=== PATIENT | female | born 1960 | race Caucasian/White ===

== ENCOUNTER 2024-07-27 02:10 | Inpatient (IN) | payer OTHER, SELFPAY ==
--- NOTE | 2024-07-26 22:16 | ED.GENMED ---
History of Present Illness
<VENESSA Velazquez - Last Filed: 07/27/24 02:24>
General
Chief Complaint: Cardiac Symptoms
Source: patient
Exam Limitations: none
Time Seen by Provider: 07/26/24 22:08
Nursing documentation reviewed up to this point in time: agreed with
History of Present Illness
History of Present Illness:
Patient is a 64-year-old female past medical history of A-fib CHF hypertension, hearing impaired who lives with brother presents to the ER via triage complaining of shortness of breath and chest pain for several weeks along with lower extremity
swelling.
Patient admits to having a history bedbugs. She presents very unkept with poor hygiene. Language line used for assistance. Patient has not taken any of her medicine in at least 6 months.
She denies any recent illness fever chills. She does not smoke.
Patient does have a history of A-fib and had cardioversion November 2022
Past History
<VENESSA Velazquez - Last Filed: 07/27/24 02:24>
Past History
ED Past Medical History: Arrthythmia (Atrial fibrillation), CHF, HTN and Other (eaf)
ED Past Surgical History: None
Patient has exhibited threatening behavior?: No
Social History
Tobacco: Non-smoker
Alcohol: None
Drug: None
Personal: Other
Living: with family
Employment: Other
Family History
Family History: Unable to obtain
Review of Systems
<VENESSA Velazquez - Last Filed: 07/27/24 02:24>
Review of Systems
Allergies reviewed?: Yes
All Other Systems: ROS reviewed and negative except as documented in HPI and ROS
Constitutional: Reports no symptoms
EENT: Reports no symptoms
Respiratory: Reports cough and trouble breathing
Cardiac: Reports chest pain and palpitations; Denies syncope
ABD/GI: Reports no symptoms
: Reports no symptoms
Musculoskeletal: Reports other (Swelling of lower extremities bilaterally)
Skin: Reports no symptoms
Neurological: Reports no symptoms
Psychiatric: Reports no symptoms
Phy Exam
<VENESSA Velazquez - Last Filed: 07/27/24 02:24>
General Physical Exam
General Presentation: no apparent distress
General age: appears older than age
General Skin: warm and dry
General Habitus: poor hygiene
General Mental: alert
General Hydration: appears well hydrated
Cardiovascular Exam
Cardiovascular Exam: irregularly irregular
Neurological Exam
Neurological Exam: alert and oriented x3
Musculoskeletal Exam
Musculoskeletal Exam: other (+ swelling to b/l l/e ; extremities l/e pulses by doppler )
Skin Exam
Skin Exam: normal color and warm/dry
Psychiatric Exam
Psychiatric Exam: normal mood/affect
Course
<VENESSA Velazquez - Last Filed: 07/27/24 02:24>
Orders/Labs/Results
Orders:
Orders
07/26/24 21:56
EKG [Electrocardiogram (*1)] Urgent
Reason for Study: Atrial Fibrillation
EKG- Treatment ONCE
07/26/24 22:28
CR Chest Portable - 1 View Urgent
Comment:
Reason For Exam: sob, rapid afib
Reason Study Needs to be Portable: Unable to Transport
07/26/24 22:36
Diltiazem 125 mg/125 ml Nss [Cardizem] 125 mg in 125 ml IV NOW
Initial dose in mg/hr, then titrate:: 5
Titrate to keep:: Heart rate 80-100 bpm
Titrate by mg/hr:: 5 mg/hr
Frequency of titrations (minutes):: 15
Maximum dose in mg/hr:: 15
Diltiazem HCl [Cardizem] 10 mg IV NOW STA
07/26/24 22:50
Complete Blood Count/With Diff Urgent
Comprehensive Metabolic Panel Urgent
Magnesium Urgent
NT-proBNP Urgent
PTT Urgent
TSH Reflex To Free T4 Urgent
Troponin I Urgent
07/27/24 00:06
Furosemide [Lasix] 40 mg IV NOW STA
07/27/24 00:31
B-Hydroxybutyrate Urgent
Comment: ADDED
Lactic Acid Urgent
Procalcitonin Urgent
PCT Algorithmm Indication: Respiratory
07/27/24 01:15
Urinalysis Reflex To Culture Urgent
Date Specimen was Collected: 07/27/24
Time Specimen was Collected: 02:08
07/27/24 01:21
Add On- LAB Urgent
Comments:: B-Hydroxybutyrate
Tests Added?: B-Hydroxybutyrate
07/27/24 01:42
Admit/Transfer Patient As Directed
Co-Sign Provider:
Level of Care: Inpatient admission
Assign to:: IMU- Intermediate Care
Physician / Group: Norberto
Diagnosis: A-Fib with RVR, CHF
Reason for Hospitalization: A-Fib with RVR, CHF
Expected length of stay greater than two midnights?: Yes
ELOS- Estimated Length of Stay in days: 4
I certify the patient meets the requirements for IP care: Yes
Metoprolol Xl [Toprol Xl] 50 mg PO NOW STA
PRN Pain Medication Management As Directed
May give lesser potent ordered pain med per pt: Yes
preference::
Protocol:: Medication orders for pain may be administered in a
manner that supports deferring to patient preference
when the pt is:
- Requesting an ordered lesser potent pain medication.
Least to most potent pain medications are defined
as: acetaminophen < NSAID < tramadol < opioids
(morphine, oxycodone, hydromorphone).
- Requesting a lesser dose of the same medication IF
ORDERED.
- Requesting a less intrusive route of administration
if both routes are prescribed by the provider (PO <
IV).
07/27/24 01:44
Code Status As Directed
Resuscitation Status: Full Code
07/27/24 02:00
Flush (0.9% Sodium Chloride) [Flush (Nss)] See Dose Instructions IV PER PROTOCOL
Abnormal Lab Results
07/26/24 07/27/24
22:50 00:31
WBC 11.9 H 10^3/uL
(4.8-10.8)
Hgb 10.4 L g/dL
(12.0-16.0)
Hct 34.3 L %
(37.0-47.0)
MCV 75.2 L fL
(81.0-99.0)
MCH 22.8 L pg
(27.0-31.0)
MCHC 30.3 L g/dL
(33.0-37.0)
RDW 18.8 H %
(11.5-14.5)
MPV 10.5 H fL
(7.4-10.4)
Abs Immat Gran (auto) 0.1 H 10^3/uL
(0-0.05)
Absolute Neuts (auto) 10.5 H 10^3/uL
(1.4-6.5)
Absolute Lymphs (auto) 0.6 L 10^3/uL
(1.2-3.4)
Absolute Monos (auto) 0.8 H 10^3/uL
(0.1-0.6)
Neutrophils % 87.7 H %
(42.2-75.2)
Lymphocytes % 5.1 L %
(20.5-51.1)
Carbon Dioxide 17 L mmol/L
(22-30)
BUN 35 H mg/dl
(7-17)
Creatinine 1.1 H mg/dL
(0.6-1.0)
Total Bilirubin 2.6 H mg/dl
(0.2-1.3)
Procalcitonin 0.30 H ng/ml
(0.0-0.25)
B-Hydroxybutyrate 1.21 H mmol/L
(0.02-0.27)
07/26/24 22:50
07/26/24 22:50
Vital Signs
Initial and Last Documented VS:
Initial Vital Signs
Pulse Resp BP
157 39 126/95
07/26/24 22:27 07/26/24 22:27 07/26/24 22:27
Last Documented Vital Signs
Temp Pulse Resp BP Pulse Ox
98.6 F 135 27 130/103 95
07/27/24 00:10 07/27/24 02:11 07/27/24 02:00 07/27/24 02:11 07/27/24 01:45
[place] consulted with Physician
[place] consulted with physician?: Yes
Name of Physician Consulted: deysi
<Melinda Rangel, DO - Last Filed: 07/27/24 00:33>
Orders/Labs/Results
Orders:
Orders
07/26/24 21:56
EKG [Electrocardiogram (*1)] Urgent
Reason for Study: Atrial Fibrillation
EKG- Treatment ONCE
07/26/24 22:28
CR Chest Portable - 1 View Urgent
Comment:
Reason For Exam: sob, rapid afib
Reason Study Needs to be Portable: Unable to Transport
07/26/24 22:36
Diltiazem 125 mg/125 ml Nss [Cardizem] 125 mg in 125 ml IV NOW
Initial dose in mg/hr, then titrate:: 5
Titrate to keep:: Heart rate 80-100 bpm
Titrate by mg/hr:: 5 mg/hr
Frequency of titrations (minutes):: 15
Maximum dose in mg/hr:: 15
Diltiazem HCl [Cardizem] 10 mg IV NOW STA
07/26/24 22:50
Complete Blood Count/With Diff Urgent
Comprehensive Metabolic Panel Urgent
Magnesium Urgent
NT-proBNP Urgent
PTT Urgent
TSH Reflex To Free T4 Urgent
Troponin I Urgent
07/27/24 00:06
Furosemide [Lasix] 40 mg IV NOW STA
07/27/24 00:31
B-Hydroxybutyrate Urgent
Comment: ADDED
Lactic Acid Urgent
Procalcitonin Urgent
PCT Algorithmm Indication: Respiratory
07/27/24 01:15
Urinalysis Reflex To Culture Urgent
Date Specimen was Collected: 07/27/24
Time Specimen was Collected: 02:08
07/27/24 01:21
Add On- LAB Urgent
Comments:: B-Hydroxybutyrate
Tests Added?: B-Hydroxybutyrate
07/27/24 01:42
Admit/Transfer Patient As Directed
Co-Sign Provider:
Level of Care: Inpatient admission
Assign to:: IMU- Intermediate Care
Physician / Group: Norberto
Diagnosis: A-Fib with RVR, CHF
Reason for Hospitalization: A-Fib with RVR, CHF
Expected length of stay greater than two midnights?: Yes
ELOS- Estimated Length of Stay in days: 4
I certify the patient meets the requirements for IP care: Yes
Metoprolol Xl [Toprol Xl] 50 mg PO NOW STA
PRN Pain Medication Management As Directed
May give lesser potent ordered pain med per pt: Yes
preference::
Protocol:: Medication orders for pain may be administered in a
manner that supports deferring to patient preference
when the pt is:
- Requesting an ordered lesser potent pain medication.
Least to most potent pain medications are defined
as: acetaminophen < NSAID < tramadol < opioids
(morphine, oxycodone, hydromorphone).
- Requesting a lesser dose of the same medication IF
ORDERED.
- Requesting a less intrusive route of administration
if both routes are prescribed by the provider (PO <
IV).
07/27/24 01:44
Code Status As Directed
Resuscitation Status: Full Code
07/27/24 02:00
Flush (0.9% Sodium Chloride) [Flush (Nss)] See Dose Instructions IV PER PROTOCOL
Abnormal Lab Results
07/26/24 07/27/24
22:50 00:31
WBC 11.9 H 10^3/uL
(4.8-10.8)
Hgb 10.4 L g/dL
(12.0-16.0)
Hct 34.3 L %
(37.0-47.0)
MCV 75.2 L fL
(81.0-99.0)
MCH 22.8 L pg
(27.0-31.0)
MCHC 30.3 L g/dL
(33.0-37.0)
RDW 18.8 H %
(11.5-14.5)
MPV 10.5 H fL
(7.4-10.4)
Abs Immat Gran (auto) 0.1 H 10^3/uL
(0-0.05)
Absolute Neuts (auto) 10.5 H 10^3/uL
(1.4-6.5)
Absolute Lymphs (auto) 0.6 L 10^3/uL
(1.2-3.4)
Absolute Monos (auto) 0.8 H 10^3/uL
(0.1-0.6)
Neutrophils % 87.7 H %
(42.2-75.2)
Lymphocytes % 5.1 L %
(20.5-51.1)
Carbon Dioxide 17 L mmol/L
(22-30)
BUN 35 H mg/dl
(7-17)
Creatinine 1.1 H mg/dL
(0.6-1.0)
Total Bilirubin 2.6 H mg/dl
(0.2-1.3)
Procalcitonin 0.30 H ng/ml
(0.0-0.25)
B-Hydroxybutyrate 1.21 H mmol/L
(0.02-0.27)
07/26/24 22:50
07/26/24 22:50
Vital Signs
Initial and Last Documented VS:
Initial Vital Signs
Pulse Resp BP
157 39 126/95
07/26/24 22:27 07/26/24 22:27 07/26/24 22:27
Last Documented Vital Signs
Temp Pulse Resp BP Pulse Ox
98.6 F 135 27 130/103 95
07/27/24 00:10 07/27/24 02:11 07/27/24 02:00 07/27/24 02:11 07/27/24 01:45
<VENESSA Velazquez - Last Filed: 07/27/24 02:24>
MDM/Problems Addressed
MDM/Problems Addressed:
As documented patient is a 64-year-old female with above medical history presents with shortness of breath chest pain and lower extremity swelling. Patient is hearing impaired language line used in translation. Patient presents with poor hygiene.
She does live with her brother does admit to having bedbugs. She has not taken her medicine in over 6 months because of money issues. She presents in rapid A-fib
Her hygiene is poor.
She does have lower extremity swelling pulses felt by Doppler. Cardizem ordered. Case reviewed with ED physician who evaluated patient.
Patient denies any fevers is afebrile white count minimally elevated 11.9, her renal function is at baseline her bilirubin however is elevated at 2.6 with normal LFTs. Her proBNP is elevated at 13,400 and her chest x-ray does look like CHF.
Patient was given Lasix IV and admitted to the hospitalist service. Patient was admitted to the hospitalist service who does recommend resuming Eliquis for stroke risk reduction
Chronic conditions affecting care:
A-fib noncompliant on medications CHF hypertension
<VENESSA Velazquez - Last Filed: 07/27/24 02:24>
*Critical Care Note
Total Time (30-74mins, 75-104mins- exclusive of procedures): Not Applicable
ED Attending Note
<VENESSA Velazquez - Last Filed: 07/27/24 02:24>
-
Portions of this chart may have been created with voice recognition software.� Occasional wrong word or��sound alike� substitutions may have occurred due to the inherent limitations of voice recognition software.
<Melinda Rangel DO - Last Filed: 07/27/24 00:33>
ED Attending Note
Patient seen and examined by attending physician: Yes
I performed a history and physical exam of patient and discussed management with resident, I reviewed resident's note and agree with documented findings and plan of care.: Yes
ED Attending Note:
64-year-old woman with history of PAF, reduced EF heart failure, history of poor compliance with medications as well as follow-up presents with palpitations, cough, progressive swelling bilateral feet that began 3 to 4 weeks ago.
Has been out of her medications for at least 6 months.
Very similar presentation during hospitalization October 2022. She has history of failed electrical cardioversion.
Previous echocardiogram showing EF of 35 to 40%, moderate global hypokinesis.
Patient arrives via EMS, significantly disheveled, unkempt and questionable bedbugs noted by nursing staff.
She is afebrile and patient denies feeling febrile at home. Hemodynamically stable. Systolic blood pressure in the 120s.
Heart is irregularly irregular, tachycardic.
Lungs with decreased breath sounds at bases, bilateral Rales 1/3-1/[address]
+2-3 pitting edema bilateral lower extremities. Bilateral dorsalis pedis pulses by Doppler.
EKG shows atrial fibrillation with rapid ventricular response, nonspecific ST-T wave abnormalities but no evidence of significant ischemia.
Chest x-ray shows cardiomegaly, pulmonary edema with atelectasis versus CHF/pseudo infiltrate right lower lobe.
Labs are remarkable for mildly elevated white blood cell count of 11.9. Mild anemia with hemoglobin of 10.4 which is trended down from 15.8. 2022.
Creatinine of 1.1, BUN of 35, overall similar to previous. Mild metabolic acidosis with CO2 of 17, new compared to previous.
Troponin is normal.
BNP significantly elevated 13,400 which is highest its ever been.
Normal TSH, normal magnesium.
IV Cardizem has been initiated, initial half dose bolus and drip at 5 mg/h due to borderline blood pressure. Thus far tolerating well and remains hemodynamically stable. Heart rate remains in the 120s to 130s, will titrate Cardizem and will give
an IV dose of Lasix for CHF.
Mildly elevated white blood cell count and chest x-ray concerning for potential infiltrate right lower lobe. Will check lactic acid and procalcitonin. Will hold off on antibiotic for now.
Will discuss IV heparin versus Lovenox initiation with hospitalist.
Will admit to hospitalist service.
Discharge Plan
Departure
Patient Disposition: Admit
Date of Disposition: 07/27/24
Time of Disposition: 00:32
Admit to: Telemetry
Admit to doctor: Norberto
Presentation/result/management discussed w/ accepting MD/DO: Hospitalist
Condition: Serious
Discharge Problem:
Acute on chronic HFrEF (heart failure with reduced ejection fraction), PAF with RVR, Noncompliance
Interventions
Interventions:
*General Assessment Last Done: 07/27/24 01:56
*ED COVID-19 Vaccine History Last Done: 07/27/24 01:56
ED- Pulmonary Assessment Last Done: 07/26/24 23:55
ED- Cardiac Assessment Last Done: 07/26/24 23:55
[2024-07-26 22:27] VITALS: BP 126/95
[2024-07-26 22:57] LABS: % Basophils 0.2 % (0-2); % Immature Granulocytes 0.4 % (0-0.5); % Lymphocytes 5.1 % (20.5-51.1); % Monocytes 6.6 % (1.7-9.3); % Neutrophils 87.7 % (42.2-75.2); Absolute Immature Granulocytes 0.1 10^3/uL (0-0.05); Absolute Lymphocytes 0.6 10^3/uL (1.2-3.4); Absolute Monocytes 0.8 10^3/uL (0.1-0.6); Absolute Neutrophils 10.5 10^3/uL (1.4-6.5); Hematocrit 34.3 % (37.0-47.0); Hemoglobin 10.4 g/dL (12.0-16.0); Mean Corp Hgb Conc. 30.3 g/dL (33.0-37.0); Mean Corpuscular Hgb 22.8 pg (27.0-31.0); Mean Corpuscular Volume 75.2 fL (81.0-99.0); Mean Platelet Volume 10.5 fL (7.4-10.4); Nucleated Red Blood Cells % 0.4 %; Platelet Count 264 10^3/uL (130-400); Red Blood Cell Count 4.56 10^6/uL (4.20-5.40); Red Cell Dist. Width 18.8 % (11.5-14.5); White Blood Cell Count 11.9 10^3/uL (4.8-10.8)
[2024-07-26 23:00] VITALS: BP 121/82
[2024-07-26] MEDS: CARDIZEM 10 MG IV (23:00)
[2024-07-26 23:07] LABS: APTT 28.5 Sec (23.4-35.0)
[2024-07-26 23:10] LABS: ALT (SGPT) 13 U/L (0-35); AST (SGOT) 27 U/L (14-36); Albumin 3.9 g/dl (3.5-5.0); Alkaline Phosphatase 72 U/L (38-126); Blood Urea Nitrogen 35 mg/dl (7-17); Calcium 9.4 mg/dl (8.4-10.2); Carbon Dioxide 17 mmol/L (22-30); Chloride 101 mmol/L (98-107); Glucose 93 mg/dl (70-99); Magnesium 1.7 mg/dl (1.6-2.3); Potassium 4.6 mmol/L (3.5-5.1); Sodium 136 mmol/L (135-145); Total Bilirubin 2.6 mg/dl (0.2-1.3); Total Protein 7.5 g/dl (6.3-8.2); eGFR 56.46
[2024-07-26 23:19] LABS: NT-proBNP 13400 pg/ml; Troponin I < 0.012 ng/ml
[2024-07-26] MEDS: CARDIZEM 125 IV (23:27)
[2024-07-26 23:35] VITALS: BP 125/101
[2024-07-26 23:39] LABS: TSH Reflex To Free T4 1.91 uIU/ml (0.47-4.68)
[2024-07-27] VITALS (21 sets, daily range): BP systolic 95–139; BP diastolic 68–104; PULSE 89–94; O2SAT 94; BMI 29.5
[2024-07-27] MEDS: LASIX 40 MG IV ×3 (00:13→16:27)
[2024-07-27 00:59] LABS: Lactic Acid 1.5 mmol/L (0.7-2.0)
--- NOTE | 2024-07-27 01:51 | HPS.HSE ---
Family Physician
-
Family Physician: NO INTERVIEW UNKNOWN
Chief Complaint
-
SOB, LE swelling
History of Present Illness
Patient is a 64y F with PMH significant for paroxysmal A-Fib and CHF who presents to ED complaining of increased SOB, chest pain with exertion and LE swelling over the past 3 weeks or so. Patient has known h/o A-Fib and CHF with multiple prior
admissions for the same. She has failed multiple cardioversions in the past. Her most recent hospitalization was 10/2022 with similar presentation and she was discharged at that time on amiodarone, Lasix and Eliquis. Patient states that she has
not taken any medications at all in about a year. She states this is due to financial issues/ constraints.
She denies any recent cough, fevers / chills, GI or complaints.
Medical History
Past Medical History
Past Medical History: Reports Other
Additional Past Medical History:
Paroxysmal Atrial Fibrillation
Chronic HFrEF
Hypertension
Hearing Loss
Past Surgical History: Reports Other
Additional Past Surgical History:
Cardioversion x multiple.
Social History
Tobacco: Non-smoker
Alcohol: None
Drug: None
Family History
Family History: Not pertinent
Allergies / Home Medications
Allergies reflects when Allergies were last updated in [facility].
Home Medications with original date entered in [facility]
Allergy/Medication List:
Allergies
Allergy/AdvReac Type Severity Reaction Status Date / Time
No Known Allergies Allergy Verified 07/20/23 18:56
Home Medications
Patient has taken no medications in 1 year.
Review of Systems
-
History Source: Patient
A 12 point ROS was completed and negative except as noted: Yes
Constitutional: Reports Weight Gain and Fatigue; Denies Fever or Chills
EENT: Denies Sore Throat
Respiratory: Reports Trouble Breathing; Denies Cough or Hemoptysis
Cardiac: Reports Chest Pain; Denies Diaphoresis, Palpitations or Syncope
Abdomen/GI: Denies Abdominal Pain, Nausea, Vomiting or Diarrhea
: Denies Dysuria, Frequency or Flank Pain
Musculoskeletal: Reports Edema; Denies Joint Pain or Muscle Pain
Skin: Reports Itching and Rash
Neurological: Denies Dizzy or Headache
Psych: Denies Depression or Anxiety
Physical Exam
Vital Signs
Vital Signs
Temp Pulse Resp BP Pulse Ox
98.6 F 138 27 120/87 95
07/27/24 00:10 07/27/24 00:13 07/27/24 00:00 07/27/24 00:13 07/27/24 00:00
Physical Exam
General: Other (64y F in no acute distress. Disheveled appearance.)
HEENT: Moist mucous membranes, PERRLA and Other (Neck supple.)
Respiratory: Other (Decreased BS at the R base about 1/3 up. Few bibasilar rales. No wheeze / rhonchi.)
Cardiac: S1/S2, Irregular Rhythm and Tachycardia
GI: Soft, Non Tender, Non Distended and Normal Bowel Sounds
Rectal: Other (Fleshy, non-bleeding external hemorrhoids. Stool heme negative.)
Musculoskeletal: Other (LE edema 2-3+ to the thighs bilaterally.)
Skin: Other (Moderate - severe eczema on the b/l UE - R > L.)
Neuro: AO x 3 and Nonfocal/grossly intact
Laboratory Results
-
07/26/24 22:50
07/26/24 22:50
Laboratory Results
APTT 28.5 Sec (23.4-35.0) 07/26/24 22:50
Lactic Acid 1.5 mmol/L (0.7-2.0) 07/27/24 00:31
Total Bilirubin 2.6 mg/dl (0.2-1.3) H 07/26/24 22:50
AST 27 U/L (14-36) 07/26/24 22:50
ALT 13 U/L (0-35) 07/26/24 22:50
Alkaline Phosphatase 72 U/L (38-126) 07/26/24 22:50
Troponin I < 0.012 ng/ml 07/26/24 22:50
Impression/Plan
-
A/P: Patient is a 64y F with PMH significant for A-Fib and CHF who presents to ED complaining of SOB and LE edema x 3 weeks.
Paroxysmal Atrial Fibrillation with Rapid Ventricular Response
- Admit to IMU for further evaluation and treatment.
- Continue IV diltiazem and titrate as needed for rate control.
- Continue PO beta blockade - first dose now.
- Patient has been resistant to usual rate control methods and has required amiodarone in the past.
- Cardiology evaluation for additional recommendations.
- Resume Eliquis now for stroke risk reduction.
Acute on Chronic HFrEF
- LE edema, SOB, R pleural effusion and elevated BNP from prior.
- IV Lasix and follow I/Os, daily weights, etc.
- Update Echo.
- Cardiology evaluation as noted above.
- Suspect that rapid A-Fib played significant role in decompensation of HF.
Benign Hypertension
- BP stable on IV diltiazem / tolerating diuresis thus far.
- Continue metoprolol as noted above.
- Hold on restarting BHARAT inhibitor acutely to allow for effective diuresis.
- Adjust meds as needed prior to discharge.
Anion Gap Metabolic Acidosis
- Anion gap on initial labs is 18 with HCO3 = 17.
- Unclear etiology with normal lactate, troponin and no history of DM, recent med / drug use, etc.
- B-OH added.
- Follow for changes in labs / lytes with diuresis.
Microcytic Anemia
- This is a new issue. Hgb = 10.4 compared to prior values > 15.
- Patient denies any gross / evident blood loss.
- Heme test done by me in the ED was negative for occult blood.
- Check iron studies, etc.
- GI evaluation for additional recommendations.
- With no evidence of active bleeding and heme negative stool - elected to resume Eliquis for A-Fib as noted above.
Eczema
- Significant rash / itching / eczema of the arms bilaterally.
- Trial of topical steroid - follow for improvement.
DVT Prophylaxis: Eliquis
Code Status: Full
[2024-07-27] MEDS: TOPROL XL 50 MG PO ×3 (02:11→20:39)
[2024-07-27 02:13] LABS: B-Hydroxybutyrate 1.21 mmol/L (0.02-0.27)
[2024-07-27 02:43] LABS: Urine Albumin Negative (Neg - Trace); Urine Bilirubin Negative (Negative); Urine Character Clear (Clear); Urine Color Yellow; Urine Glucose Negative (Negative); Urine Ketone Negative (Negative); Urine Leukocyte Trace (Negative); Urine Nitrite Negative (Negative); Urine Occult Blood Negative (Negative); Urine Urobilinogen Negative (Neg - 1+)
[2024-07-27 03:29] LABS: Urine Squamous Cell 21-25 /LPF (Few)
[2024-07-27 03:31] LABS: Urine Bacteria Moderate (Negative)
[2024-07-27 03:32] LABS: Urine Red Blood Cell 0-2 /HPF (0-2)
--- NOTE | 2024-07-27 03:56 | PTCARENOTE ---
Rec'd pt from ED RN. Pt is deaf and communicated via sign language. This RN communicated with pt using video language line with member number [id number] and completed the admission with member number [id number]. Pt is pleasant and cooperative. Pt is in
afib, rate 107 with bursts to 130s-140s. Cardizem is running through [employer] at 15. Call padilla within reach.
[2024-07-27 05:01] LABS: Hematocrit 30.5 % (37.0-47.0); Hemoglobin 8.9 g/dL (12.0-16.0); Mean Corp Hgb Conc. 29.2 g/dL (33.0-37.0); Mean Corpuscular Hgb 22.1 pg (27.0-31.0); Mean Corpuscular Volume 75.7 fL (81.0-99.0); Mean Platelet Volume 10.3 fL (7.4-10.4); Platelet Count 223 10^3/uL (130-400); Red Blood Cell Count 4.03 10^6/uL (4.20-5.40); Red Cell Dist. Width 18.6 % (11.5-14.5); White Blood Cell Count 10.8 10^3/uL (4.8-10.8)
[2024-07-27] MEDS: MORPHINE SULFATE 0.5 MG IV (05:19)
[2024-07-27 05:27] LABS: Troponin I < 0.012 ng/ml
[2024-07-27 05:39] LABS: Blood Urea Nitrogen 34 mg/dl (7-17); Calcium 8.7 mg/dl (8.4-10.2); Carbon Dioxide 21 mmol/L (22-30); Chloride 101 mmol/L (98-107); Estimated Creatinine Clearance 67 ml/min; Glucose 86 mg/dl (70-99); HDL Cholesterol 18 mg/dl; Iron 30 ug/dl (37-170); LDL Cholesterol, Calculated 54 mg/dl; Sodium 136 mmol/L (135-145); Total Cholesterol 83 mg/dl (50-199); Triglyceride 57 mg/dl (10-149); Very Low Density Lipoprotein 11 mg/dl (0-30); eGFR > 60.00
[2024-07-27 05:48] LABS: Percent Saturation 9 % (20-50); Total Iron Binding Capacity 328 ug/dl (265-497)
--- NOTE | 2024-07-27 08:01 | W.PN.HOSP.TC ---
Today's Communication/Plan
-
Continue IV diuresis
Wean Cardizem Drip as able
Assessment / Plan
Assessment / Plan
Physical Exam
General: Not in acute distress
HEENT: Moist mucous membranes
Respiratory: Decreased breath sounds bilaterally
Cardiac: S1/S2, Irregular Rhythm
GI: Soft, Non Tender, Non Distended and Normal Bowel Sounds
Musculoskeletal: +2 bilateral lower extremity edema
Skin: Warm. Dry.
Neuro: AO x 3 and Nonfocal/grossly intact
Psych: Calm
Assessment/Plan
Patient is a 64y F with PMH significant for A-Fib and CHF who presents to ED complaining of SOB and LE edema x 3 weeks. She presented with A-Fib / RVR and CHF. She was last admitted in 10/2022 for the same. Has taken no medications in about a
year due to medications being unaffordable for her. Similar to prior presentation. IV dilt started on admission. Restarted Eliquis. IV Lasix. Cardio consulted. Has new anemia this time. Patient denies any noted blood loss. Heme negative stool
for me. Iron studies, GI consult, etc. Case Management consult for discharge plan / med assistance.
Persistent Atrial Fibrillation with Rapid Ventricular Response
- Continue IV diltiazem and titrate as needed for rate control.
- Continue PO beta blockade
- Patient has been resistant to usual rate control methods and has required amiodarone in the past.
- Cardiology evaluation for additional recommendations.
- [id number] score is 3
- Eliquis has been added back
- Cannot safely use rhythm control strategy at this time due to patient noncompliance with medications and follow-up, as per cardiology
Acute on Chronic HFrEF
Cardiomyopathy -- type is unknown
- LE edema, SOB, R pleural effusion and elevated BNP from prior.
- IV Lasix and follow I/Os, daily weights, etc.
- Update Echo.
- Cardiology evaluation as noted above.
- Suspect that rapid A-Fib played significant role in decompensation of HF.
- Add back on ACEI and BB already resumed). Other meds are limited by affordability and compliance.
Benign Hypertension
- BP stable on IV diltiazem / tolerating diuresis thus far.
- Continue metoprolol as noted above.
- Continue BHARAT-I
- Adjust meds as needed prior to discharge.
Anion Gap Metabolic Acidosis
- Anion gap on initial labs is 18 with HCO3 = 17.
- Unclear etiology with normal lactate, troponin and no history of DM, recent med / drug use, etc.
- B-OH added and was slightly elevated 1.21.
- Consulted nephrology, appreciate their evaluation and recommendations
Microcytic Anemia
Iron Deficiency Anemia
- This is a new issue. Hgb = 10.4 compared to prior values > 15.
- Patient denies any gross / evident blood loss.
- Heme test in the ED was negative for occult blood.
- Iron studies suggest iron deficiency anemia
- IV iron started on 07/27/24
- Check folate and vitamin B12
Eczema
- Significant rash / itching / eczema of the arms bilaterally.
- Trial of topical steroid - follow for improvement.
DVT Prophylaxis: Eliquis
Code Status: Full
Cardizem Drip is a high risk encounter.
Anticipated Discharge: > 48 hours
Subjective/Interval History
-
Date of Service: July 27, 2024
Patient was seen and examined. No new complaints or events.
Objective Data
-
Labs:
Laboratory Results
07/26/24 07/27/24
22:50 04:43
WBC 11.9 H 10.8
Hgb 10.4 L 8.9 L
Hct 34.3 L 30.5 L
Plt Count 264 223
APTT 28.5
Sodium 136 136
Potassium 4.6 4.0
Chloride 101 101
Carbon Dioxide 17 L 21 L
BUN 35 H 34 H
Creatinine 1.1 H 1.0
Glucose 93 86
Calcium 9.4 8.7
Total Bilirubin 2.6 H
AST 27
ALT 13
Alkaline Phosphatase 72
Vital Signs:
Vital Signs
Temp Pulse Resp BP Pulse Ox
98.5 F 82 26 105/77 96
07/27/24 03:45 07/27/24 06:00 07/27/24 06:00 07/27/24 06:00 07/27/24 06:00
I&O
07/26/24 07/27/24 07/28/24
06:59 06:59 06:59
Output Total 675 / 675
Balance -675 / -675
--- NOTE | 2024-07-27 08:38 | CON.CAR ---
Addendum entered and electronically signed by Matthew Sharma MD 07/27/24 12:42:
64 yo female with PMH of chronic HFrEF, paroxysmal A fib is admitted with SOB and edema. She ran out of all of her meds, and noticed worsening SOB and edema. Exam with irregular rhythm, no murmurs, 1+ LE edema. Cr 1.0.
Acute on chronic HFrEF. Continue IV lasix with close monitoring of labs, tele, weight. Check echo.
A fib with RVR. With med noncompliance, will focus on rate control. Resume Toprol XL. Hope to wean off of diltiazem by of end of day.
Original Note:
Consultation
Consultation Request
Date/Time Consultation Requested: 07/27/24314
Date/Time Consultation Performed: 07/27/24837
Requesting Provider: Dr. Thornton
Performing Provider: Joan CLIFFORD for Dr. Sharma
Reason for Consultation: AFIB, CHF
Medical History
-
Chief Complaint: SOB
History of Present Illness:
64 y/o female with hypertension, AFIB (previously on Eliquis), and HFrEF EF 35-40% who is here for evaluation of shortness of breath, chest discomfort, and LE edema. She reports a 10 lbs weight gain. There is medical (medication and follow-up)
non-compliance, due to finances per patient. She has not taken her medicines in a year. She is seen to have AFIB with RVR and piohr-uh-tcckfbr HFrEF. She is currently on diltiazem gtt and Lasix IV. Echo is pending. Of note, she is deaf, so we
communicated effectively through my writing and her speaking. She denies any fever or chills or blood in urine or stool. She has had similar presentations in the past. Of note, there is a report of bedbugs and I used contact precautions when in the
room. Trops normal.
Past Medical History
Past Medical History: Arrhythmias, CHF, HTN and Other (as above)
Social History
Tobacco: Non-Smoker
Family History
Family History: Other (dad CHF age 78)
Allergies / Home Medications
Allergy/AdvReac Type Severity Reaction Status Date / Time
No Known Allergies Allergy Verified 07/20/23 18:56
�Medication �Instructions �Recorded �Confirmed �Type
amiodarone 200 mg tablet (Pacerone) 200 mg PO BID #60 tabs 10/26/22 07/26/24 Rx
apixaban 5 mg tablet (Eliquis) 5 mg PO BID #60 tabs 10/26/22 07/26/24 Rx
furosemide 20 mg tablet 20 mg PO BID AT 0800,1600 #6 tabs 10/26/22 07/26/24 Rx
lisinopril 5 mg tablet 5 mg PO DAILY #60 tabs 10/26/22 07/26/24 Rx
metoprolol succinate 50 mg 50 mg PO BID #6 tabs 10/26/22 07/26/24 Rx
tablet,extended release 24 hr
Review of Systems
-
History Source: Patient and Other (and chart)
Respiratory: Trouble Breathing
Cardiac: Chest Pain
Musculoskeletal: Edema
Physical Exam
Vital Signs
Temp Pulse Resp BP Pulse Ox
97.4 F 82 26 105/77 96
07/27/24 07:28 07/27/24 06:00 07/27/24 06:00 07/27/24 06:00 07/27/24 06:00
Lab Results
07/27/24 04:43
07/27/24 04:43
Troponin I < 0.012 ng/ml 07/27/24 04:43
Nlk-I-Pmbtdywfosb Pept 21625 pg/ml 07/26/24 22:50
Physical Exam
General: No Apparent Distress
HEENT: Normocephalic
Respiratory: Other (on O2 by NC, diminished lung sounds to bases)
Cardiac: Irregular Rhythm and Peripheral Edema (+2 BLE edema)
Musculoskeletal: Edema
Skin: Warm and Dry
Neuro: AO x 3
Psych: Calm
Impression / Plan
-
Phazw-np-hjrvdsz HFrEF:
-most recent EF 35-40% (2022)- update echo
-agree with IV Lasix, which requires intensive monitoring- adjust to BID lasix.
-education, diet
Cardiomyopathy:
-type unknown
-add back on ACEI and BB as able (BB already resumed). Other meds limited by affordability and compliance.
AFIB, persistent: elevated rates
-has required amiodarone in the past
-dilt drip being used for rate control- BB resumed. Increase metoprolol as needed with plan to come off of diltiazem drip. Can continue dilt drip as we get rate-controlled- this requires intensive monitoring.
-I don't think we can safely use rhythm control strategy at this time due to patient noncompliance with meds and follow-up
-[id number] score is 3 for female, HTN, and CHF- Eliquis added back. CM consult as below. Consult for CM is ordered by primary team.
Anemia:
-worsened
-denies any blood in urine or stool
-work-up per primary team
Overall, would recommend case management/social work consult to address her financial issues leading to non-compliance. I spoke with her about this and let her know that meds and follow-up importance for her condition.
Data Reviewed
-
EKG: Tracing Personally Visualized and interpreted (AFIB 114 BPM)
Radiology: Report Reviewed by me (Mild CHF with small pleural effusions and bibasilar atelectasis.)
Medical Tests (Nuc Med, Echo etc): Report Reviewed by me (GEOVANNY 10/23/22: Moderately reduced left ventricular systolic function. Left ventricular ejection fraction is 35-40%. Mild to moderate mitral regurgitation.)
Labs: Labs Reviewed by me
[2024-07-27] MEDS: ELIQUIS 5 MG PO ×2 (09:04→20:39)
[2024-07-27] MEDS: HYDROCORTISONE 1% LOTION 1 APPLIC TOPICAL ×2 (09:05→20:39)
--- NOTE | 2024-07-27 10:55 | CON.GI ---
Addendum entered and electronically signed by Jayce Robles MD 07/27/24 13:43:
I saw and examined the patient.
The clinical medical assistant note was reviewed and I agree with the note.
64-year-old female with past medical history of paroxysmal atrial fibrillation, chronic heart failure with preserved ejection fraction, essential hypertension, and hearing loss who presented to emergency with palpitations and bilateral leg swelling
for the past few days to weeks. She is noncompliant with her medications. On her workup in the emergency department there was anemia with a hemoglobin of 8.9, hematocrit 30.5, MCV 75.7, iron 30, iron saturation of 9, consistent with microcytic
anemia. GI was consulted to evaluate. She denies any GI issues.
-- Microcytic anemia . No overt or occult GI bleeding. No prior EGD or colonoscopy
-- Acute on chronic CHF-noncompliance with medication
-- A-fib
plan
Continue iron supplementation
Discussed benefits and risk of endoscopic evaluation for microcytic anemia including EGD/colonoscopy ( once medically stable and optimized) . Patient would like to think about it and decide in the future.
Continue current management as per medical team
If patient is agreeable EGD/colonoscopy can be done as outpatient once medically stable
No further recommendation at this point. Will sign off
Original Note:
Consultation
-
Date/Time Consultation Requested: 07/27/24,03:15
Date/Time Consultation Performed: 07/27/24,10:30
Requesting Provider: Norberto Frey
Performing Provider: Jayce Robles
Reason for Consultation: Microcytic anemia
Medical History
Chief Complaint / HPI
Chief Complaint: Palpitations in chest-last few days
History of Present Illness:
Patient is a 64-year-old female, unkempt, has eczematous excoriations, bedbugs with past medical history of paroxysmal atrial fibrillation, chronic heart failure with preserved ejection fraction, essential hypertension and hearing loss. History was
obtained with the help of foreign language stenographer. She presented to the emergency with complaints of palpitations and chest discomfort for past few days to weeks. She is on amiodarone, furosemide, and apixaban for her atrial fibrillation and heart
failure. According to the patient she does not take any medications due to her financial issues.
She denies any swallowing difficulties, heartburn, reflux, early satiety, any recent weight gain or loss, diarrhea, constipation, black stools, fresh blood in stools, floating stools, mucoid or ortega stools, vomiting, nausea, hematemesis, or any
other source of bleeding. She says that her diet contains enough proteins, vegetables, and fruits. She denies any personal history of Gilbert syndrome or bleeding disorders. She denies any personal or family history of liver disease, GI issues,
stomach cancer, colorectal cancer, or liver cancer. She does not smoke or drink.
She never had an endoscopy or colonoscopy. She might consider in the future .
Past Medical History
Past Medical History: Arrhythmias (Paroxysmal atrial fibrillation), CHF (Chronic heart failure with preserved ejection fraction), HTN and Other (Hearing loss)
Social History
Tobacco: Non-Smoker
Alcohol: None
Drug: None
Personal: Other (Lives with her brother)
Family History
Family History: Reviewed & Not Pertinent
Allergies / Home Medications
Allergy/AdvReac Type Severity Reaction Status Date / Time
No Known Allergies Allergy Verified 07/20/23 18:56
�Medication �Instructions �Recorded
amiodarone 200 mg tablet (Pacerone) 200 mg PO BID #60 tabs 10/26/22
apixaban 5 mg tablet (Eliquis) 5 mg PO BID #60 tabs 10/26/22
furosemide 20 mg tablet 20 mg PO BID AT 0800,1600 #6 tabs 10/26/22
lisinopril 5 mg tablet 5 mg PO DAILY #60 tabs 10/26/22
metoprolol succinate 50 mg 50 mg PO BID #6 tabs 10/26/22
tablet,extended release 24 hr
Review of Systems
-
All other systems: A 12 pt ROS was Negative except as stated above in HPI
Vital Signs
Temp Pulse Resp BP Pulse Ox
97.4 F 96 30 113/81 96
07/27/24 07:28 07/27/24 08:00 07/27/24 08:00 07/27/24 08:00 07/27/24 09:58
Physical Exam
Exam
General: Other (Unkempt, visible excoriations on skin, thick and yellow nails)
HEENT: Anicteric
Respiratory: Other (Decreased breath sounds on right side, crackles in the left lower lung)
Cardiac: S1/S2 and Irregular Rhythm
Breast: Deferred by me
GI: Soft, Non Tender, Non Distended and Normal Bowel Sounds
Genito-urinary: No Costovertebral Tender
Musculoskeletal: Edema (Moderate bilateral leg edema)
Neuro: Oriented and No Motor Deficits
Psych: Calm
Results
WBC 10.8 10^3/uL (4.8-10.8) 07/27/24 04:43
Hgb 8.9 g/dL (12.0-16.0) L 07/27/24 04:43
Hct 30.5 % (37.0-47.0) L 07/27/24 04:43
MCV 75.7 fL (81.0-99.0) L 07/27/24 04:43
Plt Count 223 10^3/uL (130-400) 07/27/24 04:43
Absolute Neuts (auto) 10.5 10^3/uL (1.4-6.5) H 07/26/24 22:50
APTT 28.5 Sec (23.4-35.0) 07/26/24 22:50
Sodium 136 mmol/L (135-145) 07/27/24 04:43
Potassium 4.0 mmol/L (3.5-5.1) 07/27/24 04:43
Chloride 101 mmol/L (98-107) 11/21/24 04:43
Carbon Dioxide 21 mmol/L (22-30) L 07/27/24 04:43
BUN 34 mg/dl (7-17) H 07/27/24 04:43
Creatinine 1.0 mg/dL (0.6-1.0) 07/27/24 04:43
Calcium 8.7 mg/dl (8.4-10.2) 07/27/24 04:43
Total Bilirubin 2.6 mg/dl (0.2-1.3) H 07/26/24 22:50
AST 27 U/L (14-36) 07/26/24 22:50
ALT 13 U/L (0-35) 07/26/24 22:50
Alkaline Phosphatase 72 U/L (38-126) 07/26/24 22:50
Diagnostic Image Results:
Prior GI Procedures: None
EGD: None
Colonoscopy: None
Assessment / Plan
-
IMPRESSION
Patient is a 64-year-old female with past medical history of paroxysmal atrial fibrillation, chronic heart failure with preserved ejection fraction, essential hypertension, and hearing loss who presented to emergency with palpitations and bilateral
leg swelling for the past few days to weeks. She is noncompliant with her medications. On her workup in the emergency department there was anemia with a hemoglobin of 8.9, hematocrit 30.5, MCV 75.7, iron 30, iron saturation of 9, consistent with
microcytic anemia. GI was consulted to evaluate. She denies any GI issues. She does not have any personal or family history of colon cancer, liver disease, any genetic disorders, any blood disorders, adequate diet, no source of bleed, no GERD, no
blood in stools or vomitus, no steatorrhea.
ASSESSMENT
Microcytic anemia
hemoglobin of 8.9, hematocrit 30.5, MCV 75.7, iron 30, iron saturation of 9
Consistent with iron deficiency anemia
No swallowing difficulties, no food sticking
No heartburn, no early satiety
No nausea vomiting or hematemesis
No blood in stools or melena, no steatorrhea
No recent weight gain or loss
No personal or family history of hepatocellular cancer, colon cancer, liver disease, malabsorptive disorders
Never had a colonoscopy or endoscopy
PLAN
Follow ferritin level
Send folate and vitamin B12 levels
Patient has no current GI issues
Patient would consider thinking about endoscopy/colonoscopies
Follow outpatient
GI can sign off
-
-
Thank you for consultation and allowing me to participate in the patient's care. Please call the biotech production specialist GI physician during the after hours with any questions or concerns.
[2024-07-27 11:17] LABS: Troponin I < 0.012 ng/ml
[2024-07-27] MEDS: ZESTRIL 5 MG PO (15:00)
--- NOTE | 2024-07-27 15:12 | CM ---
Addendum entered by Ashley Sears 07/27/24 15:36:
Explained to patient in writing at the bedside that PT recommended SNF when stable fore discharge; and that referrals were sent to [facility]. She nodded that she is agreeable with DC plan
Original Note:
Patient is Deaf; Initial Assessment completed w/brother via phone
Pharmacy verified: [facility] @ [address] [place] [address], [place], [place]
Unable to verify Family Physician
Brother reported that he and his sister live in a 3 story home; Ramp available to enter; 2 steps to enter; 12-13 steps to her 2nd floor bedroom and bath; stairs have railings; her bath has tub w/ shower
PLOF: brother reported that his sister was independent w/ ADLs, stairs, and ambulation; did not use a device
Brother reported that he supports his sister financially; she is co-plant control operator of their home
No recent history of SNF or Home Health
Explained that PT recommends SNF when stable for discharge; Brother works time analysis clerk and is not her caregiver
SNF options reviewed; will send referrals to [facility]
Plan: Discharge to SNF when medically stable; pending bed availability and AUTH approval
--- NOTE | 2024-07-27 15:58 | W.CON.NEPH ---
Consultation
-
Date/Time Consultation Requested: 07/27/2024 1 PM
Date/Time Consultation Performed: 07/27/2024 4 PM
Requesting Provider: Dr. Song
Performing Provider: Dr. Souza
Reason for Consultation: Metabolic acidosis
Medical History
-
Chief Complaint: Shortness of breath and edema
History of Present Illness:
Patient is a 64yo F with paroxysmal A-Fib and HFrEF who presents to ED complaining of increased SOB, chest pain with exertion and LE swelling over the past 3 weeks or so. She has gained about 10 pounds. Patient has known h/o A-Fib and CHF with
multiple prior admissions for the same. She has failed multiple cardioversions in the past. Her most recent hospitalization was 10/2022 with similar presentation and she was discharged at that time on amiodarone, Lasix and Eliquis. Patient states
that she has not taken any medications at all in about a year due to financial issues.
She denies any recent cough, fevers / chills, GI or complaints.
She was noted to have mild metabolic acidosis on admission.
Past Medical History
Paroxysmal Atrial Fibrillation
Chronic HFrEF
Hypertension
Hearing Loss
Cardioversion x multiple.
Social History
Tobacco: Non-Smoker
Alcohol: None
Family History
Family History: Not Pertinent
Allergies / Home Medications
Allergy/AdvReac Type Severity Reaction Status Date / Time
No Known Allergies Allergy Verified 07/20/23 18:56
�Medication �Instructions �Recorded �Confirmed �Type
amiodarone 200 mg tablet (Pacerone) 200 mg PO BID #60 tabs 10/26/22 07/26/24 Rx
apixaban 5 mg tablet (Eliquis) 5 mg PO BID #60 tabs 10/26/22 07/26/24 Rx
furosemide 20 mg tablet 20 mg PO BID AT 0800,1600 #6 tabs 10/26/22 07/26/24 Rx
lisinopril 5 mg tablet 5 mg PO DAILY #60 tabs 10/26/22 07/26/24 Rx
metoprolol succinate 50 mg 50 mg PO BID #6 tabs 10/26/22 07/26/24 Rx
tablet,extended release 24 hr
Review of Systems
-
hard of hearing
no CP/SOB
All other systems: Negative unless noted
Physical Exam
Vital Signs
Vital Signs
Temp Pulse Resp BP Pulse Ox
97.5 F 88 27 103/73 95
07/27/24 11:10 07/27/24 14:00 07/27/24 14:00 07/27/24 14:00 07/27/24 12:00
Lab Results
WBC 10.8 10^3/uL (4.8-10.8) 07/27/24 04:43
RBC 4.03 10^6/uL (4.20-5.40) L 07/27/24 04:43
Hgb 8.9 g/dL (12.0-16.0) L 07/27/24 04:43
Hct 30.5 % (37.0-47.0) L 07/27/24 04:43
Plt Count 223 10^3/uL (130-400) 07/27/24 04:43
Sodium 136 mmol/L (135-145) 07/27/24 04:43
Potassium 4.0 mmol/L (3.5-5.1) 07/27/24 04:43
Chloride 101 mmol/L (98-107) 07/27/24 04:43
Carbon Dioxide 21 mmol/L (22-30) L 07/27/24 04:43
BUN 34 mg/dl (7-17) H 07/27/24 04:43
Creatinine 1.0 mg/dL (0.6-1.0) 07/27/24 04:43
eGFR > 60.00 07/27/24 04:43
Glucose 86 mg/dl (70-99) 07/27/24 04:43
Calcium 8.7 mg/dl (8.4-10.2) 07/27/24 04:43
Syj-X-Ehouczazxit Pept 47303 pg/ml 07/26/24 22:50
Albumin 3.9 g/dl (3.5-5.0) 07/26/24 22:50
Laboratory Tests
10/26/22 07/27/24 07/27/24
05:46 00:31 02:09
Sodium 139
Carbon Dioxide 26
Creatinine 1.0
Urine pH 5.0
B-Hydroxybutyrate 1.21 H
Laboratory Tests
07/27/24
00:31
Lactic Acid 1.5
Physical Exam
Patient is awake alert oriented and in no distress. Mood and affect were pleasant, insight and judgment were good. Pupils are equal round and reactive to light, extraocular movements are intact, sclera were anicteric. Hearing was reduced, ears and
nose are intact. Oropharynx was clear. Neck was supple with trachea midline and no thyromegaly. Heart was regular rate and rhythm without rubs. Lower extremities with 2+ edema. Lungs were clear to auscultation bilaterally and with normal
excursion. Abdomen was soft, nontender, with normal active bowel sounds, and no hepatosplenomegaly. Skin was without rash and with normal turgor.
Data Reviewed
-
Radiology: Image Personally Visualized and interpreted (Chest x-ray on 07/26/2024 by my reading shows mild pleural effusions, mild pulmonary edema, cardiomegaly)
Medical Tests (Nuc Med, Echo etc): Image Personally Visualized and interpreted (EKG on 07/27/2024 by reading shows atrial fibrillation, anterolateral ST-T wave abnormality)
Labs: Labs Reviewed by me
Old Records: Reviewed
Assessment/Plan
-
Assessment
Metabolic acidosis, anion gap
Elevated beta-hydroxybutyrate
Microcytic iron deficiency anemia
Hypertension
Heart failure reduced ejection fraction, 35%
Atrial fibrillation
Edema
Plan
Urinalysis shows appropriate acidification of urine given metabolic acidosis
Elevated beta hydroxybutyrate with suggest a ketoacidosis resulting in her metabolic acidosis.
Without a history of diabetes, this be likely to be related to a starvation ketoacidosis
A venous blood gas could be checked though true evaluation of her metabolic acidosis would require an ABG. Given that the metabolic acidosis is quite mild at this time I would not subject this patient to an ABG.
Continue Lasix for diuresis, edema is from heart failure. There is no protein in the urine
[2024-07-27] MEDS: FERRLECIT 110 MG IV (16:27)
[2024-07-28] VITALS (16 sets, daily range): BP systolic 97–124; BP diastolic 65–96; PULSE 112; O2SAT 94; BMI 29.3
[2024-07-28 03:41] LABS: Hepatitis C Antibody Negative (Negative)
[2024-07-28 05:43] LABS: Venous Blood Gas B.E. 0.8 mmol/L (-4 to +4); Venous Blood Gas HCO3 26.6 mmol/L (22-27); Venous Blood Gas O2 Sat % 97.4 %; Venous Blood Gas pCO2 47 mmHg (35-48); Venous Blood Gas pH 7.36 (7.32-7.43); Venous Blood Gas pO2 91 mmHg (30-50)
[2024-07-28 05:45] LABS: Venous Blood Gas O2 Therapy 2L NC
[2024-07-28 06:30] LABS: Blood Urea Nitrogen 34 mg/dl (7-17); Calcium 8.6 mg/dl (8.4-10.2); Carbon Dioxide 25 mmol/L (22-30); Chloride 99 mmol/L (98-107); Direct Bilirubin 0.5 mg/dl (0.0-0.4); Estimated Creatinine Clearance 67 ml/min; Glucose 100 mg/dl (70-99); Potassium 3.4 mmol/L (3.5-5.1); Sodium 137 mmol/L (135-145); eGFR > 60.00
[2024-07-28 07:30] LABS: Folate 5.1 ng/ml (2.76-20); Vitamin B12 963 pg/ml (239-931)
[2024-07-28 07:59] LABS: Magnesium 1.6 mg/dl (1.6-2.3)
--- NOTE | 2024-07-28 07:59 | W.PN.NEPH.PH ---
Today's Communication / Plan
-
Sign off
Assessment/Plan
-
Assessment
Metabolic acidosis, anion gap
Elevated beta-hydroxybutyrate
Microcytic iron deficiency anemia
Hypertension
Heart failure reduced ejection fraction, 35%
Atrial fibrillation
Edema
Plan
Urinalysis shows appropriate acidification of urine given metabolic acidosis
Elevated beta hydroxybutyrate with suggest a ketoacidosis resulting in her metabolic acidosis.
Without a history of diabetes, this be likely to be related to a starvation ketoacidosis
A venous blood gas could be checked though true evaluation of her metabolic acidosis would require an ABG. Given that the metabolic acidosis is quite mild at this time I would not subject this patient to an ABG.
Continue Lasix for diuresis, edema is from heart failure. There is no protein in the urine
Bicarb corrected with diuresis
We will sign off
-
-
Date of Service: July 28, 2024
CC / HPI / ROS
-
Chief Complaint:
Metabolic acidosis
History of Present Illness:
Acidosis resolved
Review of Systems:
Nonoliguric
Labs
-
Labs:
WBC 10.8 10^3/uL (4.8-10.8) 07/27/24 04:43
RBC 4.03 10^6/uL (4.20-5.40) L 07/27/24 04:43
Hgb 8.9 g/dL (12.0-16.0) L 07/27/24 04:43
Hct 30.5 % (37.0-47.0) L 07/27/24 04:43
Plt Count 223 10^3/uL (130-400) 07/27/24 04:43
Sodium 137 mmol/L (135-145) 07/28/24 05:30
Potassium 3.4 mmol/L (3.5-5.1) L 07/28/24 05:30
Chloride 99 mmol/L (98-107) 07/28/24 05:30
Carbon Dioxide 25 mmol/L (22-30) 07/28/24 05:30
BUN 34 mg/dl (7-17) H 07/28/24 05:30
Creatinine 1.0 mg/dL (0.6-1.0) 07/28/24 05:30
eGFR > 60.00 07/28/24 05:30
Glucose 100 mg/dl (70-99) H 07/28/24 05:30
Calcium 8.6 mg/dl (8.4-10.2) 07/28/24 05:30
Srf-R-Exscvslbxge Pept 52384 pg/ml 07/26/24 22:50
Albumin 3.9 g/dl (3.5-5.0) 07/26/24 22:50
Physical Exam
-
Vital Signs:
Vital Signs
Temp Pulse Resp BP Pulse Ox
98.1 F 111 20 100/84 94
07/28/24 06:18 07/28/24 04:00 07/28/24 04:00 07/28/24 04:00 07/28/24 04:00
Cardiovascular:: Regular rate and rhythm
Respiratory:: Bilateral: CTA
Lung Excursion:: Normal
Abdomen:: Nontender
Bowel Sounds:: Normal
Extremity Edema:: None: Bilateral:
Pillai Catheter: No
--- NOTE | 2024-07-28 08:43 | W.PN.CD ---
Today's Communication / Plan
-
Cont IV diuresis
Increase metoprolol
Case management pricing medications
Impression / Plan
-
S: 64 y/o female with hypertension, AFIB (previously on Eliquis), and HFrEF EF 35-40% who is here for evaluation of shortness of breath, chest discomfort, and LE edema consistent wiht HF exacerbation. SHe is also in AF RVR.
Klzlz-vg-geogvec HFrEF EF 25-30%:
-cont IV lasix
-education, diet
-type unknown
-add back on ACEI and BB as able (BB already resumed). Other meds limited by affordability and compliance.
- had case management [place] SGLT2i, ARNi, and DOACs for AF
AFIB, persistent: elevated rates
-has required amiodarone in the past
-dilt gtt stopped given severely reduced EF, increase metoprolol, may need to use digoxin or back to amio if unable to control HRs
-I don't think we can safely use rhythm control strategy at this time due to patient noncompliance with meds and follow-up
-[id number] score is 3 for female, HTN, and CHF- Eliquis added back. CM consult as below. Consult for CM is ordered by primary team.
Anemia:
-worsened
-denies any blood in urine or stool
-work-up per primary team
Overall, would recommend case management/social work consult to address her financial issues leading to non-compliance. I spoke with her about this and let her know that meds and follow-up importance for her condition.
Subjective: overall feeling improved, we used pen and paper to communicate effectively
Physical Exam
Vital Signs/Labs
Vital Signs
Temp Pulse Resp BP Pulse Ox
98.1 F 111 20 100/84 94
07/28/24 06:18 07/28/24 04:00 07/28/24 04:00 07/28/24 04:00 07/28/24 04:00
07/27/24 07/28/24 07/29/24
06:59 06:59 06:59
Actual Weight 194 lb 0.108 oz 192 lb 7.417 oz
07/27/24 04:43
07/28/24 05:30
APTT 28.5 Sec (23.4-35.0) 07/26/24 22:50
Magnesium 1.6 mg/dl (1.6-2.3) 07/28/24 05:30
Triglycerides 57 mg/dl (10-149) 07/27/24 04:43
LDL Cholesterol, Calc 54 mg/dl 07/27/24 04:43
VLDL Cholesterol, Calc 11 mg/dl (0-30) 07/27/24 04:43
HDL Cholesterol 18 mg/dl 07/27/24 04:43
07/26/24
22:50
Flw-E-Yrvtjrriati Pept 47325
LAB Results
07/26/24 07/27/24 07/27/24
22:50 04:43 10:34
Troponin I < 0.012 < 0.012 < 0.012
07/27/24
15:15
Troponin I Cancelled
Physical Exam
Constitutional: No acute distress
EENT: Anicteric
Cardiovascular: Rhythm/rate is irregular and Pedal edema present
Respiratory: Respiratory effort normal and Crackles Present
GI: Soft
Neuro/Psych: AO x 3
Data Reviewed
-
Date of Service: July 28, 2024
EKG: Tracing Personally Visualized and interpreted (af)
Echo: Report Reviewed by me
Labs: Labs Reviewed by me
[2024-07-28] MEDS: LASIX 40 MG IV ×2 (09:24→15:44)
[2024-07-28] MEDS: ZESTRIL 5 MG PO (09:24)
[2024-07-28] MEDS: KCL 40 MEQ PO (09:24)
--- NOTE | 2024-07-28 09:30 | PN.CDI ---
CDI
- -
CDI:
Physician Documentation Request
Admit Date: 07/27/24 02:10
Dear Doctor Duncan,
Please review the following and provide your response in the progress notes.
Clinical Indicators:
- RN skin assessment indicates Stage 2 right upper back pressure injury, POA
Physician documentation of the type and location of wounds is required for compliant documentation. Based on the above clinical findings and your assessment, please provide the following in your progress note:
1. Location of the ulcer/wound, including laterality.
2. Type (etiology) of ulcer/wound:
- Diabetic ulcer
- Arterial (ischemic) ulcer
- Traumatic wound
- Venous stasis ulcer
- Pressure (decubitus) ulcer
- Non-healing surgical wound
- Other
- Unable to determine
Use of terms such as suspected, likely, concern for, or probable (associated with a specific diagnosis that is being evaluated, monitored, or treated as if it exists) are acceptable and can be coded in the inpatient setting, when documented at the
time of discharge.
Thank you,
Kayla Ro RN
CDI Specialist
Please use your independent medical judgment in providing your response.
*Source: National Pressure Ulcer Advisory Panel (NPUAP)
[2024-07-28] MEDS: ELIQUIS 5 MG PO ×2 (09:31→19:23)
[2024-07-28] MEDS: HYDROCORTISONE 1% LOTION 1 APPLIC TOPICAL ×2 (09:32→19:23)
[2024-07-28] MEDS: TOPROL XL PO (13:10)
--- NOTE | 2024-07-28 14:40 | W.PN.HOSP.TC ---
Today's Communication/Plan
-
Continue IV diuresis
No cardizem drip due to low EF
Continue beta bjorn at increased dose
Assessment / Plan
Assessment / Plan
Physical Exam
General: Not in acute distress
HEENT: Moist mucous membranes
Respiratory: Decreased breath sounds bilaterally
Cardiac: S1/S2, Irregular Rhythm
GI: Soft, Non Tender, Non Distended and Normal Bowel Sounds
Musculoskeletal: +2 bilateral lower extremity edema
Skin: Warm. Dry.
Neuro: AO x 3 and Nonfocal/grossly intact
Psych: Calm
Assessment/Plan
Patient is a 64y F with PMH significant for A-Fib and CHF who presents to ED complaining of SOB and LE edema x 3 weeks. She presented with A-Fib / RVR and CHF. She was last admitted in 10/2022 for the same. Has taken no medications in about a
year due to medications being unaffordable for her. Similar to prior presentation. IV dilt started on admission. Restarted Eliquis. IV Lasix. Cardio consulted. Has new anemia this time. Patient denies any noted blood loss. Heme negative stool
for me. Iron studies, GI consult, etc. Case Management consult for discharge plan / med assistance.
Persistent Atrial Fibrillation with Rapid Ventricular Response
- Diltiazem drip stopped due to reduced ejection fraction
- Continue PO beta blockade at increased dose - will need to consider use of digoxin or back to amio if heart rate still high
- Patient has been resistant to usual rate control methods and has required amiodarone in the past.
- Cardiology evaluation for additional recommendations.
- [id number] score is 3
- Eliquis has been added back
- Cannot safely use rhythm control strategy at this time due to patient noncompliance with medications and follow-up, as per cardiology
Acute on Chronic HFrEF
Cardiomyopathy -- type is unknown
- LE edema, SOB, R pleural effusion and elevated BNP from prior.
- Continue IV Lasix and follow I/Os, daily weights, etc.
- Update Echo.
- Cardiology evaluation as noted above.
- Suspect that rapid A-Fib played significant role in decompensation of HF.
- Add back on ACEI and BB already resumed). Other meds are limited by affordability and compliance.
Benign Hypertension
- BP stable on IV diltiazem / tolerating diuresis thus far.
- Continue metoprolol as noted above.
- Continue BHARAT-I
- Adjust meds as needed prior to discharge.
Anion Gap Metabolic Acidosis
Elevated Beta Hydroxybutyrate -- Likely from Starvation Ketoacidosis
- No history of DM
- Anion gap on initial labs is 18 with HCO3 = 17.
- Normal lactate, troponin and no history of DM, recent med / drug use, etc.
- B-OH added and was slightly elevated 1.21.
- Consulted nephrology, appreciate their evaluation and recommendations
Microcytic Anemia
Iron Deficiency Anemia
- This is a new issue. Hgb = 10.4 compared to prior values > 15.
- Patient denies any gross / evident blood loss.
- Heme test in the ED was negative for occult blood.
- Iron studies suggest iron deficiency anemia
- IV iron started on 07/27/24
- Check folate and vitamin B12
Eczema
- Significant rash / itching / eczema of the arms bilaterally.
- Trial of topical steroid - follow for improvement.
Stage 2 right upper back pressure injury, POA
- Wound care consult
DVT Prophylaxis: Eliquis
Code Status: Full
Patient will need case management/social work consult to address her financial issues leading to non-compliance.
Anticipated Discharge: 24 - 48 hours
Subjective/Interval History
-
Date of Service: July 28, 2024
Patient was seen and examined. She denied any significant chest pain or shortness of breath.
Objective Data
-
Labs:
Laboratory Results
07/28/24
05:30
Sodium 137
Potassium 3.4 L
Chloride 99
Carbon Dioxide 25
BUN 34 H
Creatinine 1.0
Glucose 100 H
Calcium 8.6
Vital Signs:
Vital Signs
Temp Pulse Resp BP Pulse Ox
98.5 F 120 16 114/82 95
07/28/24 11:23 07/28/24 14:00 07/28/24 14:00 07/28/24 14:00 07/28/24 08:59
I&O
07/27/24 07/28/24 07/29/24
06:59 06:59 06:59
Intake Total 800 / 800
Output Total 675 / 675 2500 / 2500 950 / 950
Balance -675 / -675 -1700 / -1700 -950 / -950
--- NOTE | 2024-07-28 15:33 | PTCARENOTE ---
pt presents as assessed. Aox3, deaf. Communicating with pt via language line. Pt pleasant and cooperative. Afib on tele monitor. Sating mid 90's on 2L NC. Medications administered as ordered, see MAR. OOB to chair with PT. Safe environment
maintained.
[2024-07-28] MEDS: MAGNESIUM OXIDE 500 MG PO (15:43)
[2024-07-28] MEDS: FERRLECIT 110 MG IV (15:43)
--- NOTE | 2024-07-28 17:12 | CM ---
Patient who is deaf. O2 2L. Receiving Cardizem gtt, IV Iron, IV Lasix. PT recommends skilled rehab. OT recommends HH.
CM Consult: Request from Dr Jimenez for [place] Checks:
Entresto 24/26 mg BID
Jardiance 10mg PO
Farxiga 10mg Po
Eliquis 5mg BID
Xarelto 20 mg QD
Dabigatran 150mg BID
Confirmed with admitting that patient has no insurance in place, and referral was made to [facility].
Spoke with Pharmacist, Dulce Caceres; she declined to do hamilton checks without the scripts being sent. She confirms that patient has no medical insurance.
Spoke with Lola Salmeron, [phone]; she had her friend at a pharmacy do the hamilton checks for 30 day supply without insurance:
generic Farxiga $390
Jardiance $741
Eliquis $789
Entresto $760
Dibigatran $221
Xarelto $755
Met with patient via Language Line sign language interpretor River ID #[id number]; provided patient with cost of proposed meds. She is on SSI, SSDI and can only afford $30/month total for meds. She says she was on Eliquis previously and cost was
$10/month so if restarted on that she has $20/month left for any other med. She said she is able to afford her [email or web address] insurance so will consider restarting in the future and her brother will help with that.
Information above relayed to Dr Jimenez with message: please let me know which meds you want her to go home on and will need to submit a request to the [facility] for 7 day supply. That's all they will typically cover. Could work if your office can
provide samples as well. Response from : they cannot provide continuous samples. He will have to decide what meds to order.
Plan continue to follow patient's mobility.
Plan probable home.
--- NOTE | 2024-07-28 17:23 | PTCARENOTE ---
Addendum entered by Sara Briones 07/28/24 18:13:
Order placed by cardiology WET END SUPERVISOR for PRN Lopressor. Administered as ordered, see MAR.
Original Note:
Pt with HR suddenly in the 140's. Dr Song and Dr. Sharma notified. Per Dr Sharma, cardiology WET END SUPERVISOR will come see pt.
[2024-07-28] MEDS: LOPRESSOR 2.5 MG IV ×2 (17:52→22:19)
--- NOTE | 2024-07-28 19:00 | PTCARENOTE ---
response for vitals signs after 190
--- NOTE | 2024-07-28 19:00 | PTCARENOTE ---
1900 pt is aaox3 however deaf. communicated w/ sign language - language line available in room if needed, pt is on tele afib/flutter w/ [id number]. given schedule po HS Lopressor. continues /w 2L O2 SpO2=96%. pt sitting up in chair.
pt assisted back to bed and washed up.
[2024-07-28] MEDS: TOPROL XL 75 MG PO (19:22)
[2024-07-28] MEDS: TYLENOL 650 MG PO (22:19)
[2024-07-28 23:06] LABS: Blood Urea Nitrogen 28 mg/dl (7-17); Calcium 8.5 mg/dl (8.4-10.2); Carbon Dioxide 28 mmol/L (22-30); Chloride 98 mmol/L (98-107); Estimated Creatinine Clearance 83 ml/min; Glucose 120 mg/dl (70-99); Potassium 3.6 mmol/L (3.5-5.1); Sodium 136 mmol/L (135-145); eGFR > 60.00
[2024-07-28] MEDS: CORDARONE 104 MG IV (23:27)
[2024-07-29] VITALS (32 sets, daily range): BP systolic 84–140; BP diastolic 57–104; BMI 28.7
--- NOTE | 2024-07-29 00:46 | PTCARENOTE ---
pt tele afib/flutter. [id number] - given prn Lopressor and Tylenol at 2219. pt HR increased to 140-160's. pt states she feels fine. informed gypsum block setter Linnea. new order for amio bolus- see NOV. HR now 120-130s.
[2024-07-29 05:00] LABS: % Basophils 0.2 % (0-2); % Eosinophils 0.3 % (0-6); % Immature Granulocytes 0.5 % (0-0.5); % Lymphocytes 5.5 % (20.5-51.1); % Monocytes 9.6 % (1.7-9.3); % Neutrophils 83.9 % (42.2-75.2); Absolute Immature Granulocytes 0.1 10^3/uL (0-0.05); Absolute Lymphocytes 0.6 10^3/uL (1.2-3.4); Absolute Monocytes 1.1 10^3/uL (0.1-0.6); Absolute Neutrophils 9.3 10^3/uL (1.4-6.5); Hematocrit 30.6 % (37.0-47.0); Hemoglobin 9.2 g/dL (12.0-16.0); Mean Corp Hgb Conc. 30.1 g/dL (33.0-37.0); Mean Corpuscular Hgb 22.5 pg (27.0-31.0); Mean Corpuscular Volume 74.8 fL (81.0-99.0); Mean Platelet Volume 10.3 fL (7.4-10.4); Nucleated Red Blood Cells % 0.6 %; Platelet Count 263 10^3/uL (130-400); Red Blood Cell Count 4.09 10^6/uL (4.20-5.40); Red Cell Dist. Width 18.3 % (11.5-14.5); White Blood Cell Count 11.1 10^3/uL (4.8-10.8)
[2024-07-29 05:10] LABS: Blood Urea Nitrogen 29 mg/dl (7-17); Calcium 8.5 mg/dl (8.4-10.2); Carbon Dioxide 27 mmol/L (22-30); Chloride 98 mmol/L (98-107); Estimated Creatinine Clearance 83 ml/min; Glucose 120 mg/dl (70-99); Magnesium 1.6 mg/dl (1.6-2.3); Potassium 3.8 mmol/L (3.5-5.1); Sodium 138 mmol/L (135-145); eGFR > 60.00
--- NOTE | 2024-07-29 06:52 | W.PN.UPDATE ---
Update Note
Progress Note Update
2300 HR 140-160 rapid afib. iv lopressor given by nurse ineffective. asymptomatic
Will start amio gtt now.
--- NOTE | 2024-07-29 07:03 | W.PN.HOSP.TC ---
Today's Communication/Plan
-
Continue increased dose of beta bjorn
Continue IV diuresis
Assessment / Plan
Assessment / Plan
Physical Exam
General: Not in acute distress
HEENT: Moist mucous membranes
Respiratory: Decreased breath sounds bilaterally
Cardiac: S1/S2, Irregular Rhythm
GI: Soft, Non Tender, Non Distended and Normal Bowel Sounds
Musculoskeletal: +2 bilateral lower extremity edema
Skin: Warm. Dry.
Neuro: AO x 3 and Nonfocal/grossly intact
Psych: Calm
Assessment/Plan
Patient is a 64y F with PMH significant for A-Fib and CHF who presents to ED complaining of SOB and LE edema x 3 weeks. She presented with A-Fib / RVR and CHF. She was last admitted in 10/2022 for the same. Has taken no medications in about a
year due to medications being unaffordable for her. Similar to prior presentation. IV dilt started on admission. Restarted Eliquis. IV Lasix. Cardio consulted. Has new anemia this time. Patient denies any noted blood loss. Heme negative stool
for me. Iron studies, GI consult, etc. Case Management consult for discharge plan / med assistance.
Persistent Atrial Fibrillation with Rapid Ventricular Response
- Diltiazem drip stopped due to reduced ejection fraction
- Continue PO beta blockade at increased dose (increase Toprol XL to 100 mg BID) - Amio was also given overnight
- Patient has been resistant to usual rate control methods and has required amiodarone in the past.
- Cardiology evaluation for additional recommendations.
- [id number] score is 3
- Eliquis has been added back
- Cannot safely use rhythm control strategy at this time due to patient noncompliance with medications and follow-up, as per cardiology
Acute on Chronic HFrEF
Cardiomyopathy -- type is unknown
- LE edema, SOB, R pleural effusion and elevated BNP from prior.
- Continue IV Lasix 40 mg BID and follow I/Os, daily weights, etc.
- Update Echo.
- Cardiology evaluation as noted above.
- Suspect that rapid A-Fib played significant role in decompensation of HF.
- Add back on ACEI and BB already resumed). Other meds are limited by affordability and compliance.
Benign Hypertension
- BP stable on IV diltiazem / tolerating diuresis thus far.
- Continue metoprolol as noted above.
- Continue BHARAT-I
- Adjust meds as needed prior to discharge.
Anion Gap Metabolic Acidosis
Elevated Beta Hydroxybutyrate -- Likely from Starvation Ketoacidosis
- No history of DM
- Anion gap on initial labs is 18 with HCO3 = 17.
- Normal lactate, troponin and no history of DM, recent med / drug use, etc.
- B-OH added and was slightly elevated 1.21.
- Consulted nephrology, appreciate their evaluation and recommendations
Microcytic Anemia
Iron Deficiency Anemia
- This is a new issue. Hgb = 10.4 compared to prior values > 15.
- Patient denies any gross / evident blood loss.
- Heme test in the ED was negative for occult blood.
- Iron studies suggest iron deficiency anemia
- IV iron started on 07/27/24
- Checked folate (normal) and vitamin B12 (high)
Eczema
- Significant rash / itching / eczema of the arms bilaterally.
- Trial of topical steroid - follow for improvement.
Stage 2 right upper back pressure injury, POA
- Wound care consult
DVT Prophylaxis: Eliquis
Code Status: Full
Patient will need case management/social work consult to address her financial issues leading to non-compliance.
Anticipated Discharge: > 48 hours
Subjective/Interval History
-
Date of Service: July 29, 2024
Patient was seen and examined. Overnight she developed rapid A-Fib requiring amiodarone. certified court/medical interpreter was used to communicate with the patient, she denied any significant complaints this morning.
Objective Data
-
Labs:
Laboratory Results
07/28/24 07/29/24
22:47 04:22
WBC 11.1 H
Hgb 9.2 L
Hct 30.6 L
Plt Count 263
Sodium 136 138
Potassium 3.6 3.8
Chloride 98 98
Carbon Dioxide 28 27
BUN 28 H 29 H
Creatinine 0.8 0.8
Glucose 120 H 120 H
Calcium 8.5 8.5
Vital Signs:
Vital Signs
Temp Pulse Resp BP Pulse Ox
97.6 F 111 18 116/99 94
07/29/24 04:00 07/29/24 06:00 07/29/24 06:00 07/29/24 06:00 07/29/24 06:00
I&O
07/28/24 07/29/24 07/30/24
06:59 06:59 06:59
Intake Total 800 / 800 104 / 104
Output Total 2500 / 2500 2300 / 2300
Balance -1700 / -1700 -2196 / -2196
[2024-07-29] MEDS: TOPROL XL 75 MG PO (09:17)
[2024-07-29] MEDS: MAGNESIUM OXIDE 500 MG PO (09:18)
[2024-07-29] MEDS: ZESTRIL 5 MG PO (09:18)
[2024-07-29] MEDS: LASIX 40 MG IV ×2 (09:19→17:08)
[2024-07-29] MEDS: ELIQUIS 5 MG PO ×2 (09:19→19:18)
[2024-07-29] MEDS: HYDROCORTISONE 1% LOTION 1 APPLIC TOPICAL ×2 (09:21→19:19)
--- NOTE | 2024-07-29 11:34 | CHAP ---
[facility] called to request a visit for Haylee. I brought a written note for Haylee, introducing myself and assuring her of prayers; I also signed 'God bless you' in ASL. Prayed for her during the visit. Haylee was very
appreciative.
--- NOTE | 2024-07-29 12:41 | W.PN.CD ---
Today's Communication / Plan
-
cont lasix 40mg IV bid, with close monitoring of labs, tele, weight
increase Toprol XL to 100mg bid
Impression / Plan
-
S: 64 y/o female with hypertension, AFIB (previously on Eliquis), and HFrEF EF 35-40% who is here for evaluation of shortness of breath, chest discomfort, and LE edema consistent wiht HF exacerbation. SHe is also in AF RVR.
Cardiomyopcathy, Plytl-le-qvhzaki HFrEF EF 25-30%:
-type unknown
-cont lasix 40mg IV bid, with close monitoring of labs, tele, weight
-increase Toprol XL to 100mg bid
-continue lisinopril 5mg daily
-Other meds limited by affordability and compliance.
- case management hamilton SGLT2i, ARNi, and DOACs for AF
AFIB, persistent: elevated rates
-rate control for now; rhythm control in future once compliant with meds
-increase Toprol XL to 100mg bid
-also using amiodarone for rate control
-[id number] score is 3 for female, HTN, and CHF- Eliquis added back.
Anemia:
-worsened
-denies any blood in urine or stool
-work-up per primary team
Moderate MR
Moderate TR
Overall, would recommend case management/social work consult to address her financial issues leading to non-compliance. I spoke with her about this and let her know that meds and follow-up importance for her condition.
Subjective
SOB and edema better.
Physical Exam
Vital Signs/Labs
Vital Signs
Temp Pulse Resp BP Pulse Ox
98 F 106 21 114/91 98
07/29/24 11:10 07/29/24 11:00 07/29/24 11:00 07/29/24 11:00 07/29/24 10:42
07/28/24 07/29/2407/30/24
06:59 06:59 06:59
Actual Weight 87.3 kg 85.7 kg
07/29/24 04:22
07/29/24 04:22
APTT 28.5 Sec (23.4-35.0) 07/26/24 22:50
Magnesium 1.6 mg/dl (1.6-2.3) 07/29/24 04:22
Triglycerides 57 mg/dl (10-149) 07/27/24 04:43
LDL Cholesterol, Calc 54 mg/dl 07/27/24 04:43
VLDL Cholesterol, Calc 11 mg/dl (0-30) 07/27/24 04:43
HDL Cholesterol 18 mg/dl 07/27/24 04:43
07/26/24
22:50
Cfc-S-Xujjmlwzgzt Pept [id number]
LAB Results
07/26/24 07/27/24 07/27/24
22:50 04:43 10:34
Troponin I < 0.012 < 0.012 < 0.012
07/27/24
15:15
Troponin I Cancelled
Physical Exam
Constitutional: No acute distress
EENT: Moist mucous membranes
Cardiovascular: Rhythm/rate is irregular, Pedal edema present, JVD present and Systolic murmur present
Respiratory: Respiratory effort normal and Lungs clear to auscul.
Neuro/Psych: AO x 3
Data Reviewed
-
Date of Service: July 29, 2024
EKG: Other (Tele: A fib 110s-120s)
Labs: Labs Reviewed by me
[2024-07-29] MEDS: FERRLECIT 110 MG IV (13:37)
[2024-07-29] MEDS: TOPROL XL 100 MG PO (19:18)
[2024-07-29] MEDS: TYLENOL 650 MG PO (19:18)
--- NOTE | 2024-07-29 19:24 | PTCARENOTE ---
responsible for vital signs s/p 1907
--- NOTE | 2024-07-29 19:24 | PTCARENOTE ---
pt is aaox3 however deaf. communicated w/ sign language - language line available in room if needed, pt is on tele afib/flutter w/ [phone]. given schedule po HS Lopressor 100mg. continues /w 2L O2 SpO2=96%. pt eating dinner in bed.
[2024-07-30] VITALS (25 sets, daily range): BP systolic 96–136; BP diastolic 66–111; BMI 27.8
[2024-07-30 06:24] LABS: % Basophils 0.2 % (0-2); % Eosinophils 1.2 % (0-6); % Immature Granulocytes 0.4 % (0-0.5); % Lymphocytes 8.6 % (20.5-51.1); % Monocytes 8.4 % (1.7-9.3); % Neutrophils 81.2 % (42.2-75.2); Absolute Eosinophils 0.1 10^3/uL (0-0.7); Absolute Lymphocytes 0.9 10^3/uL (1.2-3.4); Absolute Monocytes 0.9 10^3/uL (0.1-0.6); Absolute Neutrophils 8.2 10^3/uL (1.4-6.5); Hematocrit 31.2 % (37.0-47.0); Hemoglobin 9.3 g/dL (12.0-16.0); Mean Corp Hgb Conc. 29.8 g/dL (33.0-37.0); Mean Corpuscular Hgb 22.3 pg (27.0-31.0); Mean Corpuscular Volume 74.8 fL (81.0-99.0); Mean Platelet Volume 9.7 fL (7.4-10.4); Nucleated Red Blood Cells % 0.3 %; Platelet Count 291 10^3/uL (130-400); Red Blood Cell Count 4.17 10^6/uL (4.20-5.40); Red Cell Dist. Width 18.6 % (11.5-14.5); White Blood Cell Count 10.1 10^3/uL (4.8-10.8)
[2024-07-30 06:48] LABS: Blood Urea Nitrogen 29 mg/dl (7-17); Calcium 8.6 mg/dl (8.4-10.2); Carbon Dioxide 30 mmol/L (22-30); Chloride 98 mmol/L (98-107); Estimated Creatinine Clearance 73 ml/min; Glucose 107 mg/dl (70-99); Magnesium 1.6 mg/dl (1.6-2.3); Potassium 3.7 mmol/L (3.5-5.1); Sodium 138 mmol/L (135-145); eGFR > 60.00
[2024-07-30] MEDS: ZESTRIL 5 MG PO (08:34)
[2024-07-30] MEDS: ELIQUIS 5 MG PO ×2 (08:34→20:48)
[2024-07-30] MEDS: TOPROL XL 100 MG PO ×2 (08:35→20:46)
[2024-07-30] MEDS: LASIX 40 MG IV ×2 (08:35→17:16)
[2024-07-30] MEDS: MAGNESIUM OXIDE 500 MG PO (08:35)
[2024-07-30] MEDS: HYDROCORTISONE 1% LOTION 1 APPLIC TOPICAL ×2 (08:35→20:48)
--- NOTE | 2024-07-30 11:24 | W.PN.CD ---
Today's Communication / Plan
-
continue IV lasix
add digoxin
Impression / Plan
-
64 y/o female with hypertension, AFIB (previously on Eliquis), and HFrEF EF 35-40% who is here for evaluation of shortness of breath, chest discomfort, and LE edema consistent wiht HF exacerbation. SHe is also in AF RVR.
Cardiomyopcathy, Cmweg-nx-iklucrm HFrEF EF 25-30%:
-type unknown
-cont lasix 40mg IV bid, with close monitoring of labs, tele, weight
-cont Toprol XL 100mg bid
-increase lisinopril to 10mg daily
-Other meds limited by affordability and compliance.
- case management hamilton SGLT2i, ARNi, and DOACs for AF
AFIB, persistent: elevated rates
-rate control for now; rhythm control in future once compliant with meds
-cont Toprol XL 100mg bid
-add digoxin 250mcg daily
-also using amiodarone for rate control
-[id number] score is 3 for female, HTN, and CHF- Eliquis added back.
Anemia:
-worsened
-denies any blood in urine or stool
-work-up per primary team
Moderate MR
Moderate TR
Overall, would recommend case management/social work consult to address her financial issues leading to non-compliance. I spoke with her about this and let her know that meds and follow-up importance for her condition.
Subjective
SOB and edema better.
Physical Exam
Vital Signs/Labs
Vital Signs
Temp Pulse Resp BP Pulse Ox
98.9 F 118 21 120/95 97
07/30/24 08:15 07/30/24 07:00 07/30/24 07:00 07/30/24 07:00 07/30/24 07:00
07/29/24 07/30/24 07/31/24
06:59 06:59 06:59
Actual Weight 85.7 kg 82.9 kg
07/30/24 06:01
07/30/24 06:01
APTT 28.5 Sec (23.4-35.0) 07/26/24 22:50
Magnesium 1.6 mg/dl (1.6-2.3) 07/30/24 06:01
Triglycerides 57 mg/dl (10-149) 07/27/24 04:43
LDL Cholesterol, Calc 54 mg/dl 07/27/24 04:43
VLDL Cholesterol, Calc 11 mg/dl (0-30) 07/27/24 04:43
HDL Cholesterol 18 mg/dl 07/27/24 04:43
07/26/24
22:50
Xjg-N-Ezztrydxmhi Pept [id number]
LAB Results
07/27/24
15:15
Troponin I Cancelled
Physical Exam
Constitutional: No acute distress
EENT: Moist mucous membranes
Cardiovascular: Rhythm/rate is irregular, Pedal edema present, JVD present and Systolic murmur present
Respiratory: Respiratory effort normal and Lungs clear to auscul.
Neuro/Psych: AO x 3
Data Reviewed
-
Date of Service: July 30, 2024
EKG: Other (Tele: Afib 110s)
Labs: Labs Reviewed by me
[2024-07-30] MEDS: FERRLECIT 110 MG IV (12:39)
[2024-07-30] MEDS: LANOXIN 250 MCG PO (12:39)
--- NOTE | 2024-07-30 16:10 | W.PN.HOSP.TC ---
Today's Communication/Plan
-
Digoxin added for better control of A-Fib
Continue IV Lasix
Assessment / Plan
Assessment / Plan
Physical Exam
General: Not in acute distress
HEENT: Moist mucous membranes
Respiratory: Decreased breath sounds bilaterally
Cardiac: S1/S2, Irregular Rhythm
GI: Soft, Non Tender, Non Distended and Normal Bowel Sounds
Musculoskeletal: +2 bilateral lower extremity edema
Skin: Warm. Dry.
Neuro: AO x 3 and Nonfocal/grossly intact
Psych: Calm
Assessment/Plan
Patient is a 64y F with PMH significant for A-Fib and CHF who presents to ED complaining of SOB and LE edema x 3 weeks. She presented with A-Fib / RVR and CHF. She was last admitted in 10/2022 for the same. Has taken no medications in about a
year due to medications being unaffordable for her. Similar to prior presentation. IV dilt started on admission. Restarted Eliquis. IV Lasix. Cardio consulted. Has new anemia this time. Patient denies any noted blood loss. Heme negative stool
for me. Iron studies, GI consult, etc. Case Management consult for discharge plan / med assistance.
Persistent Atrial Fibrillation with Rapid Ventricular Response
- Diltiazem drip stopped due to reduced ejection fraction
- Continue PO beta blockade at increased dose (increase Toprol XL to 100 mg BID) - Amio was also given overnight
- Patient has been resistant to usual rate control methods and has required amiodarone in the past.
- Add digoxin
- Cardiology evaluation for additional recommendations.
- [id number] score is 3
- Eliquis has been added back
- Cannot safely use rhythm control strategy at this time due to patient noncompliance with medications and follow-up, as per cardiology
Acute on Chronic HFrEF
Cardiomyopathy -- type is unknown
- LE edema, SOB, R pleural effusion and elevated BNP from prior.
- Continue IV Lasix 40 mg BID and follow I/Os, daily weights, etc.
- Update Echo.
- Cardiology evaluation as noted above.
- Suspect that rapid A-Fib played significant role in decompensation of HF.
- Add back on ACEI and BB already resumed). Other meds are limited by affordability and compliance.
Benign Hypertension
- BP stable on IV diltiazem / tolerating diuresis thus far.
- Continue metoprolol as noted above.
- Continue BHARAT-I
- Adjust meds as needed prior to discharge.
Anion Gap Metabolic Acidosis
Elevated Beta Hydroxybutyrate -- Likely from Starvation Ketoacidosis
- No history of DM
- Anion gap on initial labs is 18 with HCO3 = 17.
- Normal lactate, troponin and no history of DM, recent med / drug use, etc.
- B-OH added and was slightly elevated 1.21.
- Consulted nephrology, appreciate their evaluation and recommendations
Microcytic Anemia
Iron Deficiency Anemia
- This is a new issue. Hgb = 10.4 compared to prior values > 15.
- Patient denies any gross / evident blood loss.
- Heme test in the ED was negative for occult blood.
- Iron studies suggest iron deficiency anemia
- IV iron started on 07/27/24
- Checked folate (normal) and vitamin B12 (high)
Eczema
- Significant rash / itching / eczema of the arms bilaterally.
- Trial of topical steroid - follow for improvement.
Stage 2 right upper back pressure injury, POA
- Wound care consult
DVT Prophylaxis: Eliquis
Code Status: Full
Patient will need case management/social work consult to address her financial issues leading to non-compliance.
Anticipated Discharge: > 48 hours
Subjective/Interval History
-
Date of Service: July 30, 2024
Patient was seen and examined. She reported no new significant symptoms or complaints.
Objective Data
-
Labs:
Laboratory Results
07/30/24
06:01
WBC 10.1
Hgb 9.3 L
Hct 31.2 L
Plt Count 291
Sodium 138
Potassium 3.7
Chloride 98
Carbon Dioxide 30
BUN 29 H
Creatinine 0.8
Glucose 107 H
Calcium 8.6
Vital Signs:
Vital Signs
Temp Pulse Resp BP Pulse Ox
97.7 F 131 21 120/95 96
07/30/24 12:00 07/30/24 12:39 07/30/24 07:00 07/30/24 07:00 07/30/24 12:21
I&O
07/29/24 07/30/24 07/31/24
06:59 06:59 06:59
Intake Total 104 / 104 480 / 480
Output Total 2300 / 2300 2550 / 2550 1300 / 1300
Balance -2196 / -2196 -2070 / -2070 -1300 / -1300
--- NOTE | 2024-07-30 23:10 | PTCARENOTE ---
Caring for patient overnight. Pt very sleepy but easy to arouse, woke up for nursing care then quickly went back to sleep. Denies any pain. Continues to be in afib/flutter HR jumping 100-130's, BPs stable. Remains on 1.5LNC. Oral care completed. Pt
wiped down, perineal care completed. Purewick in place. Skin continues to be red/pink & full of scabs. BLUE red rash/eczema, ointment applied. No other issues at this time. Will monitor.
[2024-07-31] VITALS (17 sets, daily range): BP systolic 96–131; BP diastolic 67–106; PULSE 114; O2SAT 98; BMI 26.8
[2024-07-31 04:45] LABS: % Basophils 0.4 % (0-2); % Eosinophils 0.7 % (0-6); % Immature Granulocytes 0.3 % (0-0.5); % Lymphocytes 6.9 % (20.5-51.1); % Monocytes 8.4 % (1.7-9.3); % Neutrophils 83.3 % (42.2-75.2); Absolute Eosinophils 0.1 10^3/uL (0-0.7); Absolute Lymphocytes 0.7 10^3/uL (1.2-3.4); Absolute Monocytes 0.8 10^3/uL (0.1-0.6); Absolute Neutrophils 8.3 10^3/uL (1.4-6.5); Hematocrit 32.1 % (37.0-47.0); Hemoglobin 9.4 g/dL (12.0-16.0); Mean Corp Hgb Conc. 29.3 g/dL (33.0-37.0); Mean Platelet Volume 9.5 fL (7.4-10.4); Nucleated Red Blood Cells % 0 %; Platelet Count 331 10^3/uL (130-400); Red Blood Cell Count 4.28 10^6/uL (4.20-5.40); Red Cell Dist. Width 19.1 % (11.5-14.5)
[2024-07-31 05:11] LABS: Blood Urea Nitrogen 27 mg/dl (7-17); Calcium 8.7 mg/dl (8.4-10.2); Carbon Dioxide 35 mmol/L (22-30); Chloride 95 mmol/L (98-107); Estimated Creatinine Clearance 65 ml/min; Glucose 100 mg/dl (70-99); Magnesium 1.6 mg/dl (1.6-2.3); Potassium 3.9 mmol/L (3.5-5.1); Sodium 138 mmol/L (135-145); eGFR > 60.00
--- NOTE | 2024-07-31 08:00 | PTCARENOTE ---
Patient received from shift commander. Patient resting comfortably in bed. AAO, VSS. No events noted over night. No complaints of pain at this time. Patient to get OOB to chair. No fluids through IV. Continuing with current medication changes.
No test scheduled at this time. Call padilla in reach.
[2024-07-31] MEDS: TOPROL XL 100 MG PO ×2 (09:39→20:42)
[2024-07-31] MEDS: LASIX 40 MG IV ×2 (09:39→16:42)
[2024-07-31] MEDS: ZESTRIL 10 MG PO (09:39)
[2024-07-31] MEDS: ELIQUIS 5 MG PO ×2 (09:39→20:41)
[2024-07-31] MEDS: MAGNESIUM OXIDE 500 MG PO (09:40)
[2024-07-31] MEDS: HYDROCORTISONE 1% LOTION 1 APPLIC TOPICAL ×2 (09:40→20:47)
--- NOTE | 2024-07-31 10:35 | W.PN.CD ---
Today's Communication / Plan
-
Move to PO lasix in AM
Add Aldactone, see comments
Impression / Plan
-
64 y/o deaf female with hypertension, AFIB (previously on Eliquis), and HFrEF EF 35-40% who is here for evaluation of shortness of breath, chest discomfort, and LE edema consistent wiht HF exacerbation. SHe is also in AF RVR.
Lghpq-fp-lbeowzl HFrEF EF 25-30%:
- One more day of IV Lasix
- Tomorrow start PO BID Lasix
- Continue HF BB/BHARAT-I/Dig
- Add Aldactone (would only send out with 30 days and refills would require f/u LABS)
AFib, persisting
- On Eliquis, will need to know if she will be able to take at discharge
- Rates OK, low 100s, now on high dose HF BB and dig
- Can consider referral for ablation if she follows up with us
- [id number] score is 3 for female, HTN, and CHF- Eliquis added back
- NOT on Amiodarone at this time. If AMIO added then dig would need to be cut by 50%
Moderate MR
Moderate TR
Cardiomyopathy, etiology uncertain
- Consider stress test as outpatient
Anemia, low MCV, abnormal iron studies => will need evaluation, defer to medicine
Deaf
Case management involved, see note from them 07/28/2024:
-'Met with patient via Language Line sign language interpretor [place] ID #[id number]; provided patient with cost of proposed meds. She is on SSI, SSDI and can only afford $30/month total for meds. She says she was on Eliquis previously and cost was
$10/month so if restarted on that she has $20/month left for any other med. She said she is able to afford her [employer] insurance so will consider restarting in the future and her brother will help with that.
Subjective:
SOB and edema better.
Physical Exam
Vital Signs/Labs
Vital Signs
Temp Pulse Resp BP Pulse Ox
97.8 F 112 29 120/78 93
07/31/24 07:19 07/31/24 09:39 07/31/24 06:00 07/31/24 09:39 07/31/24 06:00
07/30/24 07/31/24 08/01/24
06:59 06:59 06:59
Actual Weight 82.9 kg 80 kg
07/31/24 04:36
07/31/24 04:35
APTT 28.5 Sec (23.4-35.0) 07/26/24 22:50
Magnesium 1.6 mg/dl (1.6-2.3) 07/31/24 04:35
Triglycerides 57 mg/dl (10-149) 07/27/24 04:43
LDL Cholesterol, Calc 54 mg/dl 07/27/24 04:43
VLDL Cholesterol, Calc 11 mg/dl (0-30) 07/27/24 04:43
HDL Cholesterol 18 mg/dl 07/27/24 04:43
07/26/24
22:50
Uim-T-Lbzujbeurkr Pept [id number]
Physical Exam
Constitutional: No acute distress
EENT: Anicteric
Cardiovascular: Rhythm/rate is irregular and S1S2 is normal
Respiratory: Respiratory effort normal and Lungs clear to auscul.
GI: Soft and Distention absent
Neuro/Psych: Alert
Data Reviewed
-
Date of Service: July 31, 2024
--- NOTE | 2024-07-31 13:10 | W.PN.UPDATE ---
Addendum entered and electronically signed by VENESSA Orta 07/31/24 14:35:
Eliquis assistance form filled out. CM to send.
Original Note:
Update Note
Progress Note Update
Per our office- multiple prescriptions sent in Wednesday from our office to assess cost and per [facility], Farxiga or Jardiance will cost more than $500/month, Entresto/Xarelto/dabigatran about $1700 for 90 days. No insurance card for patient
there. I sent this information to rehabilitation case coordinator, Shaneka. Patient with cost limitations as noted (can afford $30/month for meds). Shaneka will help assess options for Eliquis affordability with this information - Eliquis assistance plan, etc. We appreciate
that help.
[2024-07-31] MEDS: LANOXIN 250 MCG PO (13:12)
[2024-07-31] MEDS: FERRLECIT 110 MG IV (13:13)
--- NOTE | 2024-07-31 14:22 | CM ---
Addendum entered by Mariam Garcia RN 08/01/24 09:50:
Phone message received from [facility] [phone]; Medicaid application submitted for this patient.
Original Note:
Patient who is deaf. O2 2L. Receiving IV Iron, IV Lasix. PT 07/28 recommends skilled rehab. OT 07/27 recommends HH.
Spoke with Minerva Orta; she would like patient to be able to go home on Eliquis. Agreed to submit Patient Assistance Form to plating inspector [employer] for copay assistance and to provide patient with Free 30 day Eliquis
Card. Joan completed script on Patient Assistance Form and is aware that her office and the patient's brother will be notified in about 7 days re; decision for copay assist.
Met with patient and communicated via Language Line sign language interpretor Anaid ID #; provided Free 30 day Eliquis Card with explanations. Explained Eliquis Patient Assistance Form and patient signed. Explained that her brother Sarabjit was
listed on the form for followup with the decision re; copay assistance.
Completed Copay Assistance Form faxed to [employer]- fax confirmation received.
Message to Ayleen PT & Lucie OT requesting updated therapy evals.
Spoke with [facility]; they could possibly consider the patient if she has MA pending status.
Spoke with Katrina Silva [facility]; she is uncertain if patient will be approved for MA. Mandie in [facility] was waiting for the patient/brother to provide patient's bank statements to see if she will qualify.
Plan follow up after seen again by PT/OT.
--- NOTE | 2024-07-31 16:30 | PTCARENOTE ---
Report called to [facility]. Patient transported with all known belongings in patient bed. Patients brother in room. Language line taken with patient to [facility].
--- NOTE | 2024-07-31 17:18 | W.PN.HOSP.TC ---
Today's Communication/Plan
-
transfer to tele
diuretics per cards
see note
Assessment / Plan
Assessment / Plan
TTE
Severely reduced left ventricular systolic function. LV ejection fraction is 25-30%. Moderate mitral regurgitation.
Normal right ventricular size. Reduced right ventricular systolic function. Moderate tricuspid regurgitation. Mildly elevated PASP. Estimated pulmonary artery pressure of 39 mmHg assuming a right atrial pressure of 15 mmHg.

Persistent Atrial Fibrillation with Rapid Ventricular Response
- Patient has been taken off of diltiazem drip with low EF
- Currently being maintained on oral beta-bjorn/digoxin resume
- Cards recommended patient to be discharged on Eliquis although insurance coverage/cost was prohibitive. Case management helped with Eliquis assistance.
- Patient noted to be noncompliant and cardiology will consider ablation once patient follows up in office.
Acute on Chronic HFrEF
Cardiomyopathy -- type is unknown
- LE edema, SOB, R pleural effusion and elevated BNP from prior.
- TTE report as above with EF of 25-30%
- Cardiology started on GDMT with patient on beta-bjorn/BHARAT/Aldactone
- Cost is prohibitive for Entresto/Jardiance.
- Patient currently on IV Lasix and cardio planning to transition to oral Lasix tomorrow
Benign Hypertension
- Blood pressure medication targeted for simultaneous Afib/HF managment , see above
Iron deficiency anemia
- neg heme stool test in ER
- Iron sat 9%, check ferritin
- will require age appropriate c-scope and GI f/u in office
- Got IV iron, transition to oral iron every other day from tomorrow onward
Anion Gap Metabolic Acidosis - Improved
Elevated Beta Hydroxybutyrate -- Likely from Starvation Ketoacidosis
- Now patient and metabolic alkalosis range likely with IV diuretic
Eczema
- Significant rash / itching / eczema of the arms bilaterally.
- Trial of topical steroid - follow for improvement.
Stage 2 right upper back pressure injury, POA
- Wound care consult
DVT Prophylaxis: Eliquis
Code Status: Full
Anticipated Discharge: 24 - 48 hours
Subjective/Interval History
-
Date of Service: July 31, 2024
Language line used for this encounter
Patient resting comfortably in chair
Had some palpitations/chest discomfort which has not reoccurred overnight
Denies any shortness of breath
No lower extremity pain/discomfort
Objective Data
-
Vital Signs:
Vital Signs
Temp Pulse Resp BP Pulse Ox
99 F 104 16 105/67 96
07/31/24 17:00 07/31/24 17:00 07/31/24 17:00 07/31/24 17:00 07/31/24 17:00
I&O
07/30/24 07/31/24 08/01/24
06:59 06:59 06:59
Intake Total 480 / 480 480 / 480
Output Total 2550 / 2550 3000 / 3000 1600 / 1600
Balance -2069 / -2069 -2519 / -2520 -1600 / -1600
Review of Systems
-
Respiratory: Reports No Symptoms
Cardiac: Denies Chest Pain or Palpitations
Abdomen/GI: Reports No Symptoms
Physical Exam
-
General: No Apparent Distress and Comfortable
HEENT: Negative Oxygen
Respiratory: Clear to Auscultation
Cardiac: S1/S2, Irregular Rhythm and Tachycardic; Negative Murmur or Rub
GI: Soft, Nontender and Nondistended
Musculoskeletal: No Edema
Neuro: Awake, Alert, Oriented, No Motor Deficits and Nonfocal/Grossly Intact
Psych: Calm
--- NOTE | 2024-07-31 17:29 | PTCARENOTE ---
report received. orientation at baseline. afib on monitor. vss. call padilla in reach. dinner ordered. pt resting comfortably. will monitor.
[2024-07-31] MEDS: FEOSOL 325 MG PO (18:15)
[2024-08-01 03:22] VITALS: BP 128/89
[2024-08-01 05:27] VITALS: BMI 26.3
[2024-08-01 07:30] VITALS: BP 143/100
[2024-08-01 07:44] LABS: Hemoglobin 9.2 g/dL (12.0-16.0); Mean Corp Hgb Conc. 28.8 g/dL (33.0-37.0); Mean Corpuscular Hgb 22.3 pg (27.0-31.0); Mean Corpuscular Volume 77.7 fL (81.0-99.0); Mean Platelet Volume 9.6 fL (7.4-10.4); Platelet Count 324 10^3/uL (130-400); Red Blood Cell Count 4.12 10^6/uL (4.20-5.40); Red Cell Dist. Width 19.9 % (11.5-14.5); White Blood Cell Count 7.1 10^3/uL (4.8-10.8)
[2024-08-01 08:04] LABS: Blood Urea Nitrogen 22 mg/dl (7-17); Calcium 8.6 mg/dl (8.4-10.2); Carbon Dioxide 35 mmol/L (22-30); Chloride 95 mmol/L (98-107); Estimated Creatinine Clearance 73 ml/min; Glucose 80 mg/dl (70-99); Magnesium 1.7 mg/dl (1.6-2.3); Potassium 3.7 mmol/L (3.5-5.1); Sodium 138 mmol/L (135-145); eGFR > 60.00
--- NOTE | 2024-08-01 08:11 | W.PN.CD ---
Today's Communication / Plan
-
Will aim for dry weight of 78.5 - 79.5 kg
Will try just daily Lasix and second dose PRN
OK for home on current meds
Will need GI work up for low MCV anemia
Will need BMP in 2 and 4 weeks
Will consider outpatient stress test and referral for AFib ablation
Impression / Plan
-
64 y/o deaf female with hypertension, AFIB (previously on Eliquis), and HFrEF EF 35-40% who is here for evaluation of shortness of breath, chest discomfort, and LE edema consistent wiht HF exacerbation. SHe is also in AF RVR.
Ijpnw-lw-bxdxvuw HFrEF, LVEF 25-30% (echo 07/27/2024):
- Admit weight 88.6 kg (07/26/2024) and now 78.5 kg (08/01/2025)
- Now on PO furosemide, HF BB, digoxin, lisinopril, spironolactone
- Will need BMP 2 and 4 weeks
- Will aim for dry weight of 78.5 - 79.5 kg
- Will try just daily Lasix and second dose PRN
AFib, persisting
- On Eliquis, will need to know if she will be able to take at discharge
- Rates OK, low 100s, now on high dose HF BB and dig
- Can consider referral for ablation if she follows up with us
- [id number] score is 3 for female, HTN, and HF- Eliquis added back
- NOT on Amiodarone at this time. If AMIO added then dig would need to be cut by 50%
Moderate MR
Moderate TR
Cardiomyopathy, etiology uncertain
- Consider stress test as outpatient
Anemia, low MCV, abnormal iron studies => will need evaluation, defer to medicine
Deaf
Case management involved, see note from them 07/28/2024:
-'Met with patient via Language Line sign language interpretor [place] ID #[id number]; provided patient with cost of proposed meds. She is on SSI, SSDI and can only afford $30/month total for meds. She says she was on Eliquis previously and cost was
$10/month so if restarted on that she has $20/month left for any other med. She said she is able to afford her [employer] insurance so will consider restarting in the future and her brother will help with that.
Subjective:
SOB and edema better.
Physical Exam
Vital Signs/Labs
Vital Signs
Temp Pulse Resp BP Pulse Ox
98.6 F 113 16 128/89 95
08/01/24 03:22 08/01/24 03:22 08/01/24 03:22 08/01/24 03:22 08/01/24 03:22
07/31/24 08/01/24 08/02/24
06:59 06:59 06:59
Actual Weight 80 kg 78.471 kg
08/01/24 06:58
08/01/24 06:58
APTT 28.5 Sec (23.4-35.0) 07/26/24 22:50
Magnesium 1.7 mg/dl (1.6-2.3) 08/01/24 06:58
Triglycerides 57 mg/dl (10-149) 07/27/24 04:43
LDL Cholesterol, Calc 54 mg/dl 07/27/24 04:43
VLDL Cholesterol, Calc 11 mg/dl (0-30) 07/27/24 04:43
HDL Cholesterol 18 mg/dl 07/27/24 04:43
07/26/24
22:50
Ere-A-Qvjizafkerd Pept [id number]
Physical Exam
Constitutional: No acute distress
EENT: Anicteric
Cardiovascular: Rhythm/rate is irregular and S1S2 is normal
Respiratory: Respiratory effort normal and Lungs clear to auscul.
GI: Soft and Distention absent
Neuro/Psych: AO x 3
Data Reviewed
-
Date of Service: August 01, 2024
[2024-08-01] MEDS: ALDACTONE 25 MG PO (08:59)
[2024-08-01] MEDS: ELIQUIS 5 MG PO ×2 (08:59→21:14)
[2024-08-01] MEDS: ZESTRIL 10 MG PO (08:59)
[2024-08-01] MEDS: MAGNESIUM OXIDE 500 MG PO (09:00)
[2024-08-01] MEDS: TOPROL XL 100 MG PO ×2 (09:00→21:13)
[2024-08-01] MEDS: HYDROCORTISONE 1% LOTION 1 APPLIC TOPICAL ×2 (09:00→21:15)
[2024-08-01] MEDS: LASIX 40 MG PO (09:19)
[2024-08-01] MEDS: LANOXIN 250 MCG PO (12:13)
--- NOTE | 2024-08-01 13:56 | W.PN.HOSP.TC ---
Today's Communication/Plan
-
discharge planning
Assessment / Plan
Assessment / Plan
TTE
Severely reduced left ventricular systolic function. LV ejection fraction is 25-30%. Moderate mitral regurgitation.
Normal right ventricular size. Reduced right ventricular systolic function. Moderate tricuspid regurgitation. Mildly elevated PASP. Estimated pulmonary artery pressure of 39 mmHg assuming a right atrial pressure of 15 mmHg.

Persistent Atrial Fibrillation with Rapid Ventricular Response
- Patient has been taken off of diltiazem drip with low EF
- Currently being maintained on oral beta-bjorn/digoxin resume
- Cards recommended patient to be discharged on Eliquis although insurance coverage/cost was prohibitive. Case management helped with Eliquis assistance.
- Discussed at length with help of language line that patient will benefit with follow-up with cardiology/FM clinic, Patient understands and agreeable to idea.
Acute on Chronic HFrEF
Cardiomyopathy -- type is unknown
Acute hypoxic reps insuff
- LE edema, SOB, R pleural effusion and elevated BNP from prior.
- TTE report as above with EF of 25-30%
- Cardiology started on GDMT with patient on beta-bjorn/BHARAT/Aldactone
- Cost is prohibitive for Entresto/Jardiance.
- Patient has been switched to oral Lasix 40mg/d today
- Requested RN to wean patient off o2
Benign Hypertension
- Blood pressure medication targeted for simultaneous Afib/HF management , see above
Iron deficiency anemia
- neg heme stool test in ER
- Iron sat 9%, check ferritin
- will require age appropriate c-scope and GI f/u in office
- Got IV iron, transition to oral iron every other day from tomorrow onward
Anion Gap Metabolic Acidosis - Improved
Elevated Beta Hydroxybutyrate -- Likely from Starvation Ketoacidosis
- Now patient and metabolic alkalosis range likely with IV diuretic
Eczema
- Significant rash / itching / eczema of the arms bilaterally.
- Trial of topical steroid - follow for improvement.
- Lower extremity arterial Doppler ALCIDES/TBI within normal
Stage 2 right upper back pressure injury, POA
- Wound care consult
DVT Prophylaxis: Eliquis
Code Status: Full
PT recommended rehab - informed CM for discharge planning needs.
Anticipated Discharge: Today
Subjective/Interval History
-
Date of Service: August 01, 2024
no complains overnight
remains on o2 through [place] 2L
Objective Data
-
Labs:
Laboratory Results
08/01/24
06:58
WBC 7.1
Hgb 9.2 L
Hct 32.0 L
Plt Count 324
Sodium 138
Potassium 3.7
Chloride 95 L
Carbon Dioxide 35 H
BUN 22 H
Creatinine 0.8
Glucose 80
Calcium 8.6
Vital Signs:
Vital Signs
Temp Pulse Resp BP Pulse Ox
98.5 F 89 16 143/100 95
08/01/24 07:30 08/01/24 07:30 08/01/24 07:30 08/01/24 07:30 08/01/24 12:17
I&O
07/31/24 08/01/24 08/02/24
06:59 06:59 06:59
Intake Total 480 / 480 480 / 480
Output Total 3000 / 3000 1600 / 1600
Balance -2520 / -2520 -1120 / -1120
Review of Systems
-
Unable to obtain full review of systems at this time due to: Patient Non-verbal (Language line used )
Physical Exam
-
General: No Apparent Distress and Comfortable
HEENT: Negative Oxygen
Respiratory: Clear to Auscultation
Cardiac: S1/S2, Irregular Rhythm and Tachycardic; Negative Murmur or Rub
GI: Soft, Nontender and Nondistended
Musculoskeletal: No Edema
Neuro: Awake, Alert, Oriented, No Motor Deficits and Nonfocal/Grossly Intact
Psych: Calm
[2024-08-01 15:20] VITALS: BP 134/78
[2024-08-01 19:24] VITALS: BP 139/81
[2024-08-01 22:57] VITALS: BP 134/87
[2024-08-02] VITALS (8 sets, daily range): BP systolic 90–143; BP diastolic 50–98; PULSE 79; O2SAT 95; BMI 26.2
[2024-08-02 08:14] LABS: Hematocrit 33.3 % (37.0-47.0); Hemoglobin 9.9 g/dL (12.0-16.0); Mean Corp Hgb Conc. 29.7 g/dL (33.0-37.0); Mean Corpuscular Hgb 22.7 pg (27.0-31.0); Mean Corpuscular Volume 76.2 fL (81.0-99.0); Mean Platelet Volume 9.4 fL (7.4-10.4); Platelet Count 377 10^3/uL (130-400); Red Blood Cell Count 4.37 10^6/uL (4.20-5.40); Red Cell Dist. Width 20.6 % (11.5-14.5); White Blood Cell Count 6.6 10^3/uL (4.8-10.8)
[2024-08-02] MEDS: ALDACTONE 25 MG PO (09:44)
[2024-08-02] MEDS: MAGNESIUM OXIDE 500 MG PO (09:44)
[2024-08-02] MEDS: LASIX 40 MG PO (09:45)
[2024-08-02] MEDS: ELIQUIS 5 MG PO ×2 (09:45→19:17)
[2024-08-02] MEDS: ZESTRIL 10 MG PO (09:45)
[2024-08-02] MEDS: TOPROL XL 100 MG PO (09:45)
[2024-08-02] MEDS: HYDROCORTISONE 1% LOTION 1 APPLIC TOPICAL ×2 (09:46→19:17)
[2024-08-02 11:09] LABS: Blood Urea Nitrogen 24 mg/dl (7-17); Calcium 8.6 mg/dl (8.4-10.2); Carbon Dioxide 32 mmol/L (22-30); Chloride 95 mmol/L (98-107); Estimated Creatinine Clearance 73 ml/min; Glucose 76 mg/dl (70-99); Potassium 3.9 mmol/L (3.5-5.1); Sodium 138 mmol/L (135-145); eGFR > 60.00
--- NOTE | 2024-08-02 12:22 | W.PN.HOSP.TC ---
Today's Communication/Plan
-
continue PT
dispo planning - see note
Assessment / Plan
Assessment / Plan
TTE
Severely reduced left ventricular systolic function. LV ejection fraction is 25-30%. Moderate mitral regurgitation.
Normal right ventricular size. Reduced right ventricular systolic function. Moderate tricuspid regurgitation. Mildly elevated PASP. Estimated pulmonary artery pressure of 39 mmHg assuming a right atrial pressure of 15 mmHg.

Persistent Atrial Fibrillation with Rapid Ventricular Response
- Patient has been taken off of diltiazem drip with low EF
- Currently being maintained on oral beta-bjorn/digoxin resume
- Cards recommended patient to be discharged on Eliquis although insurance coverage/cost was prohibitive. Case management helped with Eliquis assistance.
- Discussed at length with help of language line that patient will benefit with follow-up with cardiology/FM clinic, Patient understands and agreeable to idea.
Acute on Chronic HFrEF
Cardiomyopathy -- type is unknown
Acute hypoxic reps insufficiency
- LE edema, SOB, R pleural effusion and elevated BNP from prior.
- TTE report as above with EF of 25-30%
- Cardiology started on GDMT with patient on beta-bjorn/BHARAT/Aldactone
- Cost is prohibitive for Entresto/Jardiance.
- Patient has been switched to oral Lasix 40mg/d today
- Requested RN to wean patient off o2
Benign Hypertension
- Blood pressure medication targeted for simultaneous Afib/HF management , see above
Iron deficiency anemia
- neg heme stool test in ER
- Iron sat 9%, ferritin 225
- will require age appropriate c-scope and GI f/u in office
- Got IV iron, transition to oral iron every other day from tomorrow onward
Anion Gap Metabolic Acidosis - Improved
Elevated Beta Hydroxybutyrate -- Likely from Starvation Ketoacidosis
- Now patient and metabolic alkalosis range likely with IV diuretic
Eczema
- Significant rash / itching / eczema of the arms bilaterally.
- Trial of topical steroid - follow for improvement.
- Lower extremity arterial Doppler ALCIDES/TBI within normal
Stage 2 right upper back pressure injury, POA
- Wound care consult
DVT Prophylaxis: Eliquis
Code Status: Full
Patient require assistance with activity and no family member to provide help. Patient uninsured and cannot be placed to skilled rehab
Discussed with case management, patient being helped for re-enrollment in insurance
Anticipated Discharge: > 48 hours
Subjective/Interval History
-
Date of Service: August 02, 2024
No complaints overnight
Objective Data
-
Labs:
Laboratory Results
08/02/24
07:24
WBC 6.6
Hgb 9.9 L
Hct 33.3 L
Plt Count 377
Sodium 138
Potassium 3.9
Chloride 95 L
Carbon Dioxide 32 H
BUN 24 H
Creatinine 0.8
Glucose 76
Calcium 8.6
Vital Signs:
Vital Signs
Temp Pulse Resp BP Pulse Ox
97.7 F 98 18 143/98 97
08/02/24 11:09 08/02/24 11:09 08/02/24 11:09 08/02/24 11:09 08/02/24 11:09
I&O
08/01/24 08/02/24 08/03/24
06:59 06:59 06:59
Intake Total 480 / 480 1740 / 1740
Output Total 1600 / 1600
Balance -1120 / -1120 1740 / 1740
Review of Systems
-
Respiratory: Reports No Symptoms
Cardiac: Reports No Symptoms
Abdomen/GI: Reports No Symptoms
Physical Exam
-
General: No Apparent Distress and Comfortable
HEENT: Negative Oxygen
Respiratory: Clear to Auscultation
Cardiac: S1/S2, Irregular Rhythm and Tachycardic; Negative Murmur or Rub
GI: Soft, Nontender and Nondistended
Musculoskeletal: No Edema
Neuro: Awake, Alert, Oriented, No Motor Deficits and Nonfocal/Grossly Intact
Psych: Calm
[2024-08-02] MEDS: LANOXIN 250 MCG PO (12:53)
--- NOTE | 2024-08-02 13:54 | CM ---
Reviewed the chart notes. CM continues to be available to patient/family and is monitoring medical plan for needs at discharge.
Plan: Discharge to home when medically stable. Patient will be alone at home during the day, brother works outside the home.
[2024-08-02] MEDS: FEOSOL 325 MG PO (19:00)
[2024-08-02] MEDS: TOPROL XL PO (19:21)
[2024-08-03 03:04] VITALS: BP 131/83
[2024-08-03 06:00] VITALS: BMI 25.5
[2024-08-03 06:55] LABS: Hematocrit 32.7 % (37.0-47.0); Hemoglobin 10.2 g/dL (12.0-16.0); Mean Corp Hgb Conc. 31.2 g/dL (33.0-37.0); Mean Corpuscular Volume 73.8 fL (81.0-99.0); Mean Platelet Volume 9.1 fL (7.4-10.4); Platelet Count 342 10^3/uL (130-400); Red Blood Cell Count 4.43 10^6/uL (4.20-5.40); Red Cell Dist. Width 21.1 % (11.5-14.5); White Blood Cell Count 6.9 10^3/uL (4.8-10.8)
[2024-08-03 07:26] LABS: Blood Urea Nitrogen 26 mg/dl (7-17); Calcium 8.6 mg/dl (8.4-10.2); Carbon Dioxide 31 mmol/L (22-30); Chloride 98 mmol/L (98-107); Estimated Creatinine Clearance 73 ml/min; Glucose 86 mg/dl (70-99); Sodium 139 mmol/L (135-145); eGFR > 60.00
[2024-08-03 07:30] VITALS: BP 126/79
[2024-08-03] MEDS: ELIQUIS 5 MG PO ×2 (09:19→21:06)
[2024-08-03] MEDS: MAGNESIUM OXIDE 500 MG PO (09:19)
[2024-08-03] MEDS: ZESTRIL 10 MG PO (09:20)
[2024-08-03] MEDS: HYDROCORTISONE 1% LOTION 1 APPLIC TOPICAL ×2 (09:21→21:24)
[2024-08-03] MEDS: LASIX 40 MG PO (09:21)
[2024-08-03] MEDS: TOPROL XL 100 MG PO ×2 (09:21→21:06)
[2024-08-03] MEDS: ALDACTONE 25 MG PO (09:21)
--- NOTE | 2024-08-03 11:08 | W.PN.HOSP.TC ---
Today's Communication/Plan
-
start ancef
continue pt/ot
discharge planning
Assessment / Plan
Assessment / Plan
TTE
Severely reduced left ventricular systolic function. LV ejection fraction is 25-30%. Moderate mitral regurgitation.
Normal right ventricular size. Reduced right ventricular systolic function. Moderate tricuspid regurgitation. Mildly elevated PASP. Estimated pulmonary artery pressure of 39 mmHg assuming a right atrial pressure of 15 mmHg.

Persistent Atrial Fibrillation with Rapid Ventricular Response
- Patient has been taken off of diltiazem drip with low EF
- Currently being maintained on oral beta-bjorn/digoxin
- Eliquis was cost prohibitive, case management helped. Patient will be released with 30-day supply.
- Discussed at length with help of language line that patient will benefit with follow-up with cardiology/FM clinic, Patient understands and agreeable to idea.
Acute on Chronic HFrEF
Cardiomyopathy -- type is unknown
Acute hypoxic reps insufficiency - resolved
- LE edema, SOB, R pleural effusion and elevated BNP from prior.
- TTE report as above with EF of 25-30%
- Cardiology started on GDMT with patient on beta-bjorn/BHARAT/Aldactone
- Cost is prohibitive for Entresto/Jardiance.
- Patient has been switched to oral Lasix 40mg/d today
Benign Hypertension
- Blood pressure medication targeted for simultaneous Afib/HF management , see above
Right forearm cellulitis
- have underlying eczema as well?
- significant erythema on extensor surface of forearm
- start on ancef 2g q8h
Iron deficiency anemia
- neg heme stool test in ER
- Iron sat 9%, ferritin 225
- will require age appropriate c-scope and GI f/u in office
- Got IV iron, transition to oral iron every other day from tomorrow onward
Anion Gap Metabolic Acidosis - Improved
Elevated Beta Hydroxybutyrate -- Likely from Starvation Ketoacidosis
- Now patient and metabolic alkalosis range likely with IV diuretic
Eczema
- Significant rash / itching / eczema of the arms bilaterally.
- Trial of topical steroid - follow for improvement.
- Lower extremity arterial Doppler ALCIDES/TBI within normal
Stage 2 right upper back pressure injury, POA
- Wound care consult
DVT Prophylaxis: Eliquis
Code Status: Full
08/02 Patient require assistance with activity and no family member to provide help. Patient uninsured and cannot be placed to skilled rehab
Discussed with case management, patient being helped for re-enrollment in insurance
Anticipated Discharge: > 48 hours
Subjective/Interval History
-
Date of Service: August 03, 2024
no complains overnight
afebrile in night
HR controlled
no dizziness/palpitation
Objective Data
-
Labs:
Laboratory Results
08/03/24
06:19
WBC 6.9
Hgb 10.2 L
Hct 32.7 L
Plt Count 342
Sodium 139
Potassium 4.0
Chloride 98
Carbon Dioxide 31 H
BUN 26 H
Creatinine 0.8
Glucose 86
Calcium 8.6
Vital Signs:
Vital Signs
Temp Pulse Resp BP Pulse Ox
98.3 F 88 16 126/79 100
08/03/24 07:30 08/03/24 09:21 08/03/24 07:30 08/03/24 09:21 08/03/24 07:30
I&O
08/02/24 08/03/24 08/04/24
06:59 06:59 06:59
Intake Total 1739 1080 / 1080
Balance 1739 1080 / 1080
Review of Systems
-
Respiratory: Reports No Symptoms
Cardiac: Reports Palpitations
Abdomen/GI: Reports No Symptoms
Physical Exam
-
General: No Apparent Distress and Comfortable
HEENT: Negative Oxygen
Respiratory: Clear to Auscultation
Cardiac: S1/S2, Irregular Rhythm and Tachycardic; Negative Murmur or Rub
GI: Soft, Nontender and Nondistended
Musculoskeletal: No Edema
Neuro: Awake, Alert, Oriented, No Motor Deficits and Nonfocal/Grossly Intact
Psych: Calm
[2024-08-03 11:55] VITALS: BP 133/92
[2024-08-03] MEDS: ANCEF 10 IV ×2 (13:38→21:07)
[2024-08-03] MEDS: LANOXIN 250 MCG PO (13:38)
[2024-08-03 15:26] VITALS: BP 134/80
[2024-08-03 19:19] VITALS: BP 134/95
[2024-08-03 23:31] VITALS: BP 98/60
[2024-08-04] VITALS (8 sets, daily range): BP systolic 99–132; BP diastolic 55–87; PULSE 93–94; O2SAT 93–94; BMI 25.3
[2024-08-04] MEDS: ANCEF 10 IV ×3 (04:03→20:46)
[2024-08-04] MEDS: ELIQUIS 5 MG PO ×2 (08:01→20:47)
[2024-08-04] MEDS: LASIX 40 MG PO (08:01)
[2024-08-04] MEDS: ZESTRIL 10 MG PO (08:01)
[2024-08-04] MEDS: ALDACTONE 25 MG PO (08:01)
[2024-08-04] MEDS: TOPROL XL 100 MG PO ×2 (08:04→20:47)
[2024-08-04] MEDS: MAGNESIUM OXIDE 500 MG PO (08:05)
[2024-08-04] MEDS: HYDROCORTISONE 1% LOTION 1 APPLIC TOPICAL ×2 (08:08→20:48)
[2024-08-04] MEDS: LANOXIN 250 MCG PO (12:25)
[2024-08-04] MEDS: FLUSH (NSS) 1 FLUSH IV (12:27)
--- NOTE | 2024-08-04 12:38 | CM ---
Reviewed the chart notes. Ancef started yesterday. CM continues to be available to patient/family and is monitoring medical plan for needs at discharge.
Plan: Discharge to home when medically stable.
--- NOTE | 2024-08-04 13:10 | W.PN.HOSP.TC ---
Today's Communication/Plan
-
see note
discharge planning
Assessment / Plan
Assessment / Plan
TTE
Severely reduced left ventricular systolic function. LV ejection fraction is 25-30%. Moderate mitral regurgitation.
Normal right ventricular size. Reduced right ventricular systolic function. Moderate tricuspid regurgitation. Mildly elevated PASP. Estimated pulmonary artery pressure of 39 mmHg assuming a right atrial pressure of 15 mmHg.

Persistent Atrial Fibrillation with Rapid Ventricular Response - Improved
- Patient has been taken off of diltiazem drip with low EF
- Currently being maintained on oral beta-bjorn/digoxin
- Eliquis was cost prohibitive, case management helped. Patient will be released with 30-day supply.
- Discussed at length with help of language line that patient will benefit with follow-up with cardiology/FM clinic, Patient understands and agreeable to idea.
Acute on Chronic HFrEF
Cardiomyopathy -- type is unknown
Acute hypoxic reps insufficiency - resolved
- LE edema, SOB, R pleural effusion and elevated BNP from prior.
- TTE report as above with EF of 25-30%
- Cardiology started on GDMT with patient on beta-bjorn/BHARAT/Aldactone
- Cost is prohibitive for Entresto/Jardiance.
- Patient has been switched to oral Lasix 40mg/d at this point
Benign Hypertension
- Blood pressure medication targeted for simultaneous Afib/HF management , see above
Right forearm cellulitis
- have underlying eczema as well?
- significant erythema on extensor surface of forearm
- maintain on ancef 2g q8h
- Clinically better, asked RN to teresa the area.
- will escalate to vancomycin if worsened
Iron deficiency anemia
- neg heme stool test in ER
- Iron sat 9%, ferritin 225
- will require age appropriate c-scope and GI f/u in office
- Got IV iron, transition to oral iron every other day from tomorrow onward
Anion Gap Metabolic Acidosis - Improved
Elevated Beta Hydroxybutyrate -- Likely from Starvation Ketoacidosis
- Now patient and metabolic alkalosis range likely with IV diuretic
Eczema
- Significant rash / itching / eczema of the arms bilaterally.
- Trial of topical steroid - follow for improvement.
- Lower extremity arterial Doppler ALCIDES/TBI within normal
Stage 2 right upper back pressure injury, POA
- Wound care consult
DVT Prophylaxis: Eliquis
Code Status: Full
08/02 Patient require assistance with activity and no family member to provide help. Patient uninsured and cannot be placed to skilled rehab
Discussed with case management, patient being helped for re-enrollment in insurance
Anticipated Discharge: > 48 hours
Subjective/Interval History
-
Date of Service: August 04, 2024
no issues overnight
having some right arm cellulitis
Objective Data
-
Vital Signs:
Vital Signs
Temp Pulse Resp BP Pulse Ox
97.9 F 97 16 123/73 94
08/04/24 11:15 08/04/24 12:25 08/04/24 11:15 08/04/24 11:15 08/04/24 11:15
I&O
08/03/24 08/04/24 08/05/24
06:59 06:59 06:59
Intake Total 1080 / 1080 1040 / 1040
Balance 1080 / 1080 1040 / 1040
Review of Systems
-
Respiratory: Reports No Symptoms
Cardiac: Reports No Symptoms
Abdomen/GI: Reports No Symptoms
Physical Exam
-
General: No Apparent Distress and Comfortable
HEENT: Negative Oxygen
Respiratory: Clear to Auscultation
Cardiac: S1/S2, Irregular Rhythm and Tachycardic; Negative Murmur or Rub
GI: Soft, Nontender and Nondistended
Musculoskeletal: Other (Right arm cellulitis)
Neuro: Awake, Alert, Oriented, No Motor Deficits and Nonfocal/Grossly Intact
Psych: Calm
[2024-08-04] MEDS: FEOSOL 325 MG PO (17:21)
[2024-08-04] MEDS: FLUSH (NSS) 2 FLUSH IV (20:48)
[2024-08-05 03:21] VITALS: BP 133/86
[2024-08-05] MEDS: ANCEF 10 IV ×3 (03:25→20:48)
[2024-08-05] MEDS: FLUSH (NSS) 2 FLUSH IV ×2 (03:26→20:56)
[2024-08-05 05:42] LABS: Hematocrit 33.6 % (37.0-47.0); Hemoglobin 10.1 g/dL (12.0-16.0); Mean Corp Hgb Conc. 30.1 g/dL (33.0-37.0); Mean Corpuscular Hgb 22.9 pg (27.0-31.0); Mean Corpuscular Volume 76.2 fL (81.0-99.0); Mean Platelet Volume 9.1 fL (7.4-10.4); Platelet Count 365 10^3/uL (130-400); Red Blood Cell Count 4.41 10^6/uL (4.20-5.40); Red Cell Dist. Width 21.9 % (11.5-14.5); White Blood Cell Count 6.9 10^3/uL (4.8-10.8)
[2024-08-05 05:47] VITALS: BMI 25.0
[2024-08-05 06:01] LABS: Blood Urea Nitrogen 27 mg/dl (7-17); Calcium 8.7 mg/dl (8.4-10.2); Carbon Dioxide 31 mmol/L (22-30); Chloride 97 mmol/L (98-107); Estimated Creatinine Clearance 65 ml/min; Glucose 81 mg/dl (70-99); Potassium 4.3 mmol/L (3.5-5.1); Sodium 138 mmol/L (135-145); eGFR > 60.00
[2024-08-05 08:34] VITALS: BP 103/67
[2024-08-05] MEDS: MAGNESIUM OXIDE 500 MG PO (09:12)
[2024-08-05] MEDS: ELIQUIS 5 MG PO ×2 (09:12→20:49)
[2024-08-05] MEDS: TOPROL XL 100 MG PO ×2 (09:12→20:49)
[2024-08-05] MEDS: LASIX 40 MG PO (09:13)
[2024-08-05] MEDS: ZESTRIL 10 MG PO (09:13)
[2024-08-05] MEDS: HYDROCORTISONE 1% LOTION 1 APPLIC TOPICAL ×2 (09:13→20:50)
[2024-08-05] MEDS: ALDACTONE 25 MG PO (09:13)
[2024-08-05 11:41] VITALS: BP 108/71
--- NOTE | 2024-08-05 12:38 | W.PN.HOSP.TC ---
Today's Communication/Plan
-
continue abx
continue other rx
Assessment / Plan
Assessment / Plan
TTE
Severely reduced left ventricular systolic function. LV ejection fraction is 25-30%. Moderate mitral regurgitation.
Normal right ventricular size. Reduced right ventricular systolic function. Moderate tricuspid regurgitation. Mildly elevated PASP. Estimated pulmonary artery pressure of 39 mmHg assuming a right atrial pressure of 15 mmHg.

Persistent Atrial Fibrillation with Rapid Ventricular Response - Improved
- Patient has been taken off of diltiazem drip with low EF
- Currently being maintained on oral beta-bjorn/digoxin
- Eliquis was cost prohibitive, case management helped. Patient will be released with 30-day supply.
- Discussed at length with help of language line that patient will benefit with follow-up with cardiology/FM clinic, Patient understands and agreeable to idea.
Acute on Chronic HFrEF
Cardiomyopathy -- type is unknown
Acute hypoxic reps insufficiency - resolved
- LE edema, SOB, R pleural effusion and elevated BNP from prior.
- TTE report as above with EF of 25-30%
- Cardiology started on GDMT with patient on beta-bjorn/BHARAT/Aldactone
- Cost is prohibitive for Entresto/Jardiance.
- Patient has been switched to oral Lasix 40mg/d at this point
Benign Hypertension
- Blood pressure medication targeted for simultaneous Afib/HF management , see above
Right forearm cellulitis
- have underlying eczema as well?
- significant erythema on extensor surface of forearm
- maintain on Ancef 2g q8h
- Clinically better, asked RN to teresa the area.
- will escalate to vancomycin if worsened
Iron deficiency anemia
- neg heme stool test in ER
- Iron sat 9%, ferritin 225
- will require age appropriate c-scope and GI f/u in office
- Got IV iron, transition to oral iron every other day from tomorrow onward
Anion Gap Metabolic Acidosis - Improved
Elevated Beta Hydroxybutyrate -- Likely from Starvation Ketoacidosis
- Now patient and metabolic alkalosis range likely with IV diuretic
Eczema
- No confirmed diagnosis.
- Significant rash / itching / eczema of the arms bilaterally.
- Trial of topical steroid - follow for improvement.
- Lower extremity arterial Doppler ALCIDES/TBI within normal
Stage 2 right upper back pressure injury, POA
- Wound care consult
DVT Prophylaxis: Eliquis
Code Status: Full
08/02 Patient require assistance with activity and no family member to provide help. Patient uninsured and cannot be placed to skilled rehab
Discussed with case management, patient being helped for re-enrollment in insurance
Anticipated Discharge: 24 - 48 hours
Subjective/Interval History
-
Date of Service: August 05, 2024
no complains overnight
Objective Data
-
Labs:
Laboratory Results
08/05/24
04:36
WBC 6.9
Hgb 10.1 L
Hct 33.6 L
Plt Count 365
Sodium 138
Potassium 4.3
Chloride 97 L
Carbon Dioxide 31 H
BUN 27 H
Creatinine 0.9
Glucose 81
Calcium 8.7
Vital Signs:
Vital Signs
Temp Pulse Resp BP Pulse Ox
98.1 F 75 18 108/71 95
08/05/24 11:41 08/05/24 11:41 08/05/24 11:41 08/05/24 11:41 08/05/24 11:41
I&O
08/04/24 08/05/24 08/06/24
06:59 06:59 06:59
Intake Total 1040 / 1040 600 / 600
Balance 1040 / 1040 600 / 600
Review of Systems
-
Respiratory: Reports No Symptoms
Cardiac: Reports No Symptoms
Abdomen/GI: Reports No Symptoms
Physical Exam
-
General: No Apparent Distress and Comfortable
HEENT: Negative Oxygen
Respiratory: Clear to Auscultation
Cardiac: S1/S2, Irregular Rhythm and Tachycardic; Negative Murmur or Rub
GI: Soft, Nontender and Nondistended
Musculoskeletal: Other (Right arm cellulitis)
Neuro: Awake, Alert, Oriented, No Motor Deficits and Nonfocal/Grossly Intact
Psych: Calm
[2024-08-05] MEDS: LANOXIN 250 MCG PO (12:52)
[2024-08-05 16:45] VITALS: BP 106/60
[2024-08-05 19:28] VITALS: BP 139/80
[2024-08-05 23:29] VITALS: BP 128/78
[2024-08-06 03:21] VITALS: BP 136/81
[2024-08-06] MEDS: ANCEF 10 IV ×2 (05:45→13:24)
[2024-08-06 06:00] VITALS: BMI 24.9
[2024-08-06 06:55] LABS: Hematocrit 34.2 % (37.0-47.0); Mean Corp Hgb Conc. 29.2 g/dL (33.0-37.0); Mean Corpuscular Hgb 22.6 pg (27.0-31.0); Mean Corpuscular Volume 77.4 fL (81.0-99.0); Platelet Count 375 10^3/uL (130-400); Red Blood Cell Count 4.42 10^6/uL (4.20-5.40); Red Cell Dist. Width 21.8 % (11.5-14.5); White Blood Cell Count 6.6 10^3/uL (4.8-10.8)
[2024-08-06 07:06] LABS: Blood Urea Nitrogen 27 mg/dl (7-17); Calcium 8.6 mg/dl (8.4-10.2); Carbon Dioxide 30 mmol/L (22-30); Chloride 100 mmol/L (98-107); Estimated Creatinine Clearance 73 ml/min; Glucose 84 mg/dl (70-99); Potassium 4.8 mmol/L (3.5-5.1); Sodium 140 mmol/L (135-145); eGFR > 60.00
[2024-08-06 07:19] VITALS: BP 123/70
[2024-08-06] MEDS: ALDACTONE 25 MG PO (09:01)
[2024-08-06] MEDS: MAGNESIUM OXIDE 500 MG PO (09:01)
[2024-08-06] MEDS: LASIX 40 MG PO (09:01)
[2024-08-06] MEDS: ELIQUIS 5 MG PO (09:01)
[2024-08-06] MEDS: ZESTRIL 10 MG PO (09:02)
[2024-08-06] MEDS: HYDROCORTISONE 1% LOTION TOPICAL (09:02)
[2024-08-06] MEDS: TOPROL XL 100 MG PO (09:02)
[2024-08-06 11:57] VITALS: BP 127/81
[2024-08-06] MEDS: LANOXIN 250 MCG PO (13:21)
--- NOTE | 2024-08-06 13:23 | W.PN.HOSP.TC ---
Today's Communication/Plan
-
d/c planning
Assessment / Plan
Assessment / Plan
TTE
Severely reduced left ventricular systolic function. LV ejection fraction is 25-30%. Moderate mitral regurgitation.
Normal right ventricular size. Reduced right ventricular systolic function. Moderate tricuspid regurgitation. Mildly elevated PASP. Estimated pulmonary artery pressure of 39 mmHg assuming a right atrial pressure of 15 mmHg.

Persistent Atrial Fibrillation with Rapid Ventricular Response - Improved
- Patient has been taken off of diltiazem drip with low EF
- Currently being maintained on oral beta-bjorn/digoxin
- Eliquis was cost prohibitive, case management helped. Patient will be released with 30-day supply.
- Discussed at length with help of language line that patient will benefit with follow-up with cardiology/FM clinic, Patient understands and agreeable to idea.
Acute on Chronic HFrEF
Cardiomyopathy -- type is unknown
Acute hypoxic reps insufficiency - resolved
- LE edema, SOB, R pleural effusion and elevated BNP from prior.
- TTE report as above with EF of 25-30%
- Cardiology started on GDMT with patient on beta-bjorn/BHARAT/Aldactone
- Cost is prohibitive for Entresto/Jardiance.
- Patient has been switched to oral Lasix 40mg/d at this point
Benign Hypertension
- Blood pressure medication targeted for simultaneous Afib/HF management , see above
Right forearm cellulitis
- have underlying eczema as well?
- significant erythema on extensor surface of forearm
- maintain on Ancef 2g q8h
- clinically improved, will require course of oral abx at discharge
Iron deficiency anemia
- neg heme stool test in ER
- Iron sat 9%, ferritin 225
- will require age appropriate c-scope and GI f/u in office
- Got IV iron, transition to oral iron every other day from tomorrow onward
Anion Gap Metabolic Acidosis - Improved
Elevated Beta Hydroxybutyrate -- Likely from Starvation Ketoacidosis
- Now patient and metabolic alkalosis range likely with IV diuretic
Eczema
- No confirmed diagnosis.
- Significant rash / itching / eczema of the arms bilaterally.
- Trial of topical steroid - follow for improvement.
- Lower extremity arterial Doppler ALCIDES/TBI within normal
Stage 2 right upper back pressure injury, POA
- Wound care consult
DVT Prophylaxis: Eliquis
Code Status: Full
Anticipated Discharge: Within 24 hours
Subjective/Interval History
-
Date of Service: August 06, 2024
no complains overnight
Objective Data
-
Labs:
Laboratory Results
08/06/24
04:12
WBC 6.6
Hgb 10.0 L
Hct 34.2 L
Plt Count 375
Sodium 140
Potassium 4.8
Chloride 100
Carbon Dioxide 30
BUN 27 H
Creatinine 0.8
Glucose 84
Calcium 8.6
Vital Signs:
Vital Signs
Temp Pulse Resp BP Pulse Ox
98.4 F 84 18 123/70 94
08/06/24 07:19 08/06/24 09:02 08/06/24 07:19 08/06/24 09:02 08/06/24 07:19
I&O
08/05/24 08/06/24 08/07/24
06:59 06:59 06:59
Intake Total 600 / 600 480 / 480
Balance 600 / 600 480 / 480
Review of Systems
-
Respiratory: Reports No Symptoms
Cardiac: Reports No Symptoms
Abdomen/GI: Reports No Symptoms
Physical Exam
-
General: No Apparent Distress and Comfortable
HEENT: Negative Oxygen
Respiratory: Clear to Auscultation
Cardiac: S1/S2, Irregular Rhythm and Tachycardic; Negative Murmur or Rub
GI: Soft, Nontender and Nondistended
Musculoskeletal: Other (Right arm cellulitis)
Neuro: Awake, Alert, Oriented, No Motor Deficits and Nonfocal/Grossly Intact
Psych: Calm
--- NOTE | 2024-08-06 14:23 | CM ---
Reviewed the chart notes and spoke with the patient via video bill of materials clerk for [employer]. Discussed patient using [facility] for discount on her new prescriptions. CM showed her the bruce on phone. Patient told bill of materials clerk that she has this bruce. CM
spoke with the patient's brother via telephone. He will provide transportation home today. CM continues to be available to patient/family and is monitoring medical plan for needs at discharge.
Plan: Discharge to home today. No needs identified at this time.
--- NOTE | 2024-08-06 15:03 | W.DCSUMMARY ---
Discharge Summary
Discharge Data
Date of Admission: 07/27/24
Date of Discharge: 08/06/24
-
Pending Results: No
Hospital Course
Discharging Physician : Dr Terrence Waller
Disposition : Home
Primary care physician : Unknown
Principal Discharge diagnosis :
Recurrent atrial fibrillation with rapid ventricular rate
Acute on chronic systolic congestive heart failure
Acute hypoxic respite insufficiency
Right forearm cellulitis
Iron deficiency anemia
Chronic Discharge diagnosis :
Questionable history of eczema
Stage II right upper back pressure injury
Essential hypertension
Hospital Course :
Patient is a 64-year-old female with above-mentioned past medical history came to ER with new onset of shortness of breath/chest discomfort and lower extremity swelling. Patient has history of recurrent A-fib and has failed cardioversion in the
past. Patient has been off of her regular medication due to insurance issues. Patient was noted to having signs of worsening heart failure with A-fib. Repeat echocardiogram this admission showing decreasing EF to 25 to 30%. Patient was
maintained on IV diuretics and after improvement of heart failure transition to oral Lasix. GDMT was discussed although patient unable to afford due to lack of insurance coverage. Patient currently on discharge on regimen of
Aldactone/beta-bjorn. Entresto/Jardiance can be tried once patient establish insurance coverage. For patient A-fib patient was maintained on Cardizem drip and was able to be weaned off of after echo showing low EF. Patient was started on
beta-bjorn/digoxin and tolerated without any issue. Patient was able to be signed up for [employer] assistance with help of case management. A full 30-day free coupon is been provided for [employer]. Patient also had some right forearm cellulitis
which was treated with IV Ancef, discharge patient is provided 5 5 days of oral Keflex therapy as well. Post medical stabilization patient was initially appropriate for SNF rehab although unable to be placed due to lack of insurance coverage.
Patient was kept in hospital for few more days and was able to be cleared to home level care. At discharge patient instructed to follow-up with cardiology. Patient also need to establish care with family physician clinic for other noncardiac
issues.
Important imaging findings :
None
Procedure findings :
None
Discharge Plan
-
Patient Disposition: Home (Routine Discharge)
Discharge Diagnosis/Procedures: Afib/RVR, Acute on chronic systolic HF, Right forearm cellulitis, JACOB
Condition: Fair
Diet: Low Cholesterol
Activity: As tolerated
Driving Restrictions: No driving
Bathing Restrictions: OK to Shower
Activity Restrictions/Additional Instructions:
Please call [facility] physician clinic to establish care.
Instructions: *CBC Heart Failure Instructions
Referrals:
Joan Cruz CRNP [Specified Professional Personl] - 08/18/24 8:40 am (Please call office if you need to change appointment )
Caitlin Sanches MD, Resident [Family Practice Resident Year2] - in one week
UNKNOWN,NO INTERVIEW [Family Provider] -
Prescriptions:
New
furosemide 40 mg Tablet
40 mg PO DAILY Qty: 30 2RF
metoprolol succinate 100 mg Tablet Extended Release 24 Hr
100 mg PO BID Qty: 60 2RF
digoxin 250 mcg (0.25 mg) Tablet
250 mcg PO NOON Qty: 30 2RF
spironolactone 25 mg Tablet
25 mg PO DAILY Qty: 30 2RF
Eliquis 5 mg Tablet
5 mg PO BID Qty: 60 2RF
lisinopril 10 mg tablet
10 mg PO DAILY Qty: 30 2RF
cephalexin 750 mg capsule
750 mg PO Q8H 5 Days Qty: 15 0RF
Discontinued
amiodarone [Pacerone] 200 mg Tablet
200 mg PO BID Qty: 60 0RF
metoprolol succinate 50 mg Tablet Extended Release 24 Hr
50 mg PO BID Qty: 6 0RF
lisinopril 5 mg Tablet
5 mg PO DAILY Qty: 60 0RF
furosemide 20 mg Tablet
20 mg PO BID AT 0800,1600 Qty: 6 0RF
Eliquis 5 mg Tablet
5 mg PO BID Qty: 60 0RF
Discharge Orders:
Discharge Patient (As Directed); Ordered 08/06/24
Ordered By: Terrence Waller
Discharge Date and Time
Print Language: SLOVENIAN
[2024-08-06] MEDS: AFLURIA (36 mos+) 2024-2025 FORMULA 0.5 ML IM (15:46)
[2024-08-06 15:57] VITALS: BP 107/71
== END 2024-08-06 16:53 | disposition home or self-care (01) | DRG 291 ==
LOC: 2 NORTH 02:10
PROVIDERS: Hospitalist; Nurse Practitioner; ADMITTING PHYSICIAN Hospitalist; ATTENDING PHYSICIAN Hospitalist; CONSULT PHYSICIAN Internal Medicine Gastroenterology; CONSULT PHYSICIAN Specialist; EMERGENCY PHYSICIAN Emergency Medicine; OTHER PHYSICIAN Internal Medicine
PROC: 3E02340 Introduction of Influenza Vaccine into Muscle, Percutaneous Approach (ICD-10-PCS; 2024-08-06)
DX: I11.0 Hypertensive heart disease with heart failure (principal); I50.23 Acute on chronic systolic (congestive) heart failure; I48.19 Other persistent atrial fibrillation; J98.11 Atelectasis; E87.29 Other acidosis; E87.3 Alkalosis; L03.113 Cellulitis of right upper limb; D50.9 Iron deficiency anemia, unspecified; L30.9 Dermatitis, unspecified; I42.9 Cardiomyopathy, unspecified; L89.112 Pressure ulcer of right upper back, stage 2; I08.1 Rheumatic disorders of both mitral and tricuspid valves; R09.02 Hypoxemia; R06.89 Other abnormalities of breathing; H91.90 Unspecified hearing loss, unspecified ear; Z59.71 Insufficient health insurance coverage; Z91.148 Patient's other noncompliance with medication regimen for other reason; Z82.49 Family history of ischemic heart disease and other diseases of the circulatory system; Z91.141 Patient's other noncompliance with medication regimen due to financial hardship; Z59.86 Financial insecurity; Z23 Encounter for immunization
CPT/HCPCS: 71045; 80048; 80053; 80061; 81003; 81015; 82010; 82248; 82607; 82728; 82746; 82805; 83540; 83550; 83605; 83735; 83880; 84145; 84443; 84484; 85025; 85027; 85730; 86803; 87077; 87086; 87186; 90686; 93005; 93306; 93922; 96365; 96366; 96375; 97116; 97163; 97166; 97530; 97535; 99285; G0008; J2916

== ENCOUNTER → 2024-12-07 14:16 | Outpatient (REF) | payer OTHER, SELFPAY ==
[2024-12-07 15:21] LABS: % Basophils 0.2 % (0-2); % Eosinophils 0.7 % (0-6); % Immature Granulocytes 1.4 % (0-0.5); % Lymphocytes 14.5 % (20.5-51.1); % Monocytes 9.1 % (1.7-9.3); % Neutrophils 74.1 % (42.2-75.2); Absolute Immature Granulocytes 0.1 10^3/uL (0-0.05); Absolute Lymphocytes 0.6 10^3/uL (1.2-3.4); Absolute Monocytes 0.4 10^3/uL (0.1-0.6); Absolute Neutrophils 3.3 10^3/uL (1.4-6.5); Hematocrit 30.2 % (37.0-47.0); Hemoglobin 9.7 g/dL (12.0-16.0); Mean Corp Hgb Conc. 32.1 g/dL (33.0-37.0); Mean Corpuscular Hgb 25.9 pg (27.0-31.0); Mean Corpuscular Volume 80.7 fL (81.0-99.0); Mean Platelet Volume 9.3 fL (7.4-10.4); Nucleated Red Blood Cells % 0 %; Platelet Count 213 10^3/uL (130-400); Red Blood Cell Count 3.74 10^6/uL (4.20-5.40); Red Cell Dist. Width 14.6 % (11.5-14.5); White Blood Cell Count 4.4 10^3/uL (4.8-10.8)
[2024-12-07 15:51] LABS: ALT (SGPT) < 10 U/L (0-35); AST (SGOT) 24 U/L (14-36); Albumin 3.7 g/dl (3.5-5.0); Alkaline Phosphatase 90 U/L (38-126); Blood Urea Nitrogen 29 mg/dl (7-17); Calcium 10.1 mg/dl (8.4-10.2); Carbon Dioxide 28 mmol/L (22-30); Chloride 106 mmol/L (98-107); Glucose 100 mg/dl (70-99); HDL Cholesterol 49 mg/dl; LDL Cholesterol, Calculated 85 mg/dl; Potassium 4.2 mmol/L (3.5-5.1); Sodium 142 mmol/L (135-145); Total Bilirubin 0.7 mg/dl (0.2-1.3); Total Cholesterol 153 mg/dl (50-199); Total Protein 7.5 g/dl (6.3-8.2); Triglyceride 97 mg/dl (10-149); Very Low Density Lipoprotein 19 mg/dl (0-30); eGFR > 60.00
[2024-12-07 15:52] LABS: Digoxin < 0.4 ng/ml (0.8-2.0)
== END ==
LOC: REG 14:16
PROVIDERS: ATTENDING PHYSICIAN Student in an Organized Health Care Education/Training Program; FAMILY PHYSICIAN Family Medicine
DX: I48.19 Other persistent atrial fibrillation (principal)
CPT/HCPCS: 36415; 80053; 80061; 80162; 85025

== ENCOUNTER 2025-04-20 05:07 | Inpatient (IN) | payer MEDICARE, OTHER, SELFPAY ==
[2025-04-19 21:54] VITALS: BP 130/91
[2025-04-19 22:22] LABS: Hematocrit 26.6 % (37.0-47.0); Hemoglobin 7.5 g/dL (12.0-16.0); Mean Corp Hgb Conc. 28.2 g/dL (33.0-37.0); Mean Corpuscular Volume 64.7 fL (81.0-99.0); Nucleated Red Blood Cells % 2.9 %; Platelet Count 337 10^3/uL (130-400); Red Cell Dist. Width 20.1 % (11.5-14.5)
[2025-04-19 22:33] LABS: ALT (SGPT) 12 U/L (0-35); AST (SGOT) 26 U/L (14-36); Albumin 4.2 g/dl (3.5-5.0); Alkaline Phosphatase 72 U/L (38-126); Blood Urea Nitrogen 52 mg/dl (7-17); Calcium 9.5 mg/dl (8.4-10.2); Carbon Dioxide 19 mmol/L (22-30); Chloride 109 mmol/L (98-107); Glucose 110 mg/dl (70-99); Potassium 4.3 mmol/L (3.5-5.1); Sodium 140 mmol/L (135-145); Total Protein 8.1 g/dl (6.3-8.2); eGFR 56.46
[2025-04-19 22:38] LABS: Normal RBC Morphology No
[2025-04-19 22:40] LABS: Anisocytosis 2+; Hypochromasia 3+; Macrocytosis 2+
[2025-04-19 22:41] LABS: Target Cells 1+
[2025-04-19 22:42] LABS: Tear Drop Red Blood Cells 1+
[2025-04-20] VITALS (16 sets, daily range): BP systolic 111–151; BP diastolic 69–113; BMI 26.4
--- NOTE | 2025-04-20 02:35 | ED.GENMED ---
History of Present Illness
General
Chief Complaint: Breathing Problem
Source: patient
Exam Limitations: none
Time Seen by Provider: 04/20/25 02:27
Nursing documentation reviewed up to this point in time: agreed with
History of Present Illness
History of Present Illness:
see MDM
Past History
Past History
ED Past Medical History: Arrthythmia (Atrial fibrillation), CHF, HTN and Other (eaf)
ED Past Surgical History: None
Patient has exhibited threatening behavior?: No
Social History
Tobacco: Non-smoker
Alcohol: None
Drug: None
Personal: Other
Living: with family
Employment: Other
Family History
Family History: Unable to obtain
Review of Systems
Review of Systems
Allergies reviewed?: Yes
Unable to obtain full review of systems at this time due to: language barrier
All Other Systems: Not applicable
Phy Exam
Physical Exam
Physical Exam:
GENERAL: Alert , in no apparent distress
EYE: pupils equal and reactive, pale conjunctiva
NECK: Supple
ENT: o/p clr, mmm.
CARDIAC: Irregularly irregular, moderate pitting edema bilateral lower extremities
LUNGS: Diminished, crackles at the base specially left side, no tachypnea except with minimal activity, rolling in the stretcher she became acutely very short of breath
ABDOMEN: Soft, without focal tenderness, no r/g, no cvat, normal bowel sounds
Heme-negative brown stool
NEUROLOGICAL: Alert and oriented, no focal neuro deficits
SKIN: Warm and dry, skin intact.
Patient has a purpleish mottling appearance of her extremities especially her forearms and her knees and feet
She is very pale
MUSCULOSKELETAL: No edema, well perfused. neg job's sign
PSYCH: Normal and appropriate interaction.
Scores
Heart Failure Risk
Heart Failure Risk Score: Yes
History of Stroke or TIA: No
History of intubation for respiratory distress: No
Heart rate on ED arrival >/= 110: No
SaO2 <90% on arrival on room air: No
HR >/=110 during 3min walk test (or too ill to perform test): Yes
ECG has acute ischemic changes: No
Urea >/=12mmol/L (BUN 33.6mg/dL): No
Serum CO2>/=35mmol/L: No
Troponin I or T elevated to KS Level (0.4mg/dL): No
NT-proBNP >/=5,000ng/L (5,000pg/ml): Yes
HF Risk Score: 3
Admission Status: HIGH RISK 15.9% Consider SNF treatment or admission to hospital
Course
Orders/Labs/Results
Orders:
Orders
04/19/25
Electrocardiogram (*1) Stat
Reason for Study: Chest Pain
Comment: DONE
04/19/25 22:04
Complete Blood Count/With Diff Urgent
Comprehensive Metabolic Panel Urgent
NT-proBNP Urgent
04/20/25 00:05
CR Chest - 2 Views Urgent
Reason For Exam: SOB
04/20/25 02:58
Electrocardiogram (*1) Urgent
Reason for Study: Shortness of Breath
EKG- Treatment ONCE
Furosemide [Lasix] 40 mg IV NOW STA
04/20/25 03:40
Admit/Transfer Patient As Directed
Co-Sign Provider:
Level of Care: Inpatient admission
Assign to:: Telemetry
Physician / Group: Tim
Diagnosis: CHF exacerbation
Reason for Telemetry: Subacute Heart Failure
Date to Stop Telemetry: 04/22/25
Time to Stop Telemetry: 11:00
Reason for Hospitalization: CHF
Expected length of stay greater than two midnights?: Yes
ELOS- Estimated Length of Stay in days: 2
I certify the patient meets the requirements for IP care: Yes
PRN Pain Medication Management As Directed
May give lesser potent ordered pain med per pt: Yes
preference::
Protocol:: Medication orders for pain may be administered in a
manner that supports deferring to patient preference
when the pt is:
- Requesting an ordered lesser potent pain medication.
Least to most potent pain medications are defined
as: acetaminophen < NSAID < tramadol < opioids
(morphine, oxycodone, hydromorphone).
- Requesting a lesser dose of the same medication IF
ORDERED.
- Requesting a less intrusive route of administration
if both routes are prescribed by the provider (PO <
IV).
04/20/25 03:41
Code Status As Directed
Resuscitation Status: Full Code
04/20/25 03:53
Type+Screen Urgent
Troponin I Urgent
04/20/25 04:17
ABO2 Routine
BBK Wristband Number:
Associate notified that ABO2 has been ordered: [id number]
Date: 04/20/25
Time: 04:07
Physician Ophthalmologist ID: [id number]
04/20/25 05:22
Acetaminophen [Tylenol] 650 mg PO Q6HPRN PRN
04/20/25 05:22
Echo 2D MMode Color/Doppler Routine
Reason for Study: heart failure
CARDIOLOGY CONSULT Routine
Consulting Provider: Carlos Jimenez
Was physician already notified: No
Reason for consult: CHF exacerbation
Consult Notification Routine
Specialty to Notify: Cardiology
HF DIETARY CONSULT Routine
HF EDUCATOR CONSULT Routine
Comment:
VTE Contraindication Routine
VTE Mechanical Device Contraindication: Medical Contraindication
Pharmocologic Contraindication: Medical Contraindication
Activity As Directed
Activity Level: With Assistance
Intake/ Output As Directed
Frequency: Per unit guidelines
Patient Education As Directed
Type: CHF folder
Comment: give on admission. Document in Interdisciplinary Education record
Sleep Apnea Assessment by RN As Directed
Comment:
Physician Instructions:
Stool for occult blood [Hemetest Stools] As Directed
Vital Signs As Directed
Frequency: Other
Additional Instructions:: Q12 or per unit guidelines if more frequent.
Weight As Directed
Frequency: Daily
Type of Scale: Standing Scale
Comment: Daily morning weight. If unable to stand, use balanced bed scale.
Weight As Directed
Frequency: Once
Type of Scale: Standing Scale
Comment: Upon Admission. If unable to stand, use balanced bed scale.
Oxygen Therapy [O2 Therapy] [RESP] Routine
Nasal Cannula Liter Flow: 2 LPM
Titrate/Wean O2 to maintain O2 sat greater than (%): 95
Pulse Ox/cont/shift [RESP] Routine
Quantity: 1
Special Instructions: Daily pulse oximetry at rest. If greater than 92% at rest also obtain pulse oximetry
while ambulating as tolerated.
04/20/25 05:43
Basic Metabolic Panel IN AM
Complete Blood Count/No Diff IN AM
Digoxin IN AM
Ferritin IN AM
Iron IN AM
Magnesium IN AM
Phosphorus IN AM
Total Iron Binding IN AM
04/20/25 Breakfast
Cholesterol Lowering
At Your Request: Full Participation
Cholesterol Lowering: Sodium, 2 Gram
04/20/25 08:00
Apixaban [Eliquis] 5 mg PO BID
Ferrous Sulfate [Feosol] 325 mg PO DAILY
Furosemide [Lasix] 40 mg IV BID AT 0800,1600
Lisinopril [Zestril] 10 mg PO DAILY
Metoprolol Xl [Toprol Xl] 100 mg PO BID
Spironolactone [Aldactone] 25 mg PO DAILY
04/20/25 12:00
Digoxin [Lanoxin] 250 mcg PO NOON
04/21/25 06:00
Basic Metabolic Panel IN AM
04/22/25 06:00
Basic Metabolic Panel IN AM
04/22/25 11:00
DC Protocol for Telemetry ONCE
Abnormal Lab Results
04/19/25
22:04
RBC 4.11 L 10^6/uL
(4.20-5.40)
Hgb 7.5 L g/dL
(12.0-16.0)
Hct 26.6 L %
(37.0-47.0)
MCV 64.7 L fL
(81.0-99.0)
MCH 18.2 L pg
(27.0-31.0)
MCHC 28.2 L g/dL
(33.0-37.0)
RDW 20.1 H %
(11.5-14.5)
Absolute Lymphs (auto) 0.8 L 10^3/uL
(1.2-3.4)
Neutrophils % 76.0 H %
(42.2-75.2)
Lymphocytes % 17.6 L %
(20.5-51.1)
Chloride 109 H mmol/L
(98-107)
Carbon Dioxide 19 L mmol/L
(22-30)
BUN 52 H mg/dl
(7-17)
Creatinine 1.1 H mg/dL
(0.6-1.0)
Glucose 110 H mg/dl
(70-99)
Total Bilirubin 1.7 H mg/dl
(0.2-1.3)
04/19/25 22:04
04/19/25 22:04
Vital Signs
Initial and Last Documented VS:
Initial Vital Signs
Temp Pulse Resp BP Pulse Ox
36.9 C 106 20 130/91 95
04/19/25 21:54 04/19/25 21:54 04/19/25 21:54 04/19/25 21:54 04/19/25 21:54
Last Documented Vital Signs
Temp Pulse Resp BP Pulse Ox
36.9 C 75 18 151/97 90
04/19/25 21:54 04/20/25 04:15 04/20/25 04:15 04/20/25 03:28 04/20/25 04:15
MDM/Problems Addressed
Differential Diagnosis Includes:
see MDM
MDM/Problems Addressed:
Note:
CHIEF COMPLAINT(S)
Shortness of breath.
HISTORY OF PRESENT ILLNESS
The patient is a 64-year-old female who is deaf and uses sign language with a history of congestive heart failure and anemia who presents with worsening shortness of breath. Symptoms have been progressively worsening, and the patient reports missing
several doses of her medication, furosemide (Lasix). She acknowledges gaining water weight, accompanied by leg swelling. She is on apixaban (Eloquist) for atrial fibrillation, managed by radiological defense officer Dr. Will Gomez.
On examination, the patient is anemic, with a hemoglobin level of 7.5 g/dL. The patient reports no obvious bleeding or dark stools. She has bruising, particularly noted on the posterior regions, which appears purplish-red. The patient denies chest
pain but experiences significant fatigue on exertion and requires frequent pauses when climbing stairs. Additionally, physical activity exacerbates her shortness of breath, as observed during hospital evaluation.
PAST MEDICAL AND SURIGICAL HISTORY
The patient is known to have a significant history of congestive heart failure and atrial fibrillation managed with furosemide (Lasix) and apixaban (Eloquist).
CHRONIC MEDICAL CONDITIONS SIGNIFICANTLY AFFECTING CARE
- Congestive heart failure
- Anemia
- Atrial fibrillation
PHYSICAL EXAM
- General: Patient appears fatigued and is visibly short of breath with mild exertion.
- Cardiovascular: Bruising noted, particularly purplish-red discoloration on posterior regions.
- Respiratory: Increased fluid in lungs noted on imaging.
- Nursing notes reviewed and vital signs reviewed.
PLAN
- Admit the patient for further management of worsening heart failure and anemia.
- Begin intravenous doses of furosemide (Lasix) to manage fluid overload.
- Consider a blood transfusion based on the hemoglobin level and patients consent. Discuss the risks associated with transfusions, including potential allergic reactions, mismatch, and very low risk of blood-borne diseases.
- Perform a rectal exam to assess for possible gastrointestinal bleeding contributing to anemia.
- Monitor and evaluate the need for further cardiac assessment and management.
DIFFERENTIAL DIAGNOSIS
The Differential Diagnosis includes, in no particular order and is not limited to:
1. Congestive heart failure exacerbation
2. Anemia due to chronic blood loss or other causes
3. Pulmonary edema
4. Acute kidney injury
5. Drug-induced anemia (apixaban)
6. Gastrointestinal bleeding
7. Pulmonary embolism
8. Paroxysmal nocturnal dyspnea
9. Worsening atrial fibrillation
10. Side effects from anticoagulation therapy
Disposition:
SUMMARY OF ENCOUNTER
The patient is a 64-year-old female with a history of congestive heart failure, atrial fibrillation, and anemia who presented with worsening symptoms over two weeks. She reported increasing weight gain, leg edema, and dyspnea that reached moderate
levels with minimal activity. She denied chest pain. Her medical regimen includes furosemide but noted noncompliance. On examination, her hemoglobin level was 7.5 g/dL. She was heme-negative on rectal exam, and her stool was brown. She had a
moderate-sized bruise on her right buttock, resulting from a fall two days prior, but it was not deemed to have caused the hemoglobin drop. The patient exhibited pulmonary edema and elevated BNP levels, with crackles at lung bases. A chest x-ray
confirmed mild to moderate pulmonary edema. She was initially not hypoxic at rest but became hypoxic with activity. We withheld transfusion for now, opting for intravenous furosemide (Lasix) to manage her symptoms. The patient consented to a blood
transfusion if hemoglobin dropped below 7 g/dL. No EKG was obtained on arrival, but she remained in rate-controlled atrial fibrillation. She is on apixaban and is compliant with anticoagulation therapy, reducing suspicion for pulmonary embolism.
DISPOSITION
Admit
ASSESSMENT
The patient is experiencing a congestive heart failure exacerbation, accompanied by anemia and managed atrial fibrillation. The pulmonary symptoms are exacerbated by possible noncompliance with prescribed diuretics.
PLAN
- Admit the patient for monitoring and management.
- Administer intravenous doses of furosemide (Lasix) to manage fluid overload.
- Hold blood transfusion unless hemoglobin levels fall below 7 g/dL.
- Monitor cardiac status given existing atrial fibrillation and manage any potential complications.
- Conduct further evaluations for possible causes of anemia, including unseen blood loss.
- Continue follow-up for anticoagulation therapy with apixaban (Eliquis).
INDEPENDENT REVIEW OF LABS AND INTERPRETATION OF TESTS
My independent review of hemoglobin indicates a level of 7.5 g/dL, consistent with her chronic anemia status.
My independent review of BNP indicates elevated levels, supporting evidence of fluid overload and congestive heart failure exacerbation.
PROCEDURES
Rectal examination conducted, revealing brown stool and negative for heme.
MEDICATION RECONCILIATION
- Administered intravenous furosemide (Lasix).
- Patient consented to blood transfusion if hemoglobin drops below 7 g/dL.
- Patient maintained on apixaban (Eliquis) for atrial fibrillation.
MEDICAL DECISION MAKING
-Number and Complexity of Problems Addressed: Chronic conditions affecting care include congestive heart failure, anemia, and atrial fibrillation. Differential diagnoses considered include congestive heart failure exacerbation, pulmonary edema, and
possible drug-related anemia.
-Data:
Category 1
- My independent interpretation of the chest x-ray indicates mild to moderate pulmonary edema.
- BNP levels reviewed independently indicate elevated levels consistent with fluid overload.
Category 2
- Input obtained from external records regarding current anticoagulation therapy and previous lab results for comparison with present hemoglobin levels.
- Risk: The patients presentation includes multiple chronic conditions and requires intravenous medication and potential transfusion, underlining significant complexity in management and risk of morbidity.
*Pulse Oximetry
SaO2: 99
Oxygen Mode of Delivery: Room air
Patient hypoxic: no
*Critical Care Note
Total Time (30-74mins, 75-104mins- exclusive of procedures): Not Applicable
ED Attending Note
-
Portions of this chart may have been created with voice recognition software.� Occasional wrong word or��sound alike� substitutions may have occurred due to the inherent limitations of voice recognition software.
Discharge Plan
Departure
Patient Disposition: Admit
Date of Disposition: 04/20/25
Time of Disposition: 03:08
Admit to: Telemetry
Presentation/result/management discussed w/ accepting MD/DO: Hospitalist
Condition: Fair
Covid-19: Not Applicable
Discharge Problem:
CHF (congestive heart failure), Anemia
Interventions
Interventions:
*Risk Screen - Suicide Last Done: 04/19/25 21:54
*General Assessment Last Done: 04/19/25 21:54
*Neglect/Abuse Screening Last Done: 04/19/25 21:54
*ED- Fall Risk Assessment Last Done: 04/19/25 21:54
*ED COVID-19 Vaccine History Last Done: 04/19/25 21:54
*Nursing Disposition Last Done: 04/20/25 05:46
ED- Cardiac Assessment Last Done: 04/20/25 00:54
ED- Pulmonary Assessment Last Done: 04/20/25 00:54
[2025-04-20] MEDS: LASIX 40 MG IV ×3 (03:28→16:10)
--- NOTE | 2025-04-20 03:30 | HPS.HSE ---
Family Physician
-
Family Physician: Ja Vergara
Chief Complaint
-
Shortness of breath
History of Present Illness
This is a 64-year-old female with deafness, persistent atrial fibrillation on anticoagulation, cardiomyopathy with a EF of around 30%, mild mitral regurgitation, hypertension, history of noncompliance who presents to the emergency department with
shortness of breath and dyspnea on exertion that has been ongoing for a few weeks.
Patient reports that symptoms began about 2 weeks ago. She states that she has dyspnea on exertion with just walking across her room. She also feels short of breath occasionally. She reports some mild chest tightness when she cannot catch her
breath but otherwise denies any chest pain. She also reports having a sense of palpitations and lightheadedness when she is short of breath. She denies having any pleuritic symptoms. She denies any cough. She denies having any fevers or chills.
She denies any sick contacts. Patient reports increasing lower extremity edema bilaterally over the last 2 weeks. She states she has gained about 5 pounds in the last 1 week.
Patient stated that she stopped taking her Lasix about 2 weeks to 3 weeks ago on her own volition. She says she continue the Eliquis and other medications but unable to specify whether she is still taking the digoxin or metoprolol.
She denies any lightheadedness. She denies any melena or hematochezia.
In the Emergency Department she was afebrile, blood pressure was 136/98, she is satting 98% on 2 L. ECG shows atrial fibrillation at a rate of [address] or T wave changes. Troponin is pending. BNP is elevated at 9400. Chest x-ray
shows right sided pleural effusion.
CBC notable for hemoglobin of 7.5 with MCV of 64. Electrolytes were stable with K of 4.3, bicarb of 19. BUN/creatinine are notable at 53 and 1.1.
Medical History
Past Medical History
Past Medical History: Reports Other
Additional Past Medical History:
Paroxysmal Atrial Fibrillation
Chronic HFrEF
Hypertension
Hearing Loss
Past Surgical History: Reports Other
Additional Past Surgical History:
Cardioversion x multiple.
Social History
Tobacco: Non-smoker
Alcohol: None
Drug: None
Family History
Family History: Not pertinent
Allergies / Home Medications
Allergies reflects when Allergies were last updated in [facility].
Home Medications with original date entered in [facility]
Allergy/Medication List:
Allergies
Allergy/AdvReac Type Severity Reaction Status Date / Time
No Known Allergies Allergy Verified 07/20/23 18:56
Home Medications
Patient has taken no medications in 1 year.
Review of Systems
-
History Source: Patient
A 12 point ROS was completed and negative except as noted: Yes
Constitutional: Reports Weight Gain and Fatigue; Denies Fever or Chills
EENT: Denies Sore Throat
Respiratory: Reports Trouble Breathing; Denies Cough or Hemoptysis
Cardiac: Reports Chest Pain; Denies Diaphoresis, Palpitations or Syncope
Abdomen/GI: Denies Abdominal Pain, Nausea, Vomiting or Diarrhea
: Denies Dysuria, Frequency or Flank Pain
Musculoskeletal: Reports Edema; Denies Joint Pain or Muscle Pain
Skin: Reports Itching and Rash
Neurological: Denies Dizzy or Headache
Psych: Denies Depression or Anxiety
Physical Exam
Vital Signs
Vital Signs
Temp Pulse Resp BP Pulse Ox
98.5 F 82 11 136/98 99
04/19/25 21:54 04/20/25 02:17 04/20/25 02:17 04/20/25 02:17 04/20/25 02:36
Physical Exam
General: Other (64y F in no acute distress. Disheveled appearance.)
HEENT: Moist mucous membranes, PERRLA, Deaf and Other (Neck supple.); No Oxygen
Respiratory: Other (Decreased BS at the R base about 1/3 up. Few bibasilar rales. No wheeze / rhonchi.)
Cardiac: S1/S2, Irregular Rhythm and Tachycardia
GI: Soft, Non Tender, Non Distended and Normal Bowel Sounds
Rectal: Other (Fleshy, non-bleeding external hemorrhoids. Stool heme negative.)
Musculoskeletal: Edema, Left Lower Extremity, Edema, Right Lower Extremity and Other
Neuro: AO x 3 and Nonfocal/grossly intact
Psych: Calm
Laboratory Results
-
04/19/25 22:04
04/19/25 22:04
Laboratory Results
Total Bilirubin 1.7 mg/dl (0.2-1.3) H 04/19/25 22:04
AST 26 U/L (14-36) 04/19/25 22:04
ALT 12 U/L (0-35) 04/19/25 22:04
Alkaline Phosphatase 72 U/L (38-126) 04/19/25 22:04
Data Reviewed
-
Diagnostic Radiology: Image Personally Visualized and interpreted
Medical Tests (Nuc Med, Echo, EKG etc): Image Personally Visualized and interpreted
Lab Data: Labs Reviewed by me
Old Records: Reviewed
Impression/Plan
-
IMPRESSION:
64-year-old female with past medical history significant for congestive heart failure with reduced EF of 25 to 30%, moderate mitral regurgitation and reduced right ventricular systolic function who presents to the emergency department with shortness
of breath weight gain worsening edema and noncompliance with the medication for the last few weeks. She is at least 5 kg up from discharge weight. Reports noncompliance with Lasix and has not taken it for the last 2 to 3 weeks. Troponin is
pending, BNP is elevated at 9400, electrolytes were stable, patient slightly elevated at 53 with a creatinine of 1.1 and a normal glucose. CBC is notable for a hemoglobin of 7.5 with MCV of 64.
PLAN:
CHF exacerbation - SOB likely attributable to worsening CHF from from volume overload with anemia.
- admit to telemetry
- continue lasix 40 iv q 12
- daily weights and i/o and target 5 - 8 Ib weightloss
- monitor creatinine
- continue gdmt with metoprolol succinate, lisinopril and spironalactone
- check dig level
- cardiology consult
AFIB - Permanent AFIB
- check dig level, continue dig 250 mcg for now
- continue metoprolol succinate
- continue eliquis
Anemia - Chronic anemia with h/o JACOB. Now Hgb 7.5 w/ mcv of 64. No melena or hematochezia on eliquis
- guaiac stools
- check iron indices and start supplementation empirically
- trend h/h daily for now and type and screen in am
DVT PPX - on apixaban
Code status - Full Code
[2025-04-20 04:33] LABS: Troponin I < 0.012 ng/ml
[2025-04-20 06:09] LABS: Hematocrit 25.7 % (37.0-47.0); Hemoglobin 7.1 g/dL (12.0-16.0); Mean Corp Hgb Conc. 27.6 g/dL (33.0-37.0); Mean Corpuscular Volume 63.8 fL (81.0-99.0); Platelet Count 318 10^3/uL (130-400); Red Cell Dist. Width 19.8 % (11.5-14.5)
[2025-04-20 06:32] LABS: Blood Urea Nitrogen 54 mg/dl (7-17); Calcium 9.4 mg/dl (8.4-10.2); Carbon Dioxide 21 mmol/L (22-30); Chloride 111 mmol/L (98-107); Glucose 104 mg/dl (70-99); Iron 32 ug/dl (37-170); Magnesium 1.9 mg/dl (1.6-2.3); Potassium 4.5 mmol/L (3.5-5.1); Sodium 140 mmol/L (135-145); eGFR 56.46
[2025-04-20 06:38] LABS: Total Iron Binding Capacity 405 ug/dl (265-497)
[2025-04-20 07:01] LABS: Ferritin 12.2 ng/ml (11.1-264.0)
[2025-04-20 07:11] LABS: Digoxin < 0.4 ng/ml (0.8-2.0)
[2025-04-20] MEDS: ALDACTONE 25 MG PO (07:49)
[2025-04-20] MEDS: ZESTRIL 10 MG PO (07:49)
[2025-04-20] MEDS: ELIQUIS 5 MG PO ×2 (07:49→20:07)
[2025-04-20] MEDS: FEOSOL 325 MG PO (07:49)
[2025-04-20] MEDS: TOPROL XL 100 MG PO ×2 (07:49→20:06)
--- NOTE | 2025-04-20 09:20 | PHANOTE ---
med rec note- patient phone is current and has her medication list on it. ecw last office visit 11/2024 looks like family called to change her insurance and her doctors due to change in insurance.
--- NOTE | 2025-04-20 09:44 | CON.CAR ---
Addendum entered and electronically signed by Wally Veras MD 04/21/25 08:17:
Patient seen and examined in collaboration with KNOCKUP WORKER on 04/20/2025; agree with below.
- 64-year-old female with chronic HFrEF (25-30%), persistent atrial fibrillation (on Eliquis), and iron iron deficiency anemia presenting with CHF exacerbation. The patient has not been on Lasix and spironolactone over the past 2 weeks. Patient
also found to have worsening anemia.
- Resume spironolactone.
- Continue Lasix 40 mg IV BID for now.
- Monitor volume status closely.
- Patient's hemoglobin is trending down; suspect active bleeding, especially given elevated BUN/creatinine.
- Will likely need to hold Eliquis; anemia workup as per primary team--check heme stool and transfuse as needed.
- Will follow.
Original Note:
Consultation
Consultation Request
Date/Time Consultation Requested: 04/20/25 5:22a
Date/Time Consultation Performed: 04/20/25 9a
Requesting Provider: Dr. Dumont
Performing Provider: VENESSA Lopez for Dr. Veras
Reason for Consultation: acute HFrEF
Medical History
-
Chief Complaint: sob, weight gain, LE edema
History of Present Illness:
Ms. Cline is a 64 yo female with deafness (sign language), HFrEF, CM 25-30%, persistent Afib on Eliquis, HTN, and chronic anemia with JACOB, who presents from home with c/o SOB, weight gain 5 lbs in 1 week and LE edema for the last 2-3 weeks.
She is admitted to the hospitalist for acute HFrEF and we are consulted for management. She admits to not taking Lasix for 2-3 weeks because she does not like urinating so much and she also ran out of all her medications except for Eliquis.
Past Medical History
Past Medical History: Other (as above)
Past Surgical History: Other (as above)
Social History
Tobacco: Non-Smoker
Personal: Single
Living: With Family (brother)
Family History
Family History: Reviewed & Not Pertinent
Allergies / Home Medications
Allergy/AdvReac Type Severity Reaction Status Date / Time
No Known Allergies Allergy Verified 07/20/23 18:56
�Medication �Instructions �Recorded �Confirmed �Type
apixaban 5 mg tablet (Eliquis) 5 mg PO BID #60 tabs 08/06/24 04/20/25 Rx
digoxin 250 mcg (0.25 mg) tablet 250 mcg PO NOON #30 tabs 08/06/24 04/20/25 Rx
furosemide 40 mg tablet 40 mg PO DAILY #30 tabs 08/06/24 04/20/25 Rx
lisinopril 10 mg tablet 10 mg PO DAILY #30 tabs 08/06/24 04/20/25 Rx
metoprolol succinate 100 mg 100 mg PO BID #60 tabs 08/06/24 04/20/25 Rx
tablet,extended release 24 hr
spironolactone 25 mg tablet 25 mg PO DAILY #30 tabs 08/06/24 04/20/25 Rx
Review of Systems
-
History Source: Patient (and bilingual interpreter services)
All other systems: Negative unless noted
Physical Exam
Vital Signs
Temp Pulse Resp BP Pulse Ox
98.5 F 75 18 151/97 90
04/19/25 21:54 04/20/25 04:15 04/20/25 04:15 04/20/25 03:28 04/20/25 04:15
Lab Results
04/20/25 05:43
04/20/25 05:43
Troponin I < 0.012 ng/ml 04/20/25 03:53
Tmv-W-Xlygjswyedp Pept 9470 pg/ml 04/19/25 22:04
Physical Exam
General: Well Developed, Well Nourished and No Apparent Distress
HEENT: Normocephalic and Anicteric
Respiratory: Crackles (bibasilar, right base diminished)
Cardiac: S1/S2 and Irregular Rhythm
Breast: Deferred by me
GI: Soft, Non Tender, Non Distended and Normal Bowel Sounds
Rectal: Deferred by Provider
Genito-urinary: Clear Urine
Musculoskeletal: No Clubbing, No Cyanosis and Edema (b/l LE)
Skin: Warm and Dry
Neuro: AO x 3
Psych: Calm
Impression / Plan
-
HFrEF - acute on chronic.
- due to medication non-adherence, no lasix for 2-3 weeks due to frequent urination.
- drinks excessive fluids 60-80oz daily.
- agree with IV diuresis and monitor daily weights, I&Os.
- dry weight in the past 172 lbs.
- check echo. EF 25-30% on echo 07/2024.
CM - EF 25-30% on echo 07/2024.
- previously GDMT limited by insurance issues.
- GDMT meds ran out at home and has not been taking them.
- resume GDMT and monitor.
- check echo.
HTN - stable on meds, continue.
Afib - persistent.
- rate controlled.
- [id number] score is 3 for female, HTN, and HF.
- continue Eliquis, she has been taking it.
Anemia - acute on chronic.
- iron deficiency anemia, per hospitalist.
- hgb down to 7.1 today.
Data Reviewed
-
EKG: Tracing Personally Visualized and interpreted (Afib 88 bpm)
Radiology: Report Reviewed by me (right pleural effusion)
Labs: Labs Reviewed by me
Old Records: Reviewed
--- NOTE | 2025-04-20 12:39 | W.PN.HOSP.TC ---
Today's Communication/Plan
-
Monitor vital signs see plan
Continue IV diuresis
Repeat H&H later today and transfuse hemoglobin less than 7
Continue with IV iron
Wean oxygen as tolerated
Nonbillable note
Assessment / Plan
Assessment / Plan
General: Other (64y F in no acute distress. Disheveled appearance.)
HEENT: Moist mucous membranes, PERRLA, Deaf and Other (Neck supple.); No Oxygen
Respiratory: Other (Decreased BS at the R base. Few bibasilar rales)
Cardiac: S1/S2, Irregular Rhythm
GI: Soft, Non Tender, Non Distended and Normal Bowel Sounds
Musculoskeletal: Edema, Left Lower Extremity, Edema, Right Lower Extremity
Neuro: AO x 3 and Nonfocal/grossly intact
Psych: Calm
CHF exacerbation - SOB likely multifactorial attributable to worsening CHF along with anemia
Acute hypoxic respiratory insufficiency likely secondary to above, wean oxygen as tolerated
Acute on chronic congestive heart failure with reduced ejection fraction
Continue IV Lasix
Echo 04/20 with improvement in ejection fraction of 40 to 45%. Tricuspid regurgitation
Reports noncompliant with Lasix due to frequent urination. Discussed with patient regarding importance of medication compliance
Sign language line was used as patient is deaf
Monitor renal function
- continue metoprolol succinate, lisinopril and spironalactone
cw dig
Cardiology following
AFIB - Permanent AFIB
cw dig
- continue metoprolol succinate
- continue eliquis
Anemia - Chronic anemia with h/o JACOB. Now Hgb 7.5 w/ mcv of 64. No melena or hematochezia on eliquis
rectal exam neg for heme per ED
Iron deficiency anemia, start IV iron
Hemoglobin 7.1 today, recheck later today and transfuse for hemoglobin less than 7.
Patient will benefit from follow-up with hematology outpatient
DVT PPX - on apixaban
Code status - Full Code
Anticipated Discharge: > 48 hours
Subjective/Interval History
-
Date of Service: April 20, 2025
denies pain
Objective Data
-
Labs:
Laboratory Results
04/20/25
05:43
WBC 4.2 L
Hgb 7.1 L
Hct 25.7 L
Plt Count 318
Sodium 140
Potassium 4.5
Chloride 111 H
Carbon Dioxide 21 L
BUN 54 H
Creatinine 1.1 H
Glucose 104 H
Calcium 9.4
Vital Signs:
Vital Signs
Temp Pulse Resp BP Pulse Ox
98.5 F 87 18 113/80 90
04/19/25 21:54 04/20/25 11:30 04/20/25 11:30 04/20/25 11:00 04/20/25 04:15
I&O
04/19/25 04/20/25 04/21/25
06:59 06:59 06:59
Output Total 1450 / 1450
Balance -1450 / -1450
[2025-04-20] MEDS: LANOXIN 250 MCG PO (13:24)
--- NOTE | 2025-04-20 13:31 | CM ---
Initial assessment completed. Patient is a 64-year-old female with deafness, persistent atrial fibrillation on anticoagulation, cardiomyopathy with a EF of around 30%, mild mitral regurgitation, hypertension, history of noncompliance who presents to
the emergency department with shortness of breath and dyspnea on exertion.
Spoke w/ patient's brother, patient is NINILCHIK (hard of hearing). Patient resides w/ brother in a 2STH, 2 steps to enter from the outside. Ramp access. 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 Patient is independent w/ ambulation, no device needed.
Independent w/ ADLs. No DME reported. No SNF/HC hx reported.
Address, point of contact and insurance verified
PCP: Ja Vergara
Pharmacy: [facility]
Plan: CM will cont to follow patient's medical progress
[2025-04-20 13:46] LABS: Hematocrit 25.3 % (37.0-47.0); Hemoglobin 7.3 g/dL (12.0-16.0)
[2025-04-20] MEDS: FERRLECIT 110 MG IV (14:40)
--- NOTE | 2025-04-20 17:23 | PTCARENOTE ---
Received pt in transfer from ER via stretcher, accompanied by ER staff. Pt AAO ; deaf. BANGURA; able assist with transfer to bed, tires quickly. VSS. PLaced on telemetry: Afib with occ PVC's. On nc 2 lpm- pulse o 96%, pt with (+) tachypnea/ALFRED. Abd
large, soft, to be on chol lowering diet. Pt incont large amts urine upon arrival to room. Skin afebrile; warm sna dry. Oriented to 4east, currently resting comfortably. Will continue to monitor.
[2025-04-21] VITALS (10 sets, daily range): BP systolic 105–130; BP diastolic 61–80; BMI 25.9
[2025-04-21 08:07] LABS: Hematocrit 24.1 % (37.0-47.0); Hemoglobin 6.8 g/dL (12.0-16.0); Mean Corp Hgb Conc. 28.2 g/dL (33.0-37.0); Mean Corpuscular Volume 63.8 fL (81.0-99.0); Nucleated Red Blood Cells % 1.6 %; Platelet Count 311 10^3/uL (130-400); Red Cell Dist. Width 19.6 % (11.5-14.5)
[2025-04-21] MEDS: ZESTRIL 10 MG PO (08:28)
[2025-04-21] MEDS: LASIX 40 MG IV ×2 (08:28→16:24)
[2025-04-21] MEDS: ALDACTONE 25 MG PO (08:28)
[2025-04-21] MEDS: TOPROL XL 100 MG PO ×2 (08:29→20:39)
[2025-04-21] MEDS: ELIQUIS 5 MG PO (08:30)
[2025-04-21] MEDS: FEOSOL 325 MG PO (08:30)
[2025-04-21 08:53] LABS: Blood Urea Nitrogen 43 mg/dl (7-17); Calcium 8.7 mg/dl (8.4-10.2); Carbon Dioxide 26 mmol/L (22-30); Chloride 105 mmol/L (98-107); Estimated Creatinine Clearance 47 ml/min; Glucose 69 mg/dl (70-99); Potassium 4.1 mmol/L (3.5-5.1); Sodium 138 mmol/L (135-145); eGFR 50.86
[2025-04-21 09:17] LABS: Glucose - Point of Care 84 mg/dl (70-99)
--- NOTE | 2025-04-21 10:59 | W.PN.CD ---
Addendum entered and electronically signed by Wally Veras MD 04/21/25 12:25:
Patient evaluated in collaboration with JOCKEY'S AGENT; agree with below.
- Continue Lasix 40 mg IV BID.
- Hemoglobin trending down; appears Eliquis will need to be held for anemia workup--possible GI source.
- Patient will be transfused blood as per primary team.
- Will continue to follow.
Original Note:
Today's Communication / Plan
-
Hold Eliquis as anemia is worked-up/treated
continue IV lasix and GDMT
CHF education consult
Impression / Plan
-
HFrEF - acute on chronic.
- improving, but still volume overloaded
- due to medication non-adherence, no lasix for 2-3 weeks due to frequent urination. Drinks excessive fluids 60-80oz daily.
- continue IV diuresis, which requires intensive monitoring. CHF education.
- Echo 04/20/25: Ejection fraction is 40-45%. Left ventricular wall motion is diffusely hypokinetic. Right ventricular systolic function is mildly decreased. Moderate to severe mitral valve regurgitation. Severe tricuspid regurgitation. Tricuspid
valve opens normally. severe tricuspid regurgitation. Estimated pulmonary artery pressure of 63 mmHg assuming a right atrial pressure of 15 mmHg. Compared to a prior transthoracic echocardiogram study from 07/27/2024 there is a slight improvement in
LVEF (previously 25-30%). Progressive tricuspid regurgitation (previously moderate) and mitral regurgitation (previously moderate) are noted. PASP has increased (previously 39 mmHg).
HTN - stable on meds, continue.
Afib - persistent.
- rate controlled.
- [id number] score is 3 for female, HTN, and HF.
- have to hold Eliquis as hgb is 6.8
Anemia - acute on chronic.
- 6.8 now
-w/u and management per hospitalists. GI consulted. ELiquis held.
Subjective: she is feeling a little bit better. We communicated effectively through me writing and her talking.
Physical Exam
Vital Signs/Labs
Vital Signs
Temp Pulse Resp BP Pulse Ox
97.6 F 74 18 121/63 93
04/21/25 10:35 04/21/25 10:35 04/21/25 10:35 04/21/25 10:35 04/21/25 10:35
04/20/25 04/21/25 04/22/25
06:59 06:59 06:59
Actual Weight 79.1 kg 74.928 kg
04/21/25 06:32
04/21/25 06:32
Magnesium 1.9 mg/dl (1.6-2.3) 04/20/25 05:43
Digoxin < 0.4 ng/ml (0.8-2.0) L 04/20/25 05:43
04/19/25
22:04
Hxq-M-Xiwqlyzswww Pept 9470
LAB Results
04/20/25
03:53
Troponin I < 0.012
Physical Exam
Constitutional: No acute distress
EENT: Anicteric
Cardiovascular: Rhythm/rate is irregular and Systolic murmur present (II/ systolic)
Respiratory: Crackles Present (bases) and Other (on O2 by NC)
Neuro/Psych: AO x 3
Data Reviewed
-
Date of Service: April 21, 2025
EKG: Other (tele AFIB)
Echo: Report Reviewed by me (as noted)
Labs: Labs Reviewed by me
--- NOTE | 2025-04-21 11:26 | W.PN.HOSP.TC ---
Today's Communication/Plan
-
Monitor vital signs see plan
Continue with diuresis
Consult GI
1 unit PRBC and monitor
Monitor renal function
Assessment / Plan
Assessment / Plan
General: Other (64y F in no acute distress. Disheveled appearance.)
HEENT: Moist mucous membranes, PERRLA, Deaf and Other (Neck supple.); No Oxygen
Respiratory: Other (Decreased BS at the R base. Few bibasilar rales)
Cardiac: S1/S2, Irregular Rhythm
GI: Soft, Non Tender, Non Distended and Normal Bowel Sounds
Musculoskeletal: Edema, Left Lower Extremity, Edema, Right Lower Extremity
Neuro: AO x 3 and Nonfocal/grossly intact
Psych: Calm
CHF exacerbation - SOB likely multifactorial attributable to worsening CHF along with anemia
Acute hypoxic respiratory insufficiency likely secondary to above, wean oxygen as tolerated
Acute on chronic congestive heart failure with reduced ejection fraction
Continue IV Lasix
Echo 04/20 with improvement in ejection fraction of 40 to 45%. Tricuspid regurgitation
Reports noncompliant with Lasix due to frequent urination. Discussed with patient regarding importance of medication compliance
Sign language line was used as patient is deaf
Monitor renal function
- continue metoprolol succinate, lisinopril and spironolactone
cw dig
Cardiology following
AFIB - Permanent AFIB
cw dig
- continue metoprolol succinate
- continue eliquis
Anemia - Chronic anemia with h/o AJCOB. now hgb 6.8.
consult GI; never had cscope in past
hold eliquis
heme test stool
Iron deficiency anemia, start IV iron
transfuse for hemoglobin less than 7. Transfuse 1 unit PRBC 04/21
Patient will benefit from follow-up with hematology outpatient
DVT PPX - on apixaban
Code status - Full Code
I spent a total of 52 minutes with the patient or on the floor. More than 50% of this time involved counseling and coordination of care.
Anticipated Discharge: > 48 hours
Subjective/Interval History
-
Date of Service: April 21, 2025
denies pain
Objective Data
-
Labs:
Laboratory Results
04/21/25
06:32
WBC 5.5
Hgb 6.8 L*
Hct 24.1 L
Plt Count 311
Sodium 138
Potassium 4.1
Chloride 105
Carbon Dioxide 26
BUN 43 H
Creatinine 1.2 H
Glucose 69 L
Calcium 8.7
Vital Signs:
Vital Signs
Temp Pulse Resp BP Pulse Ox
97.6 F 74 18 121/63 93
04/21/25 10:35 04/21/25 10:35 04/21/25 10:35 04/21/25 10:35 04/21/25 10:35
I&O
04/20/25 04/21/25 04/22/25
06:59 06:59 06:59
Intake Total 240 / 240
Output Total 1949 850 / 850
Balance -1949 -1949 -610 / -610
[2025-04-21 11:27] LABS: Glucose - Point of Care 137 mg/dl (70-99)
--- NOTE | 2025-04-21 11:58 | CON.GI ---
Consultation
-
Date/Time Consultation Requested: 04/21/2025
Date/Time Consultation Performed: 04/21/2025
Performing Provider: Ramana Moralez
Reason for Consultation: anemia
Medical History
Chief Complaint / HPI
Chief Complaint: CHF exacerbation, anemia
History of Present Illness:
64-year-old female with h/o deafness, persistent A-fib on Eliquis, cardiomyopathy and HFrEF, HTN, and history of noncompliance who p/w dyspnea on exertion and CHF exacerbation. She has been having progressively worsening ALFRED for past few weeks in
setting of not taking her diuretics on her own. She was seen by cardiology and the etiology of her CHF exacerbation was determined to be noncompliance with her diuretics. Had echo 04/20/2025 which showed EF of 40 to 45% (improved from prior). She
is still volume overloaded. GI consulted for anemia, Hgb on admission was noted to be 6.8.
Past Medical History
Past Medical History: Arrhythmias, CHF and HTN
Past Surgical History: Other (multiple cardioversions)
Social History
Tobacco: Non-Smoker
Alcohol: None
Family History
Family History: Reviewed & Not Pertinent
Allergies / Home Medications
Allergy/AdvReac Type Severity Reaction Status Date / Time
No Known Allergies Allergy Verified 07/20/23 18:56
�Medication �Instructions �Recorded
apixaban 5 mg tablet (Eliquis) 5 mg PO BID #60 tabs 08/06/24
digoxin 250 mcg (0.25 mg) tablet 250 mcg PO NOON #30 tabs 08/06/24
furosemide 40 mg tablet 40 mg PO DAILY #30 tabs 08/06/24
lisinopril 10 mg tablet 10 mg PO DAILY #30 tabs 08/06/24
metoprolol succinate 100 mg 100 mg PO BID #60 tabs 08/06/24
tablet,extended release 24 hr
spironolactone 25 mg tablet 25 mg PO DAILY #30 tabs 08/06/24
Review of Systems
Vital Signs
Temp Pulse Resp BP Pulse Ox
97.8 F 72 14 105/61 100
04/21/25 11:28 04/21/25 11:28 04/21/25 11:28 04/21/25 11:28 04/21/25 11:28
Physical Exam
Exam
General: Well Developed and Well Nourished
HEENT: Normocephalic and Anicteric
Respiratory: Other (crackles, right)
Cardiac: S1/S2 and Regular Rhythm
GI: Soft, Non Tender, Non Distended and Normal Bowel Sounds
Results
WBC 5.5 10^3/uL (4.8-10.8) 04/21/25 06:32
Hgb 6.8 g/dL (12.0-16.0) L* 04/21/25 06:32
Hct 24.1 % (37.0-47.0) L 04/21/25 06:32
MCV 63.8 fL (81.0-99.0) L 04/21/25 06:32
Plt Count 311 10^3/uL (130-400) 04/21/25 06:32
Absolute Neuts (auto) 3.6 10^3/uL (1.4-6.5) 04/21/25 06:32
Sodium 138 mmol/L (135-145) 04/21/25 06:32
Potassium 4.1 mmol/L (3.5-5.1) 04/21/25 06:32
Chloride 105 mmol/L (98-107) 04/21/25 06:32
Carbon Dioxide 26 mmol/L (22-30) 04/21/25 06:32
BUN 43 mg/dl (7-17) H 04/21/25 06:32
Creatinine 1.2 mg/dL (0.6-1.0) H 04/21/25 06:32
Calcium 8.7 mg/dl (8.4-10.2) 04/21/25 06:32
Total Bilirubin 1.7 mg/dl (0.2-1.3) H 04/19/25 22:04
AST 26 U/L (14-36) 04/19/25 22:04
ALT 12 U/L (0-35) 04/19/25 22:04
Alkaline Phosphatase 72 U/L (38-126) 04/19/25 22:04
Diagnostic Image Results:
Prior GI Procedures:
EGD:
Colonoscopy:
Assessment / Plan
-
64-year-old female with history of deafness, cardiomyopathy with HFrEF, HTN, and h/o non-compliance who p/w CHF exacerbation and volume overload from non-compliance with her diuretics. She was also noted to be anemic without symptoms or signs of GI
bleeding.
Impression / Rec:
1. Anemia - she denies symptoms and signs of overt GI bleeding including melena/rectal bleeding/abdominal pain/vomiting. Her baseline appears to be Hgb 9-10. She denies NSAID use. No prior EGD/colonoscopy. Given her social circumstances
(deafness), it may be easiest to perform a endoscopic evaluation during her hospital stay, however she is still volume overloaded and is not ready for endo eval. Anticipate early/mid next week.
Total Time Spent with Patient (in minutes): 55
-
-
Thank you for consultation and allowing me to participate in the patient's care. Please call the international sales representative GI physician during the after hours with any questions or concerns.
[2025-04-21] MEDS: LANOXIN 250 MCG PO (12:06)
[2025-04-21] MEDS: FERRLECIT 110 MG IV (15:13)
[2025-04-21 16:31] LABS: Glucose - Point of Care 118 mg/dl (70-99)
[2025-04-22 00:26] LABS: Glucose - Point of Care 116 mg/dl (70-99)
[2025-04-22 03:39] VITALS: BP 123/77
[2025-04-22 06:00] VITALS: BMI 24.5
[2025-04-22 06:55] VITALS: BP 119/66
[2025-04-22 08:13] LABS: Hematocrit 29.2 % (37.0-47.0); Hemoglobin 8.3 g/dL (12.0-16.0); Mean Corp Hgb Conc. 28.4 g/dL (33.0-37.0); Mean Corpuscular Volume 66.8 fL (81.0-99.0); Nucleated Red Blood Cells % 0.8 %; Platelet Count 269 10^3/uL (130-400); Red Cell Dist. Width 21.7 % (11.5-14.5)
[2025-04-22 08:15] LABS: Glucose - Point of Care 80 mg/dl (70-99)
[2025-04-22 08:16] LABS: Blood Urea Nitrogen 35 mg/dl (7-17); Calcium 8.6 mg/dl (8.4-10.2); Carbon Dioxide 32 mmol/L (22-30); Chloride 103 mmol/L (98-107); Estimated Creatinine Clearance 47 ml/min; Glucose 69 mg/dl (70-99); Potassium 3.9 mmol/L (3.5-5.1); Sodium 138 mmol/L (135-145); eGFR 50.86
[2025-04-22] MEDS: TOPROL XL 100 MG PO ×2 (08:37→20:19)
[2025-04-22] MEDS: ZESTRIL 10 MG PO (08:38)
[2025-04-22] MEDS: LASIX 40 MG IV (08:38)
--- NOTE | 2025-04-22 08:56 | W.PN.CD ---
Today's Communication / Plan
-
- Volume status significantly improved, back to dry weight.
- Will transition from Lasix 40 mg IV BID back to normal home dose of Lasix 40 mg PO daily.
- Eliquis is being held; evaluated by GI--can proceed with scoping from a cardiac standpoint.
Impression / Plan
-
HFrEF - acute on chronic.
- due to medication non-adherence, no lasix for 2-3 weeks due to frequent urination. Drinks excessive fluids 60-80oz daily.
- Echo 04/20/25: Ejection fraction is 40-45%. Left ventricular wall motion is diffusely hypokinetic. Right ventricular systolic function is mildly decreased. Moderate to severe mitral valve regurgitation. Severe tricuspid regurgitation. Tricuspid
valve opens normally. severe tricuspid regurgitation. Estimated pulmonary artery pressure of 63 mmHg assuming a right atrial pressure of 15 mmHg. Compared to a prior transthoracic echocardiogram study from 07/27/2024 there is a slight improvement in
LVEF (previously 25-30%). Progressive tricuspid regurgitation (previously moderate) and mitral regurgitation (previously moderate) are noted. PASP has increased (previously 39 mmHg).
- Volume status significantly improved, back to dry weight.
- Will transition from Lasix 40 mg IV BID back to normal home dose of Lasix 40 mg PO daily.
Valvular heart disease (severe TR, moderate to severe MR):
- Transitioning to PO Lasix as above.
HTN - controlled on current medications.
Afib - persistent.
- Remains rate controlled.
- [id number] score is 3 for female, HTN, and HF.
- Holding Eliquis as hgb was 6.8
Anemia - acute on chronic.
- Edenilson 6.8, transfused blood yesterday; concern for GI source.
- Eliquis is being held; evaluated by GI--can proceed with scoping from a cardiac standpoint.
Physical Exam
Vital Signs/Labs
Vital Signs
Temp Pulse Resp BP Pulse Ox
98.2 F 78 18 119/66 98
04/22/25 06:55 04/22/25 08:37 04/22/25 06:55 04/22/25 08:37 04/22/25 06:55
04/21/25 04/22/25 04/23/25
06:59 06:59 06:59
Actual Weight 74.928 kg 70.931 kg
04/22/25 07:10
04/22/25 07:09
Magnesium 1.9 mg/dl (1.6-2.3) 04/20/25 05:43
Digoxin < 0.4 ng/ml (0.8-2.0) L 04/20/25 05:43
04/19/25
22:04
Kcc-R-Kcrvfvcwrnr Pept 9470
LAB Results
04/20/25
03:53
Troponin I < 0.012
Physical Exam
Constitutional: No acute distress and Comfortable
EENT: Anicteric
Cardiovascular: Rhythm/rate is irregular, Pedal edema present (Trace), Systolic murmur present (09/11) and S1S2 is normal
Respiratory: Respiratory effort normal and Rhonchi Present (Bibasilar)
GI: Soft and Non tender
Neuro/Psych: AO x 3
Other: Skin (Warm, dry)
Data Reviewed
-
Date of Service: April 22, 2025
EKG: Tracing Personally Visualized and interpreted (Telemetry: Atrial fibrillation)
Echo: Tracing Personally Visualized and interpreted (04/20/2025: LVEF 40-45%; moderate to severe MR, severe TR)
Labs: Labs Reviewed by me
--- NOTE | 2025-04-22 09:52 | PTCARENOTE ---
Received patient this am AAOx3. Pt's Glucose was 69 on BMP this am. Accu check was 80. was made aware. Pt eating Breakfast. Made patient comfortable. Cont to assess patient status.
--- NOTE | 2025-04-22 10:15 | W.PN.HOSP.TC ---
Today's Communication/Plan
-
Monitor vital signs see plan
Monitor renal function
Lasix
Monitor hemoglobin
Continue to hold Eliquis for now
Assessment / Plan
Assessment / Plan
General: Other (64y F in no acute distress. )
HEENT: Moist mucous membranes, PERRLA, Deaf
Respiratory: Other (Decreased BS at the R base. Few bibasilar rales)
Cardiac: S1/S2, Irregular Rhythm
GI: Soft, Non Tender, Non Distended and Normal Bowel Sounds
Musculoskeletal: Edema, Left Lower Extremity, Edema, Right Lower Extremity
Neuro: AO x 3 and Nonfocal/grossly intact
Psych: Calm
CHF exacerbation - SOB likely multifactorial attributable to worsening CHF along with anemia
Acute hypoxic respiratory insufficiency likely secondary to above, wean oxygen as tolerated
Acute on chronic congestive heart failure with reduced ejection fraction
Continue IV Lasix,PO lasix starting 04/23
Echo 04/20 with improvement in ejection fraction of 40 to 45%. Tricuspid regurgitation
Reports noncompliant with Lasix due to frequent urination. Discussed with patient regarding importance of medication compliance
Sign language line was used as patient is deaf
Monitor renal function
- continue metoprolol succinate, lisinopril and spironolactone
cw dig
Cardiology following
AFIB - Permanent AFIB
cw dig
- continue metoprolol succinate
- continue eliquis
Anemia - Chronic anemia with h/o JACOB.
GI following; never had cscope in past
holding eliquis
heme test stool
Iron deficiency anemia, cwIV iron
transfuse for hemoglobin less than 7. now hgb 6.8 on 04/21. s/p 1 unit PRBC 04/21. hgb now 8.3
Patient will benefit from follow-up with hematology outpatient
DVT PPX - SCD's until apixaban on hold
Code status - Full Code
I spent a total of 51 minutes with the patient or on the floor. More than 50% of this time involved counseling and coordination of care.
Anticipated Discharge: 24 - 48 hours
Subjective/Interval History
-
Date of Service: April 22, 2025
Denies pain
Objective Data
-
Labs:
Laboratory Results
04/22/25 04/22/25
07:09 07:10
WBC 6.6
Hgb 8.3 L D
Hct 29.2 L
Plt Count 269
Sodium 138
Potassium 3.9
Chloride 103
Carbon Dioxide 32 H
BUN 35 H
Creatinine 1.2 H
Glucose 69 L
Calcium 8.6
Vital Signs:
Vital Signs
Temp Pulse Resp BP Pulse Ox
98.2 F 78 18 119/66 98
04/22/25 06:55 04/22/25 08:37 04/22/25 06:55 04/22/25 08:37 04/22/25 06:55
I&O
04/21/25 04/22/25 04/23/25
06:59 06:59 06:59
Intake Total 1580 / 1580
Output Total 1949 / 1899
Balance -1949 / -1949 -370 / -370 -1899 / -1899
[2025-04-22] MEDS: ALDACTONE 25 MG PO (10:26)
[2025-04-22 11:30] VITALS: BP 102/62
[2025-04-22 12:12] LABS: Glucose - Point of Care 121 mg/dl (70-99)
[2025-04-22] MEDS: LANOXIN 250 MCG PO (12:50)
--- NOTE | 2025-04-22 12:58 | W.PN.GI.CBS2 ---
Today's Communication / Plan
-
egd/colon tomorrow
Assessment / Plan
-
64-year-old female with history of deafness, cardiomyopathy with HFrEF, HTN, and h/o non-compliance who p/w CHF exacerbation and volume overload from non-compliance with her diuretics. She was also noted to be anemic without symptoms or signs of GI
bleeding.
Impression / Rec:
1. Anemia - her CHF is improved after IV diuretics, patient's breathing feels better as well. Cardiology assessed her volume status and feels she can proceed with endoscopic evaluation. Will plan for EGD/colonoscopy tomorrow.
She denies symptoms and signs of overt GI bleeding including melena/rectal bleeding/abdominal pain/vomiting. Her baseline appears to be Hgb 9-10. She denies NSAID use. No prior EGD/colonoscopy. Given her social circumstances (deafness), it may
be easiest to perform a endoscopic evaluation during her hospital stay.
Total Time Spent with Patient (in minutes): 35
Subjective
Subjective
Date of Service: April 22, 2025
Her breathing is better.
Objective
Data Reviewed
Laboratory Data:
Laboratory Results
04/22/25 07:10
04/22/25 07:09
Laboratory Results
Phosphorus 4.8 mg/dl (2.5-4.5) H 04/20/25 05:43
Magnesium 1.9 mg/dl (1.6-2.3) 04/20/25 05:43
Total Bilirubin 1.7 mg/dl (0.2-1.3) H 04/19/25 22:04
AST 26 U/L (14-36) 04/19/25 22:04
ALT 12 U/L (0-35) 04/19/25 22:04
Alkaline Phosphatase 72 U/L (38-126) 04/19/25 22:04
Vital Signs and I&O:
Vital Signs
Temp Pulse Resp BP Pulse Ox
98 F 74 18 102/62 100
04/22/25 11:30 04/22/25 12:50 04/22/25 11:30 04/22/25 11:30 04/22/25 11:30
I&O
04/21/25 04/22/25 04/23/25
06:59 06:59 06:59
Intake Total 1580 / 1580
Output Total 1949 / 1949 1899 / 1899
Balance -1949 / -1949 -370 / -370 -1899 / -1899
[2025-04-22] MEDS: FERRLECIT 110 MG IV (14:37)
[2025-04-22 15:54] VITALS: BP 120/79
[2025-04-22] MEDS: NULYTELY SOLUTION 2 LITERS PO (17:00)
[2025-04-22 17:18] LABS: Glucose - Point of Care 83 mg/dl (70-99)
[2025-04-22 19:57] VITALS: BP 141/88
[2025-04-22 21:33] LABS: Glucose - Point of Care 113 mg/dl (70-99)
[2025-04-22 23:06] VITALS: BP 152/97
[2025-04-23] VITALS (7 sets, daily range): BP systolic 112–158; BP diastolic 63–94; BMI 24.4
[2025-04-23] MEDS: NULYTELY SOLUTION 2 LITERS PO (05:05)
[2025-04-23 05:26] LABS: Glucose - Point of Care 77 mg/dl (70-99)
[2025-04-23 09:26] LABS: Hematocrit 32.6 % (37.0-47.0); Hemoglobin 9.4 g/dL (12.0-16.0); Mean Corp Hgb Conc. 28.8 g/dL (33.0-37.0); Mean Corpuscular Volume 67.5 fL (81.0-99.0); Nucleated Red Blood Cells % 0.3 %; Platelet Count 290 10^3/uL (130-400); Red Cell Dist. Width 22.8 % (11.5-14.5)
--- NOTE | 2025-04-23 09:30 | W.PN.CD ---
Today's Communication / Plan
-
GI eval today
Hold Eliquis and Lasix for now
Impression / Plan
-
64 yo female with deafness (sign language), HFrEF, CM 25-30%, persistent Afib on Eliquis, HTN, and chronic anemia with JACOB, who presents from home with c/o SOB, weight gain 5 lbs in 1 week and LE edema for the last 2-3 weeks. She was noncompliant
with Lasix due to frequent urination. Cardiology is consulted for CHF exacerbation.
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
HFrEF - acute on chronic.
- due to medication non-adherence, no lasix for 2-3 weeks due to frequent urination. Drinks excessive fluids 60-80oz daily.
- Echo 04/20/25: LVEF 40-45%, mildly reduced RV function, mod/severe MR, severe TR, PASP 63 mmHg
- Volume status significantly improved. Wonder if dyspnea was more related to anemia.
- Hold Lasix today given concern for GI bleed
Anemia - acute on chronic.
- Edenilson 6.8, transfused blood 04/21; concern for GI source.
- Eliquis is being held; evaluated by GI--can proceed with scoping from a cardiac standpoint.
Afib - persistent.
- Remains rate controlled.
- [id number] score is 3 for female, HTN, and HF.
- Holding Eliquis as hgb was 6.8. EGD/colo today
Valvular heart disease (severe TR, moderate to severe MR):
- Transitioning to PO Lasix as above.
- If still SOB despite diuresis and correction of anemia, consider valve intervention as OP
HTN - controlled on current medications.
Subjective: Not sure if breathing feels better. She has not been up and out of bed. She has not noticed any bleeding.
Physical Exam
Vital Signs/Labs
Vital Signs
Temp Pulse Resp BP Pulse Ox
97.5 F 76 16 158/94 100
04/23/25 07:42 04/23/25 07:42 04/23/25 07:42 04/23/25 07:42 04/23/25 07:42
04/22/25 04/23/25 04/24/25
06:59 06:59 06:59
Actual Weight 156 lb 6 oz 155 lb 8 oz
04/23/25 09:08
Magnesium 1.9 mg/dl (1.6-2.3) 04/20/25 05:43
Digoxin < 0.4 ng/ml (0.8-2.0) L 04/20/25 05:43
04/19/25
22:04
Axw-E-Qkkzuhavunn Pept 9470
Physical Exam
Constitutional: No acute distress and Comfortable
Cardiovascular: Pedal edema is absent, Rhythm/rate is irregular, Systolic murmur present and S1S2 is normal
Respiratory: Respiratory effort normal and Other (Decreased breath sounds at bilateral bases)
Neuro/Psych: AO x 3
Data Reviewed
-
Date of Service: April 23, 2025
Medical Decision Making: Reviewed Test Results, Independent Historian Assessment, Test Interpretation and Review of Case with other Provider
EKG: Tracing Personally Visualized and interpreted
Echo: Report Reviewed by me
X-Ray/CT/US/MRI/NUC/PET: Image Personally Visualized and interpreted
Labs: Labs Reviewed by me
[2025-04-23] MEDS: LASIX PO (09:47)
[2025-04-23] MEDS: ALDACTONE 25 MG PO (09:57)
[2025-04-23] MEDS: TOPROL XL 100 MG PO ×2 (09:57→20:04)
[2025-04-23] MEDS: ZESTRIL 10 MG PO (09:57)
[2025-04-23 09:58] LABS: Blood Urea Nitrogen 19 mg/dl (7-17); Calcium 9.0 mg/dl (8.4-10.2); Carbon Dioxide 26 mmol/L (22-30); Chloride 106 mmol/L (98-107); Estimated Creatinine Clearance 62 ml/min; Glucose 78 mg/dl (70-99); Potassium 4.2 mmol/L (3.5-5.1); Sodium 139 mmol/L (135-145); eGFR > 60.00
[2025-04-23 13:31] LABS: Glucose - Point of Care 85 mg/dl (70-99)
[2025-04-23] MEDS: LANOXIN 250 MCG PO (13:32)
[2025-04-23] MEDS: FERRLECIT 110 MG IV (13:32)
--- NOTE | 2025-04-23 15:40 | W.PN.HOSP.TC ---
Today's Communication/Plan
-
EGD/colonoscopy performed
monitor h/h
eliquis and diuretics on hold but hussainley resume tonight
Assessment / Plan
Assessment / Plan
64F with CHF, AF on Eliquis, HTN, anemia, deafness, presents with CHF exacerbation. Also found to have worsening anemia, requiring transfusion, concern for GI source.
1. Acute on chronic CHF exacerbation
SOB likely multifactorial attributable to worsening CHF along with anemia
Acute hypoxic respiratory insufficiency likely secondary to above, resolved, on room air this morning
s/p IV lasix. Changed to PO, held by cardiology 04/23 while GIB evaluation in progress
Echo 04/20 with improvement in ejection fraction of 40 to 45%. Tricuspid regurgitation
Reports noncompliant with Lasix due to frequent urination. Discussed with patient regarding importance of medication compliance
continue metoprolol succinate, lisinopril and spironolactone
Cardiology following
2. Permanent AFIB
- continue metoprolol succinate and digoxin
- on eliquis, on hold 04/23 for GIB eval
3. Acute on Chronic JACOB
Received 1 unit PRBC on 04/21 for Hgb 6.8, with improvement. transfuse for hemoglobin less than 7.
Iron deficiency anemia, c/w IV iron
GI following for possible GIB; never had cscope in past. Performed EGD- unremarkable, and c-scope - 2 small polyps removed, hemorrhoids. They have s/o
holding eliquis
stool occult blood test ordered but ?not resulted
Patient will benefit from follow-up with hematology outpatient
DVT PPX - SCD's until apixaban resumed
Code status - Full Code
Anticipated Discharge: Within 24 hours
Subjective/Interval History
-
Date of Service: April 23, 2025
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
Objective Data
-
Labs:
Laboratory Results
08/18/25
09:08
WBC 7.7
Hgb 9.4 L
Hct 32.6 L
Plt Count 290
Sodium 139
Potassium 4.2
Chloride 106
Carbon Dioxide 26
BUN 19 H
Creatinine 0.9
Glucose 78
Calcium 9.0
Vital Signs:
Vital Signs
Temp Pulse Resp BP Pulse Ox
97.5 F 64 16 130/78 97
04/23/25 13:27 04/23/25 13:27 04/23/25 13:27 04/23/25 13:27 04/23/25 13:27
I&O
04/22/25 04/23/25 04/24/25
06:59 06:59 06:59
Intake Total 1580 / 1580 710 / 710
Output Total 1949 / 1949 3550 / 3550
Balance -370 / -370 -2840 / -2840
Review of Systems
-
All other systems: Reviewed and negative
Physical Exam
-
General: No Apparent Distress
HEENT: Moist Mucous Membranes, Anicteric, PERRLA and Deaf
Respiratory: Clear to Auscultation; Negative Wheezes, Rales or Rhonchi
Cardiac: S1/S2 and Irregular Rhythm; Negative Murmur, Rub or Gallop
GI: Soft, Nontender, Nondistended and Normal Bowel Sounds
Musculoskeletal: No Edema
Skin: Warm, Dry and Rash (R arm erythema and dryness); Negative Ulcers or Lesions
Neuro: Awake and AO x 3
Hematologic / Lymphatic: No Lymphadenopathy
Psych: Calm
Data Reviewed
-
Labs: Labs Reviewed by me and Discussed with Patient
--- NOTE | 2025-04-23 16:37 | CM ---
Patient no yet cleared from all specialists. Per nursing documentation appears to be functioning at baseline.
Plan: Case management will continue to follow and assist with discharge planning. Home when stable.
[2025-04-23 16:50] LABS: Glucose - Point of Care 138 mg/dl (70-99)
[2025-04-23] MEDS: ELIQUIS 5 MG PO (20:04)
[2025-04-23 22:39] LABS: Glucose - Point of Care 142 mg/dl (70-99)
[2025-04-24 03:13] VITALS: BP 137/88
[2025-04-24 06:00] VITALS: BMI 23.7
[2025-04-24 07:03] VITALS: BP 136/75
[2025-04-24 08:03] LABS: Glucose - Point of Care 91 mg/dl (70-99)
[2025-04-24 08:25] LABS: Blood Urea Nitrogen 20 mg/dl (7-17); Calcium 8.9 mg/dl (8.4-10.2); Carbon Dioxide 25 mmol/L (22-30); Chloride 106 mmol/L (98-107); Estimated Creatinine Clearance 62 ml/min; Glucose 90 mg/dl (70-99); Potassium 4.4 mmol/L (3.5-5.1); Sodium 139 mmol/L (135-145); eGFR > 60.00
[2025-04-24] MEDS: ELIQUIS 5 MG PO (08:26)
[2025-04-24] MEDS: TOPROL XL 100 MG PO (08:27)
[2025-04-24] MEDS: ALDACTONE 25 MG PO (08:27)
[2025-04-24] MEDS: ZESTRIL 10 MG PO (08:27)
[2025-04-24] MEDS: LASIX 40 MG PO (08:27)
[2025-04-24 09:43] LABS: Hematocrit 31.3 % (37.0-47.0); Hemoglobin 9.0 g/dL (12.0-16.0); Mean Corp Hgb Conc. 28.8 g/dL (33.0-37.0); Mean Corpuscular Volume 69.7 fL (81.0-99.0); Nucleated Red Blood Cells % 0.4 %; Platelet Count 248 10^3/uL (130-400); Red Cell Dist. Width 23.9 % (11.5-14.5)
--- NOTE | 2025-04-24 09:47 | PN.CDI ---
CDI
- -
CDI:
Physician Documentation Request
Admit Date: 04/20/25 05:07
Dear Doctor Alfred,
Patient admitted for heart failure.
04/23 Cardiology PN: 'Afib - persistent. - Remains rate controlled.'
04/23 Hospitalist PN: 'Permanent AFIB - continue metoprolol succinate and digoxin'
If possible, please provide further specificity regarding atrial fibrillation, such as:
Persistent atrial fibrillation - episodes of continuous AF that last more than 7 days and do not self-terminate
Permanent atrial fibrillation - when a decision has been made to accept the presence of AF and there is no further attempt to restore or maintain sinus rhythm
Other - please specify
Use of terms such as suspected, likely, concern for, or probable (associated with a specific diagnosis that is being evaluated, monitored, or treated as if it exists) are acceptable and can be coded in the inpatient setting, when documented at the
time of discharge.
Thank you,
Susan Sin RN, BSN
CDI Specialist
Available via [facility] text
Please use your independent medical judgment in providing your response.
--- NOTE | 2025-04-24 11:22 | W.PN.CD ---
Today's Communication / Plan
-
If no shortness of breath with ambulation, can go home today
Discharge diuretic plan will be Lasix 40 mg p.o. on MWF (she was only taking twice weekly prior to admission)
CBC in one week after discharge.
Impression / Plan
-
64 yo female with deafness (sign language), HFrEF, CM 25-30%, persistent Afib on Eliquis, HTN, and chronic anemia with JACOB, who presents from home with c/o SOB, weight gain 5 lbs in 1 week and LE edema for the last 2-3 weeks. She was noncompliant
with Lasix due to frequent urination. Cardiology is consulted for CHF exacerbation.
Rn Dermatology: Dr. Peace
HFrEF - acute on chronic.
- due to medication non-adherence, no lasix for 2-3 weeks due to frequent urination. Drinks excessive fluids 60-80oz daily.
- Echo 04/20/25: LVEF 40-45%, mildly reduced RV function, mod/severe MR, severe TR, PASP 63 mmHg
- Volume status significantly improved. Wonder if dyspnea was more related to anemia.
- Resume p.o. Lasix 40 mg MWF (she was only taking it about twice a week prior to admission)
- She knows to weigh herself daily at home and call if weight is up trending
Anemia - acute on chronic.
- Edenilson 6.8, transfused blood 04/21; EGD/colonoscopy without source
- Continue iron repletion
- CBC in 1 week
Afib - persistent.
- Remains rate controlled.
- [id number] score is 3 for female, HTN, and HF.
- Resume Eliquis. CBC in 1 week as above.
Valvular heart disease (severe TR, moderate to severe MR):
- Transitioning to PO Lasix as above.
- If still SOB despite diuresis and correction of anemia, consider valve intervention as OP
HTN - controlled on current medications.
Subjective: EGD/colo yesterday with no source of bleeding found. Deshaun resumed. Hemoglobin stable this morning. She feels fine but has only been out of bed to the bathroom and back.
Physical Exam
Vital Signs/Labs
Vital Signs
Temp Pulse Resp BP Pulse Ox
98.2 F 74 16 136/75 97
04/24/25 07:03 04/24/25 08:27 04/24/25 07:03 04/24/25 07:03 04/24/25 09:29
04/23/25 04/24/25 04/25/25
06:59 06:59 06:59
Actual Weight 155 lb 8 oz 151 lb 5 oz
04/24/25 06:41
04/24/25 06:41
Magnesium 1.9 mg/dl (1.6-2.3) 04/20/25 05:43
Digoxin < 0.4 ng/ml (0.8-2.0) L 04/20/25 05:43
04/19/25
22:04
Iek-L-Avuocjmmnun Pept 9470
Physical Exam
Constitutional: No acute distress and Comfortable
Cardiovascular: Pedal edema is absent, Rhythm/rate is irregular and Systolic murmur present
Respiratory: Respiratory effort normal and Lungs clear to auscul.
Neuro/Psych: AO x 3
Data Reviewed
-
Date of Service: April 24, 2025
Medical Decision Making: Reviewed Test Results, Independent Historian Assessment, Test Interpretation and Review of Case with other Provider
EKG: Tracing Personally Visualized and interpreted
Echo: Report Reviewed by me
Labs: Labs Reviewed by me
[2025-04-24 12:19] LABS: Glucose - Point of Care 97 mg/dl (70-99)
[2025-04-24 12:24] VITALS: BP 120/67
[2025-04-24] MEDS: FERRLECIT 110 MG IV (13:11)
[2025-04-24] MEDS: LANOXIN 250 MCG PO (13:11)
--- NOTE | 2025-04-24 13:22 | W.DCSUMMARY ---
Addendum entered and electronically signed by Alyson Simon MD 04/25/25 07:20:
For CDI: permanent AFib
Original Note:
Discharge Summary
Discharge Data
Date of Admission: 04/20/25
Date of Discharge: 04/24/25
Total time spent discharging patient (in min): 35
-
Pending Results: No
Hospital Course
Discharge diagnosis:
Acute on chronic CHF exacerbation
Acute on chronic anemia
Consults:
Cardiology
GI
Procedures:
EGD
Colonoscopy
Hospital course:
64-year-old female with deafness, persistent atrial fibrillation on anticoagulation, cardiomyopathy with a EF of around 30%, mild mitral regurgitation, hypertension, history of noncompliance who presents to the emergency department with shortness of
breath and dyspnea on exertion that has been ongoing for a few weeks. This was felt to be multifactorial secondary to acute on chronic CHF exacerbation as well as anemia. She was treated with IV Lasix which was then changed to p.o. when she had
improvement. She developed anemia with hemoglobin 6.8 requiring blood transfusion so her Eliquis was held. She underwent EGD and colonoscopy which showed 2 small nonbleeding polyps that were treated. Her Eliquis was resumed without further
bleeding.
Discharge to: SNF
Discharge condition: Good
Discharge exam:
General: No Apparent Distress
HEENT: Moist Mucous Membranes, Anicteric, PERRLA and Deaf
Respiratory: Clear to Auscultation; Negative Wheezes, Rales or Rhonchi
Cardiac: S1/S2 and Irregular Rhythm; Negative Murmur, Rub or Gallop
GI: Soft, Nontender, Nondistended and Normal Bowel Sounds
Musculoskeletal: No Edema
Skin: Warm, Dry and Rash (R arm erythema and dryness); Negative Ulcers or Lesions
Neuro: Awake and AO x 3
Hematologic / Lymphatic: No Lymphadenopathy
Psych: Calm
Discharge Plan
-
Patient Disposition: Home (Routine Discharge)
Discharge Diagnosis/Procedures: CHF
Diet: Low Cholesterol
Activity: No restrictions
Others Tests: CBC in one week
Instructions: *CBC Heart Failure Instructions
Referrals:
Carlos Jimenez MD [Active, Cardiology] - in two weeks
Ja Vergara MD [Family Provider, [facility]]
Additional Discharge Medication Instructions: Take lasix every wednesday
Prescriptions:
New
furosemide 40 mg Tablet
40 mg PO QMWF Qty: 30 0RF
Continued
metoprolol succinate 100 mg Tablet Extended Release 24 Hr
100 mg PO BID Qty: 60 2RF
digoxin 250 mcg (0.25 mg) Tablet
250 mcg PO NOON Qty: 30 2RF
spironolactone 25 mg Tablet
25 mg PO DAILY Qty: 30 2RF
Eliquis 5 mg Tablet
5 mg PO BID Qty: 60 2RF
lisinopril 10 mg tablet
10 mg PO DAILY Qty: 30 2RF
Discontinued
furosemide 40 mg Tablet
40 mg PO DAILY Qty: 30 2RF
Discharge Orders:
Discharge Patient (As Directed); Ordered 04/24/25
Ordered By: Alyson Simon
Discharge Date and Time
Print Language: DIVEHI
--- NOTE | 2025-04-24 13:55 | CM ---
Received consult regarding inability for Cardiology to reach patient. 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 She stated that she has a service called [employer], that if called, will provide her with an mortuary beautician through face time on her end. # to
call is [phone]
If Cardiology wants to text her, she can receive and respond to texts at [phone].
This information communicated to resident who put in consult.
Patient stated that her brother will be in to pick her up and take her home after 15:00.
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
Plan: Case management will continue to follow and assist with discharge planning. Family to transport home. Patient has no further needs.
[2025-04-24 16:14] VITALS: BP 115/76
== END 2025-04-24 16:55 | disposition home or self-care (01) | DRG 291 ==
LOC: 4 EAST ACU 05:07
PROVIDERS: Emergency Medicine; Internal Medicine; Physician Assistant; ADMITTING PHYSICIAN Internal Medicine; ATTENDING PHYSICIAN Internal Medicine; CONSULT PHYSICIAN Internal Medicine Gastroenterology; EMERGENCY PHYSICIAN Student in an Organized Health Care Education/Training Program; FAMILY PHYSICIAN Family Medicine; OTHER PHYSICIAN Internal Medicine
PROC: 0DB68ZX Excision of Stomach, Via Natural or Artificial Opening Endoscopic, Diagnostic (ICD-10-PCS; 2025-04-23)
PROC: 0DBL8ZZ Excision of Transverse Colon, Via Natural or Artificial Opening Endoscopic (ICD-10-PCS; 2025-04-23)
DX: I11.0 Hypertensive heart disease with heart failure (principal); I50.23 Acute on chronic systolic (congestive) heart failure; I48.21 Permanent atrial fibrillation; H91.90 Unspecified hearing loss, unspecified ear; Z79.01 Long term (current) use of anticoagulants; Z91.148 Patient's other noncompliance with medication regimen for other reason; D50.9 Iron deficiency anemia, unspecified; D12.3 Benign neoplasm of transverse colon; I42.9 Cardiomyopathy, unspecified; K64.0 First degree hemorrhoids; Z79.899 Other long term (current) drug therapy
CPT/HCPCS: 71046; 80048; 80053; 80162; 82728; 82962; 83540; 83550; 83735; 83880; 84100; 84484; 85014; 85018; 85025; 85027; 86850; 86900; 86901; 86920; 88305; 88342; 93005; 93306; 96374; 99285; J2916; P9016

== ENCOUNTER 2025-07-11 03:32 | Inpatient (IN) | payer MEDICARE, SELFPAY ==
[2025-07-10 23:51] LABS: Glucose - Point of Care 24 mg/dl (70-99)
[2025-07-11] VITALS (67 sets, daily range): BP systolic 72–127; BP diastolic 48–94; BMI 26.3; BMI 26.5
[2025-07-11] MEDS: DEXTROSE 50% SYRINGE 25 GRAMS IV (00:10)
[2025-07-11] MEDS: NSS 2000 IV (00:40)
[2025-07-11 00:52] LABS: Glucose - Point of Care 210 mg/dl (70-99)
[2025-07-11 01:03] LABS: Hematocrit 37.7 % (37.0-47.0); Hemoglobin 11.3 g/dL (12.0-16.0); Mean Corp Hgb Conc. 30.0 g/dL (33.0-37.0); Mean Corpuscular Volume 77.9 fL (81.0-99.0); Red Cell Dist. Width 24.3 % (11.5-14.5)
[2025-07-11 01:14] LABS: Troponin I 0.020 ng/ml
--- NOTE | 2025-07-11 01:31 | EDRN ---
Late entry due to direct patient care. CUMULATIVE NOTE: Pt BIBEMS after being down for unknown amount of time on floor of bathroom. Pt is unkempt with cat hair and urine smell. EMS states house was disheveled as well. No obvious signs of external
trauma. Pt cohabitates with brother who is unsure of the last time he saw his sister ambulating and well. 'maybe she was there 2-3 hours.' per brother statement to EMS. Pt is deaf and blanking press operator line was used however pt is poor historian at
present time. Pt with purple toes and fingers. Generalized petechial rash noted. Moisture damage in gluteal cleft. PIV access obtained x3 (2 large bore USGPIV and 1 PIV). Blood glucose per EMS was 33 for which Glucagon 1mg was given prehospital.
Finger stick BG on arrival was 24 which was treated with 1 amp D50 IV. POC blood glucose from sample drawn off of IV post D50 was 210. BP trending down with SBP 70s-80s, with MAPS>60. MD Melvin aware and 2L warmed IVF up WO via [place]. Rosendo
hugger on high at 43C has been in place since arrival and inability to obtain rectal temp. Temp sensing 16Fr Indwelling catheter placed which is giving temp of 31.9 upon placement. Pt in NAD, Resps even and unlabored. SP02 sensor placed on ear
d/t poor perfusion in extremities giving a reading of 100% with adequate pleth. Pt with pitting edema in BLEs, cap refill >3sec. Fingers are cold and purple at the tips. Toes on R foot are purple and cold. L foot is dionne and red. Unable to
palpate pulses in extremities. Able to obtain doppler signals for Bilat radial pulses, LLE PT, and RLE AT. Care ongoing.
[2025-07-11 01:32] LABS: ALT (SGPT) 20 U/L (0-35); AST (SGOT) 59 U/L (14-36); Albumin 2.7 g/dl (3.5-5.0); Alkaline Phosphatase 76 U/L (38-126); Blood Urea Nitrogen 79 mg/dl (7-17); Calcium 8.6 mg/dl (8.4-10.2); Carbon Dioxide 16 mmol/L (22-30); Chloride 102 mmol/L (98-107); Estimated Creatinine Clearance 34 ml/min; Glucose 144 mg/dl (70-99); Lipase 382 U/L (23-300); Magnesium 2.0 mg/dl (1.6-2.3); Potassium 4.3 mmol/L (3.5-5.1); Sodium 129 mmol/L (135-145); Total Protein 5.7 g/dl (6.3-8.2); eGFR 33.28
[2025-07-11 01:34] LABS: Urine Character Clear (Clear)
--- NOTE | 2025-07-11 01:44 | ED.GENMED ---
History of Present Illness
General
Chief Complaint: Hyper/Hypo Thermia Problem
Source: patient
Time Seen by Provider: 07/10/25 23:48
Nursing documentation reviewed up to this point in time: agreed with
History of Present Illness
History of Present Illness:
Note:
CHIEF COMPLAINT(S)
Altered mental status and inability to converse.
HISTORY OF PRESENT ILLNESS
This 64-year-old male resident was brought to the emergency department. According to his brother, with whom he cohabits, the living conditions in their home are poor, described as cluttered with old cat feces, and generally disorganized and
unsanitary. The patients room is also in a similar state. The brother could not provide a specific timeline of when the patient was last seen coherent, indicating a significant lack of recent patient or environmental history. The patient is unable
to communicate effectively with healthcare providers.
It was noted that he has a history of atrial fibrillation, and it is known that he is on anticoagulation therapy. At the time of examination, his vital signs revealed a blood pressure of approximately 132/70 mmHg. Visible cheek hemorrhages were
present; however, it is unclear if these are new findings. The patient also exhibited redness on the arm, which was described by the brother as occasionally getting red, but not to the current extent.
ADDITIONAL HISTORY OBTAINED FROM SOURCES OTHER THAN THE PATIENT
Per the brother, who shares the patient�s residence, the living conditions are poor, and he is unable to specify when the patient was last seen coherent or provide detailed recent history.
CHRONIC MEDICAL CONDITIONS SIGNIFICANTLY AFFECTING CARE
Atrial fibrillation.
SOCIAL DETERMINANTS AFFECTING HEALTH
The patient resides in a poorly maintained home with a cluttered environment, potentially presenting health risks. The brother described the environment as unsanitary, with old cat feces and general disarray.
PHYSICAL EXAM
General:
Vital signs and allergy list reviewed and agreed with.
GENERAL: Alert , in severe apparent distress. Appears unable to cooperate or converse, suggesting altered mental status.
EYE: pupils equal, EOMI, anicteric
NECK: Supple, no significant adenopathy. No masses. Trachea midline
ENT: Oropharynx is clear, mm mucous membranes dry.
LUNGS: Clear breath sounds bilaterally, no acute respiratory distress, no wheezes/rales/rhonchi
Cardiovascular: Blood pressure noted as approximately 132/70 mmHg.
ABDOMEN: Soft, without focal tenderness, no r/g, Normal BSx4q
NEUROLOGICAL: Alert and oriented, no focal neuro deficits
MUSCULOSKELETAL: Bilateral 2+ pitting edema, poorly perfused perfused. Moves all 4 extremities
Skin: Visible cheek hemorrhages. Redness noted on the arm, reportedly tends to get red but more so today. Petechiae in all the extremities. Excoriations on the toes. Dirt under the fingernails. Feces on the skin. Bilateral edema lower
extremities. Lividity and redness in the dependent areas of her body.
PSYCH: Normal and appropriate interaction.
PLAN
The patient will be further evaluated through a thorough examination and necessary diagnostic tests to determine the underlying cause of the altered mental state and skin findings.
DIFFERENTIAL DIAGNOSIS
The Differential Diagnosis includes, in no particular order and is not limited to:
1. Stroke or transient ischemic attack
2. Delirium due to infection, dehydration, or metabolic disturbances
3. Intracranial hemorrhage
4. Sepsis secondary to poor living conditions
5. Medication overdose or adverse reaction
6. Metabolic encephalopathy
7. Severe anemia
8. Hypoglycemia
9. Wernickes encephalopathy
10. Meningitis-less likely due to no nuchal rigidity or pain complaint. Patient does have
CARE-UPDATE
07/11/25 - 00:27
Patient was found on the ground and might not have been there for two hours as initially thought, despite presenting with signs of hypothermia. Inquiry about orientation revealed uncertainty about the day. Hands appear unusually red. Additional
history needed from patients brother to clarify the timeline and underlying conditions, including possible diabetes. Awaiting a follow-up call with more information.
CARE-UPDATE
07/11/25 - 00:39
Patient reportedly spent approximately four hours in the bathroom, prompting brother Sarabjit to call 911 at the patients request. Patient is deaf since childhood and communicates primarily through lip-reading. She confirms she is not diabetic.
Family does not speak sign language. Brother states that he rarely goes upstairs so he is unsure how long she has been on the floor. It happened to be a coincidence that he has noticed that she was still in the bathroom.
Disposition:
SUMMARY OF ENCOUNTER
The patient, a 64-year-old female, was admitted to the ICU for management of hypothermia and elevated white blood cell counts. She was receiving warmed fluids and bear hugger therapy to increase her body temperature. Additionally, there was a focus
on monitoring and improving urine output, potentially indicative of rhabdomyolysis. Hospitalists were involved in her care.
DISPOSITION
Admit
MANAGEMENT OF THE PATIENTS CARE WAS DISCUSSED WITH
Hospitalist
INDEPENDENT REVIEW OF LABS AND INTERPRETATION OF TESTS
My independent review of CBC is elevated white blood cell count.
MEDICAL DECISION MAKING
-Complexity of Data Reviewed: Chronic conditions affecting care were not mentioned. Differential diagnosis based on the emergency department presentation: Rhabdomyolysis, Infection (due to elevated WBC), Hypothermia.
-Data:
Category 1
Clinical information was obtained from an independent historian.
Category 3
Discussion of management with hospitalist.
-Risk:
Prescription drug management or therapy requiring monitoring for toxicity was implied in the administration of fluids and management of hypothermia.
CRITICAL CARE TIME
I provided 55 minutes of critical care time. Due to a high probability of clinically significant, life-threatening deterioration, the patient required my highest level of preparedness to intervene emergently. I personally spent this critical care
time directly managing the patient. This critical care time included obtaining a history; examining the patient; reviewing pulse oximetry; ordering and review of studies; arranging urgent treatment and developing a management plan; evaluation of
patients response to treatment; frequent reassessment; and discussions with other providers. This critical care time was performed to assess and manage the high probability of imminent, life-threatening deterioration that could result in multiorgan
failure. It was exclusive of separately billable procedures.
DIAGNOSIS
Hypothermia (ICD-10 code T68), Leukocytosis (ICD-10 code D72.829), Suspected Rhabdomyolysis (ICD-10 code M62.82).
Past History
Past History
ED Past Medical History: Arrthythmia (Atrial fibrillation), CHF, HTN and Other (eaf)
ED Past Surgical History: None
Patient has exhibited threatening behavior?: No
Social History
Tobacco: Non-smoker
Alcohol: None
Drug: None
Personal: Other
Living: with family
Employment: Other
Family History
Family History: Unable to obtain
Phy Exam
Physical Exam
Physical Exam:
.
Course
Orders/Labs/Results
Orders:
Orders
07/10/25 23:48
Cardiac Monitoring- Treatment ONCE
EKG- Treatment ONCE
Complete Blood Count/With Diff Urgent
NT-proBNP Urgent
Troponin I Urgent
07/10/25 23:50
Rosendo Hugger [Rosendo Hugger-Treatment] Q1
Patient's goal temperature:: 97 F
Additional Instructions:: Temperature and skin assessment per unit protocol
07/10/25 23:52
Dextrose 50%-Water [Dextrose 50% Syringe] 25 grams .ROUTE .STK-MED ONE
07/11/25 00:05
Dextrose 50%-Water [Dextrose 50% Syringe] 25 grams IV NOW STA
07/11/25 00:08
Troponin I Q3H
07/11/25 00:22
Lactate Level [Lactic Acid] Urgent
07/11/25 00:33
CT Head W/o Iv Contrast Urgent
Comment:
Reason For Exam: confusion
07/11/25 00:37
0.9% Sodium Chloride 1000 ml [Nss] 2,000 ml IV BOLUS
07/11/25 01:07
Alcohol Urgent
Comprehensive Metabolic Panel Urgent
Comment: REDRAW
Creatine Phosphokinase Urgent
Comment: REDRAW
Lipase Urgent
Magnesium Urgent
TSH Urgent
Comment: REDRAW
07/11/25 01:21
Urinalysis Reflex To Culture Urgent
Date Specimen was Collected: 07/11/25
Time Specimen was Collected: 01:19
Urine Microscopic Reflex Cult Urgent
07/11/25 02:28
D-Dimer Urgent
Fibrinogen Urgent
Protime/PTT Urgent
07/11/25 02:48
Electrocardiogram (*1) Q3H
Reason for Study: Chest Pain
COVID-19 Antigen Urgent
Source: Nasal Swab
Blood Culture Q30M
ANNA Source: Blood/Venous
Specimen Description:
Blood Culture Q30M
ANNA Source: Blood/Venous
Specimen Description:
Influenza A+B Rapid Molecular Urgent
ANNA Source: Nasal Swab
Specimen Description:
07/11/25 03:16
Admit/Transfer Patient As Directed
Co-Sign Provider:
Level of Care: Inpatient admission
Assign to:: ICU
Physician / Group: Ivan
Diagnosis: Hypothermia, Acute TME, MODE
Reason for Hospitalization: Hypothermia, Acute TME, MODE
Expected length of stay greater than two midnights?: Yes
ELOS- Estimated Length of Stay in days: 4
I certify the patient meets the requirements for IP care: Yes
PRN Pain Medication Management As Directed
May give lesser potent ordered pain med per pt: Yes
preference::
Protocol:: Medication orders for pain may be administered in a
manner that supports deferring to patient preference
when the pt is:
- Requesting an ordered lesser potent pain medication.
Least to most potent pain medications are defined
as: acetaminophen < NSAID < tramadol < opioids
(morphine, oxycodone, hydromorphone).
- Requesting a lesser dose of the same medication IF
ORDERED.
- Requesting a less intrusive route of administration
if both routes are prescribed by the provider (PO <
IV).
07/11/25 03:17
Code Status As Directed
Resuscitation Status: Full Code
07/11/25 03:27
CR Chest Portable - 1 View Stat
Comment:
Reason For Exam: Hypothermia
Reason Study Needs to be Portable: Patient Unstable
07/11/25 05:16
Acetaminophen [Tylenol] 650 mg PO Q4HPRN PRN
Dextrose 5%/0.9%Sodchl 1000 ml [D5/0.9% Sodium Chloride] 1,000 ml IV 80 mls/hr
07/11/25 05:16
Consult Notification Routine
Specialty to Notify: Correctional Captain
Date consulting provider notified: 07/11/25
Time consulting provider notified: 10:15
Notified:: Provider
Correctional Captain Consult Routine
Consulting Provider: Carlos Dickerson
Was physician already notified: No
Reason for consult: Hypothermia, Acute TME, MOED
VTE Contraindication Routine
VTE Mechanical Device Contraindication: Lower Limb Injury
Pharmocologic Contraindication: Low platelet count
Activity As Directed
Activity Level: Bedrest
EKG with chest pain [ECG as needed] As Directed
ECG as needed for:: Chest Pain
Pillai Catheter [Catheter- Indwelling] As Directed
Reason for insertion: I&O's Critical Care
Assess insertion reason daily.Remove if no longer applicable: Yes
I/O [Intake/ Output] As Directed
Frequency: Per unit guidelines
Neurological Checks As Directed
Frequency: q4h
Vital Signs As Directed
Frequency: Per unit guidelines
Weight As Directed
Frequency: Daily
Oxygen Therapy [O2 Therapy] [RESP] Routine
Titrate/Wean O2 to maintain O2 sat greater than (%): 94
Ot Eval And Treat Routine
PT Consult [Pt Eval And Treat] Routine
Activity Level: Ambulate
With Assistance
07/11/25 05:27
Complete Blood Count/No Diff IN AM
Cortisol, Random IN AM
ESR [Erythrocyte Sed Rate] Routine
Haptoglobin [S] Routine
LDH Routine
Magnesium IN AM
Phosphorus IN AM
TSH Reflex To Free T4 Routine
Troponin I Q6H
07/11/25 Breakfast
NPO
Allow oral meds: Yes
Allow clear liquids: Sips of Clears
07/11/25 07:45
Accucheck [Bedside Glucose Monitoring] As Directed
Frequency: Q6H
07/11/25 11:29
Troponin I Q6H
Abnormal Lab Results
07/10/25 07/11/25 07/11/25
23:50 00:08 00:22
WBC 24.2 H 10^3/uL
(4.8-10.8)
Hgb 11.3 L g/dL
(12.0-16.0)
MCV 77.9 L fL
(81.0-99.0)
MCH 23.3 L pg
(27.0-31.0)
MCHC 30.0 L g/dL
(33.0-37.0)
RDW 24.3 H %
(11.5-14.5)
Plt Count 66 L 10^3/uL
(130-400)
Abs Immat Gran (auto) 0.1 H 10^3/uL
(0-0.05)
Absolute Neuts (auto) 22.7 H 10^3/uL
(1.4-6.5)
Absolute Lymphs (auto) 0.5 L 10^3/uL
(1.2-3.4)
Absolute Monos (auto) 0.8 H 10^3/uL
(0.1-0.6)
Immature Gran % 0.6 H %
(0-0.5)
Neutrophils % 93.6 H %
(42.2-75.2)
Lymphocytes % 2.0 L %
(20.5-51.1)
PT
APTT
D-Dimer
Sodium
Carbon Dioxide
BUN
Creatinine
Glucose
Lactic Acid 2.9 H mmol/L
(0.7-2.0)
Total Bilirubin
AST
Creatine Kinase
Total Protein
Albumin
Lipase
Urine Urobilinogen
Urine Albumin (Reflex)
POC Glucose 24 L* mg/dl
(70-99)
07/11/25 07/11/25 07/11/25
00:36 01:07 01:21
WBC
Hgb
MCV
MCH
MCHC
RDW
Plt Count
Abs Immat Gran (auto)
Absolute Neuts (auto)
Absolute Lymphs (auto)
Absolute Monos (auto)
Immature Gran %
Neutrophils %
Lymphocytes %
PT
APTT
D-Dimer
Sodium 129 L mmol/L
(135-145)
Carbon Dioxide 16 L mmol/L
(22-30)
BUN 79 H mg/dl
(7-17)
Creatinine 1.7 H mg/dL
(0.6-1.0)
Glucose 144 H mg/dl
(70-99)
Lactic Acid
Total Bilirubin 2.2 H mg/dl
(0.2-1.3)
AST 59 H U/L
(14-36)
Creatine Kinase 789 H U/L
(30-135)
Total Protein 5.7 L g/dl
(6.3-8.2)
Albumin 2.7 L g/dl
(3.5-5.0)
Lipase 382 H U/L
(23-300)
Urine Urobilinogen 2+ A
(Neg - 1+)
Urine Albumin (Reflex) 2+ A
(Neg - Trace)
POC Glucose 210 H mg/dl
(70-99)
07/11/25 07/11/25
02:03 02:28
WBC
Hgb
MCV
MCH
MCHC
RDW
Plt Count
Abs Immat Gran (auto)
Absolute Neuts (auto)
Absolute Lymphs (auto)
Absolute Monos (auto)
Immature Gran %
Neutrophils %
Lymphocytes %
PT 44.7 H Sec
(11.4-14.6)
APTT 53.7 H Sec
(23.4-35.0)
D-Dimer 1.35 H ug/mlFEU
(0.00-0.50)
Sodium
Carbon Dioxide
BUN
Creatinine
Glucose
Lactic Acid
Total Bilirubin
AST
Creatine Kinase
Total Protein
Albumin
Lipase
Urine Urobilinogen
Urine Albumin (Reflex)
POC Glucose 126 H mg/dl
(70-99)
07/11/25 00:08
07/11/25 01:07
Vital Signs
Initial and Last Documented VS:
Initial Vital Signs
Pulse Resp
86 18
07/10/25 23:54 07/10/25 23:54
Last Documented Vital Signs
Temp Pulse Resp BP Pulse Ox
97.4 F 103 13 101/70 97
07/13/25 02:00 07/13/25 02:00 07/13/25 02:00 07/13/25 02:00 07/13/25 02:00
*Radiology
Radiology exam reviewed: preliminary read by ED provider
*Pulse Oximetry
SaO2: 100
Oxygen Mode of Delivery: Room air
Patient hypoxic: no
*Critical Care Note
Total Time (30-74mins, 75-104mins- exclusive of procedures): 55 (Critical care statement: A total of 55 minutes of critical care time was provided for this patient. This time is separate from time utilized to perform the aforementioned documented
procedures. Aggregate critical care time includes only time during which I was engaged in work directl)
Update Note
Update Note:
NAME: EIRC LEACH
DATE OF EXAM: 07/11/2025
Patient No: [id number]
Physician: IVAN^NAVEED^Joy
Date of : 1960
Past Medical History (entered by Technologist):
Reason For Exam (entered by Technologist):
Other Notes (entered by Technologist): Pt found on floor in home; unknown when last normal; BG 33, Glucagon 1mg given by EMS; unable to obtain rectal temp
Additional Information (per Vision Radiologist): Found on floor. Hypoglycemia
CT head
Comparison: None
IMPRESSION:
no evidence for traumatic injury
No acute intracranial findings
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
Previous lacunar infarct right basal ganglia
Global cerebral volume loss with minimal chronic microvascular changes periventricular white matter
Diffuse increased osseous sclerosis throughout the calvarium.
May be seen with metabolic bone disease
Correlate with clinical history and consider further workup as needed
Case finalized on 07/11/25 02:53 EDT
Efraín Boles M.D.
This report has been electronically signed and verified by the Radiologist whose name is printed abov
ED Attending Note
-
Portions of this chart may have been created with voice recognition software.� Occasional wrong word or��sound alike� substitutions may have occurred due to the inherent limitations of voice recognition software.
Discharge Plan
Departure
Patient Disposition: Admit
Date of Disposition: 07/11/25
Time of Disposition: 01:44
Presentation/result/management discussed w/ accepting MD/DO: Hospitalist
Condition: Fair
Discharge Problem:
Rhabdomyolysis, Altered mental status, Hypothermia, Deaf, Adult failure to thrive, Fall, Acidosis, lactic
Interventions
Interventions:
*General Assessment Last Done: 07/11/25 01:48
*Neglect/Abuse Screening Last Done: 07/11/25 01:48
*ED- Fall Risk Assessment Last Done: 07/11/25 01:48
*ED Influenza Vaccine History Last Done: 07/11/25 03:30
*Nursing Disposition Last Done: 07/11/25 05:30
ED- Neurological Assessment Last Done: 07/11/25 02:56
ED-Skin Assessment Last Done: 07/11/25 01:48
Discharge Date and Time
Discharge Date/Time: 07/11/25 04:30
[2025-07-11 01:45] LABS: Nucleated Red Blood Cells % 0.5 %; Platelet Count 66 10^3/uL (130-400)
[2025-07-11 02:01] LABS: TSH 2.60 uIU/ml (0.47-4.68)
[2025-07-11 02:05] LABS: Glucose - Point of Care 126 mg/dl (70-99)
[2025-07-11 02:05] LABS: Urine Red Blood Cell 0-2 /HPF (0-2); Urine White Cell 0-2 /HPF (0-5)
[2025-07-11 02:50] LABS: INR 4.85; PT 44.7 Sec (11.4-14.6)
[2025-07-11 02:51] LABS: APTT 53.7 Sec (23.4-35.0)
--- NOTE | 2025-07-11 02:57 | EDRN ---
Late entry due to direct patient care. Dr. Thornton to bedside for admission assessment/orders. Updated on events. Using postal service window clerk line, pt not answering orientation questions, Perseverating on signing her . POC explained to patient via
mathematics technician.
[2025-07-11 03:44] LABS: COVID-19 Antigen Negative (Negative)
--- NOTE | 2025-07-11 03:55 | HPS.HSE ---
Family Physician
-
Family Physician: Ja Vergara
Chief Complaint
-
Found Down
History of Present Illness
Patient is a 65y F with PMH significant for hypertension, A-Fib and CHF who presents to ED after being found down at home. History obtained primarily from ED staff / family. Patient lives at home with her brother - though they live on separate
floors. Brother notes that he 'does not go upstairs'. He went upstairs today and found patient lying on the bathroom floor. 911 was called and she was brought to the ED for further evaluation. EMS describes that patient was found down,
responsive and covered in her own feces and urine.
Brother cannot say when he last saw patient well - reiterating that he does not go upstairs for days at a time.
He is not aware of her medical issues, medications, etc.
In the ED, patient was noted to be hypoglycemic, hypothermic and hypotensive.
She responded to treatment with supplemental dextrose, warmed IVFs resuscitation and Rosendo hugger.
At the time of my exam patient is awake and responsive. She is deaf at baseline. Attempts to communicate via Language Line / musical instrument mechanic resulted in patient repeatedly stating her date and not otherwise answering questions.
Medical History
Past Medical History
Past Medical History: Reports Other
Additional Past Medical History:
Paroxysmal Atrial Fibrillation
Chronic HFrEF
Hypertension
Hearing Loss
Past Surgical History: Reports Other
Additional Past Surgical History:
Cardioversion x multiple.
Social History
Tobacco: Non-smoker
Alcohol: None
Drug: None
Family History
Family History: Not pertinent
Allergies / Home Medications
Allergies reflects when Allergies were last updated in [facility].
Home Medications with original date entered in [facility]
Allergy/Medication List:
Unable to reconcile meds. Patient unable to confirm. Brother unaware of medications / history.
If medication reconciliation has not been performed, why?: Medication List N/A
Review of Systems
-
Unable to obtain full review of systems at this time due to: Patient Non-verbal
History Source: Patient (Limited ROS due to apparent confusion. Patient denies pain or dyspnea.)
Physical Exam
Vital Signs
Vital Signs
Temp Pulse Resp BP Pulse Ox
91.6 F L 86 22 84/58 100
07/11/25 03:00 07/11/25 03:31 07/11/25 03:31 07/11/25 03:31 07/11/25 01:45
Physical Exam
General: Other (Ill-appearing 65y F.)
HEENT: Other (Dry MM. Neck supple. No JVD or HJR.)
Respiratory: Other (Decreased BS bilaterally. No W/R/R.)
Cardiac: S1/S2, Irregular Rhythm and Murmur (II/ ANG)
GI: Soft, Non Tender, Non Distended and Normal Bowel Sounds
Musculoskeletal: Other (Erythema / rubor of all 4 extremities. Necrotic appearing lesions to the tips of toes. 3-4+ pitting edema b/l LEs.)
Skin: Other (Petechiae scattered across arms / legs with confluent erythema. Petechiae scattered across shoulders / chest.)
Neuro: Awake and Alert; No Oriented
Laboratory Results
-
07/11/25 00:08
07/11/25 01:07
Laboratory Results
PT 44.7 Sec (11.4-14.6) H 07/11/25 02:28
INR 4.85 07/11/25 02:28
APTT 53.7 Sec (23.4-35.0) H 07/11/25 02:28
Lactic Acid 2.9 mmol/L (0.7-2.0) H 07/11/25 00:22
Total Bilirubin 2.2 mg/dl (0.2-1.3) H 11/05/25 01:07
AST 59 U/L (14-36) H 07/11/25 01:07
ALT 20 U/L (0-35) 07/11/25 01:07
Alkaline Phosphatase 76 U/L (38-126) 07/11/25 01:07
Troponin I 0.020 ng/ml 07/11/25 00:08
Lipase 382 U/L (23-300) H 07/11/25 01:07
Impression/Plan
-
A/P: Patient is a 65y F with PMH significant for A-Fib, CHF and hearing impairment who presents to ED after being found down at home by family.
Hypothermia
Hypoglycemia
Hypotension
Acute TME secondary to the above
- Admit to ICU for further evaluation and treatment.
- Unclear etiology of presentation.
- Found down today by family with no defined last known well - likely quite some time based on exam.
- Gradual improvement in hypoglycemia, BP and hypothermia with dextrose and IVF administration.
- Pulse dose steroids given petechiae, thrombocytopenia, hypoglycemia, hypothermia, etc.
- IVFs +/- pressors as needed to maintain BP / perfusion.
- Check hemolytic labs. Follow temp for continued improvement. Follow-up culture data / clinical improvement / etc.
- Continue IVFs with supplemental dextrose for now - though patient does appear volume overloaded. Will likely require eventual diuresis once hemodynamically stable.
- TSH is normal. Check cortisol.
- CT head without acute abnormalities.
- Follow for clinical improvement / improvement in mental status.
MODE
Elevated CPK
- SCr = 1.7 compared to known baseline of 0.9.
- Likely decreased perfusion with hypotension, hypothermia, etc as noted above.
- Lactate only minimally elevated at 2.9. Follow for changes.
- IVFs as noted above. Hold diuretics acutely.
- UA without evidence of pigment nephropathy.
- Pillai placed in the ED for critical care I/Os and continuous temperature monitoring.
Thrombocytopenia
Coagulopathy
Leukocytosis
Microcytic Anemia
- ? hemolytic process based on labs, exam, etc.
- IV steroids acutely as noted above. Follow-up labs.
- Hold Eliquis acutely.
- Hematology evaluation.
- Had GI evaluation during most recent hospital stay - no clear evidence of GI blood loss.
Chronic HFmrEF
- Echo done 04/2025 showed LVEF = 40-45%, severe TR, moderate - severe MR.
- BNP decreased from prior - though weight apparently increased and evidence of edema on exam.
- Holding diuretics acutely given hypotension, hypoglycemia, etc.
- Follow I/Os, daily eights, etc.
- Will likely benefit from eventual diuresis once hemodynamically stable.
Skin Breakdown / Necrosis b/l Toes
- Likely due to decreased perfusion (suspect fairly prolonged time down).
- Pulses present on exam. Color improving with IVFs, normoglycemia, etc.
- Wound Care eval for local care.
Permanent Atrial Fibrillation
- Stable. Rate controlled. Hold Eliquis acutely as noted above.
- Monitor on telemetry.
Hearing Impairment
- Uses ASL for communication. Language Line used during ED interview.
DVT Prophylaxis: Hold for now given LE skin changes / superficial wounds and thrombocytopenia / coagulopathy / etc.
Code Status: Full
[2025-07-11 03:56] LABS: Troponin I < 0.012 ng/ml
[2025-07-11] MEDS: SOLU-CORTEF 100 MG IV (04:01)
[2025-07-11] MEDS: ZOSYN 50 IV (04:38)
[2025-07-11 05:01] LABS: Glucose - Point of Care 112 mg/dl (70-99)
[2025-07-11] MEDS: D5/0.9% SODIUM CHLORIDE 1000 IV ×2 (05:32→15:17)
[2025-07-11] MEDS: VANCOCIN 530 MG IV (05:37)
[2025-07-11 05:47] LABS: Hematocrit 30.2 % (37.0-47.0); Hemoglobin 9.5 g/dL (12.0-16.0); Mean Corp Hgb Conc. 31.5 g/dL (33.0-37.0); Mean Corpuscular Volume 74.0 fL (81.0-99.0); Platelet Count 115 10^3/uL (130-400); Red Cell Dist. Width 23.6 % (11.5-14.5)
[2025-07-11] MEDS: DECADRON 10 MG IV ×4 (05:49→23:42)
[2025-07-11] MEDS: LEVOPHED 250 IV (05:52)
[2025-07-11 05:58] LABS: Glucose - Point of Care 120 mg/dl (70-99)
--- NOTE | 2025-07-11 06:04 | W.PN.SEPSIS ---
Sepsis
Vital Signs
Temp Pulse Resp BP Pulse Ox
93.4 F L 103 16 91/58 98
07/11/25 05:30 07/11/25 05:30 07/11/25 05:30 07/11/25 05:30 07/11/25 05:30
Physical Exam
Physical Exam:
A focused exam was performed after fluid resuscitation.
Capillary Refill
Bilateral Upper Extremity:
Deja Time: Less than 3 sec
Bilateral Lower Extremity:
Deja Time: Less than 3 sec
Pulse Evaluation
Bilateral Radial:
Pulse Evaluation: Present
Bilateral Dorsalis Pedis:
Pulse Evaluation: Present
[2025-07-11 06:09] LABS: ALT (SGPT) 21 U/L (0-35); AST (SGOT) 64 U/L (14-36); Albumin 2.6 g/dl (3.5-5.0); Alkaline Phosphatase 73 U/L (38-126); Blood Urea Nitrogen 78 mg/dl (7-17); Calcium 8.5 mg/dl (8.4-10.2); Carbon Dioxide 14 mmol/L (22-30); Chloride 104 mmol/L (98-107); Estimated Creatinine Clearance 34 ml/min; Glucose 95 mg/dl (70-99); LDH 361 U/L (120-246); Magnesium 2.0 mg/dl (1.6-2.3); Potassium 4.3 mmol/L (3.5-5.1); Sodium 128 mmol/L (135-145); Total Protein 5.6 g/dl (6.3-8.2); eGFR 33.28
[2025-07-11 06:10] LABS: Troponin I 0.013 ng/ml
--- NOTE | 2025-07-11 06:11 | PTCARENOTE ---
Assumed care of patient from ER. Patient is drowsy but arousable to touch, patient is deaf. Able to follow commands with visual cues but has a hard time staying awake. Patient is cold and is on bairhugger with Q1 temps through temp sensing Nieto
catheter. Pupils are equal and reactive, +3. Moves all extremities. Patient is in atrial fibrillation. Radial pulses are palpable, bilateral DP pulses obtained with doppler. Generalized +1 edema with +2 in bilateral lower extremities. Blood pressure
dropped slightly during exam, levo started at 4 mcg to maintain MAP > 65. Patient is saturating appropriately on RA, labored breathing. AMMONIA OPERATOR made aware, labs pending. Abdomen is soft and nontender. BGM completed, result 112. Positive bowel sounds.
Temp sensing nieto catheter in place. No new urine drainage as of transfer. Dual skin assessment completed. Generalized rash, AMMONIA OPERATOR made aware. C/f meningitis, IR c/s placed for LP. IV sites are c/d/i.
[2025-07-11 06:12] LABS: D-Dimer 1.35 ug/mlFEU (0.00-0.50)
[2025-07-11 06:17] LABS: Fibrinogen 304 MG/DL (199-459)
[2025-07-11 06:44] LABS: B.E. -8.9 mmol/L; O2 Saturation % 98.5 % (94-98); PCO2 27 mmHg (32-35); PO2 103 mmHg (83-108)
[2025-07-11 06:45] LABS: O2 Therapy NC
[2025-07-11 06:47] LABS: HCO3 15.3 mmol/L (21-28)
[2025-07-11 06:58] LABS: Glucose - Point of Care 104 mg/dl (70-99)
[2025-07-11 07:16] LABS: Cortisol, Random > 123.0 ug/dl
[2025-07-11] MEDS: AMPICILLIN 108 MG IV ×4 (07:26→23:42)
--- NOTE | 2025-07-11 07:27 | CON.INTV ---
Consultation
Consultation Request
Date/Time Consultation Requested: 07/11/2025-7 AM
Date/Time Consultation Performed: 07/11/2025-7:30 AM
Requesting Provider: Hospitalist
Performing Provider: Dr. Dickerson
Reason for Consultation: Sepsis/critical care management
Medical History
-
Chief Complaint: Rash/hypotension hypothermia
History of Present Illness:
65-year-old non-smoking female with a history of hypertension, atrial fibrillation, CHF presented after she was found down at home and noted to have hypothermia, hypotension, diffuse rash felt to possibly have meningitis and sepsis-lot boss
consulted for sepsis/critical care management 07/11/2025. The patient is mute, alert, but unable to answer any questions or follow directions. Review of systems was unobtainable.
Past Medical History
Past Medical History: None (Paroxysmal atrial fibrillation. Chronic heart failure reduced EF. Hypertension. Hearing loss.)
Social History
Tobacco: Non-smoker
Alcohol: None
Drug: None
Personal: Single
Occupational Exposures: No known asbestos exposure
Environmental Exposures: No known tuberculosis exposure
Family History
Family History: Reviewed & Not Pertinent
Allergies / Home Medications
Allergies
Allergy/AdvReac Type Severity Reaction Status Date / Time
No Known Allergies Allergy Verified 07/20/23 18:56
Home Medications
�Medication �Instructions �Recorded �Confirmed �Last Taken �Type
apixaban 5 mg tablet (Eliquis) 5 mg PO BID #60 tabs 08/06/24 04/20/25 Unknown Rx
digoxin 250 mcg (0.25 mg) tablet 250 mcg PO NOON #30 tabs 08/06/24 04/20/25 Unknown Rx
lisinopril 10 mg tablet 10 mg PO DAILY #30 tabs 08/06/24 04/20/25 Unknown Rx
metoprolol succinate 100 mg 100 mg PO BID #60 tabs 08/06/24 04/20/25 Unknown Rx
tablet,extended release 24 hr
spironolactone 25 mg tablet 25 mg PO DAILY #30 tabs 08/06/24 04/20/25 Unknown Rx
furosemide 40 mg tablet 40 mg PO QMWF #30 tabs 04/24/25 Unknown Rx
Review of Systems
-
Unable to Obtain full review of systems at this time due to: Patient Non Verbal
Vitals / Labs / Diagnostic Testing
Vital Signs
Temp Pulse Resp BP Pulse Ox
93.4 F L 103 16 91/58 98
07/11/25 05:30 07/11/25 05:30 07/11/25 05:30 07/11/25 05:30 07/11/25 05:30
Lab Data
07/11/25 05:27
07/11/25 05:27
Laboratory Results
07/11/25 07/11/25 07/11/25
00:08 01:07 01:55
PT Cancelled Cancelled Cancelled
INR Cancelled Cancelled Cancelled
APTT Cancelled Cancelled Cancelled
pH
pCO2
pO2
HCO3
O2 Delivery Level
07/11/25 07/11/25
02:28 06:33
PT 44.7 H
INR 4.85
APTT 53.7 H
pH 7.36
pCO2 27 L
pO2 103
HCO3 15.3 L*
O2 Delivery Level Nc
Microbiology
07/11/25 02:48 Nasal Swab Influenza Types A & B (ELTON) - Final
Negative for Influenza A & B, NAAT
Negative results must be combined with clinical observations
and patient history.
Nucleic Acid Amplification test (NAAT)performed on the
[employer] platform.
Diagnostic Testing:
Physical Exam
-
Exam:
Well-nourished and well-developed in no apparent distress
HEENT-atraumatic, normocephalic
Neck-supple, no JVD, no bruit
Heart-regular rate and rhythm-no murmurs, rubs or gallops
Chest-clear to auscultation, no wheezes, crackles
Back-no tenderness
Abdomen-soft, nontender, nondistended, no hepatosplenomegaly
Extremities-no cyanosis, clubbing, edema and good peripheral pulses
Integument with diffuse petechial rash
Neurologically not alert, moving extremities
Assessment
-
65-year-old non-smoking female with a history of hypertension, atrial fibrillation, CHF presented after she was found down at home and noted to have hypothermia, hypotension, diffuse rash felt to possibly have meningitis and sepsis-lot boss
consulted for sepsis/critical care management 07/11/2025.
Hypothermia
Hypoglycemia
Hypotension
Petechial rash
Lactic acidosis
Toxic metabolic encephalopathy
MODE
Elevated CPK
Thrombocytopenia and coagulopathy-rule out DIC-platelets 66, D-dimer 1.35, INR 4.85
Leukocytosis
Iijecs-gtmebrkiag-nhfheppyyr 9.5
Chronic heart failure reduced EF
Skin breakdown/necrosis bilateral toes
Conditions present prior to admission:
Paroxysmal atrial fibrillation.
Chronic heart failure reduced EF-EF 40-45%
Moderate to severe mitral regurgitation
Hypertension.
Hearing loss.
Plan
Admit patient to medical intensive care unit for persistent hypotension despite fluid resuscitation requiring pressors
Supplement oxygen as needed
High flow oxygen if needed
BiPAP if necessary
Intubate and mechanically ventilate if necessary
Aspiration precautions
Nebulizers if needed
Obtain cultures
Lumbar puncture 07/11/2025 pending
Empiric antibiotics-ceftriaxone, ampicillin, acyclovir and steroids initiated
Infectious disease consultation
Monitor leukocytosis
Fluid resuscitation with 30 mL/kg crystalloid-preferably lactated ringer-(less MODE) with subsequent boluses as needed
Monitor lactate
Follow CVP if possible
Attempt noninvasive bedside tissue perfusion evaluation to see if fluid bolus responsive
Measure pulse pressure and stroke volume variation if patient on ventilator, passively breathing without arrhythmia and with temporary large tidal volume ventilation and if > 13% then likely fluid bolus responsive
If patient active then consider measuring bedside leg lift for 3 minutes and if cardiac output increases or if there is a rise of 2-4 on end-tidal CO2 then fluid bolus
If bedside ultrasound available then measure IVC diameter variation to evaluate for fluid bolus responsiveness
Begin pressors as needed for MAP goal of 65-Norepinephrine first, then Vasopressin and consider Angiotensin II if continues to be hypotensive
Consider methylene blue if available-specific inhibitor of induced nitric oxide synthase iNOS and its downstream enzyme soluble guanylate cyclase-noninferiority study shown to reduce time to vasopressor discontinuation, decreased ICU length of stay,
hospital stay but no change in mortality-published Critical Care 11/16/2022
TSH and cortisol normal and does not suggest adrenal insufficiency or hypothyroidism causing hypothermia
DVT prophylaxis-currently elevated INR-auto anticoagulated-
Early nutrition if possible
Early mobilization/bedside range of motion
Critical care statement: A total of 50 minutes of critical care time was provided for this patient today. This includes management of unstable vital signs, evaluation of the patient at bedside, reviewing the patient's pertinent medical records
including radiographs, microbiology, laboratory evaluations, and discussion with primary team, consultants, pharmacy, nutrition, physical therapy, case management, charge nurse, critical care nursing, and respiratory therapy.
Diagnostic data:
Chest x-ray 07/26/2024-mild CHF
Chest x-ray 04/20/2025-moderate sized right pleural effusion
Chest x-ray 07/11/2025-small right pleural effusion with associated atelectasis or pneumonia
CT head 07/11/2025-no acute intracranial abnormalities, prominent diffuse calvarial sclerosis which may reflect underlying metabolic bone disease
Echocardiogram 04/20/2025-EF 40-45%, moderate to severe mitral regurgitation, PA systolic estimated 63
Data Reviewed
-
EKG: Report reviewed by me
Radiology: Report reviewed by me
CT Scan: Image personally visualized and interpreted and Report reviewed by me
Medical Tests (Nuc Med, Echo etc): Report reviewed by me
Labs: Labs reviewed by me
Old Records: Reviewed
Critical Care Time (in minutes): 55
[2025-07-11] MEDS: ROCEPHIN 2000 MG IV ×2 (08:23→19:47)
[2025-07-11] MEDS: STERILE WATER FOR INJECTION 20 ML IV ×2 (08:24→19:47)
--- NOTE | 2025-07-11 08:30 | PTCARENOTE ---
Patient able to squeeze hands when demonstrated. Attempted to use steam gigger with patient; Reconciler # [id number]. Patient drowsy, difficult to utilize element winding machine tender. Pt able to state her name when asked in Lebanese sign language. Pt grimacing but denies
pain. Disoriented to time and place. Oral care done. Repositioned using pillows, heels floated. Levo infusing at 4mcg/min. Afib on tele. RA clear lung sounds. Skin is red and warm to the touch. Generalized rash on lower extremities/anterior trunk is
red and flat. Pt has some toes that are necrotic. Rosendo hugger turned off, pt reached goal temp. Bed alarm set for safety. Droplet precautions maintained.
[2025-07-11] MEDS: ZOVIRAX INJECTION 265 MG IV ×2 (08:38→19:47)
--- NOTE | 2025-07-11 09:16 | CON.ID ---
Consultation
-
Date/Time Consultation Requested: 07/11/2025 0532
Date/Time Consultation Performed: 07/11/2025 0916
Requesting Provider: Pricilla Eric
Performing Provider: Dr. Charles
Reason for Consultation: Possible meningitis
Chief Complaint / Past History
History of Present Illness
Haylee Cline is a 65-year-old female being evaluated at the request of Dr. Thornton in regards to suspected meningitis. History is obtained from chart review alone as the patient could not provide any history. The patient is deaf, but could not
participate with the ASL language line.
The patient presented to the emergency room on 07/11 from home after being found down. The patient cohabitates with her brother but they live on separate floors in the house. Yesterday, the brother went upstairs and found the patient lying on the
bathroom floor and 911 was called. The patient was found by EMS to be on the floor covered in feces and urine. The brother is not sure when he last saw the patient well as he may not go into her portion of the house for days at a time.
In the ER, the patient was found to be hypoglycemic, hypothermic and hypotensive. Additionally, she was found to have a petechial rash in the lower extremities, and to a lesser degree on the abdomen and trunk.
Past History
Additional Past Medical History:
HTN
A-fib
CHF
Hearing loss/deaf
Past Surgical History: Other (Unknown)
Allergy History:
No Known Allergies Allergy (Verified 07/20/23 18:56)
Medications Reviewed: Yes
Current Antibiotics:
Acyclovir 750 mg IV q.12 hours
Ampicillin 2 gm IV q.6 hours
Ceftriaxone 2 gm IV q.12 hours
Vancomycin
Social History
Tobacco: Non-Smoker
Alcohol: None
Drug: None
Personal: Single
Living: With Family
Employment: Not Employed
Family History
Family History: Unable to Obtain
Review of Systems
Vital Signs
Temp Pulse Resp BP Pulse Ox
97.1 F 101 18 115/76 99
07/11/25 08:00 07/11/25 08:18 07/11/25 08:18 07/11/25 08:18 07/11/25 08:18
Tmin = 89.1F (at presentation to ER)
Physical Exam
Physical Exam
Constitutional: Acutely Ill, Chronically Ill and Non-toxic
Head: Normocephalic
Eyes: Pupils Equal, Pupils Round, No Conjunctival Hemorrhage and Sclera Anicteric
Oral: No Thrush and No Ulcers
Cardiovascular: Regular Rate and S1/S2; Negative S3/S4
Pulmonary: Clear; Negative Wheezes, Rales or Rhonchi
Gastrointestinal: Soft, Non Tender, Non Distended and Normal Bowel Sounds
Genito-Urinary: Pillai and Clear Urine
Extremities: Edema, Erythema and Pulses; Negative Calf Swelling or Venous Insufficiency
Musculoskeletal: Negative Joint Swelling
Skin: Warm, Dry and Rash (Petechial (attached photo)
Wound: None
Neurological: Awake; Negative Meningeal Signs (No nuchal rigidity. Head freely mobile)
Psychological: Calm
Lab / Diagnostic Study Results
07/11/25 05:27
07/11/25 05:27
Abs Immat Gran (auto) 0.1 10^3/uL (0-0.05) H 07/11/25 00:08
Absolute Neuts (auto) 22.7 10^3/uL (1.4-6.5) H 07/11/25 00:08
Absolute Lymphs (auto) 0.5 10^3/uL (1.2-3.4) L 07/11/25 00:08
Absolute Monos (auto) 0.8 10^3/uL (0.1-0.6) H 07/11/25 00:08
Absolute Basos (auto) 0.1 10^3/uL (0-0.2) 07/11/25 00:08
Immature Gran % 0.6 % (0-0.5) H 07/11/25 00:08
Neutrophils % 93.6 % (42.2-75.2) H 07/11/25 00:08
Lymphocytes % 2.0 % (20.5-51.1) L 07/11/25 00:08
Monocytes % 3.5 % (1.7-9.3) 07/11/25 00:08
Eosinophils % 0.0 % (0-6) 07/11/25 00:08
Basophils % 0.3 % (0-2) 07/11/25 00:08
ESR 3 mm/hour (0-20) 07/11/25 05:27
PT 44.7 Sec (11.4-14.6) H 07/11/25 02:28
INR 4.85 07/11/25 02:28
Lactic Acid 2.4 mmol/L (0.7-2.0) H 07/11/25 08:12
C-Reactive Protein 138.80 mg/L (0.0-10.00) H 07/11/25 05:27
Ur Squamous Epith Cells 6-10 /LPF (Few) 07/11/25 01:21
Microbiology Results
Micro:
07/11/25 02:48 Influenza Types A & B ([facility]) - Final
Nasal Swab Negative for Influenza A & B, NAAT
Negative results must be combined with clinical observations
and patient history.
Nucleic Acid Amplification test (NAAT)performed on the
[employer] platform.
07/11/25 02:48 Blood Culture - Pending
Blood/Venous
07/11/25 02:48 Blood Culture - Pending
Blood/Venous
Imaging:
07/11/2025 CXR (portable): small right pleural effusion with associated consolidation (atelectasis and/or pneumonia). No visualized pneumothorax. Please see full dictation for additional detail. Film personally viewed.
07/11/2025 CT head without contrast: no acute intracranial abnormality noted.
Photos:
Assessment / Plan
Clinical sepsis
Hypothermia
Leukocytosis with marked left shift
Petechial rash
Hyponatremia
MODE
Lactic acidosis
HTN
A-fib
CHF
Hearing loss/deaf
Recommendations:
Continue current antibiotics.
Encephalitis still a possibility; continue with ceftriaxone and acyclovir.
Await LP. If HSV and VZV are negative on meningitis PCR will discontinue further acyclovir.
Follow rash.
Monitor pending blood cultures.
Would continue with droplet isolation for the time being, at least until cultures are negative x 24 to 48 hours.
Follow white count and temperature curve.
Wean pressors as possible.
Further recommendations as additional data is returned.
Patient critically ill on pressors in ICU.
Care Review
Plan reviewed with: Physician
--- NOTE | 2025-07-11 10:00 | CON.INTV ---
Consultation
Consultation Request
Date/Time Consultation Requested: 07/11/2025 5:16
Date/Time Consultation Performed: 07/11/2025 10:00
Requesting Provider: Tk Thornton DO
Performing Provider: Carlos Dickerson MD
Reason for Consultation: Hypotermia, persistent hypotension
Medical History
-
Chief Complaint: Hypothermia
History of Present Illness:
This is a 65 y/o female with pmhx of essential hypertension, paroxysmal atrial fibrillation, Chronic HFrEF who presented to the ED on 07/10/2025 after being found down at home. She lives at home on the upper floors, while her brother reports living
downstairs. He had gone upstairs and found her lying on the bathroom floor. He promptly called 911, and when EMS arrived they reported she was unresponsive and covered in her own feces. Her brother is not certain the last time he observed her
walking around.
In the ED, vital signs: temperature 89.1, heart rate 82 (in Atrial fibrillation), BP 96/77. Labs showed sodium of 129, bicarbonate of 16, creatinine 1.7 (increased from baseline of 0.9 on 04/2025), lactic acid 2.9, creatinine kinase of 789, BNP 6560,
TSH 2.60, WBC 24.2, hemoglobin 11.3, platelets 66, ABG showed pH 7.36, CO2 27, Bicarb 15.3. PPT 44.7, INR 4.85, Fibrinogen 304, D-Dimer 1.35. CT scan of he read showed no acute intracranial abnormalities, though prominent diffuse calvarial
sclerosis. Chest X-ray showed small right pleural effusion with associated atelectasis and/or pneumonia.
She was given dextrose, warned IV fluids and Bear hugger. She woke, though exam at that time was unfortunately limited as she is deaf at baseline and attempts at communication using logistics administrator only resulted in her repeatedly stating her date of
.
At the time of my exam she is unresponsive and grimacing. She is unable to participate meaningfully in her own care at this time.
Past Medical History
Past Medical History: Arrhythmias (Paroxysmal atrial fibrillation), CHF, HTN and Other ( Chronic hearing loss)
Past Surgical History: Cardiac (Cardioversions)
Social History
Tobacco: Non-smoker
Alcohol: None
Drug: None
Living: With Family
Family History
Family History: Unable to Obtain
Allergies / Home Medications
Allergies
Allergy/AdvReac Type Severity Reaction Status Date / Time
No Known Allergies Allergy Verified 07/20/23 18:56
Home Medications
�Medication �Instructions �Recorded �Confirmed �Last Taken �Type
apixaban 5 mg tablet (Eliquis) 5 mg PO BID #60 tabs 08/06/24 04/20/25 Unknown Rx
digoxin 250 mcg (0.25 mg) tablet 250 mcg PO NOON #30 tabs 08/06/24 04/20/25 Unknown Rx
lisinopril 10 mg tablet 10 mg PO DAILY #30 tabs 08/06/24 04/20/25 Unknown Rx
metoprolol succinate 100 mg 100 mg PO BID #60 tabs 08/06/24 04/20/25 Unknown Rx
tablet,extended release 24 hr
spironolactone 25 mg tablet 25 mg PO DAILY #30 tabs 08/06/24 04/20/25 Unknown Rx
furosemide 40 mg tablet 40 mg PO QMWF #30 tabs 04/24/25 Unknown Rx
Review of Systems
-
Unable to Obtain full review of systems at this time due to: Patient Non Verbal
Vitals / Labs / Diagnostic Testing
Vital Signs
Temp Pulse Resp BP Pulse Ox
96.6 F L 101 18 115/76 99
07/11/25 09:00 07/11/25 08:18 07/11/25 08:18 07/11/25 08:18 07/11/25 08:18
Lab Data
07/11/25 05:27
07/11/25 05:27
Laboratory Results
07/11/25 07/11/25 07/11/25
00:08 01:07 01:55
PT Cancelled Cancelled Cancelled
INR Cancelled Cancelled Cancelled
APTT Cancelled Cancelled Cancelled
pH
pCO2
pO2
HCO3
O2 Delivery Level
07/11/25 07/11/25
02:28 06:33
PT 44.7 H
INR 4.85
APTT 53.7 H
pH 7.36
pCO2 27 L
pO2 103
HCO3 15.3 L*
O2 Delivery Level Nc
Microbiology
07/11/25 02:48 Nasal Swab Influenza Types A & B (ELTON) - Final
Negative for Influenza A & B, NAAT
Negative results must be combined with clinical observations
and patient history.
Nucleic Acid Amplification test (NAAT)performed on the
[employer] platform.
Diagnostic Testing:
Physical Exam
-
HEENT: Normocephalic
Cardiovascular: S1/S2 and Irregular Rhythm
Respiratory: Clear
Skin: Warm, Dry and Other (Erythema of the lateral surface of both arms. Tip of 2nd left toe is blackened and necrotic-appearing. Multiple dark petechiae across chest, abdomen, thighs and legs down to the feet. They appear most concentrated around
the latera/posterior thighs. )
Assessment
-
Assessment:
This is a 65 y/o female with pmhx of essential hypertension, paroxysmal atrial fibrillation, Chronic HFrEF who presented to the ED on 07/10/2025 after being found down at home noted to have hypothermia, persistent hypotension and altered mental
status with rash concerning for meningitis
Plan:
Toxic Metabolic Encephalopathy
Lactic Acidosis, Elevated CPK
Hypothermia
Persistent Hypotension
Petechial rash, Leukocytosis
Patient found down by brother for unknown period of time, in the ED had hypothermia and hypotension requiring levophed
ED labs: Sodium 129, bicarb 16, TSH normal, WBC 24.2,
CT scan of the head showed no acute intracranial abnormalities, though prominent diffuse calvarial sclerosis.
Chest X-ray showed small right pleural effusion with associated atelectasis and/or pneumonia.
Even now she is not able to answer questions appropriately using logistics administrator line
Infectious disease is following, will appreciate their insight
Provide supplemental oxygen as required including high flow O2, BiPap and intubation if necessary
Continue aspiration precautions, keeping head of the bed >30-45 degrees
Blood cultures x2 pending
Continue antibiotics per infectious disease recommendation.s Currently on ceftriaxone, ampicillin, acyclovir. Did receive one time dose of vancomycin in the ED.
Lumbar puncture ordered, pending result
Continue to follow lactate, WBC
Continue levophed for MAP goal of >65
Continue IV fluids
Acute Kidney Injury
Creatinine 1.7 on admission
Prior creatinine from 04/2025 normal at 0.9
Continue IV fluids
Continue to monitor
Thrombocytopenia with Coagulopathy
Paroxysmal Atrial Fibrillation
Patient on Eliquis at home
INR on arrival 4.85, still >3 today
Repeat INR in the AM, hold off on coagulation at this time.
Continue to follow platelets
Necrosis of the Toes
Patient arrived to ED with blackened toes, not mentioned in 04/2025 discharge summary
Wound care and infectious disease are following
Continue local wound care
Chronic Heart Failure with Mildly Reduced EF
Essential Hypertension
Most recent Echo from 04/2025: EF 40-45%
Patient on lisinopril, metoprolol, spironolactone, furosemide, digoxin at home
Hold home medications given persistent hypotension
Repeat echocardiogram ordered by admitting team, pending results
Chronic Hearing Loss
Patient is deaf at baseline
Maintain professor of theatre line at the bedside for ASL interpretation once able
[2025-07-11] MEDS: LR 500 IV (10:21)
[2025-07-11 11:30] LABS: Glucose - Point of Care 117 mg/dl (70-99)
[2025-07-11] MEDS: DESENEX/MITRAZOL/ZEASORB 1 APPLIC TOPICAL ×2 (11:40→19:53)
--- NOTE | 2025-07-11 11:45 | PTCARENOTE ---
Pt systems reviewed. No new changes. Remains lethargic. BANGURA but fails to engage with staff. Turn/reposition q2h. Continues to grimace at baseline,increases with care. Blood sugars maintained in 100s with D5nss, levo titrated as charted. LR
infused as ordered during rounds. Pt maintained on magi hugger, titrating per work list. Ir will not do LP until INR 3 or below. Repeat labs sent and pending. type and screen also sent. Otherwise please refer to work list. Bed alarm for safety
[2025-07-11 12:03] LABS: INR 3.82; PT 37.8 Sec (11.4-14.6)
--- NOTE | 2025-07-11 12:15 | PTCARENOTE ---
Pt INR 3.89. Jayla Jones and Araceli aware. Plan to hold on LP until tomorrow to see if INR improves. Type and cross sent as ordered.
[2025-07-11 12:19] LABS: Troponin I < 0.012 ng/ml
--- NOTE | 2025-07-11 13:46 | CM ---
Patient is deaf. Oceanographer Assistant services. Initial assessment completed with brother, Sarabjit, via telecom. Patient lives with her brother in a 2 story plus basement home with B/B on 2nd and 2 steps and a ramp to enter. BEEF BREAKER patient was independent in
ADL's and ambulation, drives. She does not use any DME. There is a SPC, RW and W/ch from her mother's past use. No in-home services. Brother reports that patient's room is dirty and disorganized. The rest of the house is clean. No HC-POA. No VA
benefits. No psychiatric hospitalizations. PCP is Dr. Ja Vergara. Pharmacy is [facility] [place] in [place]. Discharge POC: TBD.
--- NOTE | 2025-07-11 13:53 | W.PN.HOSP.TC ---
Today's Communication/Plan
-
Continue with broad-spectrum antibiotics, antiviral, systemic steroids
Check EEG
Repeat labs. If it severe acidosis may need bicarbonate drip
Monitor urinary output
Monitor petechial rash closely
Assessment / Plan
Assessment / Plan
General: Other (Ill-appearing 65y F.)
HEENT: Other (Dry MM. Neck supple. No JVD or HJR.)
Respiratory: Other (Decreased BS bilaterally. No W/R/R.)
Cardiac: S1/S2, positive slight murmur
GI: Soft, Non Tender, Non Distended and Normal Bowel Sounds
Musculoskeletal: Other (Erythema / rubor of all 4 extremities. Necrotic appearing lesions to the tips of toes. 3-4+ pitting edema b/l LEs.)
Skin: Other (Petechiae scattered across arms / legs with confluent erythema. Petechiae scattered across shoulders / chest.) sacral bilateral pressure injury stage II likely
Neuro: Awake and Alert; No Oriented
A/P: Patient is a 65y F with PMH significant for A-Fib, CHF and hearing impairment who presents to ED after being found down at home by family.
Hypothermia
Hypoglycemia
Hypotension
Acute acute toxic metabolic encephalopathy likely multifactorial with also concern for meningitis/encephalitis
- Unclear etiology of presentation.
- Gradual improvement in hypoglycemia, BP and hypothermia with dextrose and IVF administration.
- Pulse dose steroids given petechiae, thrombocytopenia, hypoglycemia, hypothermia, etc.
- IVFs +/- pressors as needed to maintain BP / perfusion.
- Check hemolytic labs. Follow temp for continued improvement. Follow-up culture data / clinical improvement / etc.
- Continue IVFs with supplemental dextrose for now - though patient does appear volume overloaded. Will likely require eventual diuresis once hemodynamically stable.
- TSH is normal. Cortisol normal
- CT head without acute abnormalities.
- Check EEG
- Follow for clinical improvement / improvement in mental status.
- Patient is also remains on antibiotics with ampicillin, antiviral, ceftriaxone and IV steroids. ID following. Plan for LP in the morning if improvement in INR.
MODE
Elevated CPK
- SCr = 1.7 compared to known baseline of 0.9.
- Likely decreased perfusion with hypotension, hypothermia, etc as noted above.
- Lactate elevated on admission.
- Status post aggressive IV fluids. Holding diuretics.
- UA without evidence of pigment nephropathy.
- Pillai placed in the ED for critical care I/Os and continuous temperature monitoring.
Thrombocytopenia
Coagulopathy
Leukocytosis
Microcytic Anemia
- ? hemolytic process based on labs, exam, etc.
- IV steroids acutely as noted above. Follow-up labs.
- Hold Eliquis acutely. Hopefully INR trends down for lumbar puncture in the morning
- May need Hematology evaluation
- Had GI evaluation during most recent hospital stay - no clear evidence of GI blood loss.
- Platelets improved
Chronic HFmrEF
- Echo done 04/2025 showed LVEF = 40-45%, severe TR, moderate - severe MR.
- BNP decreased from prior - though weight apparently increased and evidence of edema on exam.
- Holding diuretics acutely given hypotension, hypoglycemia, etc.
- Follow I/Os, daily eights, etc.
- Will likely benefit from eventual diuresis once hemodynamically stable.
Skin Breakdown / Necrosis b/l Toes
- Likely due to decreased perfusion (suspect fairly prolonged time down).
- Pulses present on exam. Color improving with IVFs, normoglycemia, etc.
- Wound Care eval for local care.
Permanent Atrial Fibrillation
- Stable. Rate controlled. Hold Eliquis acutely as noted above.
- Monitor on telemetry.
Hearing Impairment
- Uses ASL for communication. Language Line used during ED interview.
Sacral pressure injury stage II-poa
-wound care
DVT Prophylaxis: Hold for now given LE skin changes / superficial wounds and thrombocytopenia / coagulopathy / etc.
Code Status: Full
Updated patient brother over the phone in details and explained to him patient currently critically ill.
Anticipated Discharge: > 48 hours
Subjective/Interval History
-
Date of Service: July 11, 2025
Patient seen and examined.
The patient is deaf, but could not participate with the ASL language line.
Remains on pressors
Petechial rash noted
Flinching in pain while undergoing wound care evaluation
Objective Data
-
Labs:
Laboratory Results
07/11/25 07/11/25 07/11/25
01:55 02:28 05:27
WBC 19.0 H
Hgb 9.5 L
Hct 30.2 L
Plt Count 115 L D
PT Cancelled 44.7 H
INR Cancelled 4.85
APTT Cancelled 53.7 H
HCO3
Sodium 128 L
Potassium 4.3
Chloride 104
Carbon Dioxide 14 L*
BUN 78 H
Creatinine 1.7 H
Glucose 95
Calcium 8.5
Total Bilirubin 2.2 H
AST 64 H
ALT 21
Alkaline Phosphatase 73
07/11/25 07/11/25
06:33 11:29
WBC
Hgb
Hct
Plt Count
PT 37.8 H
INR 3.82
APTT
HCO3 15.3 L*
Sodium
Potassium
Chloride
Carbon Dioxide
BUN
Creatinine
Glucose
Calcium
Total Bilirubin
AST
ALT
Alkaline Phosphatase
Vital Signs:
Vital Signs
Temp Pulse Resp BP Pulse Ox
97.7 F 95 16 95/61 96
07/11/25 13:49 07/11/25 13:00 07/11/25 13:00 07/11/25 13:00 07/11/25 13:20
I&O
07/10/25 07/11/25 07/12/25
06:59 06:59 06:59
Intake Total 115 / 230 2124.4 / 2123.4
Output Total 60 / 90 250 / 250
Balance 55 / 140 1874.4 / 1874.4
Data Reviewed
-
Total Time Spent with Patient (in minutes): 65
--- NOTE | 2025-07-11 14:04 | WOUNDNOTE ---
RIGHT LATERAL FOOT
--- NOTE | 2025-07-11 14:07 | WOUNDNOTE ---
RIGHT LOWER LEG
--- NOTE | 2025-07-11 14:08 | WOUNDNOTE ---
BILATERAL LOWER EXTREMITIES
--- NOTE | 2025-07-11 14:09 | WOUNDNOTE ---
LEFT DORSAL FOOT/TOES
--- NOTE | 2025-07-11 14:13 | WOUNDNOTE ---
LEFT MEDIAL/POSTERIOR LOWER LEG, MEDIAL ANKLE
--- NOTE | 2025-07-11 14:14 | WOUNDNOTE ---
LOWER ABDOMEN, GROIN
--- NOTE | 2025-07-11 14:15 | WOUNDNOTE ---
BILATERAL ANTERIOR THIGHS, KNEES
--- NOTE | 2025-07-11 14:18 | WOUNDNOTE ---
RIGHT POSTERIOR THIGH
--- NOTE | 2025-07-11 14:19 | WOUNDNOTE ---
LEFT POSTERIOR THIGH, LEG (:1960, M#:[id number])
--- NOTE | 2025-07-11 14:20 | WOUNDNOTE ---
LEFT POSTERIOR THIGH, LEG
--- NOTE | 2025-07-11 14:20 | WOUNDNOTE ---
LEFT LATERAL FOOT/ANKLE
--- NOTE | 2025-07-11 14:20 | WOUNDNOTE ---
RIGHT MEDIAL FOOT
--- NOTE | 2025-07-11 14:22 | WOUNDNOTE ---
RIGHT MEDIAL FOOT(:1960, M#[id number])
--- NOTE | 2025-07-11 14:23 | WOUNDNOTE ---
RIGHT MEDIAL FOOT/ANKLE
--- NOTE | 2025-07-11 14:24 | WOUNDNOTE ---
LEFT POSTERIOR ANKLE
--- NOTE | 2025-07-11 14:33 | WOUNDNOTE ---
SACRAL COCCYX/BUTTOCKS
--- NOTE | 2025-07-11 14:33 | WOUNDNOTE ---
SACRAL COCCYX, BUTTOCKS
--- NOTE | 2025-07-11 14:50 | WOUNDNOTE ---
[facility] RN note: Patient admitted with sepsis. Patient found down at home.
See H&P for complete history.
PMH: Paroxysmal Atrial Fibrillation
Chronic HFrEF
Hypertension
Hearing Loss
Wound Location and type/assessment: Patient admitted with petechia rash to LE and abdomen, stage 1 PI to sacrum, bilateral stage 2 PI to buttocks, stage 2 PI to right elbow, venous wound to left posterior leg, scabbed area to right medial foot,
necrotic appearing toes bilaterally with adherent eschar, groin and perineum with fungal appearing skin. Please see worklist for descriptions of all wounds.
Appetite: NPO
Pressure redistribution devices in place: Centrella Max Air, turning schedule, heels off-loaded with pillows and air cushion under calves. Patient was repositioned on a right semi-side lying position after care and bear hugger maintained.
Plan: Several pictures taken of petechia rash. Sacral foam applied to sacrum and Calazime applied to open areas on buttocks. Leg wounds cleaned with saline and covered with silicone foam. RN Bridget to apply Betadine to wounds on bilateral toes. Right
elbow stage 2 cleaned and covered with silicone border foam. Desenex ointment in use for groin and perineum. Hospitalist present during assessment to assess skin. Will confirm orders with hospitalist and update nurse. Updated care plan and will
follow as needed.
Note to case management of equipment requested for discharge:
Recommend follow up at wound care center upon discharge.
--- NOTE | 2025-07-11 16:00 | PTCARENOTE ---
Systems reviewed. No acute changes, remains lethargic. Brother (Mamadou) visited and consented to LP tomorrow, and gave consent for blood if needed. Wound consult done. Pillai with trung/pink tinged urine. Plan for LP tomorrow if INR < 3. Magi hugger in
place for hypothermia. Tried multiple times to remove magi hugger, unable d/t hypothermia. Levo gtt per the work list. Droplet precautions in place. Bed alarm set for safety.
[2025-07-11 16:37] LABS: Blood Urea Nitrogen 71 mg/dl (7-17); Calcium 8.3 mg/dl (8.4-10.2); Carbon Dioxide 16 mmol/L (22-30); Chloride 107 mmol/L (98-107); Estimated Creatinine Clearance 36 ml/min; Glucose 137 mg/dl (70-99); Potassium 3.9 mmol/L (3.5-5.1); Sodium 130 mmol/L (135-145); eGFR 35.79
[2025-07-11 17:21] LABS: Glucose - Point of Care 140 mg/dl (70-99)
--- NOTE | 2025-07-11 18:12 | PTCARENOTE ---
Pt INR 3.89. Jayla Jones and Araceli aware. Plan to hold on LP until tomorrow to see if INR improves. Type and cross sent as ordered.
--- NOTE | 2025-07-11 22:00 | PTCARENOTE ---
Assumed care of patient. Hand-off drip validation done with off-going nurse. Patient is lethargic and is unable to stay awake for most of assessment. Signs first three letters of name. Patient is deaf. Bairhugger in place for goal temperature of
97F. Patient is in atrial fibrillation, adequate blood pressures on 3 mcg of levo. Edema in bilateral LE, doppler used to obtain pulses. Lung sounds are clear, patient snores when asleep, sleep apnea present. Harsh sounding cough. Abdomen is soft
and nontender, no bowel movement, bowel sounds are present. Temp sensing nieto catheter in place draining trung urine with some sediment. Generalized papular rash, flat to skin. Areas of skin rednres. IV sites are c/d/i.
[2025-07-11 23:06] LABS: Glucose - Point of Care 162 mg/dl (70-99)
[2025-07-12] VITALS (60 sets, daily range): BP systolic 78–123; BP diastolic 53–91; BMI 27.5
--- NOTE | 2025-07-12 00:10 | PTCARENOTE ---
Patient placed on venturi mask 6L 40% for desatting while sleeping. Patient goal temperature on bairhugger. Levo now at 2 mcg. No other changes in assessment.
[2025-07-12] MEDS: LEVOPHED 250 IV (00:43)
[2025-07-12] MEDS: D5/0.9% SODIUM CHLORIDE 1000 IV ×3 (00:44→22:58)
[2025-07-12 03:15] LABS: Hematocrit 30.4 % (37.0-47.0); Hemoglobin 9.2 g/dL (12.0-16.0); Mean Corp Hgb Conc. 30.3 g/dL (33.0-37.0); Mean Corpuscular Volume 77.0 fL (81.0-99.0); Nucleated Red Blood Cells % 0.9 %; Platelet Count 114 10^3/uL (130-400); Red Cell Dist. Width 23.9 % (11.5-14.5)
[2025-07-12 03:20] LABS: APTT 41.5 Sec (23.4-35.0); Fibrinogen 372 MG/DL (199-459); INR 2.30; PT 25.8 Sec (11.4-14.6)
[2025-07-12 03:23] LABS: D-Dimer 1.21 ug/mlFEU (0.00-0.50)
[2025-07-12 03:33] LABS: ALT (SGPT) 23 U/L (0-35); AST (SGOT) 79 U/L (14-36); Albumin 2.7 g/dl (3.5-5.0); Alkaline Phosphatase 63 U/L (38-126); Blood Urea Nitrogen 66 mg/dl (7-17); Calcium 8.5 mg/dl (8.4-10.2); Carbon Dioxide 19 mmol/L (22-30); Chloride 109 mmol/L (98-107); Estimated Creatinine Clearance 38 ml/min; Glucose 155 mg/dl (70-99); LDH 299 U/L (120-246); Magnesium 2.0 mg/dl (1.6-2.3); Potassium 4.1 mmol/L (3.5-5.1); Sodium 134 mmol/L (135-145); Total Protein 5.8 g/dl (6.3-8.2); eGFR 38.67
--- NOTE | 2025-07-12 04:00 | PTCARENOTE ---
No change in patient assessment.
[2025-07-12 04:13] LABS: Normal RBC Morphology Yes
[2025-07-12 04:17] LABS: Anisocytosis 2+
[2025-07-12 04:18] LABS: Hypochromasia 2+; Microcytosis 1+
[2025-07-12 04:20] LABS: Ovalocytes 1+; Polychromasia Occasional; Target Cells 1+; Toxic Granulation 1+; Vacuolated Segs Occasional
[2025-07-12 04:21] LABS: Acanthocytes Occasional; Basophilic Stippling Occasional; Tear Drop Red Blood Cells Occasional
[2025-07-12 05:10] LABS: Glucose - Point of Care 144 mg/dl (70-99)
[2025-07-12] MEDS: AMPICILLIN 108 MG IV (05:54)
[2025-07-12] MEDS: DECADRON 10 MG IV ×4 (05:54→23:40)
--- NOTE | 2025-07-12 07:30 | W.PN.INTV ---
Today's Communication / Plan
Recommendations
Antibiotics
Lumbar puncture
Pressors
Intravenous fluids
Assessment
-
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
consulted for sepsis/critical care management 07/11/2025.
Hypothermia
Hypoglycemia
Hypotension
Petechial rash
Lactic acidosis
Toxic metabolic encephalopathy
MODE
Elevated CPK
Thrombocytopenia and coagulopathy-rule out DIC-platelets 66, D-dimer 1.35, INR 4.85
Leukocytosis
Mqqhnr-nwtcstlhtc-xmtpoiaxzz 9.5
Chronic heart failure reduced EF
Skin breakdown/necrosis bilateral toes
Conditions present prior to admission:
Paroxysmal atrial fibrillation.
Chronic heart failure reduced EF-EF 40-45%
Moderate to severe mitral regurgitation
Hypertension.
Hearing loss.
Plan
Remains critically ill on pressors
Supplement oxygen as needed
High flow oxygen if needed
BiPAP if necessary
Intubate and mechanically ventilate if necessary
Aspiration precautions
Nebulizers if needed
Reviewed cultures
Influenza negative
Blood cultures no growth
Lumbar puncture 07/12/2025 pending
Empiric antibiotics-ceftriaxone, ampicillin, acyclovir and steroids initiated
Infectious disease consultation
Monitor leukocytosis
Droplet precautions can be discontinued
Intravenous fluids
Monitor lactate
Pressors as needed
TSH and cortisol normal and does not suggest adrenal insufficiency or hypothyroidism causing hypothermia
DVT prophylaxis-currently elevated INR-auto anticoagulated-
Early nutrition if possible
Early mobilization/bedside range of motion
Nursing strongly suspects obstructive sleep apnea at nighttime-consider outpatient sleep study/sleep apnea workup
Critical care statement: A total of 40 minutes of critical care time was provided for this patient today. This includes management of unstable vital signs, evaluation of the patient at bedside, reviewing the patient's pertinent medical records
including radiographs, pressor management, microbiology, laboratory evaluations, and discussion with primary team, consultants, pharmacy, nutrition, physical therapy, case management, charge nurse, critical care nursing, and respiratory therapy.
Diagnostic data:
Chest x-ray 07/26/2024-mild CHF
Chest x-ray 04/20/2025-moderate sized right pleural effusion
Chest x-ray 07/11/2025-small right pleural effusion with associated atelectasis or pneumonia
CT head 07/11/2025-no acute intracranial abnormalities, prominent diffuse calvarial sclerosis which may reflect underlying metabolic bone disease
Echocardiogram 04/20/2025-EF 40-45%, moderate to severe mitral regurgitation, PA systolic estimated 63
Subjective Dataa
Subjective Data
Date of Service:
Date of Service: July 12, 2025
Chief Complaint: Cardiovascular Operating Room Nurse Follow Up and Pulmonary Follow Up
Subjective:
No change in mental status, no increased respiratory distress, rash about the same
Review of Systems
General: Other (Per HPI)
Objective Data
Data Reviewed
Vital Signs / I&O / Oxygen:
Vital Signs
Temp Pulse Resp BP Pulse Ox
97 F 101 12 87/70 97
07/12/25 06:00 07/12/25 06:00 07/12/25 06:00 07/12/25 06:00 07/12/25 06:00
Intake and Output
07/11/25 07/12/25 07/13/25
06:59 06:59 06:59
Intake Total 115 / 230 4090.8 / 4090.8
Output Total 60 / 90 1095 / 1095
Balance 55 / 140 2995.8 / 2995.8
SaO2 97
Physical Exam
General: Respiratory Distress (n) and Comfortable
HEENT: Normocephalic, Anicteric and Moist Mucous Membranes
Cardiovascular: Regular Rhythm
Respiratory: Wheeze (n), Crackles (n), Rhonchi (n), Non-Labored Respirations, Accessory Resp Muscle Use (n) and Stridor (n)
GI: Soft, Non Distended and Non Tender
Neurology: Alert, No Motor Deficits and Lethargic
Skin: Warm, Good Color, Cyanosis, Jaundice and Rash (Diffuse petechial and maculopapular rash greater in the lower extremities but also abdomen, back and upper extremities)
Labs/Micro/Reports
Lab Data
07/12/25 02:53
07/12/25 02:53
Laboratory Results
07/11/25 07/12/25
02:53
PT 37.8 H 25.8 H
INR 3.82 2.30
APTT 41.5 H
Microbiology
07/11/25 02:48 Blood/Venous Blood Culture - Preliminary
No Growth in 24 hours- Final report to follow
07/11/25 02:48 Blood/Venous Blood Culture - Preliminary
No Growth in 24 hours- Final report to follow
07/11/25 02:48 Nasal Swab Influenza Types A & B ([facility]) - Final
Negative for Influenza A & B, NAAT
Negative results must be combined with clinical observations
and patient history.
Nucleic Acid Amplification test (NAAT)performed on the
[employer] platform.
--- NOTE | 2025-07-12 08:12 | W.PN.INTV ---
Today's Communication / Plan
Recommendations
Start tube feeds today if patient tolerates
IF she tolerates tube feed, also add metoprolol 50mg BID
Pantoprazole IV for stress ulcer prophylaxis
Decrease fluid rate to 80 now, potentially decrease by more if she tolerates tube feeds
LP today
Assessment
-
Assessment:
This is a 65 y/o female with pmhx of essential hypertension, paroxysmal atrial fibrillation, Chronic HFrEF who presented to the ED on 07/10/2025 after being found down at home noted to have hypothermia, persistent hypotension and altered mental
status with rash concerning for meningitis
Plan:
Toxic Metabolic Encephalopathy
Lactic Acidosis, Elevated CPK
Hypothermia
Persistent Hypotension
Petechial rash, Leukocytosis
Patient found down by brother for unknown period of time, in the ED had hypothermia and hypotension requiring levophed
ED labs: Sodium 129, bicarb 16, TSH normal, WBC 24.2,
CT scan of the head showed no acute intracranial abnormalities, though prominent diffuse calvarial sclerosis.
Chest X-ray showed small right pleural effusion with associated atelectasis and/or pneumonia.
Even now she is not able to answer questions appropriately using motel operator line despite multiple staff attempts yesterday and today
Infectious disease is following, will appreciate their insight
Provide supplemental oxygen as required including high flow O2, BiPap and intubation if necessary
Continue aspiration precautions, keeping head of the bed >30-45 degrees
Blood cultures x2 pending
Continue antibiotics per infectious disease recommendations. Currently on ceftriaxone, ampicillin, acyclovir. Did receive one time dose of vancomycin in the ED.
Lumbar puncture ordered, hopefully will be completed today, pending result
Continue to follow lactate, WBC
Continue levophed for MAP goal of >65
Start IV pantoprazole for stress ulcer prophylaxis
Ordered tube feeds today, if patient tolerates tube
Continue IV fluids
Acute Kidney Injury
Creatinine 1.7 on admission
Prior creatinine from 04/2025 normal at 0.9
Continue IV fluids
Continue to monitor
Thrombocytopenia with Coagulopathy
Paroxysmal Atrial Fibrillation
Patient on Eliquis at home
INR on arrival 4.85, now below 3
Repeat INR in the AM, potentially restart anticoagulation then pending result
Continue to follow platelets
Necrosis of the Toes
Patient arrived to ED with blackened toes, not mentioned in 04/2025 discharge summary
No significant change in appearance overnight
Wound care and infectious disease are following
Continue local wound care
Chronic Heart Failure with Reduced EF
Essential Hypertension
Echo 04/2025: EF 40-45%
Echo 07/11/2025: Severe LV dysfunction. LV estimated at 30-35% with global hypokinesis. Moderate mitral regurgitation. Severe tricuspid regurgitation. Severe biatrial enlargement.
Patient on lisinopril, metoprolol, spironolactone, furosemide, digoxin at home
Hold home medications given persistent hypotension
Will potentially restart metoprolol at 50mg BID if patient tolerates feeding tube placement
Chronic Hearing Loss
Patient is deaf at baseline
Maintain promotions executive line at the bedside for ASL interpretation once able, continue to attempt interpretation daily with all staff interactions
Subjective Dataa
Subjective Data
Date of Service:
Date of Service: July 12, 2025
Chief Complaint: Core Fitter Follow Up
Subjective:
Patient was asleep when I arrived. Staff already present in the room stated she had tried to use Electrical System Specialist services earlier in the morning, but patient did not sign back, and quickly returned to sleep. Nursing staff re-attempted to using Electrical System Specialist
services again while I was in the room to let her know who they were, where she was, and that she was safe, but patient closed her eyes frequently during the conversation, had to be re-awakened multiple times, overall appeared very tired, and did
not sign back.
For me, patient did open her eyes briefly upon repeated, light tapping of her hand with my fingers for approximately 10 seconds. She did not turn her head towards me, but when I entered her field of vision and waved she appeared to nod slightly, but
almost immediately closed her eyes again. She seems very tired to me, which may be the limiting factor in her not being able to sign back with attempts to use Electrical System Specialist services.
Review of Systems
General: Unobtainable - Pat Unresp and Other
Objective Data
Data Reviewed
Vital Signs / I&O / Oxygen:
Vital Signs
Temp Pulse Resp BP Pulse Ox
97.7 F 101 12 87/70 97
07/12/25 08:00 07/12/25 06:00 07/12/25 06:00 07/12/25 06:00 07/12/25 06:00
Intake and Output
07/11/25 07/12/25 07/13/25
06:59 06:59 06:59
Intake Total 115 / 230 4090.8 / 4090.8
Output Total 60 / 90 1095 / 1095
Balance 55 / 140 2995.8 / 2995.8
SaO2 97
Physical Exam
General: Comfortable
HEENT: Normocephalic
Cardiovascular: S1-S2 and Irregular Rhythm
Respiratory: Clear
Neurology: Awake (Awakens briefly with prompting but quickly closes her eyes again) and Non Verbal
Skin: Warm, Dry and Rash (Overall skin appears the same as yesterday with erythema of the lateral surface of both arms, tip of 2nd left toe is blackened and necrotic-appearing. Multiple dark petechiae across arms chest, abdomen, thighs and legs down
to the feet most concentrated around the latera/posterior thighs.)
Labs/Micro/Reports
Lab Data
07/12/25 02:53
07/12/25 02:53
Laboratory Results
07/11/25 07/12/25
11: 02:53
PT 37.8 H 25.8 H
INR 3.82 2.30
APTT 41.5 H
Microbiology
07/11/25 02:48 Blood/Venous Blood Culture - Preliminary
No Growth in 24 hours- Final report to follow
07/11/25 02:48 Blood/Venous Blood Culture - Preliminary
No Growth in 24 hours- Final report to follow
07/11/25 02:48 Nasal Swab Influenza Types A & B ([facility]) - Final
Negative for Influenza A & B, NAAT
Negative results must be combined with clinical observations
and patient history.
Nucleic Acid Amplification test (NAAT)performed on the
[employer] platform.
[2025-07-12] MEDS: ROCEPHIN 2000 MG IV ×2 (08:24→20:29)
[2025-07-12] MEDS: ZOVIRAX INJECTION 265 MG IV ×2 (08:24→20:30)
[2025-07-12] MEDS: STERILE WATER FOR INJECTION 20 ML IV ×2 (08:24→20:29)
[2025-07-12] MEDS: DESENEX/MITRAZOL/ZEASORB 1 APPLIC TOPICAL ×2 (08:25→20:29)
--- NOTE | 2025-07-12 08:53 | PTCARENOTE ---
repot received, assessments per work list. patient responsive to tactile stimulation. EEG at bedside and completed.attempted use of ASL video intrepreter. patient unable to remain alert enough to participate, did however nod appropriately to
conversation. monitor afib. levophed wean per work list. lungs with coarse breath sounds. moist weak nonproductive cough. oral membranes dry nad crusted. oxygen weaned to nasal cannula. abdomen soft. hypoactive bowel sounds. generalized weeping
anasarca from legs. left>r. skin flushed with red rash arms,legs torso and back. skin care provided. multiple dressings intact. safe environment maintained. magi grabielgger on hold, reached goal temp. nieto draining yellow urine. receved TT from
Infection senior project leader/team lead that droplet precautions could be lifted
--- NOTE | 2025-07-12 09:56 | W.PN.ID1 ---
Date of Service
Date of Service: July 12, 2025
Today's Communication
Continue antibiotics. Await LP. See below�
Assessment / Plan
Clinical sepsis
Hypothermia
Leukocytosis with marked left shift
Petechial rash
Hyponatremia
MODE
Lactic acidosis
HTN
A-fib
CHF
Hearing loss/deaf
Recommendations:
Blood cultures remain negative. White count improved today.
Listeria somewhat less likely. Will discontinue further ampicillin.
Encephalitis remains on the DDx; continue with ceftriaxone and acyclovir.
Await LP.
- If HSV and VZV are negative on meningitis PCR will discontinue further acyclovir.
Follow rash; appears stable and without extension today.
Will continue to monitor pending blood cultures.
Discontinue further droplet isolation.
Follow white count and temperature curve.
Wean pressors as possible.
Patient remains critically ill on pressors in ICU.
Chief Complaint
-: Leukocytosis, Clinical Sepsis and Other (Rash)
Subjective / Review of Systems
Patient seen and examined. Slightly more arousable today. Continues to require the Rosendo hugger.
Vital Signs / Physical Exam
Vital Signs
Vital Signs
Temp Pulse Resp BP Pulse Ox
97.7 F 98 14 96/68 97
07/12/25 08:00 07/12/25 09:20 07/12/25 09:20 07/12/25 09:20 07/12/25 09:20
Physical Exam
Constitutional: No Acute Distress, Acutely Ill, Chronically Ill and Non-toxic
Head: Normocephalic
Eyes: No Conjunctival Hemorrhage and Sclera Anicteric
Cardiovascular: Regular Rate and S1/S2; Negative S3/S4 or Murmur
Pulmonary: Clear and Non Labored; Negative Wheezes, Rales or Rhonchi
Gastrointestinal: Soft, Non Tender, Non Distended, Normal Bowel Sounds, No Rebound and No Guarding
Extremities: Edema, Erythema and Other (Bilateral feet with erythema and edema. Some maceration in the interdigit spaces.)
Skin: Warm, Dry and Rash (Petechial rash of the lower extremities (and to a lesser extent upper extremities) persists, but without significant change. No palpable purpura.)
Neurological: Other (Responsive to touch.)
Psychological: Calm
Objective Data
Lab Data
Lab Results
07/12/25 02:53
07/12/25 02:53
ESR 3 mm/hour (0-20) 07/11/25 05:27
PT 25.8 Sec (11.4-14.6) H 07/12/25 02:53
INR 2.30 07/12/25 02:53
APTT 41.5 Sec (23.4-35.0) H 07/12/25 02:53
Estimated Creat Clear 38 ml/min 07/12/25 02:53
Lactic Acid 1.7 mmol/L (0.7-2.0) 07/11/25 15:55
Total Bilirubin 1.2 mg/dl (0.2-1.3) D 07/12/25 02:53
AST 79 U/L (14-36) H 07/12/25 02:53
ALT 23 U/L (0-35) 07/12/25 02:53
Alkaline Phosphatase 63 U/L (38-126) 07/12/25 02:53
C-Reactive Protein 138.80 mg/L (0.0-10.00) H 07/11/25 05:27
Most recent labs reviewed.
Micro Results:
07/11/25 02:48 Blood Culture - Preliminary
Blood/Venous No Growth in 24 hours- Final report to follow
07/11/25 02:48 Blood Culture - Preliminary
Blood/Venous No Growth in 24 hours- Final report to follow
07/11/25 02:48 Influenza Types A & B ([facility]) - Final
Nasal Swab Negative for Influenza A & B, NAAT
Negative results must be combined with clinical observations
and patient history.
Nucleic Acid Amplification test (NAAT)performed on the
[employer] platform.
Imaging:
07/11/2025 CXR (portable): small right pleural effusion with associated consolidation (atelectasis and/or pneumonia). No visualized pneumothorax. Please see full dictation for additional detail. Film personally viewed.
07/11/2025 CT head without contrast: no acute intracranial abnormality noted.
Care Review
Plan reviewed with: Physician (Critical Care)
[2025-07-12 11:23] LABS: Glucose - Point of Care 157 mg/dl (70-99)
--- NOTE | 2025-07-12 11:38 | EEG.RPT ---
Electroencephalogram Report
Recording
Date of EE07/12/25
Type of EEG: Routine
Length of EEG recordin minutes
Done with Video Recording: Yes
Patient Status: Inpatient
Recording Conditions: Awake and Drowsy
Hyperventilation Performed: No
Photic Stimulation Performed: Yes
Report
LESS THAN 1 HOUR REPORT
LESS THAN 1 HOUR EEG INTERPRETATION:
Severely abnormal EEG for age due to diffuse bihemispheric slowing
CLINICAL CORRELATION:
This study was suggestive of diffuse cortical dysfunction without focal abnormality. No seizures were recorded. If concerns remain regarding seizures, consideration for prolonged EEG recording may be given.
Clinical correlation is advised.
METHODS:
A 21 channel digitized electroencephalogram (EEG) was performed at the bedside. The 10/20 international system of electrode placement was used with ECG and lateral/vertical eye movements recorded. The [employer] quantitative measurement system was
utilized.
QUALITY OF STUDY:
Fair to good due to muscle and sweat artifacts
ELECTROENCEPHALOGRAPHER IMPRESSION(S):
Background
Medium amplitude poorly organized anterior-posterior voltage gradient of delta maximal activity and admixed beta activity
There were no significant asymmetries of background activity noted.
Sleep
Drowsiness present
Photic Stimulation
Failed to activate the record
ECG
Normal sinus rhythm
[2025-07-12] MEDS: PROTONIX IV 40 MG IV (11:50)
[2025-07-12] MEDS: NSS (PRESERVATIVE FREE) 10 ML IV (11:50)
--- NOTE | 2025-07-12 12:06 | PTCARENOTE ---
patient reassessed. dobhoff placed per orders. xray confirmation. patient more awake at times, attempted to pull out dobhoff. unable to redirect. mitts placed both hands for patient safety. TT to orchid transplanter to inform of feeding tube placement with
order from MD for tube feed recommendations. placed back on magi hugger. levophed weaned to off. placed on room air. moist nonproductive cough.
--- NOTE | 2025-07-12 12:24 | W.PN.HOSP.TC ---
Today's Communication/Plan
-
Ampicillin discontinued
Continue with ceftriaxone acyclovir
IV fluid
Start tube feedings
If tolerating tube feeds stop IV fluids
Trend creatinine
Awaiting LP
EEG noted
Monitor mentation
Assessment / Plan
Assessment / Plan
General: Other (Ill-appearing 65y F.)
HEENT: Other (Dry MM. Neck supple. No JVD or HJR.)
Respiratory: Other (Decreased BS bilaterally. No W/R/R.)
Cardiac: S1/S2, positive slight murmur
GI: Soft, Non Tender, Non Distended and Normal Bowel Sounds
Musculoskeletal: Other (Erythema / rubor of all 4 extremities. Necrotic appearing lesions to the tips of toes. 3-4+ pitting edema b/l LEs.)
Skin: Other (Petechiae scattered across arms / legs with confluent erythema. Petechiae scattered across shoulders / chest.) sacral bilateral pressure injury stage II likely
Neuro: More awake compared to yesterday.
A/P: Patient is a 65y F with PMH significant for A-Fib, CHF and hearing impairment who presents to ED after being found down at home by family.
Hypothermia
Hypoglycemia
Hypotension
Acute acute toxic metabolic encephalopathy likely multifactorial with also concern for meningitis/encephalitis
- Unclear etiology of presentation.
- Gradual improvement in hypoglycemia, BP and hypothermia with dextrose and IVF administration.
- Pulse dose steroids given petechiae, thrombocytopenia, hypoglycemia, hypothermia, etc.
- IVFs +/- pressors as needed to maintain BP / perfusion.
- Continue IVFs with supplemental dextrose for now - though patient does appear volume overloaded. Will likely require eventual diuresis once hemodynamically stable.
- TSH is normal. Cortisol normal
- CT head without acute abnormalities.
- EEG routine noted. If no improvement in mentation post LP consider cerebral.
- Follow for clinical improvement / improvement in mental status.
- Wean Levophed as tolerated. Was seen on 1 mics earlier today
- Patient is also remains on antibiotics with antiviral, ceftriaxone and IV steroids. ID following. Plan for LP . Pending INR downtrended to 2.85. off ampicillin.
MODE
Elevated CPK
- SCr = 1.5 compared to known baseline of 0.9.
- Likely decreased perfusion with hypotension, hypothermia, etc as noted above.
- Lactate elevated on admission downtrended with IVF.
- Status post aggressive IV fluids. Holding diuretics.
- UA without evidence of pigment nephropathy.
- Pillai placed in the ED for critical care I/Os and continuous temperature monitoring.
Thrombocytopenia
Coagulopathy
Leukocytosis
Microcytic Anemia
- IV steroids acutely as noted above. Follow-up labs.
- Hold Eliquis acutely. INR trending down to 2.85.
- Had GI evaluation during most recent hospital stay - no clear evidence of GI blood loss.
- Platelets improved since admission.
Petechial rash
- Without worsening. Continue to monitor for now.
Chronic HFmrEF
- Echo done 04/2025 showed LVEF = 40-45%, severe TR, moderate - severe MR.
- BNP decreased from prior - though weight apparently increased and evidence of edema on exam.
- Holding diuretics acutely given hypotension, hypoglycemia, etc.
- Follow I/Os, daily eights, etc.
- Will likely benefit from eventual diuresis once hemodynamically stable.
Skin Breakdown / Necrosis b/l Toes
- Likely due to decreased perfusion (suspect fairly prolonged time down).
- Pulses present on exam. Color improving with IVFs, normoglycemia, etc.
- Wound Care eval for local care.
Permanent Atrial Fibrillation
- Stable. Rate controlled. Hold Eliquis acutely as noted above.
- Monitor on telemetry.
Hearing Impairment
- Uses ASL for communication. Language Line used during ED interview.
Sacral pressure injury stage II-poa
-wound care
DVT Prophylaxis: Hold for now given LE skin changes / superficial wounds and thrombocytopenia / coagulopathy / etc.
Code Status: Full
Anticipated Discharge: > 48 hours
Subjective/Interval History
-
Date of Service: July 12, 2025
little bit more awake but falls back asleep
remains on pressors
The patient is deaf, but could not participate with the ASL language line due to mentaiton
Objective Data
-
Labs:
Laboratory Results
07/12/25
02:53
WBC 15.9 H
Hgb 9.2 L
Hct 30.4 L
Plt Count 114 L
PT 25.8 H
INR 2.30
APTT 41.5 H
Sodium 134 L
Potassium 4.1
Chloride 109 H
Carbon Dioxide 19 L
BUN 66 H
Creatinine 1.5 H
Glucose 155 H
Calcium 8.5
Total Bilirubin 1.2 D
AST 79 H
ALT 23
Alkaline Phosphatase 63
Vital Signs:
Vital Signs
Temp Pulse Resp BP Pulse Ox
96.7 F L 95 9 84/63 96
07/12/25 12:00 07/12/25 12:00 07/12/25 12:00 07/12/25 12:00 07/12/25 12:00
I&O
07/11/25 07/12/25 07/13/25
06:59 06:59 06:59
Intake Total 115 / 230 4090.8 / 4198.3 856.3 / 856.3
Output Total 60 / 90 1095 / 1095 240 / 240
Balance 55 / 140 2995.8 / 3103.3 616.3 / 616.3
Data Reviewed
-
Total Time Spent with Patient (in minutes): 58
--- NOTE | 2025-07-12 16:10 | PTCARENOTE ---
patient taken and returned from [facility] without issue post lumbar puncture. reassessed. lower back bandaid dry and intact. remains afib, lethargic. arouses to tactile stimuli for brief period.
--- NOTE | 2025-07-12 17:09 | PTCARENOTE ---
tube feeds initiated, more awake@times. able to read lips and follow simple commands. pulse oximeter dips to 80's at times. placed back on 2 liters nasal cannula
[2025-07-12 17:21] LABS: CSF Color Colorless; Red Cell Count/CSF 443 mm^3
[2025-07-12 17:36] LABS: White Cell Count/CSF 12 mm^3 (0-5)
[2025-07-12 17:38] LABS: Glucose - Point of Care 157 mg/dl (70-99)
--- NOTE | 2025-07-12 17:39 | PTCARENOTE ---
heladio lab noted. TT to Dr Charles to update
[2025-07-12 17:42] LABS: Spinal Fluid Granulocytes 21 %; Spinal Fluid Lymphocytes 11 %; Spinal Fluid Macrophages 68 %
[2025-07-12 17:44] LABS: CSF Color Colorless; CSF Tube # Clarity Clear; Red Cell Count/CSF 30 mm^3; White Blood Cell Count/CSF 2 mm^3 (0-5)
--- NOTE | 2025-07-12 20:00 | PTCARENOTE ---
Assumed care of patient. Hand-off drip validation done. Patient is lethargic and unable to keep eyes open during full assessment or calender worker helper use. Bairhugger in place for goal temp of 97F. Patient will intermittently follow commands. Signs
beginning of own name in ASL. Patient is in atrial fibrillation with MAP goal >65 for blood pressure, currently meeting that goal. Heart rate is in the low 100s. Edema in lower extremities, pulses obtained with doppler. Patient is on 2L NC, lung
sounds diminished in the bases. Abdomen is soft and nontender, bowel sounds present. DHT in left nare at 70. Jevity 1.5 running @ 10 with 25cc/hr flushes. Temp sensing Plilai catheter in place draining trung urine. Generalized rash with erythema all
over body. Bilateral feet are red with necrotic toes, betadine washed. IV sites are c/d/i.
[2025-07-12] MEDS: LOPRESSOR 25 MG TUBE (20:30)
[2025-07-12 23:59] LABS: Glucose - Point of Care 166 mg/dl (70-99)
[2025-07-13] VITALS (23 sets, daily range): BP systolic 91–112; BP diastolic 65–87; BMI 27.9
--- NOTE | 2025-07-13 00:30 | PTCARENOTE ---
No change in patient assessment. Baihennyugger continued for temperature control.
[2025-07-13 03:47] LABS: INR 1.63; PT 19.8 Sec (11.4-14.6)
[2025-07-13 04:02] LABS: ALT (SGPT) 22 U/L (0-35); AST (SGOT) 55 U/L (14-36); Albumin 2.6 g/dl (3.5-5.0); Alkaline Phosphatase 61 U/L (38-126); Blood Urea Nitrogen 53 mg/dl (7-17); Calcium 8.5 mg/dl (8.4-10.2); Carbon Dioxide 20 mmol/L (22-30); Chloride 114 mmol/L (98-107); Estimated Creatinine Clearance 48 ml/min; Glucose 149 mg/dl (70-99); Potassium 3.9 mmol/L (3.5-5.1); Sodium 141 mmol/L (135-145); Total Protein 5.6 g/dl (6.3-8.2); eGFR 50.55
[2025-07-13 04:13] LABS: Hematocrit 30.0 % (37.0-47.0); Hemoglobin 8.5 g/dL (12.0-16.0); Mean Corp Hgb Conc. 28.3 g/dL (33.0-37.0); Mean Corpuscular Volume 82.0 fL (81.0-99.0); Nucleated Red Blood Cells % 0.6 %; Platelet Count 68 10^3/uL (130-400); Red Cell Dist. Width 24.0 % (11.5-14.5)
--- NOTE | 2025-07-13 04:31 | PTCARENOTE ---
No changes in patient assessment.
[2025-07-13] MEDS: DECADRON 10 MG IV ×2 (05:32→13:29)
[2025-07-13 05:37] LABS: Glucose - Point of Care 148 mg/dl (70-99)
--- NOTE | 2025-07-13 07:33 | W.PN.INTV ---
Today's Communication / Plan
Recommendations
Wean norepinephrine
Discontinue antibiotics and antivirals-per infectious disease
Consider steroid reduction
Hematology evaluation
Vascular surgical evaluation
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
Assessment
-
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
consulted for sepsis/critical care management 07/11/2025.
Hypothermia
Hypoglycemia
Hypotension
Petechial rash
Lactic acidosis
Toxic metabolic encephalopathy
MODE
Elevated CPK
Thrombocytopenia and coagulopathy-rule out DIC-platelets 66, D-dimer 1.35, INR 4.85
Leukocytosis
Wcghwv-qpmdtkdyme-beyazxtwbq 9.5
Chronic heart failure reduced EF
Skin breakdown/necrosis bilateral toes
Conditions present prior to admission:
Paroxysmal atrial fibrillation.
Chronic heart failure reduced EF-EF 40-45%
Moderate to severe mitral regurgitation
Hypertension.
Hearing loss.
Plan
Hemodynamically improved
Supplement oxygen as needed
High flow oxygen if needed
Aspiration precautions
Nebulizers if needed-currently not bronchospastic
Reviewed cultures
Influenza negative
Blood cultures no growth
Lumbar puncture 07/12/2025 no growth
Lumbar puncture meningitis/encephalitis panel-negative
Empiric antibiotics-ceftriaxone, ampicillin, acyclovir and steroids initiated-consider discontinuation of antibiotics/antivirals and reduction with steroids or discontinuation
Infectious disease consultation following
Monitor leukocytosis
Droplet precautions discontinued
Intravenous ywzapj-fihhxyvb-qxplpwrdy weight
Consider diuretics
Monitor lactate
Pressors as needed
Monitor blood sugar
Insulin supplementation as needed
Hematology consultation
Vascular consultation-reviewed with Dr. Pillai-eventual CT pelvis and lower extremities angiogram-currently nonurgent
TSH and cortisol normal and does not suggest adrenal insufficiency or hypothyroidism causing hypothermia
DVT prophylaxis-currently elevated INR-auto anticoagulated--consider reinitiation of outpatient apixaban
Early nutrition if possible
Early mobilization/bedside range of motion
Nursing strongly suspects obstructive sleep apnea at nighttime-consider outpatient sleep study/sleep apnea workup
If able to be weaned off pressors and remains hemodynamically stable and consider transfer out of ICU-roller mill operator will sign off-call pulmonary if respiratory issues arise
Critical care statement: A total of 40 minutes of critical care time was provided for this patient today. This includes management of unstable vital signs, evaluation of the patient at bedside, reviewing the patient's pertinent medical records
including radiographs, pressor management, microbiology, laboratory evaluations, and discussion with primary team, consultants, pharmacy, nutrition, physical therapy, case management, charge nurse, critical care nursing, and respiratory therapy.
Diagnostic data:
Chest x-ray 07/26/2024-mild CHF
Chest x-ray 04/20/2025-moderate sized right pleural effusion
Chest x-ray 07/11/2025-small right pleural effusion with associated atelectasis or pneumonia
CT head 07/11/2025-no acute intracranial abnormalities, prominent diffuse calvarial sclerosis which may reflect underlying metabolic bone disease
Echocardiogram 04/20/2025-EF 40-45%, moderate to severe mitral regurgitation, PA systolic estimated 63
Subjective Dataa
Subjective Data
Date of Service:
Date of Service: July 13, 2025
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
Subjective:
Still lethargic, noncommunicative, no respiratory distress, rash without change
Review of Systems
General: Other (Per HPI)
Objective Data
Data Reviewed
Vital Signs / I&O / Oxygen:
Vital Signs
Temp Pulse Resp BP Pulse Ox
97.1 F 108 16 109/86 98
07/13/25 06:00 07/13/25 06:00 07/13/25 06:00 07/13/25 06:00 07/13/25 06:00
Intake and Output
07/12/25 07/13/25 07/14/25
06:59 06:59 06:59
Intake Total 4090.8 / 4198.3 3089.3 / 3089.3
Output Total 1095 / 1095 1050 / 1050
Balance 2995.8 / 3103.3 2039.3 / 2039.3
SaO2 98
Nasal Cannula flow liters per 2
minute
Physical Exam
General: Respiratory Distress (n) and Comfortable
HEENT: Normocephalic, Anicteric and Moist Mucous Membranes
Cardiovascular: Regular Rhythm
Respiratory: Wheeze (n), Crackles (n), Rhonchi (n), Non-Labored Respirations, Accessory Resp Muscle Use (n) and Stridor (n)
GI: Soft, Non Distended and Non Tender
Neurology: Alert, No Motor Deficits and Lethargic
Skin: Warm, Good Color, Cyanosis, Jaundice and Rash (Diffuse petechial and maculopapular rash greater in the lower extremities but also abdomen, back and upper extremities)
Labs/Micro/Reports
Lab Data
07/13/25 03:15
07/13/25 03:15
Laboratory Results
07/13/25
03:15
PT 19.8 H
INR 1.63
Microbiology
07/11/25 02:48 Blood/Venous Blood Culture - Preliminary
No Growth in 48 hours- Final report to follow
07/11/25 02:48 Blood/Venous Blood Culture - Preliminary
No Growth in 48 hours- Final report to follow
07/12/25 15:35 Csf Meningitis/Encephalitis Panel (PCR) - Final
07/12/25 15:35 Csf Gram Stain - Preliminary
07/11/25 02:48 Nasal Swab Influenza Types A & B ([facility]) - Final
Negative for Influenza A & B, NAAT
Negative results must be combined with clinical observations
and patient history.
Nucleic Acid Amplification test (NAAT)performed on the
[employer] platform.
--- NOTE | 2025-07-13 07:58 | W.PN.INTV ---
Today's Communication / Plan
Recommendations
Stop fluids
Consulting Vascular surgery today for her necrotic toes, concern that they are not improving
Consulting Heme/Onc today as normally she is on Eliquis, INR rather high when she first came in, now platelets and hemoglobin downtrending/low with this persistent petechieal rash
Assessment
-
Assessment:
This is a 65 y/o female with pmhx of essential hypertension, paroxysmal atrial fibrillation, Chronic HFrEF who presented to the ED on 07/10/2025 after being found down at home noted to have hypothermia, persistent hypotension and altered mental
status with rash concerning for meningitis
Plan:
Toxic Metabolic Encephalopathy
Lactic Acidosis, Elevated CPK
Hypothermia
Persistent Hypotension
Petechial rash, Leukocytosis
Patient found down by brother for unknown period of time, in the ED had hypothermia and hypotension requiring levophed
ED labs: Sodium 129, bicarb 16, TSH normal, WBC 24.2,
CT scan of the head showed no acute intracranial abnormalities, though prominent diffuse calvarial sclerosis.
Chest X-ray showed small right pleural effusion with associated atelectasis and/or pneumonia.
Even now she is not able to answer questions appropriately using diplomatic interpreter line or even nod/shake her head to answer written questions despite multiple staff attempts over the last few days
Infectious disease is following, will appreciate their insight
Provide supplemental oxygen as required including high flow O2, BiPap and intubation if necessary
Continue aspiration precautions, keeping head of the bed >30-45 degrees
Blood cultures no growth to date
Continue antibiotics per infectious disease recommendations. Currently on ceftriaxone, acyclovir. Did receive one time dose of vancomycin in the ED.
Lumbar puncture completed on 07/12/2025 not consistent with meningitis. Further CSF studies still pending
Continue levophed for MAP goal of >65
Continue IV pantoprazole for stress ulcer prophylaxis
Patient now on tube feeds
STOP IV fluids
Acute Kidney Injury
Creatinine 1.7 on admission, 1.2 today
Prior creatinine from 04/2025 normal at 0.9
Stop IV fluids today as patient is now on tube feeds
Continue to monitor
Thrombocytopenia with Coagulopathy
Paroxysmal Atrial Fibrillation
Patient on Eliquis at home
INR on arrival 4.85, now below 1.63
Continue to follow platelets, dropped nica to 68 today
Consulted hematology/oncology today due to concerns this may be related to her rash as meningitis was ruled out. Will appreciate their insight
Necrosis of the Toes
Skin Breakdown
Patient arrived to ED with blackened toes, not mentioned in 04/2025 discharge summary
No significant change in appearance overnight
Wound care and infectious disease are following
Consulted vascular surgery today. Will appreciate their insight.
Continue local wound care
Chronic Heart Failure with Reduced EF
Essential Hypertension
Echo 04/2025: EF 40-45%
Echo 07/11/2025: Severe LV dysfunction. LV estimated at 30-35% with global hypokinesis. Moderate mitral regurgitation. Severe tricuspid regurgitation. Severe biatrial enlargement.
Patient on lisinopril, metoprolol, spironolactone, furosemide, digoxin at home
Hold home medications given persistent hypotension
Will potentially restart metoprolol at 50mg BID if patient tolerates feeding tube placement
Chronic Hearing Loss
Patient is deaf at baseline
Maintain full time staff interpreter line at the bedside for ASL interpretation once able, continue to attempt interpretation daily with all staff interactions
Subjective Dataa
Subjective Data
Date of Service:
Date of Service: July 13, 2025
Chief Complaint: Manager Print Follow Up and Pulmonary Follow Up
Subjective:
Patient was sleeping when I arrived. As with yesterday, she did open her eyes and look towards me with repeated tapping of her hands. Given staff reports she remains unable to communicate via ASL using the car washer bruce, I wrote on a piece of paper
in large font to let her know who I was and where she was. She seemed to have some difficulty with reading due to fatigue, and when I further wrote out 'Are you in any pain?' she did not respond either way and fell back assleep. ROS unfortunately
limited once again.
Review of Systems
General: Unobtainable - Pat Unresp
Objective Data
Data Reviewed
Vital Signs / I&O / Oxygen:
Vital Signs
Temp Pulse Resp BP Pulse Ox
97.2 F 108 16 109/86 98
07/13/25 07:00 07/13/25 06:00 07/13/25 06:00 07/13/25 06:00 07/13/25 06:00
Intake and Output
07/12/25 07/13/25 07/14/25
06:59 06:59 06:59
Intake Total 4090.8 / 4198.3 3089.3 / 3169.3 80 / 80
Output Total 1095 / 1095 1050 / 1080 30 / 30
Balance 2995.8 / 3103.3 2039.3 / 2089.3 50 / 50
SaO2 98
Nasal Cannula flow liters per 2
minute
Physical Exam
General: Comfortable
HEENT: Normocephalic, Anicteric and Moist Mucous Membranes
Cardiovascular: S1-S2 and Irregular Rhythm
Respiratory: Clear and Non-Labored Respirations
GI: Soft and Non Distended
Neurology: Alert and Lethargic
Skin: Warm, Good Color, Cyanosis, Jaundice and Rash (Rash similar in appearance as day prior - petechial rash present all over body but most concentrated upon lateral thighs + erythema of the right arm + blackened, necrotic-appearing toes)
Labs/Micro/Reports
Lab Data
07/13/25 03:15
07/13/25 03:15
Laboratory Results
07/13/25
03:15
PT 19.8 H
INR 1.63
Microbiology
07/11/25 02:48 Blood/Venous Blood Culture - Preliminary
No Growth in 48 hours- Final report to follow
07/11/25 02:48 Blood/Venous Blood Culture - Preliminary
No Growth in 48 hours- Final report to follow
07/12/25 15:35 Csf Meningitis/Encephalitis Panel (PCR) - Final
07/12/25 15:35 Csf Gram Stain - Preliminary
07/11/25 02:48 Nasal Swab Influenza Types A & B ([facility]) - Final
Negative for Influenza A & B, NAAT
Negative results must be combined with clinical observations
and patient history.
Nucleic Acid Amplification test (NAAT)performed on the
[employer] platform.
[2025-07-13] MEDS: DESENEX/MITRAZOL/ZEASORB 1 APPLIC TOPICAL ×2 (08:35→19:50)
[2025-07-13] MEDS: LOPRESSOR 25 MG TUBE ×2 (08:35→19:50)
[2025-07-13] MEDS: ROCEPHIN 2000 MG IV (08:36)
[2025-07-13] MEDS: STERILE WATER FOR INJECTION 20 ML IV (08:36)
[2025-07-13] MEDS: PROTONIX IV 40 MG IV (08:36)
[2025-07-13] MEDS: NSS (PRESERVATIVE FREE) 10 ML IV (08:36)
--- NOTE | 2025-07-13 10:40 | PTCARENOTE ---
Addendum entered by Sae Jeffery RN 07/13/25 10:45:
Vasc surgery consulted
Original Note:
ROUND NOTES
Fluids D/C.
Consult Hem/Onc.
[2025-07-13] MEDS: ZOVIRAX INJECTION IV (11:10)
--- NOTE | 2025-07-13 11:11 | CON.VAS ---
Addendum entered and electronically signed by Ja Pillai III, MD 07/13/25 14:46:
This patient was seen and examined in collaboration with VENESSA Tracy. I agree with the history and physical exam as well as the assessment and plan. I have the following additions:
Unfortunate presentation with unclear diagnosis and lack of details
Called for dry gangrene of bilateral toes
On exam she is unarousable
Not following commands
Diffuse petechiae of bilateral lower extremities
Weakly palpable femoral pulses bilaterally
Bilateral lower extremities and feet are edematous bilaterally
Legs and feet are warm bilaterally
Dry gangrene at the toe tips of multiple toes bilaterally
DP and PT Doppler signals are present bilaterally
Unclear diagnosis at this point. I feel the best way to evaluate her arterial circulation would be with a CT angiogram of the abdomen, pelvis and bilateral lower extremity runoff. Hematology to evaluate today. Will follow along peripherally.
Signed:
aJ Pillai III, MD
Vascular Surgery
[facility]
Original Note:
Consultation
Consultation Request
Date/Time Consultation Performed: 07/13/25 11:15
Performing Provider: Rosas
Reason for Consultation: Necrotic toes
Medical History
-
Chief Complaint: Necrotic toes
History of Present Illness:
65-year-old female found down for unknown length of time at home by her brother, 911 called. Patient brought to our emergency room and admitted for workup. Patient was found to be hypoglycemic, hypothermic, and hypotensive. Patient was most
recently admitted in April and was noted to have no ulcers/wounds. Since admission patient noted to have multiple necrotic wounds on his bilateral toes. Vascular consult for these findings. Patient is currently being worked up for toxic
metabolic encephalopathy, lactic acidosis, elevated CPK, hypothermia, persistent hypotension, petechial rash, leukocytosis.
Patient seen at bedside this a.m. with Dr. Pillai. Bilateral lower extremities edematous, left posterior calf/ankle weeping serous fluid. Bilateral toes with dry necrotic wounds, malodorous. PT and DP Doppler signals audible. See wound care notes
for images of all wounds. Patient is not arousable at this time and could not cooperate with exam.
Past Medical History
Past Medical History: Other (Hypertension, A-fib, CHF, hearing loss/deafness)
Past Surgical History: Other (Unknown)
Family History
Family History: Unable to Obtain
Allergies / Home Medications
Allergy/AdvReac Type Severity Reaction Status Date / Time
No Known Allergies Allergy Verified 07/20/23 18:56
�Medication �Instructions �Recorded �Confirmed �Type
apixaban 5 mg tablet (Eliquis) 5 mg PO BID #60 tabs 08/06/24 04/20/25 Rx
digoxin 250 mcg (0.25 mg) tablet 250 mcg PO NOON #30 tabs 08/06/24 04/20/25 Rx
lisinopril 10 mg tablet 10 mg PO DAILY #30 tabs 08/06/24 04/20/25 Rx
metoprolol succinate 100 mg 100 mg PO BID #60 tabs 08/06/24 04/20/25 Rx
tablet,extended release 24 hr
spironolactone 25 mg tablet 25 mg PO DAILY #30 tabs 08/06/24 04/20/25 Rx
furosemide 40 mg tablet 40 mg PO QMWF #30 tabs 04/24/25 Rx
Review of Systems
-
Unable to obtain full review of systems at this time due to: Patient Non Verbal (At this time)
Physical Exam
Vital Signs
Temp Pulse Resp BP Pulse Ox
96.7 F L 104 17 98/83 98
07/13/25 10:00 07/13/25 09:00 07/13/25 09:00 07/13/25 09:00 07/13/25 10:05
Lab Results
07/13/25 03:15
07/13/25 03:15
Troponin I Cancelled 07/11/25 17:16
Czl-[id number] Pept 6560 pg/ml 07/11/25 00:08
Physical Exam
General: Other (Not arousable at this time)
HEENT: Normocephalic and Atraumatic
Respiratory: Other (Snoring on nasal cannula)
Cardiac: Negative JVD
GI: Soft and Non Distended
Musculoskeletal: Edema (+3 bilateral lower extremities)
Skin: Warm and Other (See wound care notes for images)
Neuro: Other (Unarousable)
Psych: Other (Unarousable)
Pulses: Bilateral Dorsalis Pedis: Doppler and Bilateral Posterior Tibial: Doppler
Assessment / Plan
-
65-year-old female found down by brother for unknown length of time
Admitted for workup and found to have bilateral necrotic toe wounds
Plan:
CT aorta angio with runoff when able-nonurgent
Anticoagulation when safe
Continue local wound care
Will follow along
Data Reviewed
-
Labs: Labs Reviewed by me
[2025-07-13 12:00] LABS: Glucose - Point of Care 143 mg/dl (70-99)
--- NOTE | 2025-07-13 12:03 | PTCARENOTE ---
Pt. remains only responsive to sternal rub, however, maintaining airway. Outreach Liaison/resident team aware.
No further changes in assessment.
--- NOTE | 2025-07-13 12:46 | CON.ONC ---
Documented by User: VENESSA Love 07/13/25 13:26
Consultation
-
Date Consultation Requested: 07/13/25
Date Consultation Performed: 07/13/25
Requesting Provider: Dr. Miguelina Cartwright
Performing Provider: Dr. Viktor Handy
Reason for Consultation: thrombocytopenia, possible petechial rash
Impression
Impression
-Found down at home, unknown amount of time
-a/w hypothermia, hypoglycemia, hypotension, TME, CPK elevated
-CSF culture and gram stain NTD, meningitis panel negative, flu negative, BCx NTD
-b/l LE wounds, necrotic toes
-MODE -improving
-rash, macular
-thrombocytopenia (nml during April 2025 hospitalization). no evidence of acute DIC with normal fibrinogen
-coagulopathy secondary to DOAC +/-
-smear review without schistocytes
-anemia -s/p IV iron, PRBC, in April 2025. April 2025 EGD- unremarkable, and c-scope - 2 small polyps removed, hemorrhoids. haptoglobin 13, ESR 3
-HFrEF
Plan
Plan
abx, antivirals per ID
dexamethasone per primary service
check iron studies, b12, folate, APLS panel, vitamin C, copper, ROMEL
check heme stool
f/u lyme test, AFB, and follow cultures.
continue to evaluate for etiology of rash which is more likely caused by viral infection, drug reaction, allergic reaction, rhabdomyolysis, vitamin C deficiency, or autoimmune disease. Distribution does not seem petechial in nature so would be less
likely. Could consider derm biopsy.
Patient History
History of Present Illness
65yo F presented after being found down at home. She was found on her bathroom floor by her brother who was unsure how long she had been lying there. He called EMS who noted that she was unresponsive and covered in feces. Her intial ER evaluation
was notable for temp 89.1F. Her labs showed sodium of 129, creatinine 1.7, creatinine kinase of 789, BNP 6560, WBC 24.2, hemoglobin 11.3, platelets 66,000, INR 4.85, Fibrinogen 304, D-Dimer 1.35. CT scan her head showed no acute intracranial
abnormalities, though prominent diffuse calvarial sclerosis. Chest X-ray showed small right pleural effusion with associated atelectasis and/or pneumonia. She was admitted for further evaluation and management.
Past-Medical/Surgical History
PMH HTN, AF, HFrEF, JACOB
Patient Medication
�Medication �Instructions �Recorded �Confirmed �Last Taken �Type
apixaban 5 mg tablet (Eliquis) 5 mg PO BID #60 tabs 08/06/24 04/20/25 Unknown Rx
digoxin 250 mcg (0.25 mg) tablet 250 mcg PO NOON #30 tabs 08/06/24 04/20/25 Unknown Rx
lisinopril 10 mg tablet 10 mg PO DAILY #30 tabs 08/06/24 04/20/25 Unknown Rx
metoprolol succinate 100 mg 100 mg PO BID #60 tabs 08/06/24 04/20/25 Unknown Rx
tablet,extended release 24 hr
spironolactone 25 mg tablet 25 mg PO DAILY #30 tabs 08/06/24 04/20/25 Unknown Rx
furosemide 40 mg tablet 40 mg PO QMWF #30 tabs 04/24/25 Unknown Rx
Active Medications
Generic Name Dose Route Start Last Admin
Trade Name Freq PRN Reason Stop Dose Admin
Acetaminophen 650 mg 07/11/25 05:16
Acetaminophen 325 Mg Tablet PO 08/08/25 05:15
Q4HPRN PRN
Mild Pain / Temp > 101
Ceftriaxone Sodium 2,000 mg 07/11/25 08:00 07/13/25 08:36
Ceftriaxone 2,000 Mg/20 Ml Vial IV 2,000 mg
Q12H CHAY Administration
Dexamethasone Sodium Phosphate 10 mg 07/11/25 06:00 07/13/25 05:32
Dexamethasone 4 Mg/Ml 1 Ml Vial IV 08/08/25 05:59 10 mg
Q6H CHAY Administration
Metoprolol Tartrate 25 mg 07/12/25 20:00 07/13/25 08:35
Metoprolol 25 Mg Regular Release Tablet TUBE 08/09/25 19:59 25 mg
BID CHAY Administration
Miconazole Nitrate 0 applic 07/11/25 09:00 07/13/25 08:35
Miconazole Powder Bottle TOPICAL 08/08/25 08:59 1 applic
BID CHAY Administration
Midodrine 2.5 mg 07/12/25 13:00 07/13/25 08:35
Midodrine 2.5 Mg Tablet PO 2.5 mg
TID@0800,1300,1800 CHAY Administration
Pantoprazole Sodium 40 mg 07/12/25 11:00 07/13/25 08:36
Pantoprazole Sodium 40 Mg/10 Ml Vial IV 08/09/25 10:59 40 mg
DAILY CHAY Administration
Sodium Chloride 0 flush 07/11/25 05:00
Sodium Chloride 0.9% (Flush) Syringe IV 08/08/25 04:59
PER PROTOCOL CHAY
Sodium Chloride 10 ml 07/12/25 11:00 07/13/25 08:36
Sodium Chloride 0.9% (Preservative Free) 10 Ml Vial IV 08/09/25 10:59 10 ml
DAILY CHAY Administration
Sterile Water 20 ml 07/11/25 20:00 07/13/25 08:36
Sterile Water For Injection 20 Ml Vial IV 08/08/25 19:59 20 ml
Q12H CHAY Administration
Review of Systems
-
Unable to obtain full review of systems at this time due to: Other (lethargic, unable to awaken to tactile stimuli)
History Source: Records
Physical Exam
-
General: No Apparent Distress
HEENT: Moist Mucous Membranes; Negative Jaundice
Pulmonary: Other (unlabored)
GI: Soft
Extremities: Other (Bilateral lower extremities edematous, left posterior calf/ankle weeping serous fluid. Bilateral toes with dry necrotic wounds, malodorous. )
Skin: Rash (general macular rash distributed over b/l legs, arms, chest, abdomen)
Hematologic / Lymphatic: No Lymphadenopathy
Psych: Other (lethargic, unable or unwilling to open eyes to tactile stimuli)
Labs
Lab Results
WBC 11.4 10^3/uL (4.8-10.8) H 07/13/25 03:15
RBC 3.66 10^6/uL (4.20-5.40) L 07/13/25 03:15
Hgb 8.5 g/dL (12.0-16.0) L 07/13/25 03:15
Hct 30.0 % (37.0-47.0) L 07/13/25 03:15
MCV 82.0 fL (81.0-99.0) 07/13/25 03:15
MCH 23.2 pg (27.0-31.0) L 07/13/25 03:15
MCHC 28.3 g/dL (33.0-37.0) L 07/13/25 03:15
RDW 24.0 % (11.5-14.5) H 07/13/25 03:15
Plt Count 68 10^3/uL (130-400) L D 07/13/25 03:15
MPV Not Reportable 07/13/25 03:15
Abs Immat Gran (auto) 0.1 10^3/uL (0-0.05) H 07/13/25 03:15
Absolute Neuts (auto) 10.4 10^3/uL (1.4-6.5) H 07/13/25 03:15
Absolute Lymphs (auto) 0.3 10^3/uL (1.2-3.4) L 07/13/25 03:15
Absolute Monos (auto) 0.6 10^3/uL (0.1-0.6) 07/13/25 03:15
Absolute Eos (auto) 0.0 10^3/uL (0-0.7) 07/13/25 03:15
Absolute Basos (auto) 0.0 10^3/uL (0-0.2) 07/13/25 03:15
Immature Gran % 0.6 % (0-0.5) H 07/13/25 03:15
Neutrophils % 91.3 % (42.2-75.2) H 07/13/25 03:15
Lymphocytes % 2.6 % (20.5-51.1) L 07/13/25 03:15
Monocytes % 5.3 % (1.7-9.3) 07/13/25 03:15
Eosinophils % 0.0 % (0-6) 07/13/25 03:15
Basophils % 0.2 % (0-2) 07/13/25 03:15
Creatinine 1.2 mg/dL (0.6-1.0) H 07/13/25 03:15
Vital Signs
Vital Signs
Temp Pulse Resp BP Pulse Ox
98.1 F 98 21 106/77 98
07/13/25 12:14 07/13/25 11:00 07/13/25 11:00 07/13/25 11:00 07/13/25 11:00

Documented by User: Viktor Handy MD 07/13/25 14:33
Plan
Plan
abx, antivirals per ID
dexamethasone per primary service
check iron studies, b12, folate, APLS panel, vitamin C, copper, ROMEL
check heme stool
f/u lyme test, AFB, and follow cultures.
continue to evaluate for etiology of rash which is more likely caused by viral infection, drug reaction, allergic reaction, rhabdomyolysis, vitamin C deficiency, or autoimmune disease. Distribution does not seem petechial in nature so would be less
likely. Could consider derm biopsy.
Hematology Addendum:
Patient seen and evaluated and agree w/ CERTIFIED PROFESSIONAL CODER note and plan as outlined
-thrombocytopenia - unclear etiology - potentially multifactorial- in setting of acute ongoing infectious/ inflammatory process - possible viral etiology - multiple antibiotics
-peripheral blood smear reviewed - no evidence of microangiopathic RBC changes
-skin rash - unclear etiology - petechial rash can occur w/ any degree of thrombocytopenia - though more common w/ severe thrombocytopenia - plts <36311 - ongoing infectious - possibly viral vs. inflammatory process may be contributing to skin rash
- rhabdomyolysis as well as vitamin C deficiency and autoimmune disease are other potential etiologies
-check reticulocyte count, ROMEL, iron studies, B12/ folic acid levels - vitamin C, copper
-follow CBC
--- NOTE | 2025-07-13 13:23 | W.PN.ID1 ---
Date of Service
Date of Service: July 13, 2025
Today's Communication
DC acyclovir/ceftriaxone.
Assessment / Plan
Hypothermia
Hypotension off pressor
Leukocytosis - trending down
Petechial rash - stable
Necrotic toes
Encephalopathy
Acute thrombocytopenia
Hyponatremia
MODE
Lactic acidosis
HTN
A-fib
CHF
Hearing loss/deaf
Recommendations:
Blood cultures remain negative. White count improved today.
07/12 CSF 2 WBC -> infectious meningitis ruled out.
Meningoencephalitis panel negative
Acyclovir dc'd
DC ceftriaxone.
Follow white count and temperature curve.
Chief Complaint
-: Leukocytosis, Clinical Sepsis and Other (Rash)
Subjective / Review of Systems
Unarousable
Vital Signs / Physical Exam
Vital Signs
Vital Signs
Temp Pulse Resp BP Pulse Ox
98.1 F 98 21 106/77 98
07/13/25 12:14 07/13/25 11:00 07/13/25 11:00 07/13/25 11:00 07/13/25 11:00
Physical Exam
Constitutional: Acutely Ill and Chronically Ill
Eyes: No Conjunctival Hemorrhage and Sclera Anicteric
Cardiovascular: Regular Rate and S1/S2; Negative S3/S4 or Murmur
Pulmonary: Clear and Non Labored
Gastrointestinal: Soft, Non Tender, Non Distended and Normal Bowel Sounds
Extremities: Edema, Erythema and Other (Bilateral feet with erythema and edema. Some maceration in the interdigit spaces.)
Skin: Warm, Dry and Rash (Petechial rash of the lower extremities (and to a lesser extent upper extremities) persists, but without significant change. No palpable purpura.)
Neurological: Other (Responsive to touch.)
Psychological: Calm
Objective Data
Lab Data
Lab Results
07/13/25 03:15
07/13/25 03:15
ESR 3 mm/hour (0-20) 07/11/25 05:27
PT 19.8 Sec (11.4-14.6) H 07/13/25 03:15
INR 1.63 07/13/25 03:15
APTT 41.5 Sec (23.4-35.0) H 07/12/25 02:53
Estimated Creat Clear 48 ml/min 07/13/25 03:15
Lactic Acid 1.7 mmol/L (0.7-2.0) 07/11/25 15:55
Total Bilirubin 0.7 mg/dl (0.2-1.3) 07/13/25 03:15
AST 55 U/L (14-36) H 07/13/25 03:15
ALT 22 U/L (0-35) 07/13/25 03:15
Alkaline Phosphatase 61 U/L (38-126) 07/13/25 03:15
C-Reactive Protein 138.80 mg/L (0.0-10.00) H 07/11/25 05:27
Most recent labs reviewed.
Micro Results:
07/12/25 15:35 CSF Culture - Preliminary
Csf No Growth After 18-24 Hours
Gram Stain - Preliminary
07/11/25 02:48 Blood Culture - Preliminary
Blood/Venous No Growth in 48 hours- Final report to follow
07/11/25 02:48 Blood Culture - Preliminary
Blood/Venous No Growth in 48 hours- Final report to follow
07/12/25 15:35 Meningitis/Encephalitis Panel (PCR) - Final
Csf
07/12/25 15:35 Acid Fast Bacilli Smear - Pending
Csf Acid Fast Bacilli Culture - Pending
07/11/25 02:48 Influenza Types A & B ([facility]) - Final
Nasal Swab Negative for Influenza A & B, NAAT
Negative results must be combined with clinical observations
and patient history.
Nucleic Acid Amplification test (NAAT)performed on the
[employer] platform.
Imaging:
07/11/2025 CXR (portable): small right pleural effusion with associated consolidation (atelectasis and/or pneumonia). No visualized pneumothorax. Please see full dictation for additional detail. Film personally viewed.
07/11/2025 CT head without contrast: no acute intracranial abnormality noted.
--- NOTE | 2025-07-13 13:35 | W.PN.HOSP.TC ---
Today's Communication/Plan
-
Reduce steroids
BP stabilized
continue tube feeding
MR brain pending
additional blood work ordered per heme
Assessment / Plan
Assessment / Plan
General: Chronically ill-appearing
HEENT: Other (Dry MM. Neck supple. No JVD or HJR.)
Respiratory: Other (Decreased BS bilaterally. No W/R/R.)
Cardiac: S1/S2, positive slight murmur
GI: Soft, Non Tender, Non Distended and Normal Bowel Sounds
Musculoskeletal: Other (Erythema / rubor of all 4 extremities. Necrotic appearing lesions to the tips of toes. 3-4+ pitting edema b/l LEs.)
Skin: Other (Petechiae scattered across arms / legs with confluent erythema. Petechiae scattered across shoulders / chest.) sacral bilateral pressure injury stage II likely
Neuro: More awake compared to yesterday.
A/P: Patient is a 65y F with PMH significant for A-Fib, CHF and hearing impairment who presents to ED after being found down at home by family.
Acute acute toxic metabolic encephalopathy
Hypothermia
Hypotension
- Unclear etiology of presentation. Found down at home.
- Pulse dose steroids reduce dose
- Status post aggressive IV fluids and pressor. BP stable with midodrine..
- TSH is normal. Cortisol normal
- CT head without acute abnormalities.
- EEG routine noted.
- Status post lumbar puncture with mildly elevated glucose and total protein. WBC 2. Acute meningitis panel negative. VDRL and cryptococcus pending. Antiviral has been discontinued ampicillin has been discontinued
- Check MRI of the brain
- Not much improvement in mentation. Unclear if requires extended EEG.
Thrombocytopenia
Coagulopathy
Leukocytosis
Microcytic Anemia
- IV steroids acutely as noted above. Follow-up labs.
- Hold Eliquis acutely. INR trending down to 1.63
- Had GI evaluation during most recent hospital stay - no clear evidence of GI blood loss.
- Downtrend of hemoglobin and platelets noted
- Anemia, B12 and folate pending. Antiphospholipid panel vitamin C, copper and ROMEL pending
Petechial rash
- Without worsening. Continue to monitor for now.
Skin Breakdown / Necrosis b/l Toes
- Likely due to decreased perfusion (suspect fairly prolonged time down).
- Pulses present on exam. Color improving with IVFs, normoglycemia, etc.
- Wound Care eval for local care. CT aorta runoff eventually
- Vascular surgery consulted
MODE
Elevated CPK
- SCr = 1.2 compared to known baseline of 0.9.
- Likely decreased perfusion with hypotension, hypothermia, etc as noted above.
- Lactate elevated on admission downtrended with IVF.
- Status post aggressive IV fluids. Holding diuretics.
- UA without evidence of pigment nephropathy.
- Pillai placed in the ED for critical care I/Os and continuous temperature monitoring.
Chronic HFmrEF
- Echo done 04/2025 showed LVEF = 40-45%, severe TR, moderate - severe MR.
- BNP decreased from prior - though weight apparently increased and evidence of edema on exam.
- Holding diuretics acutely given hypotension, hypoglycemia, etc.
- Follow I/Os, daily eights, etc.
- Will likely benefit from eventual diuresis once next 24h.
Permanent Atrial Fibrillation
- Stable. Rate controlled. Hold Eliquis acutely as noted above.
- Monitor on telemetry.
Hearing Impairment
- Uses ASL for communication. Language Line used during ED interview.
Sacral pressure injury stage II-poa
-wound care
DVT Prophylaxis: Hold for now given LE skin changes / superficial wounds and thrombocytopenia / coagulopathy / etc.
Code Status: Full
updated brother over the phone in details
Anticipated Discharge: > 48 hours
Subjective/Interval History
-
Date of Service: July 13, 2025
Patient remains on Rosendo hugger
Patient blood pressure stabilized. Not on pressors
Remains on tube feeding
Remains lethargic and not much responsive. Upon sternal rub patient with minimal activity.
Objective Data
-
Labs:
Laboratory Results
07/13/25
03:15
WBC 11.4 H
Hgb 8.5 L
Hct 30.0 L
Plt Count 68 L D
PT 19.8 H
INR 1.63
Sodium 141
Potassium 3.9
Chloride 114 H
Carbon Dioxide 20 L
BUN 53 H
Creatinine 1.2 H
Glucose 149 H
Calcium 8.5
Total Bilirubin 0.7
AST 55 H
ALT 22
Alkaline Phosphatase 61
Vital Signs:
Vital Signs
Temp Pulse Resp BP Pulse Ox
98.1 F 108 21 110/73 98
07/13/25 12:14 07/13/25 13:29 07/13/25 11:00 07/13/25 13:29 07/13/25 11:00
I&O
07/12/25 07/13/25 07/14/25
06:59 06:59 06:59
Intake Total 4090.8 / 4198.3 3089.3 / 3214.3 455 / 455
Output Total 1095 / 1095 1050 / 1080 110 / 110
Balance 2995.8 / 3103.3 2039.3 / 2134.3 345 / 345
[2025-07-13 13:43] LABS: Iron 23 ug/dl (37-170)
--- NOTE | 2025-07-13 13:47 | PTCARENOTE ---
Patient downgraded to IMU.
No further changes in assessment.
[2025-07-13 13:52] LABS: Total Iron Binding Capacity 279 ug/dl (265-497)
--- NOTE | 2025-07-13 14:07 | CON.NEURO4 ---
Addendum entered and electronically signed by Tahir Lozada MD 07/13/25 16:45:
Studies reviewed.
I have personally examined the patient. I reviewed and agree with the CONVERTING OPERATOR's Note.
My addenda:
Arousable to physical stimulation for approximately 2 seconds before eye closure. No acute distress.
Speech mute.
Follows no requests. No tremor.
Extra-ocular movements grossly intact. NG tube in place
Facial movements full and symmetric. Hearing unable to assess.
No spontaneous movements of limbs
Neck: full ROM.
Chest: no dyspnea
Heart: no JVD
Ext: (-) Clubbing, (-) Cyanosis, (-) Edema
IMPRESSIONS/RECOMMENDATIONS:
Abrupt onset of change in mental status following significant hypotension and acute kidney insufficiency
Differential diagnosis currently still remains toxic metabolic encephalopathy, and acute ischemic stroke. EEG evaluation previously failed to demonstrate status epilepticus. Lumbar puncture failed to demonstrate infectious etiology
Provide thiamine
Await MRI of brain
Consider continuous EEG monitoring
Will continue to follow patient.
Original Note:
Consultation - Neurology 4
-
CONSULTING PHYSICIAN: Tahir Lozada MD
REFERRING PHYSICIAN: Hospitalists/Dr. Lu
DICTATED BY: VENESSA Manriquez
DATE/TIME OF REQUEST: 07/13/25
DATE/TIME OF CONSULTATION: 07/13/25
Reason for Consultation: Altered mental status
History of Present Illness:
This is a 65-year-old female who has presented to the hospital on 07/11/25 with report of being found down for an unknown period of time covered in feces and urine. Patient was found to be hypoglycemia, hypothermic, hypotensive, with necrotic
appearing wounds, and a generalized petechial rash. CT head on 07/11/25 was negative for any acute abnormalities. EEG on 07/12/25 demonstrated diffuse slowing. Blood cultures were negative. CSF analysis has ruled out meningitis. Patient is unable to
participate in conversation and continues to be minimally responsive.
Past Medical History: Afib (apixaban), HTN, HFrEF, deafness
Surgical History: Hand surgery age 13.
Family History: Reviewed and noncontributory.
Social History: Unknown.
Allergies: No known allergies.
Home Medications: See below.
Review of Symptoms:
Per the HPI. I am unable to obtain a complete review of systems�because of patient's inability to provide history.
Physical Exam:
The patient is afebrile, abdomen is nondistended, breathing is unlabored, skin has a diffuse petechiae rash, pitting edema, necrotic toes.
Neurologic Examination:
The patient is obtunded. Opens eyes to touch. She is unable to follow commands.No verbal response. On cranial nerve assessment, pupils are 3 mm bilateral, round and reactive to light and accommodation. QUIN visual steve or EOMS. No gaze deviation.
There is no facial asymmetry. QUIN hearing. QUIN tongue and palate. Withdraws bilateral upper and lower extremities to pain on medical research Lawrence scale. QUIN drift. No involuntary movement noted. Deep tendon reflexes are 1+ bilateral upper and
lower extremities. Babinski is upgoing on the left. QUIN sensation, double simultaneous, and coordination.
Lab Results: See below.
Neuro Imaging:
1. CT head 07/11/25: No acute intracranial abnormality noted. Prominent diffuse calvarial sclerosis may reflect underlying metabolic bone disease.
2. EEG 07/12/25: Severely abnormal EEG for age due to diffuse bihemispheric slowing.
3. CSF 07/12/25: glucose 107, protein 92, WBC 2.
Differentials for the patient's presentation include:
1. Altered mental status, uncertain etiology. Cannot entirely exclude a diffuse embolic stroke producing altered mental status vs toxic metabolic encephalopathy or viral encephalitis.
Patient has the following risk factors for their symptoms: HTN, Afib
IV Tenecteplase/IAT candidacy: Not a candidate due to outside of time window.
Recommendations:
-MRI brain w/ and w/o contrast pending.
-Continue home apixaban 5mg twice a day.
-Goal normotension and normothermia.
-Neurological checks per unit guidelines.
Discussed patient care with: Dr. Lozada, nursing staff.
Vital Signs and Labs
-
Vital Signs and Labs:
Vital Signs
Temp Pulse Resp BP Pulse Ox
97.8 F 97 12 102/80 100
07/13/25 15:31 07/13/25 16:00 07/13/25 16:00 07/13/25 16:00 07/13/25 16:00
Lab Results
07/13/25 03:15
07/13/25 03:15
PT 19.8 Sec (11.4-14.6) H 07/13/25 03:15
INR 1.63 07/13/25 03:15
APTT 41.5 Sec (23.4-35.0) H 07/12/25 02:53
Sodium 141 mmol/L (135-145) 07/13/25 03:15
Potassium 3.9 mmol/L (3.5-5.1) 07/13/25 03:15
BUN 53 mg/dl (7-17) H 07/13/25 03:15
Glucose 149 mg/dl (70-99) H 07/13/25 03:15
Calcium 8.5 mg/dl (8.4-10.2) 07/13/25 03:15
Phosphorus 5.3 mg/dl (2.5-4.5) H 07/12/25 02:53
Sjq-G-Eoabwsffgdm Pept 6560 pg/ml 07/11/25 00:08
Vitamin B12 > 1000 pg/ml (239-931) H 07/13/25 03:15
Medications
-
Active Medications
Generic Name Dose Route Start Last Admin
Trade Name Freq PRN Reason Stop Dose Admin
Acetaminophen 650 mg 07/11/25 05:16
Acetaminophen 325 Mg Tablet PO 08/08/25 05:15
Q4HPRN PRN
Mild Pain / Temp > 101
Dexamethasone Sodium Phosphate 6 mg 07/14/25 08:00
Dexamethasone 4 Mg/Ml 1 Ml Vial IV 08/11/25 07:59
DAILY CHAY
Metoprolol Tartrate 25 mg 07/12/25 20:00 07/13/25 08:35
Metoprolol 25 Mg Regular Release Tablet TUBE 08/09/25 19:59 25 mg
BID CHAY Administration
Miconazole Nitrate 0 applic 07/11/25 09:00 07/13/25 08:35
Miconazole Powder Bottle TOPICAL 08/08/25 08:59 1 applic
BID CHAY Administration
Midodrine 2.5 mg 07/12/25 13:00 07/13/25 13:29
Midodrine 2.5 Mg Tablet PO 2.5 mg
TID@0800,1300,1800 CHAY Administration
Pantoprazole Sodium 40 mg 07/12/25 11:00 07/13/25 08:36
Pantoprazole Sodium 40 Mg/10 Ml Vial IV 08/09/25 10:59 40 mg
DAILY CHAY Administration
Sodium Chloride 0 flush 07/11/25 05:00
Sodium Chloride 0.9% (Flush) Syringe IV 08/08/25 04:59
PER PROTOCOL CHAY
Sodium Chloride 10 ml 07/12/25 11:00 07/13/25 08:36
Sodium Chloride 0.9% (Preservative Free) 10 Ml Vial IV 08/09/25 10:59 10 ml
DAILY CHAY Administration
Thiamine HCl 100 mg 07/13/25 15:00
Thiamine (100 Mg/Ml) 2 Ml Vial IV 07/16/25 14:59
DAILY CHAY
Home Medications
�Medication �Instructions �Recorded
apixaban 5 mg tablet (Eliquis) 5 mg PO BID #60 tabs 08/06/24
digoxin 250 mcg (0.25 mg) tablet 250 mcg PO NOON #30 tabs 08/06/24
lisinopril 10 mg tablet 10 mg PO DAILY #30 tabs 08/06/24
metoprolol succinate 100 mg 100 mg PO BID #60 tabs 08/06/24
tablet,extended release 24 hr
spironolactone 25 mg tablet 25 mg PO DAILY #30 tabs 08/06/24
furosemide 40 mg tablet 40 mg PO QMWF #30 tabs 04/24/25
[2025-07-13 15:05] LABS: Ferritin 51.5 ng/ml (11.1-264.0)
[2025-07-13 15:37] LABS: Folate 4.9 ng/ml (2.76-20); Vitamin B12 > 1000 pg/ml (239-931)
--- NOTE | 2025-07-13 16:18 | PTCARENOTE ---
No change in patient assessment.
--- NOTE | 2025-07-13 16:52 | CM ---
Discharge POC: Await therapy evaluation when patient is able to participate.
[2025-07-13] MEDS: THIAMINE INJECTION 100 MG IV (17:02)
[2025-07-13 17:40] LABS: Glucose - Point of Care 153 mg/dl (70-99)
[2025-07-13 18:28] LABS: Reticulocyte Count 2.9 % (0.4-2.8)
--- NOTE | 2025-07-13 20:00 | PTCARENOTE ---
Received pt. at 1900. Pt. currently in bed. Appears to be sleeping comfortably. No signs of pain/discomfort. Withdraws from sternal rub. Afebrile. Heart rhythm Afib, rate controlled. Blood pressure normotensive. Currently on 2L nasal cannula. Lungs
sound diminished. Abdomen round. Tube feeds running via dobhoff tube. Pillai catheter in place, draining without issue. Skin as documented. Vital signs stable at this time.
[2025-07-14] VITALS (13 sets, daily range): BP systolic 101–137; BP diastolic 76–110; BMI 28.2
--- NOTE | 2025-07-14 | PTCARENOTE ---
Pt. assessment unchanged. Blood pressure remains normotensive. Vital signs stable at this time.
[2025-07-14 00:02] LABS: Glucose - Point of Care 164 mg/dl (70-99)
[2025-07-14 03:54] LABS: Hematocrit 30.6 % (37.0-47.0); Hemoglobin 8.9 g/dL (12.0-16.0); Mean Corp Hgb Conc. 29.1 g/dL (33.0-37.0); Mean Corpuscular Volume 79.3 fL (81.0-99.0); Nucleated Red Blood Cells % 1.0 %; Platelet Count 61 10^3/uL (130-400); Red Cell Dist. Width 23.4 % (11.5-14.5)
[2025-07-14 04:08] LABS: ALT (SGPT) 22 U/L (0-35); AST (SGOT) 40 U/L (14-36); Albumin 2.7 g/dl (3.5-5.0); Alkaline Phosphatase 77 U/L (38-126); Blood Urea Nitrogen 51 mg/dl (7-17); Calcium 9.1 mg/dl (8.4-10.2); Carbon Dioxide 20 mmol/L (22-30); Chloride 114 mmol/L (98-107); Estimated Creatinine Clearance 59 ml/min; Glucose 172 mg/dl (70-99); Potassium 4.2 mmol/L (3.5-5.1); Sodium 140 mmol/L (135-145); Total Protein 5.9 g/dl (6.3-8.2); eGFR 56.11
[2025-07-14] MEDS: LOPRESSOR 5 MG IV ×2 (06:27→17:01)
[2025-07-14 06:35] LABS: Glucose - Point of Care 166 mg/dl (70-99)
--- NOTE | 2025-07-14 07:29 | PTCARENOTE ---
- 0700 assumed care.
-open eyes to pain stimuli no following commends; Pupils reactive +3
-Afib on telemetry 128; BP via RT upper arm 118/84 MAP 96; +2 pitting edema. Pedal pulses present to doppler
-SpO2: 99% 2l via nasal canula O2 weaned off pt on RA
-abdomen non-distended non-tender. Dophaff Left 70cm auscultated for placement. TF: javity 1.5 50/25 H2O flush Q 1 hr
-Indwelling nieto draining clear trung. Monitoring I and O hourly Nieto care done
-Necrotic toes b/l le elevated on pillows
[2025-07-14] MEDS: THIAMINE INJECTION 100 MG IV (07:48)
[2025-07-14] MEDS: PROTONIX IV 40 MG IV (07:49)
[2025-07-14] MEDS: NSS (PRESERVATIVE FREE) 10 ML IV (07:49)
[2025-07-14] MEDS: DESENEX/MITRAZOL/ZEASORB 1 APPLIC TOPICAL ×2 (07:51→21:00)
[2025-07-14] MEDS: LOPRESSOR 25 MG TUBE ×2 (07:51→19:31)
[2025-07-14] MEDS: DECADRON 6 MG IV (07:51)
[2025-07-14 07:56] LABS: Glucose - Point of Care 171 mg/dl (70-99)
--- NOTE | 2025-07-14 09:44 | W.PN.ID1 ---
Date of Service
Date of Service: July 14, 2025
Today's Communication
Observe off abx.
Assessment / Plan
Hypothermia, improving
s/p Hypotension off pressor
Leukocytosis - trended up due to steroid
Petechial rash - stable
Necrotic toes
Encephalopathy
Acute thrombocytopenia
Hyponatremia
MODE
Lactic acidosis
HTN
A-fib
CHF
Hearing loss/deaf
Recommendations:
Blood cultures remain negative.
07/12 CSF 2 WBC -> infectious meningitis ruled out.
Meningoencephalitis panel negative
Acyclovir dc'd
DC'd ceftriaxone.
Observe off abx
Follow white count and temperature curve.
Chief Complaint
-: Leukocytosis, Clinical Sepsis and Other (Rash)
Subjective / Review of Systems
reacts to turning on light in room.
Vital Signs / Physical Exam
Vital Signs
Vital Signs
Temp Pulse Resp BP Pulse Ox
98.1 F 119 14 118/84 99
07/14/25 07:26 07/14/25 07:53 07/14/25 06:00 07/14/25 07:53 07/14/25 08:14
Physical Exam
Constitutional: Comfortable and Chronically Ill
Eyes: No Conjunctival Hemorrhage and Sclera Anicteric
Cardiovascular: S1/S2 (tachycardic)
Pulmonary: Clear (anterior chest)
Gastrointestinal: Soft, Non Tender and Non Distended
Extremities: Edema (anasearca)
Skin: Rash (nonblanchable petechia BLE; macular rash on R forearm)
Wound: Other (Necrotic distal toes; R 2, 3, 5; L 2, 3, 4 )
Objective Data
Lab Data
Lab Results
07/14/25 03:17
07/14/25 03:18
ESR 3 mm/hour (0-20) 07/11/25 05:27
PT 19.8 Sec (11.4-14.6) H 07/13/25 03:15
INR 1.63 07/13/25 03:15
APTT 41.5 Sec (23.4-35.0) H 07/12/25 02:53
Estimated Creat Clear 59 ml/min 07/14/25 03:18
Lactic Acid 1.7 mmol/L (0.7-2.0) 07/11/25 15:55
Total Bilirubin 0.7 mg/dl (0.2-1.3) 07/14/25 03:18
AST 40 U/L (14-36) H 07/14/25 03:18
ALT 22 U/L (0-35) 07/14/25 03:18
Alkaline Phosphatase 77 U/L (38-126) 07/14/25 03:18
C-Reactive Protein 138.80 mg/L (0.0-10.00) H 07/11/25 05:27
Most recent labs reviewed.
Micro Results:
07/12/25 15:35 CSF Culture - Preliminary
Csf No Growth After 48 Hours
Gram Stain - Preliminary
07/11/25 02:48 Blood Culture - Preliminary
Blood/Venous No Growth in 72 hours- Final report to follow
07/11/25 02:48 Blood Culture - Preliminary
Blood/Venous No Growth in 72 hours- Final report to follow
07/12/25 15:35 Meningitis/Encephalitis Panel (PCR) - Final
Csf
07/12/25 15:35 Acid Fast Bacilli Smear - Pending
Csf Acid Fast Bacilli Culture - Pending
07/11/25 02:48 Influenza Types A & B ([facility]) - Final
Nasal Swab Negative for Influenza A & B, NAAT
Negative results must be combined with clinical observations
and patient history.
Nucleic Acid Amplification test (NAAT)performed on the
[employer] platform.
Imaging:
07/11/2025 CXR (portable): small right pleural effusion with associated consolidation (atelectasis and/or pneumonia). No visualized pneumothorax. Please see full dictation for additional detail. Film personally viewed.
07/11/2025 CT head without contrast: no acute intracranial abnormality noted.
[2025-07-14 11:57] LABS: Glucose - Point of Care 186 mg/dl (70-99)
--- NOTE | 2025-07-14 12:48 | W.PN.HOSP.TC ---
Today's Communication/Plan
-
Monitor off antibiotics and antivirals
Will add IV digoxin
MRI of the brain pending
Continuous EEG per neurology
Continue with tube feeding
Trend CBC.
Assessment / Plan
Assessment / Plan
General: Chronically ill-appearing
HEENT: Other (Dry MM. Neck supple. No JVD or HJR.)
Respiratory: Other (Decreased BS bilaterally. No W/R/R.)
Cardiac: S1/S2, positive slight murmur
GI: Soft, Non Tender, Non Distended and Normal Bowel Sounds
Musculoskeletal: Other (Erythema / rubor of all 4 extremities. Necrotic appearing lesions to the tips of toes. 3-4+ pitting edema b/l LEs.)
Skin: Other (Petechiae scattered across arms / legs with confluent erythema. Petechiae scattered across shoulders / chest.) sacral bilateral pressure injury stage II likely
Neuro: More awake compared to yesterday.
A/P: Patient is a 65y F with PMH significant for A-Fib, CHF and hearing impairment who presents to ED after being found down at home by family.
Acute acute toxic metabolic encephalopathy likely secondary to suspected prolonged downtime associated with severe hypoglycemia, hypothermia and hypotension
Hypothermia
Hypotension
- Unclear etiology of presentation. Found down at home.
- Pulse dose steroids reduce dose
- Status post aggressive IV fluids and pressor. BP stable with midodrine..
- TSH is normal. Cortisol normal
- CT head without acute abnormalities.
- EEG routine noted. Pending MRI results may need to consider continuous EEG.
- Status post lumbar puncture with mildly elevated glucose and total protein. WBC 2. Acute meningitis panel negative. VDRL and cryptococcus pending. Antiviral has been discontinued ampicillin has been discontinued
- MRI of the brain with and without contrast pending
- Neurology consultation
Thrombocytopenia
Coagulopathy
Leukocytosis
Microcytic Anemia
- IV steroids acutely as noted above. Follow-up labs.
- Hold Eliquis acutely. INR trending down to 1.63. Platelets downtrending
- Had GI evaluation during most recent hospital stay - no clear evidence of GI blood loss.
- Downtrend of hemoglobin and platelets noted
- Anemia, B12 and folate appropriate.. Antiphospholipid panel vitamin C, copper and ROMEL pending
Petechial rash
- Without worsening. Continue to monitor for now.
Skin Breakdown / Necrosis b/l Toes
- Likely due to decreased perfusion (suspect fairly prolonged time down).
- Pulses present on exam. Color improving with IVFs, normoglycemia, etc.
- Wound Care eval for local care. CT aorta runoff eventually
- Vascular surgery consulted
MODE
Elevated CPK
- SCr = 1.1 compared to known baseline of 0.9.
- Likely decreased perfusion with hypotension, hypothermia, etc as noted above.
- Lactate elevated on admission downtrended with IVF.
- Status post aggressive IV fluids. Holding diuretics.
- UA without evidence of pigment nephropathy.
- Pillai placed in the ED for critical care I/Os and continuous temperature monitoring.
Chronic HFmrEF
- Echo done 04/2025 showed LVEF = 40-45%, severe TR, moderate - severe MR.
- BNP decreased from prior - though weight apparently increased and evidence of edema on exam.
- Holding diuretics acutely given hypotension, hypoglycemia, etc.
- Follow I/Os, daily eights, etc.
- Will likely benefit from eventual diuresis once next 24h.
Paroxysmal Atrial Fibrillation with mild rapid ventricular response
- Stable. Rate controlled. Hold Eliquis acutely as noted above. On Lopressor. Will add digoxin.
- Monitor on telemetry.
Hearing Impairment
- Uses ASL for communication. Language Line used during ED interview.
Sacral pressure injury stage II-poa
-wound care
DVT Prophylaxis: Hold for now given LE skin changes / superficial wounds and thrombocytopenia / coagulopathy / etc.
Code Status: Full
Anticipated Discharge: > 48 hours
Subjective/Interval History
-
Date of Service: July 14, 2025
Currently resting in bed
Overnight patient went to atrial fibrillation with rapid ventricular response
Per RN patient seems little bit more awake and opening eyes more
During my evaluation patient continues to remain asleep.
Objective Data
-
Labs:
Laboratory Results
07/14/25 07/14/25
03:17 03:18
WBC 12.6 H
Hgb 8.9 L
Hct 30.6 L
Plt Count 61 L
Sodium 140
Potassium 4.2
Chloride 114 H
Carbon Dioxide 20 L
BUN 51 H
Creatinine 1.1 H
Glucose 172 H
Calcium 9.1
Total Bilirubin 0.7
AST 40 H
ALT 22
Alkaline Phosphatase 77
Vital Signs:
Vital Signs
Temp Pulse Resp BP Pulse Ox
97.5 F 119 14 118/84 99
07/14/25 11:07 07/14/25 07:53 07/14/25 06:00 07/14/25 07:53 07/14/25 08:14
I&O
07/13/25 07/14/25 07/15/25
06:59 06:59 06:59
Intake Total 3089.3 / 3214.3 1869 / 1945 300 / 300
Output Total 1050 / 1080 905 / 1030 175 / 175
Balance 2039.3 / 2134.3 965 / 915 125 / 125
[2025-07-14] MEDS: LANOXIN 125 MCG IV (14:05)
--- NOTE | 2025-07-14 16:57 | PTCARENOTE ---
patient in bed Open eyes to voice
Afib 109-121 Metoprolol 5 mg IV prn order given. BP 135/102 MAP 113. Will monitor after Metoprolol to give or hold midodrine
SpO2 98%RA
Indwelling nieto draining trung urine .
Incontinent of multiple loose stools; Dophoff : Javity 1.5 50/25 water flush temp 97.3
[2025-07-14 17:59] LABS: Glucose - Point of Care 189 mg/dl (70-99)
--- NOTE | 2025-07-14 20:00 | PTCARENOTE ---
Received pt. at 1900. Pt. in bed. Arousable to voice. Opens eyes but does not follow commands. No signs or symptoms of pain/discomfort. Afebrile. Heart rhythm Afib, rate controlled. No issues with hypotension. Currently on room air. Lungs sound
diminished. Abdomen round. Tube feeds running via dobhoff. Incontinent of stool. Pillai catheter in place, draining without issue. Skin as documented. Discussed plan of care with patient. Vital signs stable at this time.
[2025-07-14 20:45] LABS: C.neoformans Antigen Negative (Negative)
[2025-07-14 23:54] LABS: Glucose - Point of Care 134 mg/dl (70-99)
[2025-07-15] VITALS (18 sets, daily range): BP systolic 117–137; BP diastolic 71–111; PULSE 119; BMI 28.4
[2025-07-15 04:52] LABS: ALT (SGPT) 24 U/L (0-35); AST (SGOT) 40 U/L (14-36); Albumin 2.8 g/dl (3.5-5.0); Alkaline Phosphatase 83 U/L (38-126); Blood Urea Nitrogen 55 mg/dl (7-17); Calcium 9.3 mg/dl (8.4-10.2); Carbon Dioxide 23 mmol/L (22-30); Chloride 115 mmol/L (98-107); Estimated Creatinine Clearance 72 ml/min; Glucose 146 mg/dl (70-99); Potassium 4.4 mmol/L (3.5-5.1); Sodium 141 mmol/L (135-145); Total Protein 6.0 g/dl (6.3-8.2); eGFR > 60.00
[2025-07-15 05:52] LABS: Glucose - Point of Care 150 mg/dl (70-99)
[2025-07-15] MEDS: LOPRESSOR 5 MG IV ×2 (05:56→14:56)
[2025-07-15 06:48] LABS: Hematocrit 34.1 % (37.0-47.0); Hemoglobin 9.6 g/dL (12.0-16.0); Mean Corp Hgb Conc. 28.2 g/dL (33.0-37.0); Mean Corpuscular Volume 82.4 fL (81.0-99.0); Red Cell Dist. Width 24.4 % (11.5-14.5)
[2025-07-15] MEDS: DECADRON 6 MG IV (07:14)
[2025-07-15] MEDS: THIAMINE INJECTION 100 MG IV (07:22)
[2025-07-15] MEDS: NSS (PRESERVATIVE FREE) 10 ML IV (07:23)
[2025-07-15] MEDS: PROTONIX IV 40 MG IV (07:23)
[2025-07-15] MEDS: DESENEX/MITRAZOL/ZEASORB 1 APPLIC TOPICAL ×2 (07:23→19:34)
[2025-07-15] MEDS: LOPRESSOR 25 MG TUBE (07:24)
--- NOTE | 2025-07-15 07:31 | PTCARENOTE ---
- 0700 assumed care; pt in bed; pt open eyes to voice able to stay awake .
- Afib 116 to 122 ; BP via RT Upper Arm: 126/99 MAP 108; Metoprolol 25 tab given via Dobbhoff; Midodrine held at this time ; b/L LE edema +2 Pedal pulses checked via doppler
- SpO2 100%RA ; No SOB lungs clear
-Abdomen soft round hyperactive BS; Multiple loose bowel movement; Dobbhoff: +auscultated for placement; Jevity 1.5 50/25 water flush
-Indwelling Pillai draining clear yellow urine
-skin: necrotic toes Present on admission
-peripheral lines x 3 flushed capped
[2025-07-15 08:21] LABS: Nucleated Red Blood Cells % 3.7 %; Platelet Count 56 10^3/uL (130-400)
[2025-07-15] MEDS: LANOXIN 125 MCG IV (10:51)
[2025-07-15 11:40] LABS: Glucose - Point of Care 214 mg/dl (70-99)
--- NOTE | 2025-07-15 11:41 | W.PN.HOSP.TC ---
Today's Communication/Plan
-
Increase lopressor
IV diuresis
cont TF
neuro recs
monitor urine output
Assessment / Plan
Assessment / Plan
General: Chronically ill-appearing
HEENT: Other (Dry MM. Neck supple. No JVD or HJR.)
Respiratory: Other (Decreased BS bilaterally. No W/R/R.)
Cardiac: S1/S2, positive slight murmur
GI: Soft, Non Tender, Non Distended and Normal Bowel Sounds
Musculoskeletal: Other (Erythema / rubor of all 4 extremities. Necrotic appearing lesions to the tips of toes. 3-4+ pitting edema b/l LEs.)
Skin: Other (Petechiae scattered across arms / legs with confluent erythema. Petechiae scattered across shoulders / chest-seems to be improving) sacral bilateral pressure injury stage II likely
Neuro: More awake compared to yesterday.
A/P: Patient is a 65y F with PMH significant for A-Fib, CHF and hearing impairment who presents to ED after being found down at home by family.
Acute acute toxic metabolic encephalopathy likely secondary to suspected prolonged downtime associated with severe hypoglycemia, hypothermia and hypotension
Hypothermia
Hypotension
- Unclear etiology of presentation. Found down at home.
- Pulse dose steroids reduce dose
- Status post aggressive IV fluids and pressor. BP stable with midodrine..
- TSH is normal. Cortisol normal
- CT head without acute abnormalities.
- EEG routine noted. may need to consider continuous EEG.
- Status post lumbar puncture with mildly elevated glucose and total protein. WBC 2. Acute meningitis panel negative. VDRL pending. cryptococcus negative. Antiviral and antibiotics has been discontinued
- MRI of the brain with and without contrast with limited evaluation and no acute intracranial abnormality was noted.
- Neurology RECS
Thrombocytopenia
Coagulopathy
Leukocytosis
Microcytic Anemia
- IV steroids acutely as noted above. Follow-up labs.
- Hold Eliquis acutely. INR trending down to 1.63. Platelets continues to downtrend.
- Had GI evaluation during most recent hospital stay - no clear evidence of GI blood loss.
- Hgb with some stability
- Anemia, B12 and folate appropriate.. Antiphospholipid panel vitamin C, copper and ROMEL pending
Petechial rash
- improving. Continue to monitor for now.
Skin Breakdown / Necrosis b/l Toes
- Likely due to decreased perfusion (suspect fairly prolonged time down).
- Pulses present on exam.
- Wound Care eval for local care. CT aorta runoff eventually
- Vascular surgery consulted
MODE
Elevated CPK
Metabolic acidosis
- Cr at baseline. Monitor cr with diuresis.
- Likely decreased perfusion with hypotension, hypothermia, etc as noted above.
- Lactate elevated on admission downtrended with IVF.
- Status post aggressive IV fluids. Holding diuretics.
- UA without evidence of pigment nephropathy. Acidosis improved.
- Pillai placed in the ED for critical care I/Os and continuous temperature monitoring.
Chronic HFmrEF
Iatrogenic volume overload
- Echo done 04/2025 showed LVEF = 40-45%, severe TR, moderate - severe MR.
- BNP decreased from prior - though weight apparently increased and evidence of edema on exam.
- Start Lasix 40 mg daily and monitor urine response. May require additional diuretics
- Follow I/Os, daily eights, etc.
Hyponatremia
-Sodium stabilized.
Paroxysmal Atrial Fibrillation with mild rapid ventricular response
- Stable. Rate controlled. Hold Eliquis acutely as noted above. On Lopressor. Will add digoxin.
- Monitor on telemetry.
Hearing Impairment
- Uses ASL for communication.
Sacral pressure injury stage II-poa
-wound care
DVT Prophylaxis: Hold for now given LE skin changes / superficial wounds and thrombocytopenia / coagulopathy / etc.
Code Status: Full
Anticipated Discharge: > 48 hours
Subjective/Interval History
-
Date of Service: July 15, 2025
Remains afebrile
more awake this morning but not following commands.
Not interacting with food quality tester
Staying awake more compared to yesterday
Objective Data
-
Labs:
Laboratory Results
07/15/25
04:10
WBC 11.0 H
Hgb 9.6 L
Hct 34.1 L
Plt Count 56 L
Sodium 141
Potassium 4.4
Chloride 115 H
Carbon Dioxide 23
BUN 55 H
Creatinine 0.9
Glucose 146 H
Calcium 9.3
Total Bilirubin 1.0
AST 40 H
ALT 24
Alkaline Phosphatase 83
Vital Signs:
Vital Signs
Temp Pulse Resp BP Pulse Ox
96.5 F L 110 19 127/89 99
07/15/25 11:03 07/15/25 10:51 07/15/25 09:00 07/15/25 10:51 07/15/25 08:00
I&O
07/14/25 07/15/25 07/16/25
06:59 06:59 06:59
Intake Total 1870 / 1945 1650 / 1650 150 / 150
Output Total 905 / 1030 655 / 655 250 / 250
Balance 965 / 915 995 / 995 -100 / -100
Data Reviewed
-
Total Time Spent with Patient (in minutes): 55
--- NOTE | 2025-07-15 11:55 | W.PN.ID1 ---
Date of Service
Date of Service: July 15, 2025
Today's Communication
Observing off abx.
Assessment / Plan
Hypothermia, improving
s/p Hypotension off pressor
Leukocytosis
Petechial rash - improving
Necrotic toes
Encephalopathy - improving
Acute thrombocytopenia
Hyponatremia - resolved
MODE - resolving
Lactic acidosis
HTN
A-fib
CHF
Hearing loss/deaf
Recommendations:
Blood cultures remain negative.
07/12 CSF 2 WBC -> infectious meningitis ruled out.
Meningoencephalitis panel negative
MRI brain: limited, no acute abnormality
Observe off abx
Follow white count
Chief Complaint
-: Leukocytosis, Clinical Sepsis and Other (Rash)
Subjective / Review of Systems
More alert. Opens eyes to touch.
Vital Signs / Physical Exam
Vital Signs
Vital Signs
Temp Pulse Resp BP Pulse Ox
96.5 F L 110 19 127/89 99
07/15/25 11:03 07/15/25 10:51 07/15/25 09:00 07/15/25 10:51 07/15/25 08:00
Physical Exam
Constitutional: Comfortable and Chronically Ill
Eyes: No Conjunctival Hemorrhage and Sclera Anicteric
Cardiovascular: S1/S2 (tachycardic)
Pulmonary: Clear (anterior chest)
Gastrointestinal: Soft, Non Tender and Non Distended
Extremities: Edema (anasearca)
Skin: Rash (nonblanchable petechia BLE decreasd; macular rash on R forearm)
Wound: Other (Necrotic distal toes; R 2, 3, 5; L 2, 3, 4 )
Neurological: Other (Arousable)
Objective Data
Lab Data
Lab Results
07/15/25 04:10
11/09/25 04:10
ESR 3 mm/hour (0-20) 07/11/25 05:27
PT 19.8 Sec (11.4-14.6) H 07/13/25 03:15
INR 1.63 07/13/25 03:15
APTT 41.5 Sec (23.4-35.0) H 07/12/25 02:53
Estimated Creat Clear 72 ml/min 07/15/25 04:10
Lactic Acid 1.7 mmol/L (0.7-2.0) 07/11/25 15:55
Total Bilirubin 1.0 mg/dl (0.2-1.3) 07/15/25 04:10
AST 40 U/L (14-36) H 07/15/25 04:10
ALT 24 U/L (0-35) 07/15/25 04:10
Alkaline Phosphatase 83 U/L (38-126) 07/15/25 04:10
C-Reactive Protein 138.80 mg/L (0.0-10.00) H 07/11/25 05:27
Most recent labs reviewed.
Micro Results:
07/12/25 15:35 CSF Culture - Preliminary
Csf No Growth After 72 Hours
Gram Stain - Preliminary
07/11/25 02:48 Blood Culture - Preliminary
Blood/Venous No Growth in 4 days- Final report to follow
07/11/25 02:48 Blood Culture - Preliminary
Blood/Venous No Growth in 4 days- Final report to follow
07/12/25 15:35 Acid Fast Bacilli Smear - Preliminary
Csf Acid Fast Bacilli Culture - Preliminary
07/12/25 15:35 Meningitis/Encephalitis Panel (PCR) - Final
Csf
07/11/25 02:48 Influenza Types A & B ([facility]) - Final
Nasal Swab Negative for Influenza A & B, NAAT
Negative results must be combined with clinical observations
and patient history.
Nucleic Acid Amplification test (NAAT)performed on the
[employer] NOW platform.
Imaging:
07/14/25 MRI brain: Exam limited by motion artifact. No acute intracranial abnormality noted.
07/11/2025 CXR (portable): small right pleural effusion with associated consolidation (atelectasis and/or pneumonia). No visualized pneumothorax. Please see full dictation for additional detail. Film personally viewed.
07/11/2025 CT head without contrast: no acute intracranial abnormality noted.
Care Review
Plan reviewed with: Nurse
[2025-07-15] MEDS: LASIX 40 MG IV (12:16)
--- NOTE | 2025-07-15 14:00 | PTCARENOTE ---
At 14:00 pt noted pt reaching to Dophoff with attempt to remove it, dophoff no longer secure to bridge of the nose. Auscultated for + placement. Abdominal Xray order do confirm placement. TF was placed at that time. Abdominal Xray Resulted : The tip
of the feeding tube is in the distal third esophagus. It is not beyond the GE junction. Dobhoff removed and new one placed left 70cm. waiting for Xray to confirm placement
--- NOTE | 2025-07-15 14:15 | PTCARENOTE ---
patient multiple times attempting to pull dobhoff out. Soft wrist restraints applied on order to prevent patient pulling dobhoff tube. Abdominal X-RAy order do check placement.
--- NOTE | 2025-07-15 15:00 | PTCARENOTE ---
Afb 130's BP 135/107 MAP 116; Metoprolol 5 mg IV prn order given . will monitor
--- NOTE | 2025-07-15 16:06 | PTOTSP ---
Speech Therapy Evaluation
Pt seen for bedside swallow evaluation. Pt at an elevated risk for aspiration given waning mentation, suspected cognitive deficits, and general weakness compounded by current dx of acute toxic metabolic encephalopathy. Pt deaf and mute. Per RN
report, using language line for interpretation has not been successful. Ongoing tactile cues to arouse pt. Eyes remained closed but pt opened oral cavity to accept PO. With thin liquids, pt had multiple swallows and immediate cough response x2
across 4 trials with belching following each trial (can indicate discoordination). No overt s/sx of aspiration. No overt s/sx of aspiration with ice chips and puree. Limited PO trials due to fluctuating DELL. Pt is on room air. WBC is elevated (11).
No intracranial abnormality on MRI. CXR 07/14 suggestive of LLL PNA.�
Recommend:
1.Temporarily NPO
2. Meds nonorally
3. Oral care 3x/day
4. ASRHP - ice chips sparingly with direct supervision. Ensure pt is alert and oral care is completed via suction toothbrush.
5. SLUDGE CONTROL ATTENDANT to follow�
--- NOTE | 2025-07-15 16:31 | W.PN.NEURO.1 ---
Today's Communication / Plan
-
plan communicated to primary team by TT
Neuro Assessment/Plan
Assessment
Abrupt onset of change in mental status following significant hypotension and acute kidney insufficiency
Differential diagnosis currently still remains toxic metabolic encephalopathy. MRI was negative for stroke. It is unlikely that she is seizing because she withdrawals to pain and no forced gaze deviation and seizure activity noted. an EEG would be
reasonable to assess for subclinical status. Lumbar puncture failed to demonstrate infectious etiology
Plan
Provide thiamine
EEG ordered
Subjective/Objective
Subjective Data
Date of Service: July 15, 2025
MRI negative for stroke.
Nursing at bedside. Fingers appear dusky. Nursing informed me that hospitalist paged about it.
She remains minimally responsive. She will occasionally open her eyes to physical stimulation but doesn't stay awake to interact. Seems similar to past exams.
Objective Data
Vital Signs
Temp Pulse Resp BP Pulse Ox
35.9 C L 116 21 135/107 99
07/15/25 15:11 07/15/25 14:49 07/15/25 14:00 07/15/25 14:49 07/15/25 13:00
Lab Results
07/15/25 04:10
07/15/25 04:10
PT 19.8 Sec (11.4-14.6) H 07/13/25 03:15
INR 1.63 07/13/25 03:15
APTT 41.5 Sec (23.4-35.0) H 07/12/25 02:53
Sodium 141 mmol/L (135-145) 07/15/25 04:10
Potassium 4.4 mmol/L (3.5-5.1) 07/15/25 04:10
BUN 55 mg/dl (7-17) H 07/15/25 04:10
Glucose 146 mg/dl (70-99) H 07/15/25 04:10
Calcium 9.3 mg/dl (8.4-10.2) 07/15/25 04:10
Phosphorus 5.3 mg/dl (2.5-4.5) H 07/12/25 02:53
Htb-K-Jabfxkhvkfd Pept 6560 pg/ml 07/11/25 00:08
Vitamin B12 > 1000 pg/ml (239-931) H 07/13/25 03:15
Patient Allergies
No Known Allergies Allergy (Verified 07/20/23 18:56)
Review of Systems
-
Unable to obtain full review of systems at this time due to: Patient Non-verbal and Lethargy
Physical Exam
-
General: Appears Chronically Ill
Eyes: Unremarkable and PERRLA
HEENT: Normocephalic and Atraumatic
Skin: Other (widespread petechial rash)
Extended Neurological Exam
Mood & Affect: Unable to Assess
Attention Span & Concentration: Unable to assess
Memory: Unable to Assess
Tremor: Unable to Assess
Involuntary Movement: None
Speech: Unable to Assess
Cranial Nerve II: Left Eye: Pupillary Reactivity Unremarkable and Unable to Assess (eyes rove and at times would fixate on someone in the room like the nurse)
Cranial Nerve II: Right Eye: Pupillary Reactivity Unremarkable and Other (eyes rove and at times would fixate on someone in the room like the nurse)
Cranial Nerves III, IV, : Extraocular Movement: Other (eyes rove and at times would fixate on someone in the room like the nurse)
Cranial Nerve V: Facial Sensation: Unable to Assess
Cranial Nerve VII: Facial Symmetry: Unable to Assess (no nasolabial fold flattening)
Cranial Nerve VIII: Hearing: Unable to Assess
Cranial Nerves IX, X: Palate Movement: Unable to Assess
Cranial Nerve XI: Shoulder Shrug: Unable to Assess
Cranial Nerve XII: Tongue Protusion: Unable to Assess
Muscle Strength, Overall: Other (unable to assess confrontational testing. when I lift her arms up, she will gently bring them back down. this was symmetric. Both legs withdrawal to pain. )
Muscle Bulk & Tone: Other (Lower extremities edematous)
Pronator Drift: Unable to Assess
Deep Tendon Reflexes: Unremarkable Throughout (at biceps and patellas)
Touch Sensation: Other (withdrawals to pain bilterally)
Coordination: Unable to Assess
Gait & Station: Unable to Assess
--- NOTE | 2025-07-15 16:54 | PTCARENOTE ---
-patient in bed
-Open eyes to light pain stimuli; unable to stay awake. Pupils sluggish, reactive to light; pupils in a center;
Attempted multiple times to remove Dobhoff . soft wrist restraints applied, able to put 2 finger b/w wrist and restraints
-Afib on telemetry 115 BP via RT upper arm: 126/66 MAP 108; Radial pulses present to touch, pedal pulses checked via doppler
b/l Hand blue discoloration at first, after warm blanket applied color changed to dusky purple; cold to touch. capillary refill < 2 second
-Abdomen round soft, normal bowel sounds present . Dophoff in place, Javity 1.5 50/20water flush
-Pillai draining trung light urine. monitoring urinal output
-Dr Woods examine patient at bed side. Dr kincaid made aware via tiger text; Order for heparin qtt placed. Received order to hold on on heparin qtt and place amgi huger for goal temp 97.7
-HOB elevated b/l UE and LE elevated on pillows
--- NOTE | 2025-07-15 17:20 | W.PN.UPDATE ---
Update Note
Progress Note Update
I was called to see this patient because of blue fingers/hands noticed by nurse. On exam, vital signs stable, good oxygenation, good radial pulses bilaterally and good capillary refill on all of the fingers bilaterally. Nurse said she applied warm
blankets and already the color of the hands are improving. I discussed patient's case with on-call vascular surgeon Dr. Sampson who recommended to try to warm up the hands, and also mentioned definitely okay to use Rosendo Hugger. Nurse was
informed about this plan.
[2025-07-15 17:50] LABS: Glucose - Point of Care 133 mg/dl (70-99)
[2025-07-15] MEDS: LOPRESSOR 37.5 MG TUBE (19:34)
--- NOTE | 2025-07-15 20:00 | PTCARENOTE ---
Assumed care of patient. Patient is drowsy but arousable, will read lips and follow commands but falls back asleep before assessment is completed. Afebrile, bairhugger in place. Pupils are equal and reactive. Patient is in A fib with rates 100-125,
BP adequate. Radial pulses are palpable, DP pulses audible with doppler. Hands are slightly dusky, but warm with good capillary refill. Continuing bairhugger to help circulation. Abdomen is soft and nontender. DHT confirmed with x-ray at 57 cm in
left nare. Temp sensing nieto catheter in place draining yellow urine. Generalized rash, reddened toes, and necrotic toe, see more details in assessment. IV sites are c/d/i.
[2025-07-15 23:05] LABS: Copper, Serum 123.5 ug/dL (80.0-155.0)
[2025-07-16] VITALS (15 sets, daily range): BP systolic 115–146; BP diastolic 86–113; BMI 27.1
--- NOTE | 2025-07-16 00:32 | PTCARENOTE ---
No changes in patient assessment from previous note.
[2025-07-16 01:40] LABS: Beta-2-Glycoprotein I Ab. IgG <10 SGU (<=20); Beta-2-Glycoprotein I Ab. IgM <10 SMU (<=20)
--- NOTE | 2025-07-16 02:14 | PTCARENOTE ---
Patient pulled out dobhoff tube. REGIONAL PROPERTY MANAGER made aware.
[2025-07-16 03:15] LABS: Hematocrit 32.2 % (37.0-47.0); Hemoglobin 9.4 g/dL (12.0-16.0); Mean Corp Hgb Conc. 29.2 g/dL (33.0-37.0); Mean Corpuscular Volume 78.7 fL (81.0-99.0); Nucleated Red Blood Cells % 3.4 %; Platelet Count 72 10^3/uL (130-400); Red Cell Dist. Width 24.2 % (11.5-14.5)
[2025-07-16 03:37] LABS: ALT (SGPT) 27 U/L (0-35); AST (SGOT) 39 U/L (14-36); Albumin 2.9 g/dl (3.5-5.0); Alkaline Phosphatase 92 U/L (38-126); Blood Urea Nitrogen 63 mg/dl (7-17); Calcium 9.3 mg/dl (8.4-10.2); Carbon Dioxide 24 mmol/L (22-30); Chloride 113 mmol/L (98-107); Estimated Creatinine Clearance 59 ml/min; Glucose 166 mg/dl (70-99); Potassium 4.5 mmol/L (3.5-5.1); Sodium 145 mmol/L (135-145); Total Protein 6.1 g/dl (6.3-8.2); eGFR 56.11
[2025-07-16 04:53] LABS: APTT 27.5 Sec (23.4-35.0); INR 1.30; PT 16.5 Sec (11.4-14.6)
[2025-07-16 04:54] LABS: Fibrinogen 320 MG/DL (199-459)
[2025-07-16 04:56] LABS: D-Dimer 2.11 ug/mlFEU (0.00-0.50)
--- NOTE | 2025-07-16 06:52 | W.PN.UPDATE ---
Update Note
Progress Note Update
Patient self removed her dobhoff overnight. Will need GI to reinsert. Hypothermia resolving with magi Gonzalez 97.
[2025-07-16 07:45] LABS: Serine Protease-3, IgG 14 AU/mL (0-19)
[2025-07-16] MEDS: PROTONIX IV 40 MG IV (07:57)
[2025-07-16] MEDS: NSS (PRESERVATIVE FREE) 10 ML IV (07:57)
[2025-07-16] MEDS: DECADRON 6 MG IV (07:58)
[2025-07-16] MEDS: THIAMINE INJECTION 100 MG IV (07:58)
[2025-07-16] MEDS: LASIX 40 MG IV (07:58)
[2025-07-16] MEDS: DESENEX/MITRAZOL/ZEASORB 1 APPLIC TOPICAL ×2 (07:59→20:11)
[2025-07-16] MEDS: LOPRESSOR TUBE (08:46)
--- NOTE | 2025-07-16 09:01 | PN.CDI ---
CDI
- -
CDI:
Physician Documentation Request
Admit Date: 07/11/25 03:32
Dear Doctor Aly,
Please review the following and provide your response in the progress notes.
Current documentation includes a diagnosis of hypotension.
Clinical Indicators:
- Patient admit with TME, hypothermia, hypotension
- On admission, Systolic BP 70-90s, MAP 50-70
- Levophed given
- 7.5L IVF
- 07/15 PN 'Status post aggressive IV fluids and pressor. BP stable with midodrine'
- 'Echo done 04/2025 showed LVEF = 40-45%, severe TR, moderate - severe MR'
- 'Thrombocytopenia...coagulopathy...petechial rash'
Laboratory Tests
07/11/25 07/11/25 07/12/25
02:28 11:29 02:53
PT 44.7 H 37.8 H 25.8 H
Laboratory Tests
07/11/25 07/12/25 07/16/25
02:28 02:53 02:52
D-Dimer 1.35 H 1.21 H 2.11 H
Laboratory Tests
07/11/25 07/11/25 07/13/25
00:08 05:27 03:15
Hgb 11.3 L 9.5 L 8.5 L
Please clarify which of the following is the most likely etiology of the above symptoms and treatment rendered:
Cardiogenic shock
Hypovolemic shock - indicate if due to surgery, trauma or other etiology
Hemorrhagic shock - indicate if due to surgery, trauma or other etiology
Shock, unknown type
Hypotension - indicate type/etiology, such as idiopathic, neurogenic or orthostatic, post-procedural, postoperative, due to hemodialysis, chronic, drug induced (indicate drug), etc.
Hypotension - unknown type/etiology
Other (please specify)
Use of terms such as suspected, likely, concern for, or probable (associated with a specific diagnosis that is being evaluated, monitored, or treated as if it exists) are acceptable and can be coded in the inpatient setting, when documented at the
time of discharge.
Thank you,
Kayla Ro RN
CDI Specialist
Please use your independent medical judgment in providing your response.
--- NOTE | 2025-07-16 09:14 | PN.CDI ---
CDI
- -
CDI:
Physician Documentation Request
Admit Date: 07/11/25 03:32
Dear Doctor Aly,
Please review the following and provide your response in the progress notes.
Clinical Indicators:
The diagnosis of rhabdomyolysis was documented on ER Physician note but is not consistently noted in subsequent documentation.
- H&P 'Found down today by family with no defined last known well - likely quite some time based on exam'
- 7.5L IVF given
Laboratory Tests
07/11/25 07/12/25
01:07 02:53
Creatine Kinase 789 H 739 H
Please clarify the following:
____ - Traumatic rhabdomyolysis was present on admission and is now resolved.
____ - Traumatic rhabdomyolysis was present on admission and is still being monitored, evaluated or treated
____ - Traumatic rhabdomyolysis was ruled out
____ - Other (please specify)
Use of terms such as suspected, likely, concern for, or probable (associated with a specific diagnosis that is being evaluated, monitored, or treated as if it exists) are acceptable and can be coded in the inpatient setting, when documented at the
time of discharge.
Thank you,
Kayla Ro RN
CDI Specialist
Please use your independent medical judgment in providing your response.
--- NOTE | 2025-07-16 09:22 | PN.CDI ---
CDI
- -
CDI:
Physician Documentation Request
Admit Date: 07/11/25 03:32
Dear Doctor Aly,
Please review the following and provide your response in the progress notes.
Clinical Indicators:
- Wound note indicates Stage 2 right elbow pressure injury, POA
Physician documentation of the type and location of wounds is required for compliant documentation. Based on the above clinical findings and your assessment, please provide the following in your progress note:
1. Location of the ulcer/wound, including laterality.
2. Type (etiology) of ulcer/wound:
- Diabetic ulcer
- Arterial (ischemic) ulcer
- Traumatic wound
- Venous stasis ulcer
- Pressure (decubitus) ulcer
- Other
Use of terms such as suspected, likely, concern for, or probable (associated with a specific diagnosis that is being evaluated, monitored, or treated as if it exists) are acceptable and can be coded in the inpatient setting, when documented at the
time of discharge.
Thank you,
Kayla Ro RN
CDI Specialist
Please use your independent medical judgment in providing your response.
*Source: National Pressure Ulcer Advisory Panel (NPUAP)
[2025-07-16] MEDS: LOPRESSOR 5 MG IV ×3 (09:37→21:43)
--- NOTE | 2025-07-16 09:46 | W.PN.ONC2 ---
Today's Communication / Plan
-
f/u heme stool
would consider at least DVT ppx with platelets >50 x2 days in the absence of bleeding
would defer to cardiology regarding management of anticoagulation for Atrial fibrillation, however, with platelets >50,000 and if there is no evidence of bleeding there would be no hematologic barriers for therapeutic anticoagulation
daily CBC
Impression
Impression
-Found down at home, unknown amount of time
-a/w hypothermia, hypoglycemia, hypotension, TME, CPK elevated
-CSF culture and gram stain NTD, meningitis panel negative, flu negative, BCx NTD
-b/l LE wounds, necrotic toes
-MODE -improving
-rash, macular
-thrombocytopenia (nml during April 2025 hospitalization). no evidence of acute DIC with normal fibrinogen,copper, beta2 GPI. No B12 or folate deficiency. 07/13 smear review showed no evidence of microangiopathic RBC changes. Edenilson 56,000, now
improved to 72,000
-coagulopathy secondary to DOAC
-anemia -s/p IV iron, PRBC, in April 2025. April 2025 EGD- unremarkable, and c-scope - 2 small polyps removed, hemorrhoids. haptoglobin 13, ROMEL negative, ESR 3. ferritin 51 suggests component of JACOB -Hgb stable >9g/dL
-HFrEF
Plan
Plan
abx, antivirals per ID
dexamethasone per primary service
f/u cardiolipin, lupus anticoagulatn, vitamin C,
check heme stool
f/u lyme test, AFB, and follow cultures.
continue to evaluate for etiology of rash which is more likely caused by viral infection, drug reaction, allergic reaction, rhabdomyolysis, vitamin C deficiency, or autoimmune disease. Distribution does not seem petechial in nature so would be less
likely. Could consider derm biopsy.
Subjective/Objective
Subjective
96.9F, no hypotension, 2L NC
warming blanket
self removed dohoff overnight
Vital Signs:
Vital Signs
Temp Pulse Resp BP Pulse Ox
96.9 F L 125 10 130/95 100
07/16/25 09:00 07/16/25 09:37 07/16/25 09:00 07/16/25 09:37 07/16/25 08:01
Lab Results:
Laboratory Data
WBC 11.5 10^3/uL (4.8-10.8) H 07/16/25 02:52
Hgb 9.4 g/dL (12.0-16.0) L 07/16/25 02:52
Plt Count 72 10^3/uL (130-400) L D 07/16/25 02:52
PT 16.5 Sec (11.4-14.6) H 07/16/25 02:52
INR 1.30 07/16/25 02:52
APTT 27.5 Sec (23.4-35.0) 07/16/25 02:52
eGFR 56.11 07/16/25 02:52
Physical Exam
General: No Apparent Distress
HEENT: Moist Mucous Membranes; Negative Jaundice
Pulmonary: unlabored
GI: Soft
Extremities:Bilateral lower extremities edematous, left posterior calf/ankle weeping serous fluid. Bilateral toes with dry necrotic wounds
Skin: general macular rash distributed over b/l legs, arms, chest, abdomen
Psych: lethargic, unable or unwilling to open eyes to tactile stimuli
--- NOTE | 2025-07-16 09:58 | W.PN.ID1 ---
Date of Service
Date of Service: July 16, 2025
Today's Communication
Observe off antibiotics.
Assessment / Plan
Hypothermia; persists
s/p Hypotension off pressor
Leukocytosis
Petechial rash - improving
Necrotic toes; stable
Encephalopathy - improving
Acute thrombocytopenia
Hyponatremia - resolved
MODE - resolving
Lactic acidosis
HTN
A-fib
CHF
Hearing loss/deaf
Recommendations:
Blood cultures remain negative.
07/12 CSF 2 WBC -> infectious meningitis ruled out.
Meningoencephalitis panel negative
MRI brain: limited, no acute abnormality
Continue to observe off abx
Continue with supportive measures.
Monitor white count.
����������������������������������������������������������
Chief Complaint
-: Leukocytosis, Clinical Sepsis and Other (Rash)
Subjective / Review of Systems
Patient seen and examined. Temperatures remain low, and patient remains on the Rosendo hugger.
Vital Signs / Physical Exam
Vital Signs
Vital Signs
Temp Pulse Resp BP Pulse Ox
96.9 F L 125 10 130/95 100
07/16/25 09:00 07/16/25 09:37 07/16/25 09:00 07/16/25 09:37 07/16/25 08:01
Physical Exam
Constitutional: Comfortable and Chronically Ill
Eyes: No Conjunctival Hemorrhage and Sclera Anicteric
Cardiovascular: S1/S2 (tachycardic)
Pulmonary: Clear (anterior chest)
Gastrointestinal: Soft, Non Tender and Non Distended
Extremities: Edema (anasearca)
Skin: Rash (nonblanchable petechia BLE decreasd; macular rash on R forearm)
Wound: Other (Dermal necrosis of distal toes; R 2, 3, 5; L 2, 3, 4. Areas are dry and stable.)
Neurological: Other (Arousable)
Objective Data
Lab Data
Lab Results
07/16/25 02:52
07/16/25 02:52
ESR 3 mm/hour (0-20) 07/11/25 05:27
PT 16.5 Sec (11.4-14.6) H 07/16/25 02:52
INR 1.30 07/16/25 02:52
APTT 27.5 Sec (23.4-35.0) 07/16/25 02:52
Estimated Creat Clear 59 ml/min 07/16/25 02:52
Lactic Acid 1.7 mmol/L (0.7-2.0) 07/11/25 15:55
Total Bilirubin 1.0 mg/dl (0.2-1.3) 07/16/25 02:52
AST 39 U/L (14-36) H 07/16/25 02:52
ALT 27 U/L (0-35) 07/16/25 02:52
Alkaline Phosphatase 92 U/L (38-126) 07/16/25 02:52
C-Reactive Protein 138.80 mg/L (0.0-10.00) H 07/11/25 05:27
Most recent labs reviewed.
Micro Results:
07/11/25 02:48 Blood Culture - Final
Blood/Venous No Growth - Final Report
07/11/25 02:48 Blood Culture - Final
Blood/Venous No Growth - Final Report
07/12/25 15:35 CSF Culture - Preliminary
Csf No Growth After 72 Hours
Gram Stain - Preliminary
07/12/25 15:35 Acid Fast Bacilli Smear - Preliminary
Csf Acid Fast Bacilli Culture - Preliminary
07/12/25 15:35 Meningitis/Encephalitis Panel (PCR) - Final
Csf
07/11/25 02:48 Influenza Types A & B ([facility]) - Final
Nasal Swab Negative for Influenza A & B, NAAT
Negative results must be combined with clinical observations
and patient history.
Nucleic Acid Amplification test (NAAT)performed on the
[employer] platform.
Imaging:
07/14/25 MRI brain: Exam limited by motion artifact. No acute intracranial abnormality noted.
07/11/2025 CXR (portable): small right pleural effusion with associated consolidation (atelectasis and/or pneumonia). No visualized pneumothorax. Please see full dictation for additional detail. Film personally viewed.
07/11/2025 CT head without contrast: no acute intracranial abnormality noted.
Care Review
Plan reviewed with: Nurse and Physician (Hospitalist)
--- NOTE | 2025-07-16 11:26 | PTOTSP ---
Speech Therapy Follow-up:
Pt without significant predisposing risk factors of dysphagia. Precipitating risk factors include mentation, suspected cognitive deficits, and general weakness compounded by current dx of acute toxic metabolic encephalopathy. Given bedside
performance, improvement in chest imaging, and no increase in O2 requirements, recommend cautious diet initiation as follows:
Recommend:
1. Cautious diet initiation of IDDSI Level 4 (puree) and thin liquids. Low threshold to d/c oral diet and make NPO if concerned for aspiration or worsening in respiratory status/chest imaging.
2. Medications crushed in puree
3. 1:1 assistance and supervision with intake
4. Strict aspiration precautions
5. Only feed when awake, alert, and accepting
6. RADIOTELEGRAPH OPERATOR to closely follow to monitor tolerance of diet s/p initiation, assess candidacy for future diet upgrades, and to determine if pt would benefit from instrumental assessment of swallowing
[2025-07-16] MEDS: LANOXIN 125 MCG IV (11:29)
[2025-07-16 11:41] LABS: Lyme Disease DNA by PCR Not Detected; Lyme Source CSF
[2025-07-16 11:55] LABS: Glucose - Point of Care 150 mg/dl (70-99)
--- NOTE | 2025-07-16 12:06 | W.PN.HOSP.TC ---
Today's Communication/Plan
-
Puree diet-monitor po intake
IV rate control agents for now
monitor off abx
await Neuro input
Heme input
requiring intermittent magi hugger
Assessment / Plan
Assessment / Plan
General: Chronically ill-appearing, on magi hugger
HEENT: Other (Dry MM. Neck supple. No JVD or HJR.)
Respiratory: Other (Decreased BS bilaterally. No W/R/R.)
Cardiac: S1/S2, positive slight murmur
GI: Soft, Non Tender, Non Distended and Normal Bowel Sounds
Musculoskeletal: Other (Erythema / rubor of all 4 extremities. Necrotic appearing lesions to the tips of toes. 3-4+ pitting edema b/l LEs.)
Skin: Other (Petechiae scattered across arms / legs with confluent erythema. Petechiae scattered across shoulders / chest-seems to have improved) sacral bilateral pressure injury stage II likely.
Neuro: awake intermittently.
A/P: Patient is a 65y F with PMH significant for A-Fib, CHF and hearing impairment who presents to ED after being found down at home by family.
Acute acute toxic metabolic encephalopathy likely secondary to suspected prolonged downtime associated with severe hypoglycemia, hypothermia and hypotension
Hypothermia likely 2/2 autonomic dysfunction
Hypotension likely 2/2 severe dehydration due to suspected prolonged down time
- Pulse dose steroids reduce dose and can start weaning down further
- Status post aggressive IV fluids and pressor. BP stable with midodrine..
- TSH is normal. Cortisol normal
- CT head without acute abnormalities.
- EEG routine noted. s/p extended EEG earlier today. awaiting further input.
- Status post lumbar puncture with mildly elevated glucose and total protein. WBC 2. Acute meningitis panel negative. VDRL pending. cryptococcus negative. CSF lyme studies negative. Antiviral and antibiotics has been discontinued
- MRI of the brain with and without contrast with limited evaluation and no acute intracranial abnormality was noted.
- Neurology recs
Dysphagia
-removed DHT.
-Seen by speech therapy and recs puree diet w/thin liquids with close supervision.
-will monitor po intake. If not enough calories peg vs. hospice. Pt removed DHT x 2 already.
Thrombocytopenia
Coagulopathy
Leukocytosis
Microcytic Anemia
- IV steroids acutely as noted above. Follow-up labs.
- Hold Eliquis acutely. INR trending down to 13. Platelets plateau ?
- Had GI evaluation during most recent hospital stay - no clear evidence of GI blood loss.
- Hgb with some stability
- Anemia, B12 and folate appropriate.. Antiphospholipid panel and ROMEL pending.
Petechial rash
- improving. Continue to monitor for now.
Skin Breakdown / Necrosis b/l Toes
Dusky fingers likely 2/2 hypothermia-Upper B/L UE doppler pending.
- Likely due to decreased perfusion (suspect fairly prolonged time down).
- Pulses present on exam.
- Wound Care eval for local care. CT aorta runoff eventually
- Vascular surgery consulted
MODE
Elevated CPK/mild rhabdo likely 2/2 prolonged down time.
Metabolic acidosis
- Cr at baseline. Monitor cr with diuresis.
- Likely decreased perfusion with hypotension, hypothermia, etc as noted above.
- Lactate elevated on admission downtrended with IVF.
- Status post aggressive IV fluids. Holding diuretics.
- UA without evidence of pigment nephropathy. Acidosis improved.
- Pillai placed in the ED for critical care I/Os and continuous temperature monitoring.
Chronic HFrEF
Iatrogenic volume overload
- Echo done 07/2025 showed LVEF = 30-35%, severe TR, moderate MR.
- Start Lasix 40 mg daily and monitor urine response. May require additional diuretics
- Follow I/Os, daily eights, etc.
Hyponatremia
-Sodium stabilized.
Paroxysmal Atrial Fibrillation with mild rapid ventricular response
- Stable. Rate controlled. Hold Eliquis acutely as noted above. On Lopressor. Will add digoxin.
- Monitor on telemetry. If platelets remains stable-start hep gtt in next 24h.
Hearing Impairment
- Uses ASL for communication.
Sacral pressure injury stage II-poa
Stage 2 right elbow pressure injury, POA
-wound care
DVT Prophylaxis: can be probably start dvt ppx in 24h
Code Status: Full
update brother over the phone in details.
Tx to tele if they can do intermittent magi hugger.
Anticipated Discharge: > 48 hours
Subjective/Interval History
-
Date of Service: July 16, 2025
intermittently remains awake
underwent extended eeg earlier this morning
was seen by speech therapy
Objective Data
-
Labs:
Laboratory Results
07/16/25
02:52
WBC 11.5 H
Hgb 9.4 L
Hct 32.2 L
Plt Count 72 L D
PT 16.5 H
INR 1.30
APTT 27.5
Sodium 145
Potassium 4.5
Chloride 113 H
Carbon Dioxide 24
BUN 63 H
Creatinine 1.1 H
Glucose 166 H
Calcium 9.3
Total Bilirubin 1.0
AST 39 H
ALT 27
Alkaline Phosphatase 92
Vital Signs:
Vital Signs
Temp Pulse Resp BP Pulse Ox
97 F 125 10 130/95 100
07/16/25 11:06 07/16/25 09:37 07/16/25 09:00 07/16/25 09:37 07/16/25 08:01
I&O
07/15/25 07/16/25 07/17/25
06:59 06:59 06:59
Intake Total 1650 / 1650 690 / 690 120 / 120
Output Total 655 / 655 1964 550 / 550
Balance 995 / 995 -1275 / -1325 -430 / -430
Data Reviewed
-
Total Time Spent with Patient (in minutes): 58
--- NOTE | 2025-07-16 13:00 | PTCARENOTE ---
EEG completed at bedside, no need for continuous EEG, patient then seen by speech. was able to follow simple commands and cleared for regular thins. will feed.
--- NOTE | 2025-07-16 13:19 | EEG.RPT ---
Electroencephalogram Report
Recording
Date of EE07/16/25
Type of EEG: Routine
Length of EEG recordin minutes
Done with Video Recording: Yes
Patient Status: Inpatient
Recording Conditions: Awake and Drowsy
Hyperventilation Performed: No
Photic Stimulation Performed: Yes
Report
LESS THAN 1 HOUR EEG REPORT
LESS THAN 1 HOUR EEG INTERPRETATION:
Moderately abnormal EEG for age in wakefulness through drowsiness due diffuse bihemispheric slowing
CLINICAL CORRELATION:
This study was suggestive of a generalizing diffuse cortical dysfunction without focal abnormality. In comparison with the prior study of 07/12/2025 there was no significant change. No seizures were recorded.
Clinical correlation is advised.
METHODS:
A 21 channel digitized electroencephalogram (EEG) was performed in the ICU. The 10/20 international system of electrode placement was used with ECG and lateral/vertical eye movements recorded. Video was recorded. The [employer] quantitative review
system was utilized.
QUALITY OF STUDY:
Fair due to movement artifact
ELECTROENCEPHALOGRAPHER IMPRESSION(S):
Background
Amplitude: Unremarkable
Anterior-Posterior Organization: Fair
Maximum: Theta
Asymmetry: None
Sleep: Drowsiness present
Photic Stimulation: Failed to activate the record.
ECG Normal sinus rhythm
--- NOTE | 2025-07-16 14:29 | CM ---
Chart reviewed and recommendation is for skilled placement, will reviewed options with patient and brother.
Plan; Needs skilled placement.
--- NOTE | 2025-07-16 14:36 | W.PN.NEURO.1 ---
Addendum entered and electronically signed by Jose Estevez MD 07/16/25 20:45:
I have seen and examined the patient today along with nurse practitioner Spring Saucedo, and I agree with her assessment and the management plan. The following is my addendum.
The patient is a 65 years old female who had a sudden change in mental status following significant hypotension and hypoglycemia with a reported blood glucose level of 24. The patient likely has toxic metabolic encephalopathy. MRI is negative for
stroke. EEG is moderately abnormal due to diffuse bihemispheric slowing, which suggests a diffuse cortical dysfunction without focal abnormality, and there were no seizures recorded.
On neurologic examination the patient was unable to cooperate with examination. She withdraws her limbs to pain and there was no gaze preference seen. Also there was no seizure-like activity observed. The lumbar puncture did not show any
infectious etiology.
Will follow.
Original Note:
Today's Communication / Plan
-
.
Neuro Assessment/Plan
Assessment
Abrupt onset of change in mental status following significant hypotension, hypoglycemia, and acute kidney insufficiency
Differential diagnosis currently still remains toxic metabolic encephalopathy, EEG with diffuse slowing is supportive of this. MRI was negative for stroke. It is unlikely that she is seizing because she withdrawals to pain and no forced gaze
deviation and no seizure activity noted. Lumbar puncture failed to demonstrate infectious etiology
-EEG 07/16/25: Moderately abnormal EEG for age in wakefulness through drowsiness due diffuse bihemispheric slowing.
Plan
Supportive care.
Provide thiamine.
Subjective/Objective
Subjective Data
Date of Service: July 16, 2025
No acute events overnight. Patient remains lethargic.
Objective Data
Vital Signs
Temp Pulse Resp BP Pulse Ox
97.1 F 99 11 128/86 99
07/16/25 14:00 07/16/25 14:00 07/16/25 14:00 07/16/25 14:00 07/16/25 14:00
Lab Results
07/16/25 02:52
07/16/25 02:52
PT 16.5 Sec (11.4-14.6) H 07/16/25 02:52
INR 1.30 07/16/25 02:52
APTT 27.5 Sec (23.4-35.0) 07/16/25 02:52
Sodium 145 mmol/L (135-145) 07/16/25 02:52
Potassium 4.5 mmol/L (3.5-5.1) 07/16/25 02:52
BUN 63 mg/dl (7-17) H 07/16/25 02:52
Glucose 166 mg/dl (70-99) H 07/16/25 02:52
Calcium 9.3 mg/dl (8.4-10.2) 07/16/25 02:52
Phosphorus 5.3 mg/dl (2.5-4.5) H 07/12/25 02:53
Qkg-N-Tpnfgirioft Pept 6560 pg/ml 07/11/25 00:08
Vitamin B12 > 1000 pg/ml (239-931) H 07/13/25 03:15
Patient Allergies
No Known Allergies Allergy (Verified 07/20/23 18:56)
Review of Systems
-
Unable to obtain full review of systems at this time due to: Lethargy
Physical Exam
-
General: No Apparent Distress
Eyes: No Ptosis and PERRLA
HEENT: Normocephalic and Atraumatic
Neck: Full Range of Motion
Extended Neurological Exam
Attention Span & Concentration: Lethargic, Closes Eyes after Stimulation and Other (follows some basic mimics)
Memory: Unable to Assess
Tremor: Hand Tremor Absent and Head Tremor Absent
Speech: Unable to Assess
Cranial Nerve II: Left Eye: Pupillary Reactivity Unremarkable, Pupillary Size Unremarkable and Unable to Assess Visual Queen
Cranial Nerve II: Right Eye: Pupillary Reactivity Unremarkable, Pupillary Size Unremarkable and Unable to Assess Visual Queen
Cranial Nerves III, IV, : Extraocular Movement: Extraocular Movement Full in all Directions
Cranial Nerve VII: Facial Symmetry: Normal Facial Symmetry
Cranial Nerve VIII: Hearing: Other (deaf bilaterally)
Muscle Strength, Overall: Spontaneously Moves and Other (withdraws in all extremities)
Data Reviewed
-
MRI Head: Report Reviewed and Image Reviewed
Medical Test Reports: Report Reviewed
Labs: Report Reviewed
Reviewed with: Physician and Nurse
Medications
-
Active Medications
Generic Name Dose Route Start Last Admin
Trade Name Freq PRN Reason Stop Dose Admin
Acetaminophen 650 mg 07/11/25 05:16
Acetaminophen 325 Mg Tablet PO 08/08/25 05:15
Q4HPRN PRN
Mild Pain / Temp > 101
Dexamethasone Sodium Phosphate 6 mg 07/14/25 08:00 07/16/25 07:58
Dexamethasone 4 Mg/Ml 1 Ml Vial IV 08/11/25 07:59 6 mg
DAILY CHAY Administration
Digoxin 125 mcg 07/14/25 13:00 07/16/25 11:29
Digoxin 500 Mcg/2 Ml Ampul (250 Mcg/Ml) IV 08/11/25 12:59 125 mcg
NOON CHAY Administration
Furosemide 40 mg 07/15/25 11:00 07/16/25 07:58
Furosemide 40 Mg (10 Mg/Ml) 4 Ml Vial IV 08/12/25 10:59 40 mg
DAILY CHAY Administration
Metoprolol Tartrate 37.5 mg 07/15/25 20:00 07/16/25 08:46
Metoprolol 25 Mg Regular Release Tablet TUBE 08/09/25 19:59 Not Given
On Hold: 07/16/25 08:25 BID CHAY
Metoprolol Tartrate 5 mg 07/16/25 10:00 07/16/25 09:37
Metoprolol 5 Mg/5 Ml Vial IV 08/13/25 09:59 5 mg
Q6H CHAY Administration
Miconazole Nitrate 0 applic 07/11/25 09:00 07/16/25 07:59
Miconazole Powder Bottle TOPICAL 08/08/25 08:59 1 applic
BID CHAY Administration
Midodrine 2.5 mg 07/12/25 13:00 07/16/25 12:11
Midodrine 2.5 Mg Tablet PO Not Given
TID@0800,1300,1800 CHAY
Pantoprazole Sodium 40 mg 07/12/25 11:00 07/16/25 07:57
Pantoprazole Sodium 40 Mg/10 Ml Vial IV 08/09/25 10:59 40 mg
DAILY CHAY Administration
Sodium Chloride 0 flush 07/11/25 05:00
Sodium Chloride 0.9% (Flush) Syringe IV 08/08/25 04:59
PER PROTOCOL CHAY
Sodium Chloride 10 ml 07/12/25 11:00 07/16/25 07:57
Sodium Chloride 0.9% (Preservative Free) 10 Ml Vial IV 08/09/25 10:59 10 ml
DAILY CHAY Administration
Thiamine HCl 100 mg 07/13/25 15:00 07/16/25 07:58
Thiamine (100 Mg/Ml) 2 Ml Vial IV 07/16/25 14:59 100 mg
DAILY CHAY Administration
Home Medications
�Medication �Instructions �Recorded
apixaban 5 mg tablet (Eliquis) 5 mg PO BID #60 tabs 08/06/24
digoxin 250 mcg (0.25 mg) tablet 250 mcg PO NOON #30 tabs 08/06/24
lisinopril 10 mg tablet 10 mg PO DAILY #30 tabs 08/06/24
metoprolol succinate 100 mg 100 mg PO BID #60 tabs 08/06/24
tablet,extended release 24 hr
spironolactone 25 mg tablet 25 mg PO DAILY #30 tabs 08/06/24
furosemide 40 mg tablet 40 mg PO QMWF #30 tabs 04/24/25
--- NOTE | 2025-07-16 17:27 | PTCARENOTE ---
Patient starting to wake up more, was able to nod appropriately and said 'hi'
[2025-07-16 17:49] LABS: Glucose - Point of Care 134 mg/dl (70-99)
--- NOTE | 2025-07-16 18:35 | PTCARENOTE ---
Patient sat up at almost 90 degrees, was awake, and able to hold her head up. She said 'hi' and 'yes' when asked if she was ok. ate 75% of pureed meal. will continue to turn and reposition. maintained aspiration precautions with feeding
[2025-07-16 20:05] LABS: CSF VDRL (T. pallidum) Non Reactive (Non Reactive)
[2025-07-16 21:07] LABS: Glucose - Point of Care 154 mg/dl (70-99)
[2025-07-17] VITALS (11 sets, daily range): BP systolic 138–159; BP diastolic 96–115; PULSE 93–111
[2025-07-17] MEDS: LOPRESSOR 5 MG IV (03:47)
--- NOTE | 2025-07-17 07:41 | PN.CDI ---
CDI
- -
CDI:
Physician Documentation Request
Admit Date: 07/11/25 03:32
Dear Doctor Aly,
Please review the following and provide your response in the progress notes.
Clinical Indicators:
- 07/13 PN 'Permanent Atrial Fibrillation'
- 07/14 PN 'Paroxysmal Atrial Fibrillation with mild rapid ventricular response'
- 07/11 EKG and Echo with atrial fibrillation
- Prior admission April, indicates permanent atrial fibrillation
If possible, please provide further specificity regarding atrial fibrillation, such as:
Paroxysmal atrial fibrillation - terminates spontaneously or with intervention within 7 days of onset
Permanent atrial fibrillation - when a decision has been made to accept the presence of AF and there is no further attempt to restore or maintain sinus rhythm
Other - please specify
Use of terms such as suspected, likely, concern for, or probable (associated with a specific diagnosis that is being evaluated, monitored, or treated as if it exists) are acceptable and can be coded in the inpatient setting, when documented at the
time of discharge.
Thank you,
Kayla Ro RN
CDI Specialist
Please use your independent medical judgment in providing your response.
[2025-07-17] MEDS: DECADRON 6 MG IV (08:09)
[2025-07-17] MEDS: LASIX 40 MG IV (08:10)
[2025-07-17] MEDS: NSS (PRESERVATIVE FREE) 10 ML IV (08:12)
[2025-07-17] MEDS: PROTONIX IV 40 MG IV (08:13)
--- NOTE | 2025-07-17 08:21 | W.PN.HOSP.TC ---
Today's Communication/Plan
-
hep gtt for now
po lopressor-may need to adjust dose
observe off abx
CM-hospice eval.
Assessment / Plan
Assessment / Plan
General: Chronically ill-appearing,
HEENT: Other (Dry MM. Neck supple. No JVD or HJR.)
Respiratory: Other (Decreased BS bilaterally. No W/R/R.)
Cardiac: S1/S2, positive slight murmur
GI: Soft, Non Tender, Non Distended and Normal Bowel Sounds
Musculoskeletal: Other (Erythema / rubor of all 4 extremities. Necrotic appearing lesions to the tips of toes. 2+pitting edema-improved
Skin: Other (Petechiae scattered across arms / legs with confluent erythema. Petechiae scattered across shoulders / chest-seems to have improved) sacral bilateral pressure injury stage II likely.
Neuro: awake
A/P: Patient is a 65y F with PMH significant for A-Fib, CHF and hearing impairment who presents to ED after being found down at home by family.
Acute acute toxic metabolic encephalopathy likely secondary to suspected prolonged downtime associated with severe hypoglycemia, hypothermia and hypotension
Hypothermia likely 2/2 autonomic dysfunction
Hypotension likely 2/2 severe dehydration due to suspected prolonged down time
- Pulse dose steroids reduce dose and can start weaning down further
- Status post aggressive IV fluids and pressor. BP stable with midodrine..
- TSH is normal. Cortisol normal
- CT head without acute abnormalities.
- EEG routine noted. s/p extended EEG .
- Status post lumbar puncture with mildly elevated glucose and total protein. WBC 2. Acute meningitis panel negative. VDRL pending. cryptococcus negative. CSF lyme studies negative. Antiviral and antibiotics has been discontinued
- MRI of the brain with and without contrast with limited evaluation and no acute intracranial abnormality was noted.
- Neurology recs
Dysphagia
-removed DHT.
-Seen by speech therapy and recs puree diet w/thin liquids with close supervision.
-will monitor po intake. If not enough calories peg vs. hospice. Pt removed DHT x 2 already.
Thrombocytopenia
Coagulopathy
Leukocytosis
Microcytic Anemia
- IV steroids acutely as noted above. Follow-up labs. Start weaning down steroids.
- Hold Eliquis acutely. INR trending down. Platelets stabilization and uptrending. Will start hep gtt and monitor.
- Had GI evaluation during most recent hospital stay - no clear evidence of GI blood loss.
- Hgb with some stability
- Anemia, B12 and folate appropriate.. Antiphospholipid panel and ROMEL pending.
Petechial rash
- improving. Continue to monitor for now.
Skin Breakdown / Necrosis b/l Toes
Dusky fingers likely 2/2 hypothermia-Upper B/L UE doppler pending.
- Likely due to decreased perfusion (suspect fairly prolonged time down).
- Pulses present on exam.
- Wound Care eval for local care. CT aorta runoff eventually
- Vascular surgery consulted
MODE
Elevated CPK/mild rhabdo likely 2/2 prolonged down time.
Metabolic acidosis
- Cr at baseline. Monitor cr with diuresis.
- Likely decreased perfusion with hypotension, hypothermia, etc as noted above.
- Lactate elevated on admission downtrended with IVF.
- Status post aggressive IV fluids.
- UA without evidence of pigment nephropathy. Acidosis improved.
Chronic HFrEF
Iatrogenic volume overload
- Echo done 07/2025 showed LVEF = 30-35%, severe TR, moderate MR.
- Start Lasix 40 mg daily and monitor urine response. May require additional diuretics. Edema improving.
- Follow I/Os, daily eights, etc.
Hyponatremia
-Sodium stabilized.
Persistent Atrial Fibrillation with mild rapid ventricular response
- Stable. Rate controlled. On Lopressor. Will add digoxin.
- Monitor on telemetry. Start hep gtt and monitor platelets closely.
Hearing Impairment
- Uses ASL for communication.
Sacral pressure injury stage II-poa
Stage 2 right elbow pressure injury, POA
-wound care
DVT Prophylaxis: hep gtt
Code Status: Full
update brother over the phone in details. patient with multiple medical comorbidities and remains with poor mentation and will probably require further surgical debridement versus amputation of the toe. Brother would like to more information on
hospice. No decision made yet. Case management aware.
Anticipated Discharge: > 48 hours
Subjective/Interval History
-
Date of Service: July 17, 2025
sitting up
about to eat breakfast with assistance
Objective Data
-
Labs:
Laboratory Results
07/17/25
07:46
WBC Pending
Hgb Pending
Hct Pending
Plt Count Pending
Sodium Pending
Potassium Pending
Chloride Pending
Carbon Dioxide Pending
BUN Pending
Creatinine Pending
Glucose Pending
Calcium Pending
Total Bilirubin Pending
AST Pending
ALT Pending
Alkaline Phosphatase Pending
Vital Signs:
Vital Signs
Temp Pulse Resp BP Pulse Ox
98.1 F 102 20 138/103 100
07/17/25 03:05 07/17/25 04:36 07/17/25 03:05 07/17/25 04:36 07/17/25 03:05
I&O
07/16/25 07/17/25 07/18/25
06:59 06:59 06:59
Intake Total 690 / 690 840 / 840
Output Total 1964 2390 / 2390
Balance -1275 / -1325 -1550 / -1550
Data Reviewed
-
Total Time Spent with Patient (in minutes): 60
[2025-07-17] MEDS: DESENEX/MITRAZOL/ZEASORB 1 APPLIC TOPICAL ×2 (08:24→20:06)
[2025-07-17 09:04] LABS: Hematocrit 32.9 % (37.0-47.0); Hemoglobin 9.5 g/dL (12.0-16.0); Mean Corp Hgb Conc. 28.9 g/dL (33.0-37.0); Mean Corpuscular Volume 79.9 fL (81.0-99.0); Nucleated Red Blood Cells % 1.3 %; Platelet Count 86 10^3/uL (130-400); Red Cell Dist. Width 24.5 % (11.5-14.5)
[2025-07-17 09:15] LABS: ALT (SGPT) 26 U/L (0-35); AST (SGOT) 33 U/L (14-36); Albumin 3.0 g/dl (3.5-5.0); Alkaline Phosphatase 96 U/L (38-126); Blood Urea Nitrogen 66 mg/dl (7-17); Calcium 8.9 mg/dl (8.4-10.2); Carbon Dioxide 29 mmol/L (22-30); Chloride 109 mmol/L (98-107); Estimated Creatinine Clearance 52 ml/min; Glucose 119 mg/dl (70-99); Potassium 4.5 mmol/L (3.5-5.1); Sodium 144 mmol/L (135-145); Total Protein 6.1 g/dl (6.3-8.2); eGFR 56.11
--- NOTE | 2025-07-17 09:57 | W.PN.ONC ---
Today's Communication / Plan
-
Hypothermia could explain thrombocytopenia - w/u and mgmt of hypothermia, autonomic dysfunction per primary team
Hypothermia could also cause some hemolysis. With low iron, and no evidence for infection, will start IV iron repletion
Heme testing of stool ordered yesterday
No objection to a/c for Afib
Continue to monitor CBC
Impression
Impression
Found down at home, rhabdo, MODE
Hypothermia
Thrombocytopenia
Microcytic anemia, low iron, suspected mild hemolysis
Afib
Deafness
Plan
Plan
Hypothermia could explain thrombocytopenia - w/u and mgmt of hypothermia, autonomic dysfunction per primary team
Hypothermia could also cause some hemolysis. With low iron, and no evidence for infection, will start IV iron repletion
Heme testing of stool ordered yesterday
No objection to a/c for Afib
Continue to monitor CBC
Subjective/Objective
Subjective/Objective
no new issues or focal complaints, difficult to converse with due to deafness
Vital Signs:
Vital Signs
Temp Pulse Resp BP Pulse Ox
97.3 F 104 16 148/100 99
07/17/25 07:45 07/17/25 08:10 07/17/25 07:45 07/17/25 08:10 07/17/25 07:45
Lab Results:
Laboratory Data
WBC 8.9 10^3/uL (4.8-10.8) 07/17/25 07:46
Hgb 9.5 g/dL (12.0-16.0) L 07/17/25 07:46
Plt Count 86 10^3/uL (130-400) L 07/17/25 07:46
PT 16.5 Sec (11.4-14.6) H 07/16/25 02:52
INR 1.30 07/16/25 02:52
APTT 27.5 Sec (23.4-35.0) 07/16/25 02:52
eGFR 56.11 07/17/25 07:46
[2025-07-17] MEDS: LOPRESSOR 37.5 MG PO ×2 (11:43→20:03)
[2025-07-17] MEDS: LANOXIN 125 MCG IV (11:49)
[2025-07-17] MEDS: HEPARIN 25000 UNITS/250 ML IV (13:33)
[2025-07-17] MEDS: FERRLECIT 110 MG IV (14:57)
--- NOTE | 2025-07-17 15:36 | W.PN.ID1 ---
Date of Service
Date of Service: July 17, 2025
Today's Communication
Sign off.
Assessment / Plan
Hypothermia; persists
s/p Hypotension off pressor
Leukocytosis
Petechial rash - improving
Necrotic toes; stable
Encephalopathy - improving
Acute thrombocytopenia
Hyponatremia - resolved
MODE - resolving
Lactic acidosis
HTN
A-fib
CHF
Hearing loss/deaf
Recommendations:
Blood cultures remain negative.
07/12 CSF 2 WBC -> infectious meningitis ruled out.
Meningoencephalitis panel negative
MRI brain: limited, no acute abnormality
Continue off abx
Continue with supportive measures.
Of present, no infectious etiology noted.
Little more to offer from a Infectious Diseases standpoint.
Will see again at your request.
����������������������������������������������������������
Chief Complaint
-: Leukocytosis, Clinical Sepsis and Other (Rash)
Subjective / Review of Systems
Review of Systems: No Fever
Vital Signs / Physical Exam
Vital Signs
Vital Signs
Temp Pulse Resp BP Pulse Ox
97.5 F 111 18 145/102 99
07/17/25 12:42 07/17/25 13:28 07/17/25 12:42 07/17/25 13:28 07/17/25 12:42
Physical Exam
Constitutional: No Acute Distress, Comfortable, Chronically Ill and Non-toxic
Eyes: No Conjunctival Hemorrhage and Sclera Anicteric
Cardiovascular: S1/S2
Pulmonary: Clear (anterior chest)
Gastrointestinal: Soft, Non Tender and Non Distended
Extremities: Edema (anasearca)
Wound: Other (Dermal necrosis of distal toes; R 2, 3, 5; L 2, 3, 4. Areas are dry and stable.)
Neurological: Awake and Alert
Psychological: Calm
Objective Data
Lab Data
Lab Results
07/17/25 07:46
07/17/25 07:46
ESR 3 mm/hour (0-20) 07/11/25 05:27
PT 16.5 Sec (11.4-14.6) H 07/16/25 02:52
INR 1.30 07/16/25 02:52
APTT 27.5 Sec (23.4-35.0) 07/16/25 02:52
Estimated Creat Clear 52 ml/min 07/17/25 07:46
Lactic Acid 1.7 mmol/L (0.7-2.0) 07/11/25 15:55
Total Bilirubin 1.2 mg/dl (0.2-1.3) 07/17/25 07:46
AST 33 U/L (14-36) 07/17/25 07:46
ALT 26 U/L (0-35) 07/17/25 07:46
Alkaline Phosphatase 96 U/L (38-126) 07/17/25 07:46
C-Reactive Protein 138.80 mg/L (0.0-10.00) H 07/11/25 05:27
Most recent labs reviewed.
Micro Results:
07/12/25 15:35 CSF Culture - Final
Csf No Growth After 5 Days - Final Report
Gram Stain - Final
07/11/25 02:48 Blood Culture - Final
Blood/Venous No Growth - Final Report
07/11/25 02:48 Blood Culture - Final
Blood/Venous No Growth - Final Report
07/12/25 15:35 Acid Fast Bacilli Smear - Preliminary
Csf Acid Fast Bacilli Culture - Preliminary
07/12/25 15:35 Meningitis/Encephalitis Panel (PCR) - Final
Csf
07/11/25 02:48 Influenza Types A & B ([facility]) - Final
Nasal Swab Negative for Influenza A & B, NAAT
Negative results must be combined with clinical observations
and patient history.
Nucleic Acid Amplification test (NAAT)performed on the
[employer] platform.
Imaging:
07/14/25 MRI brain: Exam limited by motion artifact. No acute intracranial abnormality noted.
07/11/2025 CXR (portable): small right pleural effusion with associated consolidation (atelectasis and/or pneumonia). No visualized pneumothorax. Please see full dictation for additional detail. Film personally viewed.
07/11/2025 CT head without contrast: no acute intracranial abnormality noted.
[2025-07-17 15:49] LABS: APTT 26.9 Sec (23.4-35.0)
--- NOTE | 2025-07-17 16:31 | CM ---
CM referral response: called Hospice nurse to speak to son about hospice care and palliative care. Name and phone number provided
Plan: TBD
--- NOTE | 2025-07-17 18:48 | PTCARENOTE ---
Received patient this am AAOx2. Pt intermittently forgetful an confused. Pillai discontinued at 1245pm. Pt incontinent of yellow urine in Pure Wick Container. Pt tolerated diet well. Turned an repositioned patient. Made pt comfortable. Cont to
assess patient status..
[2025-07-17 20:15] LABS: APTT 82.3 Sec (23.4-35.0)
--- NOTE | 2025-07-17 22:36 | PTCARENOTE ---
Notified GAS BURNER OPERATOR regarding pt's manual blood pressure 150/100. Pt did receive 8pm Lopressor around 20:03. GAS BURNER OPERATOR aware. Will continue to monitor pt.
[2025-07-18] VITALS (8 sets, daily range): BP systolic 127–159; BP diastolic 91–115; PULSE 98; O2SAT 98; BMI 26.3
[2025-07-18 03:42] LABS: APTT 77.1 Sec (23.4-35.0)
[2025-07-18 03:55] LABS: ALT (SGPT) 26 U/L (0-35); AST (SGOT) 35 U/L (14-36); Albumin 2.8 g/dl (3.5-5.0); Alkaline Phosphatase 86 U/L (38-126); Blood Urea Nitrogen 59 mg/dl (7-17); Calcium 8.5 mg/dl (8.4-10.2); Carbon Dioxide 29 mmol/L (22-30); Chloride 104 mmol/L (98-107); Estimated Creatinine Clearance 64 ml/min; Glucose 123 mg/dl (70-99); Potassium 4.3 mmol/L (3.5-5.1); Sodium 137 mmol/L (135-145); Total Protein 5.9 g/dl (6.3-8.2); eGFR > 60.00
[2025-07-18 04:47] LABS: Hematocrit 31.4 % (37.0-47.0); Hemoglobin 9.3 g/dL (12.0-16.0); Mean Corp Hgb Conc. 29.6 g/dL (33.0-37.0); Mean Corpuscular Volume 80.7 fL (81.0-99.0); Nucleated Red Blood Cells % 0.7 %; Platelet Count 81 10^3/uL (130-400); Red Cell Dist. Width 24.1 % (11.5-14.5)
[2025-07-18] MEDS: NSS (PRESERVATIVE FREE) 10 ML IV (08:30)
[2025-07-18] MEDS: PROTONIX IV 40 MG IV (08:30)
[2025-07-18] MEDS: LASIX 40 MG IV (08:43)
[2025-07-18] MEDS: DECADRON 4 MG IV (08:43)
[2025-07-18] MEDS: LOPRESSOR 37.5 MG PO ×2 (08:43→20:05)
[2025-07-18] MEDS: DESENEX/MITRAZOL/ZEASORB 1 APPLIC TOPICAL ×2 (08:45→20:06)
--- NOTE | 2025-07-18 09:59 | HOSPNOTE ---
Spoke with brother and discussed hospice. He stated that the patient would not be able to come home since there is no one to care for her. They would need to seek placement in a SNF and then possibly transition to hospice at a later date. It was
suggested to try rehab first and then make some decisions from there. Patient remains a full code at this time. CM updated.
--- NOTE | 2025-07-18 12:08 | W.PN.HOSP.TC ---
Today's Communication/Plan
-
Monitor vitals
See plan
Brother to come in today to see patient
Continue with current diet
Continue with IV heparin
Mental status improving
Assessment / Plan
Assessment / Plan
General: Chronically ill-appearing,
HEENT: Other (Dry MM. Neck supple. No JVD or HJR.)
Respiratory: Other (Decreased BS bilaterally. No W/R/R.)
Cardiac: S1/S2, positive slight murmur
GI: Soft, Non Tender, Non Distended and Normal Bowel Sounds
Musculoskeletal: Other (Erythema / rubor of all 4 extremities. Necrotic appearing lesions to the tips of toes. 2+pitting edema-improved
Skin: Other (Petechiae scattered across arms / legs with confluent erythema. Petechiae scattered across shoulders / chest-seems to have improved) sacral bilateral pressure injury stage II likely.
Neuro: awake
A/P: Patient is a 65y F with PMH significant for A-Fib, CHF and hearing impairment who presents to ED after being found down at home by family.
Acute acute toxic metabolic encephalopathy likely secondary to suspected prolonged downtime associated with severe hypoglycemia, hypothermia and hypotension
Hypothermia likely 2/2 autonomic dysfunction
Hypotension likely 2/2 severe dehydration due to suspected prolonged down time
- Pulse dose steroids reduce dose and can start weaning down further
- Status post aggressive IV fluids and pressor. BP stable with midodrine..
- TSH is normal. Cortisol normal
- CT head without acute abnormalities.
- EEG routine noted. s/p extended EEG .
- Status post lumbar puncture with mildly elevated glucose and total protein. WBC 2. Acute meningitis panel negative. VDRL pending. cryptococcus negative. CSF lyme studies negative. Antiviral and antibiotics has been discontinued
- MRI of the brain with and without contrast with limited evaluation and no acute intracranial abnormality was noted.
- Neurology recs
Dysphagia
-removed DHT.
-Seen by speech therapy and Now on regular diet
Thrombocytopenia
Coagulopathy
Leukocytosis
Microcytic Anemia
- IV steroids acutely as noted above. Follow-up labs. Start weaning down steroids.
- Hold Eliquis acutely. INR trending down. Platelets stabilization and uptrending. Will start hep gtt and monitor.
- Had GI evaluation during most recent hospital stay - no clear evidence of GI blood loss.
- Hgb with some stability
- Anemia, B12 and folate appropriate.. Antiphospholipid panel and ROMEL pending.
Petechial rash
- improving. Continue to monitor for now.
Skin Breakdown / Necrosis b/l Toes
Dusky fingers likely 2/2 hypothermia
- Likely due to decreased perfusion (suspect fairly prolonged time down).
- Pulses present on exam.
- Wound Care eval for local care. CT aorta runoff eventually
- Vascular surgery following peripherally
MODE
Elevated CPK/mild rhabdo likely 2/2 prolonged down time.
Metabolic acidosis
- Cr at baseline. Monitor cr with diuresis.
- Likely decreased perfusion with hypotension, hypothermia, etc as noted above.
- Lactate elevated on admission downtrended with IVF.
- Status post aggressive IV fluids.
- UA without evidence of pigment nephropathy. Acidosis improved.
Chronic HFrEF
Iatrogenic volume overload
- Echo done 07/2025 showed LVEF = 30-35%, severe TR, moderate MR.
- Start Lasix 40 mg daily and monitor urine response. May require additional diuretics. Edema improving.
- Follow I/Os, daily eights, etc.
Hyponatremia
-Sodium stabilized.
Persistent Atrial Fibrillation with mild rapid ventricular response
- Stable. Rate controlled. On Lopressor.Increase Lopressor if heart rate does not improve. Added digoxin.
- Monitor on telemetry. Started hep gtt and monitor platelets closely.
Hearing Impairment
- Uses ASL for communication.
Sacral pressure injury stage II-poa
Stage 2 right elbow pressure injury, POA
-wound care
DVT Prophylaxis: hep gtt
Code Status: Full
Dr. Lu brother over the phone in details. patient with multiple medical comorbidities and remains with poor mentation and will probably require further surgical debridement versus amputation of the toe. Brother would like to more information on
hospice. No decision made yet. Case management aware.
Discussed in length with brother Sarabjit 07/18. He did spoke with hospice however currently thinks patient likely would benefit from SNF and if does not improve then we will transition to hospice at a later time. Before making final decision he
would come today and speak with patient.
I spent a total of 52 minutes with the patient or on the floor. More than 50% of this time involved counseling and coordination of care.
Anticipated Discharge: > 48 hours
Subjective/Interval History
-
Date of Service: July 18, 2025
denies pain
Objective Data
-
Labs:
Laboratory Results
07/18/25
03:15
WBC 10.7
Hgb 9.3 L
Hct 31.4 L
Plt Count 81 L
APTT 77.1 H
Sodium 137
Potassium 4.3
Chloride 104
Carbon Dioxide 29
BUN 59 H
Creatinine 0.9
Glucose 123 H
Calcium 8.5
Total Bilirubin 1.2
AST 35
ALT 26
Alkaline Phosphatase 86
Vital Signs:
Vital Signs
Temp Pulse Resp BP Pulse Ox
97.8 F 100 16 159/115 95
07/18/25 03:45 07/18/25 08:43 07/18/25 07:45 07/18/25 08:43 07/18/25 07:45
I&O
07/17/25 07/18/25 07/19/25
06:59 06:59 06:59
Intake Total 840 / 840 650 / 650
Output Total 2390 / 2390 3050 / 3050
Balance -1550 / -1550 -2400 / -2400
--- NOTE | 2025-07-18 12:22 | CM ---
Addendum entered by Kelsie Pedraza 07/18/25 16:00:
Brother [facility] and [facility]. REferrals placed.
Pt is now NPO pending decision re angiogram in the a.m.
Addendum entered by Kelsie Pedraza 07/18/25 15:45:
Brother is at bedside. Provided him Medicare.gov list of facilities (5- star) report and asked to select 3-[address] Figueredo will speak to Vascular tomorrow about the pt's necrotic toes and update him on the status.
Original Note:
LM on brother's phone regarding selecting SNFs for referrals for the pt. CM Cell phone given. waiting to hear back from brother about SNF placement and possible vascular surgery
Plan: TBD
[2025-07-18] MEDS: LANOXIN 125 MCG IV (13:18)
[2025-07-18] MEDS: HEPARIN 25000 UNITS/250 ML IV (14:38)
[2025-07-18] MEDS: FERRLECIT 110 MG IV (14:45)
--- NOTE | 2025-07-18 15:42 | WOUNDNOTE ---
[facility] RN NOTE: Patient visited to follow up on wounds. Sacrum has improved, is blanchable and no longer red. Stage 2 buttock wounds progress toward healing with use of Calazime. Purwick in place for moisture management. MASD of groin improved. Right
elbow skin tear progresses toward healing. Bilateral toes continue with eschar and are dry. Betadine was applied as ordered. Foot wounds are now healed and no wound care needed. A static air overlay was added to the [employer] Accumax, will
recommend air bed for complete off-loading. RN Joan aware. Patient provided incontinence care during assessment. Heels stable and adhesive foam applied. Heels off-loaded with pillows under calves. Rash has improved. Plan is for SNF. Will follow as
needed during in-patient stay.
[2025-07-18 17:04] LABS: Anticoagulant Med Neutralizati DOAC-Stop (Not Performed); Neutralized dRVTT Screen Ratio 1.13 (<=1.20); Prothrombin Time 16.8 s (12.0-15.5); dRVTT 1.1 Mix Ratio Not Performed (<=1.20); dRVTT Confirmation Ratio Not Performed (<=1.20); dRVTT Screen Ratio 1.32 (<=1.20)
[2025-07-19] VITALS (9 sets, daily range): BP systolic 95–154; BP diastolic 56–110; PULSE 58–85; O2SAT 99–100; BMI 26.1
--- NOTE | 2025-07-19 07:22 | W.PN.UPDATE ---
Update Note
Progress Note Update
Seen and examined with CLEAT BLANKER's. See prior full consultation from a few days ago from our group. Patient more alert now. History as noted in the initial consultation. On exam she does have palpable femoral pulses bilaterally, slightly difficult to
find initially based on location, but when I found them they were 1+/2+ bilaterally. Moderate edema distally and therefore difficult to palpate distal pulses, but on the left side was able to palpate a DP pulse. Right side with edema still had
trouble. Her feet are both warm. Would recommend at this point getting noninvasive lower extremity arterial imaging studies. I am not convinced that she has any major arterial obstructive problems, and that this is not small vessel disease. If
ultrasounds demonstrate and confirmed those findings, would hold off on any intervention. If however ultrasounds demonstrate any significant arterial insufficiency or occlusive disease, then we will plan angiography tomorrow if medically okay.
Would involve podiatry as well given extent of distal bilateral toe dry gangrene areas.
[2025-07-19 07:48] LABS: Blood Urea Nitrogen 41 mg/dl (7-17); Calcium 8.7 mg/dl (8.4-10.2); Carbon Dioxide 36 mmol/L (22-30); Chloride 96 mmol/L (98-107); Estimated Creatinine Clearance 64 ml/min; Glucose 94 mg/dl (70-99); Potassium 4.2 mmol/L (3.5-5.1); Sodium 133 mmol/L (135-145); eGFR > 60.00
[2025-07-19 08:12] LABS: Hematocrit 33.7 % (37.0-47.0); Hemoglobin 10.0 g/dL (12.0-16.0); Mean Corp Hgb Conc. 29.7 g/dL (33.0-37.0); Mean Corpuscular Volume 80.0 fL (81.0-99.0); Platelet Count 132 10^3/uL (130-400); Red Cell Dist. Width 24.2 % (11.5-14.5)
[2025-07-19 09:01] LABS: APTT 81.1 Sec (23.4-35.0)
[2025-07-19] MEDS: LASIX 40 MG IV (09:34)
[2025-07-19] MEDS: DESENEX/MITRAZOL/ZEASORB 1 APPLIC TOPICAL ×2 (09:34→20:19)
[2025-07-19] MEDS: NSS (PRESERVATIVE FREE) 10 ML IV (09:35)
[2025-07-19] MEDS: FLUSH (NSS) 1 FLUSH IV ×3 (09:35→14:22)
[2025-07-19] MEDS: DECADRON 2 MG IV (09:35)
[2025-07-19] MEDS: PROTONIX IV 40 MG IV (09:35)
[2025-07-19] MEDS: LOPRESSOR 37.5 MG PO (09:52)
--- NOTE | 2025-07-19 12:10 | W.PN.UPDATE ---
Update Note
Progress Note Update
Lower extremity non invasive studies reviewed. No evidence of insufficient arterial perfusion bilateral lower extremities. No further vascualar workup/intervention at this time. Likely conservative management of toe lesions/wounds with hopeful
continued eventual healing, but will defer to podiatry for now if any debridement needed. Will sign off. Please call with questions. Can follow up in vascular office in 1-2 months IF persistent non-healing of toes and/or at request of podiatry as
needed.
--- NOTE | 2025-07-19 12:47 | W.PN.HOSP.TC ---
Today's Communication/Plan
-
Monitor vital signs see plan
Mental status now improving
Discussed with brother
Continue with IV diuresis
DC further steroids
Increase metoprolol
Discussed with vascular, podiatry consulted
Assessment / Plan
Assessment / Plan
General: Chronically ill-appearing,
HEENT: Other (Dry MM. Neck supple. No JVD or HJR.)
Respiratory: Other (Decreased BS bilaterally. No W/R/R.)
Cardiac: S1/S2, positive slight murmur
GI: Soft, Non Tender, Non Distended and Normal Bowel Sounds
Musculoskeletal: Other (Erythema / rubor of all 4 extremities. Necrotic appearing lesions to the tips of toes. 2+pitting edema-improved
Skin: Other (Petechiae scattered across arms / legs with confluent erythema. Petechiae scattered across shoulders / chest-seems to have improved) sacral bilateral pressure injury stage II likely.
Neuro: awake
A/P: Patient is a 65y F with PMH significant for A-Fib, CHF and hearing impairment who presents to ED after being found down at home by family.
Acute acute toxic metabolic encephalopathy likely secondary to suspected prolonged downtime associated with severe hypoglycemia, hypothermia and hypotension
Hypothermia likely 2/2 autonomic dysfunction
Hypotension likely 2/2 severe dehydration due to suspected prolonged down time
DC further steroid
- Status post aggressive IV fluids and pressor. BP stable with midodrine..
- TSH is normal. Cortisol normal
- CT head without acute abnormalities.
- EEG routine noted. s/p extended EEG .
- Status post lumbar puncture with mildly elevated glucose and total protein. WBC 2. Acute meningitis panel negative. cryptococcus negative. CSF lyme studies negative. Antiviral and antibiotics has been discontinued
- MRI of the brain with and without contrast with limited evaluation and no acute intracranial abnormality was noted.
- Neurology recs
mental status appears back to baseline
Skin Breakdown / Necrosis b/l Toes
Dusky fingers likely 2/2 hypothermia
- Likely due to decreased perfusion (suspect fairly prolonged time down).
- Pulses present on exam.
- Wound Care eval for local care. Discussed with vascular surgery who evaluated the patient 07/19. No surgical intervention needed at this time. Patient to follow-up outpatient. Vascular surgery recommended podiatry evaluation which I consulted.
Will await for podiatry recommendation
Dysphagia
-removed DHT.
-Seen by speech therapy and Now on regular diet
Thrombocytopenia
Coagulopathy
Leukocytosis
Microcytic Anemia
- IV steroids acutely as noted above. Follow-up labs. Start weaning down steroids.
- Hold Eliquis acutely. INR trending down. Platelets stabilization and uptrending. Continue heparin drip for now until podiatry evaluation
- Had GI evaluation during most recent hospital stay - no clear evidence of GI blood loss.
- Hgb with some stability
- Anemia, B12 and folate appropriate.
Petechial rash
- improving. Continue to monitor for now.
MODE
Elevated CPK/mild rhabdo likely 2/2 prolonged down time.
Metabolic acidosis
- Cr at baseline. Monitor cr with diuresis.
- Likely decreased perfusion with hypotension, hypothermia, etc as noted above.
- Lactate elevated on admission downtrended with IVF.
- Status post aggressive IV fluids.
- UA without evidence of pigment nephropathy. Acidosis improved.
Chronic HFrEF
Iatrogenic volume overload
- Echo done 07/2025 showed LVEF = 30-35%, severe TR, moderate MR.
- Start Lasix 40 mg daily and monitor urine response. May require additional diuretics. Edema improving.
- Follow I/Os, daily eights, etc.
I asked RN to check for medical reconciliation on the patient mental status has been better. She used to be on BHARAT inhibitor and Aldactone.
Hyponatremia
-Sodium stabilized.
Persistent Atrial Fibrillation with mild rapid ventricular response
- Stable. Rate controlled. Increase Lopressor to 50 mg twice daily. Added digoxin.
- Monitor on telemetry. Started hep gtt and monitor platelets closely.
Hearing Impairment
- Uses ASL for communication.
Sacral pressure injury stage II-poa
Stage 2 right elbow pressure injury, POA
-wound care
DVT Prophylaxis: hep gtt
Code Status: Full
Dr. Lu brother over the phone in details. patient with multiple medical comorbidities and remains with poor mentation and will probably require further surgical debridement versus amputation of the toe. Brother would like to more information on
hospice. No decision made yet. Case management aware.
Discussed in length with brother Sarabjit 07/18. He did spoke with hospice however currently thinks patient likely would benefit from SNF and if does not improve then we will transition to hospice at a later time. Before making final decision he
would come today and speak with patient.
I spent a total of 52 minutes with the patient or on the floor. More than 50% of this time involved counseling and coordination of care.
Anticipated Discharge: > 48 hours
Subjective/Interval History
-
Date of Service: July 19, 2025
denies pain
Objective Data
-
Labs:
Laboratory Results
07/19/25
06:37
WBC 10.7
Hgb 10.0 L
Hct 33.7 L
Plt Count 132 D
APTT 81.1 H
Sodium 133 L
Potassium 4.2
Chloride 96 L
Carbon Dioxide 36 H
BUN 41 H
Creatinine 0.9
Glucose 94
Calcium 8.7
Vital Signs:
Vital Signs
Temp Pulse Resp BP Pulse Ox
97.4 F 77 16 123/83 94
07/19/25 11:35 07/19/25 11:35 07/19/25 11:35 07/19/25 11:35 07/19/25 11:35
I&O
11/12/25 11/13/25 11/14/25
06:59 06:59 06:59
Intake Total 650 / 650 470 / 470
Output Total 3050 / 3050 3900 / 3900
Balance -2400 / -2400 -3430 / -3430
[2025-07-19] MEDS: LANOXIN 125 MCG IV (12:52)
--- NOTE | 2025-07-19 13:36 | CON.MD ---
Consultation - Medical
-
CC/History of Present Illness:
Podiatry is consulted for necrotic/dry gangrene of digits.
Patient is a 65y F with PMH significant for hypertension, A-Fib and CHF who presents to ED after being found down at home. Patient lives at home with her brother who is not involved in her care. Patient is deaf and her history was obtained from
her chart today. In the ED, patient was noted to be hypoglycemic, hypothermic and hypotensive. She responded to treatment with supplemental dextrose, warmed IVFs resuscitation and Rosendo hugger.
Past Medical History
Paroxysmal Atrial Fibrillation
Chronic HFrEF
Hypertension
Hearing Loss
Past Surgical History:
Cardioversion x multiple.
Social History:
Tobacco: Non-smoker
Alcohol: None
Drug: None
Family History:
Not pertinent
Allergies:
NKDA
Meds:
Unable to reconcile meds. Patient unable to confirm. Brother unaware of medications / history.
If medication reconciliation has not been performed, why?: Medication List N/A
Physical Exam
Bilateral feet with +3 pitting edema. They are cold to touch with a cyanotic/rubrous appearance. Skin is dry and cracked. Dry Necrotic eschar-appearing lesions to the distal tips of toes; R 2, 3, 5; L 2, 3, 4. Areas are dry and stable. The
right second toe is the darkest. All digital lesions appear dry, stable and non infected.
Non invasive vascular studies:
IMPRESSION:
1. Right lower extremity: ALCIDES within normal limits 1.0. TBI marginally decreased/essentially normal 0.68 (low normal threshold 0.70). Multiphasic waveforms from common femoral to popliteal artery with no velocity elevation to suggest any significant
stenosis. Continuous Doppler waveforms at the dorsalis pedis and posterior tibial arteries are also multiphasic.
2. Left lower extremity: ALCIDES within low-normal limits 0.93. TBI within normal limits 1.08. Multiphasic waveforms from common femoral to popliteal artery with no velocity elevation to suggest any significant stenosis. Continuous Doppler waveforms at
the dorsalis pedis and posterior tibial arteries are also multiphasic.
Assessment:
Dry gangrenous changes to tips of multiple digits- stable
Plan: all eschars are dry and stable with no apparent infection. Reviewed vascular studies - no evidence of arterial insufficiency. Plan for conservative management of the digits at this point. Will await healing versus demarcation of the
digits. Recommend that she follow up int he outpatient setting for reevaluation upon her discharge.
Consultation
-
Date/Time Consultation Requested: 07/19/25 8:45am
Date/Time Consultation Performed: 07/19/25 1:37pm
Requesting Provider: Aníbal Figueredo
Performing Provider: Tammy Love
Reason for Consultation: necrotic toes
[2025-07-19] MEDS: FERRLECIT 110 MG IV (14:22)
--- NOTE | 2025-07-19 14:52 | CM ---
Addendum entered by Kelsie Pedraza 07/19/25 16:00:
Updated brother on podiatry consult impression and plan. Doesn't look like the gangrenous toes will be a barrier to going to SNF.
Original Note:
Pt remains on IV steroids and steroids.
[facility] has declined for STR due to lack of bed availability. Silverio Pinedo requested additional information about potential hospice care; Family has decline hospice and wants SNF. No response from [facility].
Plan: DC to SNF when medically stable and bed is available.
[2025-07-19] MEDS: HEPARIN 25000 UNITS/250 ML IV (16:08)
--- NOTE | 2025-07-19 16:34 | PTCARENOTE ---
Pt AAO x3; sl forgetful at times. Pt deaf, reads lips well, cooperative. BANGURA; OOB to BSC/chair wih assist x2/walker, carson well. VSS. Telemetry:Afib. On room air- pulse ox 97%, no SOB noted. Abd soft, rounded, carson PO well. Incont large amts
trung urine, Purewick in place. Afebrile; skin warm and dry; skin on leg cool. Scattered petechiae on trunk and BLE. Heparin drip @ 1000 units/hr (10 ml/hr) infusing via Rt forearm site without sx of infiltration. Resting in bed at present, no
c/o. Will continue to monitor.
[2025-07-19] MEDS: LOPRESSOR 50 MG PO (20:19)
[2025-07-20] VITALS (13 sets, daily range): BP systolic 70–148; BP diastolic 40–98; PULSE 80; O2SAT 100; BMI 25.4
[2025-07-20 08:25] LABS: APTT 102.9 Sec (23.4-35.0)
[2025-07-20 08:38] LABS: Hematocrit 28.7 % (37.0-47.0); Hemoglobin 8.5 g/dL (12.0-16.0); Mean Corp Hgb Conc. 29.6 g/dL (33.0-37.0); Mean Corpuscular Volume 79.3 fL (81.0-99.0); Nucleated Red Blood Cells % 0.1 %; Platelet Count 162 10^3/uL (130-400); Red Cell Dist. Width 23.8 % (11.5-14.5)
[2025-07-20 08:57] LABS: Blood Urea Nitrogen 34 mg/dl (7-17); Calcium 8.5 mg/dl (8.4-10.2); Chloride 95 mmol/L (98-107); Estimated Creatinine Clearance 72 ml/min; Glucose 85 mg/dl (70-99); Potassium 4.0 mmol/L (3.5-5.1); Sodium 134 mmol/L (135-145); eGFR > 60.00
[2025-07-20 09:10] LABS: Carbon Dioxide 37 mmol/L (22-30)
[2025-07-20] MEDS: LOPRESSOR 50 MG PO (09:33)
[2025-07-20] MEDS: NSS (PRESERVATIVE FREE) 10 ML IV (09:33)
[2025-07-20] MEDS: LASIX 40 MG IV (09:34)
[2025-07-20] MEDS: PROTONIX IV 40 MG IV (09:34)
[2025-07-20] MEDS: ELIQUIS 5 MG PO ×2 (09:35→19:57)
[2025-07-20] MEDS: DESENEX/MITRAZOL/ZEASORB 1 APPLIC TOPICAL ×2 (09:36→19:57)
[2025-07-20] MEDS: NSS 500 IV (11:52)
--- NOTE | 2025-07-20 12:05 | W.PN.HOSP.TC ---
Today's Communication/Plan
-
Monitor vital signs see plan
Restart Eliquis
Hypotensive today
Hold further IV Lasix, give some volume back
Give midodrine
Monitor blood pressure closely
Discussed with brother
Will need SNF
Monitor leukocytosis
Assessment / Plan
Assessment / Plan
General: Chronically ill-appearing,
HEENT: Other Neck supple
Respiratory: Other (Decreased BS bilaterally)
Cardiac: S1/S2, positive slight murmur
GI: Soft, Non Tender, Non Distended and Normal Bowel Sounds
Musculoskeletal: Other (Erythema / rubor of all 4 extremities. Necrotic appearing lesions to the tips of toes. 2+pitting edema-improving
Skin: Other (Petechiae scattered across arms / legs with confluent erythema. chest-seems to have improved)
Neuro: awake
A/P: Patient is a 65y F with PMH significant for A-Fib, CHF and hearing impairment who presents to ED after being found down at home by family.
Acute acute toxic metabolic encephalopathy likely secondary to suspected prolonged downtime associated with severe hypoglycemia, hypothermia and hypotension
Hypothermia likely 2/2 autonomic dysfunction
Hypotension likely 2/2 severe dehydration due to suspected prolonged down time
DC further steroid
- Status post aggressive IV fluids and pressor. BP stable with midodrine..
- TSH is normal. Cortisol normal
- CT head without acute abnormalities.
- EEG routine noted. s/p extended EEG .
- Status post lumbar puncture with mildly elevated glucose and total protein. WBC 2. Acute meningitis panel negative. cryptococcus negative. CSF lyme studies negative. Antiviral and antibiotics has been discontinued
- MRI of the brain with and without contrast with limited evaluation and no acute intracranial abnormality was noted.
- Neurology recs
mental status appears back to baseline
monitor leukocytosis; some could be from steroids that were just dc'ed 07/19. Does not appear to have infection
Hypotension again 07/20
hold further IV lasix; give midodrine and IVF and monitor
Skin Breakdown / Necrosis b/l Toes
Dusky fingers likely 2/2 hypothermia
- Likely due to decreased perfusion (suspect fairly prolonged time down).
- Pulses present on exam.
- Wound Care eval for local care. Discussed with vascular surgery who evaluated the patient 07/19. No surgical intervention needed at this time. Patient to follow-up outpatient. Vascular surgery recommended podiatry evaluation which I consulted.
Evaluated by podiatry and recommended to follow-up outpatient
Since no procedure planned, switch IV heparin to Eliquis
Dysphagia
-removed DHT.
-Seen by speech therapy and Now on regular diet
Thrombocytopenia
Coagulopathy
Leukocytosis
Microcytic Anemia
- IV steroids acutely as noted above. Now off steroid
- Hold Eliquis acutely. INR trending down. Platelets stabilization and uptrending.
- Had GI evaluation during most recent hospital stay - no clear evidence of GI blood loss.
- Hgb with some stability
- Anemia, B12 and folate appropriate.
Petechial rash
- improving. Continue to monitor for now.
MODE
resolved
Elevated CPK/mild rhabdo likely 2/2 prolonged down time.
Metabolic acidosis
- Cr at baseline. Monitor cr with diuresis.
- Likely decreased perfusion with hypotension, hypothermia, etc as noted above.
- Lactate elevated on admission downtrended with IVF.
- Status post aggressive IV fluids.
- UA without evidence of pigment nephropathy. Acidosis improved.
Chronic HFrEF
Iatrogenic volume overload initially and patient has been on IV lasix. now hypotensive today. hold furhter lasix and give gentle hydration and midodrine
- Echo done 07/2025 showed LVEF = 30-35%, severe TR, moderate MR.
Monitor volume status closely
- Follow I/Os, daily eights, etc.
I asked RN to check for medical reconciliation on the patient mental status has been better. She used to be on BHARAT inhibitor and Aldactone.
Hyponatremia
-Sodium stabilized.
Persistent Atrial Fibrillation with mild rapid ventricular response
- Stable. Rate controlled. Increase Lopressor to 50 mg twice daily with holding parameter. Added digoxin.
- Monitor on telemetry.
Hearing Impairment
- Uses ASL for communication.
Sacral pressure injury stage II-poa
Stage 2 right elbow pressure injury, POA
-wound care
DVT Prophylaxis: eliquis
Code Status: Full
Dr. Lu brother over the phone in details. patient with multiple medical comorbidities and remains with poor mentation and will probably require further surgical debridement versus amputation of the toe. Brother would like to more information on
hospice. No decision made yet. Case management aware.
Discussed in length with brother Sarabjit 07/18. He did spoke with hospice however currently thinks patient likely would benefit from SNF and if does not improve then we will transition to hospice at a later time. Before making final decision he
would come today and speak with patient.
Discussed with brother 07/19, 07/20
I spent a total of 52 minutes with the patient or on the floor. More than 50% of this time involved counseling and coordination of care.
Anticipated Discharge: 24 - 48 hours
Subjective/Interval History
-
Date of Service: July 20, 2025
denies pain
Objective Data
-
Labs:
Laboratory Results
07/20/25
07:23
WBC 16.4 H
Hgb 8.5 L
Hct 28.7 L
Plt Count 162 D
APTT 102.9 H
Sodium 134 L
Potassium 4.0
Chloride 95 L
Carbon Dioxide 37 H
BUN 34 H
Creatinine 0.8
Glucose 85
Calcium 8.5
Vital Signs:
Vital Signs
Temp Pulse Resp BP Pulse Ox
97.4 F 82 12 70/40 100
07/20/25 11:29 07/20/25 11:29 07/20/25 11:29 07/20/25 11:52 07/20/25 11:29
I&O
07/19/25 07/20/25 07/21/25
06:59 06:59 06:59
Intake Total 470 / 470 1190 / 1190
Output Total 3900 / 3900 1425 / 1425
Balance -3430 / -3430 -235 / -235
--- NOTE | 2025-07-20 13:38 | CM ---
Addendum entered by Kelsie Pedraza 07/20/25 15:51:
[facility] no beds until next week. Please call them if pt is here on Wednesday.
[facility]- left message for liaison. [facility] is the brother's first choice
[facility]
Pt has made her 3 day minimum stay for SNF
Plan: DC to SNF when bed available
Original Note:
Pt with low BP today and c/o dizziness.
Plan remains DC to SNF when bed available. [facility] showing [facility] - in review
[2025-07-20] MEDS: LANOXIN IV (14:04)
[2025-07-20] MEDS: TYLENOL 650 MG PO (14:24)
[2025-07-20] MEDS: FERRLECIT 110 MG IV (14:24)
[2025-07-20] MEDS: LOPRESSOR PO (21:50)
[2025-07-21] VITALS (9 sets, daily range): BP systolic 92–134; BP diastolic 44–73; BMI 25.3
[2025-07-21 06:44] LABS: Hematocrit 20.8 % (37.0-47.0); Hemoglobin 6.2 g/dL (12.0-16.0); Mean Corp Hgb Conc. 29.8 g/dL (33.0-37.0); Mean Corpuscular Volume 80.3 fL (81.0-99.0); Platelet Count 192 10^3/uL (130-400); Red Cell Dist. Width 24.4 % (11.5-14.5)
[2025-07-21 06:46] LABS: Nucleated Red Blood Cells % 0.3 %
[2025-07-21 07:00] LABS: Blood Urea Nitrogen 33 mg/dl (7-17); Calcium 8.2 mg/dl (8.4-10.2); Chloride 95 mmol/L (98-107); Estimated Creatinine Clearance 64 ml/min; Glucose 81 mg/dl (70-99); Potassium 4.0 mmol/L (3.5-5.1); Sodium 129 mmol/L (135-145); eGFR > 60.00
[2025-07-21] MEDS: NSS (PRESERVATIVE FREE) 10 ML IV (07:39)
[2025-07-21] MEDS: DESENEX/MITRAZOL/ZEASORB 1 APPLIC TOPICAL ×2 (07:39→20:24)
[2025-07-21] MEDS: LOPRESSOR PO (07:39)
[2025-07-21] MEDS: PROTONIX IV 40 MG IV (07:40)
[2025-07-21 07:44] LABS: Carbon Dioxide 37 mmol/L (22-30)
--- NOTE | 2025-07-21 07:53 | PTCARENOTE ---
Red text to hospitalist MD in regards to patients Eliquis and morning h&h results. Awaiting response.
[2025-07-21] MEDS: LOPRESSOR 50 MG PO ×2 (09:40→20:23)
[2025-07-21] MEDS: ELIQUIS PO (09:42)
[2025-07-21 10:17] LABS: Hematocrit 21.9 % (37.0-47.0); Hemoglobin 6.5 g/dL (12.0-16.0); Mean Corp Hgb Conc. 29.7 g/dL (33.0-37.0); Mean Corpuscular Volume 80.2 fL (81.0-99.0); Platelet Count 190 10^3/uL (130-400); Red Cell Dist. Width 24.0 % (11.5-14.5)
--- NOTE | 2025-07-21 10:54 | W.PN.ONC ---
Today's Communication / Plan
-
Will add-on LFTs, haptoglobin, retic count to am labs in light of acute 2gm drop in hgb
Slight hemolysis at admission was thought secondary to hypothermia, but needs to be re-evaluated
Low threshold for CT scans to r/o RP or other bleed
Eliquis on hold
PRBCs ordered
Heme testing of stool ordered yesterday
Continue to monitor CBC
Impression
Impression
2gm drop in hgb (07/20 to 07/21) - with resuming Eliquis
Found down at home, rhabdo, MODE
Hypothermia
Thrombocytopenia
Microcytic anemia, low iron, suspected mild hemolysis
Afib
Deafness
Petechial rash, ecchymoses
Plan
Plan
Will add-on LFTs, haptoglobin, retic count to am labs in light of acute 2gm drop in hgb
Slight hemolysis at admission was thought secondary to hypothermia, but needs to be re-evaluated
Low threshold for CT scans to r/o RP or other bleed
Eliquis on hold
PRBCs ordered
Heme testing of stool ordered yesterday
Continue to monitor CBC
Subjective/Objective
Subjective/Objective
Denies any new symptoms, pain, bleeding
Vital Signs:
Vital Signs
Temp Pulse Resp BP Pulse Ox
97.7 F 120 12 103/62 100
07/21/25 07:00 07/21/25 09:40 07/21/25 07:00 07/21/25 09:40 07/21/25 07:00
non-blanching petechial rash covering legs
ecchymoses to arms bilaterally
pale
tachy, irregular
1+ LE edema
Lab Results:
Laboratory Data
WBC 16.1 10^3/uL (4.8-10.8) H 07/21/25 09:46
Hgb 6.5 g/dL (12.0-16.0) L* 07/21/25 09:46
Plt Count 190 10^3/uL (130-400) 07/21/25 09:46
PT 16.5 Sec (11.4-14.6) H 07/16/25 02:52
INR 1.30 07/16/25 02:52
APTT 102.9 Sec (23.4-35.0) H 07/20/25 07:23
eGFR > 60.00 07/21/25 05:43
Orders
Orders
Orders From Last 24 Hours
07/21/25 10:53
Add On- LAB Routine
[2025-07-21 11:09] LABS: Reticulocyte Count 1.7 % (0.4-2.8)
[2025-07-21 11:26] LABS: ALT (SGPT) 19 U/L (0-35); AST (SGOT) 21 U/L (14-36); Albumin 2.3 g/dl (3.5-5.0); Alkaline Phosphatase 77 U/L (38-126); Total Protein 4.9 g/dl (6.3-8.2)
--- NOTE | 2025-07-21 12:58 | W.PN.HOSP.TC ---
Today's Communication/Plan
-
Assessment / Plan
Assessment / Plan
General: Chronically ill-appearing,
HEENT: Other Neck supple
Respiratory: Other (Decreased BS bilaterally)
Cardiac: S1/S2, positive slight murmur
GI: Soft, Non Tender, Non Distended and Normal Bowel Sounds
Musculoskeletal: Other (Erythema / rubor of all 4 extremities. Necrotic appearing lesions to the tips of toes. 2+pitting edema-improving
Skin: Other (Petechiae scattered across arms / legs with confluent erythema. chest-seems to have improved)
Neuro: awake
A/P: Patient is a 65y F with PMH significant for A-Fib, CHF and hearing impairment who presents to ED after being found down at home by family.
Acute acute toxic metabolic encephalopathy likely secondary to suspected prolonged downtime associated with severe hypoglycemia, hypothermia and hypotension
Hypothermia likely 2/2 autonomic dysfunction
Hypotension likely 2/2 severe dehydration due to suspected prolonged down time
DC further steroid
- Status post aggressive IV fluids and pressor. BP stable with midodrine..
- TSH is normal. Cortisol normal
- CT head without acute abnormalities.
- EEG routine noted. s/p extended EEG .
- Status post lumbar puncture with mildly elevated glucose and total protein. WBC 2. Acute meningitis panel negative. cryptococcus negative. CSF lyme studies negative. Antiviral and antibiotics has been discontinued
- MRI of the brain with and without contrast with limited evaluation and no acute intracranial abnormality was noted.
- Neurology recs
mental status appears back to baseline
monitor leukocytosis; some could be from steroids that were just dc'ed 07/19. Does not appear to have infection
Anemia
Type and screen
?Hemolysis, appreciate Hem input
1u PRBC ordered
Will need 40mg IV lasix post transfusion
Without evidence of bleeding
Hypotension again 07/20
hold further IV lasix; give midodrine and IVF and monitor
Skin Breakdown / Necrosis b/l Toes
Dusky fingers likely 2/2 hypothermia
- Likely due to decreased perfusion (suspect fairly prolonged time down).
- Pulses present on exam.
- Wound Care eval for local care. Discussed with vascular surgery who evaluated the patient 07/19. No surgical intervention needed at this time. Patient to follow-up outpatient. Vascular surgery recommended podiatry evaluation which I consulted.
Evaluated by podiatry and recommended to follow-up outpatient
Since no procedure planned, switch IV heparin to Eliquis, now iwll hold eliquis
Dysphagia
-removed DHT.
-Seen by speech therapy and Now on regular diet
Thrombocytopenia
Coagulopathy
Leukocytosis
Microcytic Anemia
- IV steroids acutely as noted above. Now off steroid
- Hold Eliquis acutely. INR trending down. Platelets stabilization and uptrending.
- Had GI evaluation during most recent hospital stay - no clear evidence of GI blood loss.
- Hgb with some stability
- Anemia, B12 and folate appropriate.
Petechial rash
- improving. Continue to monitor for now.
MODE
resolved
Elevated CPK/mild rhabdo likely 2/2 prolonged down time.
Metabolic acidosis
- Cr at baseline. Monitor cr with diuresis.
- Likely decreased perfusion with hypotension, hypothermia, etc as noted above.
- Lactate elevated on admission downtrended with IVF.
- Status post aggressive IV fluids.
- UA without evidence of pigment nephropathy. Acidosis improved.
Chronic HFrEF
Iatrogenic volume overload initially and patient has been on IV lasix. now hypotensive today. hold furhter lasix and give gentle hydration and midodrine
- Echo done 07/2025 showed LVEF = 30-35%, severe TR, moderate MR.
Monitor volume status closely
- Follow I/Os, daily eights, etc.
Hyponatremia
-Sodium stabilized.
Persistent Atrial Fibrillation with mild rapid ventricular response
- Stable. Rate controlled. Increase Lopressor to 50 mg twice daily with holding parameter. Added digoxin.
- Monitor on telemetry.
Hearing Impairment
- Uses ASL for communication.
Sacral pressure injury stage II-poa
Stage 2 right elbow pressure injury, POA
-wound care
DVT Prophylaxis: Hold eliquis
Code Status: Full
Dr. Lu brother over the phone in details. patient with multiple medical comorbidities and remains with poor mentation and will probably require further surgical debridement versus amputation of the toe. Brother would like to more information on
hospice. No decision made yet. Case management aware.
Dr. Figueredo Discussed in length with brother Sarabjit 07/18. He did spoke with hospice however currently thinks patient likely would benefit from SNF and if does not improve then we will transition to hospice at a later time. Before making final
decision he would come today and speak with patient.
Discussed with brother 07/19, 07/[address] Waller on 07/21 spoke with Sarabjit over the phone provided an update that included low hgb, requring transfusion for which he consented to after reviewing risk vs beenfits. Hold kuldip.
Anticipated Discharge: 24 - 48 hours
Subjective/Interval History
-
Date of Service: July 21, 2025
seen and examined. no new complaints.
per bedside nurse, no bm overnight
bm yesterday was not concerning for dark or bright bloody stools
Objective Data
-
Labs:
Laboratory Results
07/21/25 07/21/25
05:43 09:46
WBC 14.0 H 16.1 H
Hgb 6.2 L* D 6.5 L*
Hct 20.8 L* 21.9 L
Plt Count 192 190
Sodium 129 L
Potassium 4.0
Chloride 95 L
Carbon Dioxide 37 H
BUN 33 H
Creatinine 0.9
Glucose 81
Calcium 8.2 L
Total Bilirubin 0.9
AST 21
ALT 19
Alkaline Phosphatase 77
Vital Signs:
Vital Signs
Temp Pulse Resp BP Pulse Ox
97.5 F 91 16 94/54 100
07/21/25 11:22 07/21/25 11:22 07/21/25 11:22 07/21/25 11:22 07/21/25 11:22
I&O
07/20/25 07/21/25 07/22/25
06:59 06:59 06:59
Intake Total 1190 / 1190 540 / 540 660 / 660
Output Total 1425 / 1425 1625 / 1625
Balance -235 / -235 -1085 / -1085 660 / 660
[2025-07-21] MEDS: LANOXIN 125 MCG IV (14:19)
[2025-07-21] MEDS: FERRLECIT 110 MG IV (14:37)
--- NOTE | 2025-07-21 15:30 | PTCARENOTE ---
Patient received 1U PRBC and IV iron this shift. She is oriented x2, RN utilizing written communication with clipboard/paper and pen. Pt voiding via purewick, eating most of meals, continuing q2 turns. See MAR/flowsheets for further care details.
--- NOTE | 2025-07-21 17:21 | PTCARENOTE ---
Contacted dayshift hospitalist and hospitalist weapons designer to make them aware of decreased UO this shift, although bp and HR remain stable. Pt afebrile, 100% on room air. Plan to get cbc and bmp in am.
[2025-07-22 03:40] VITALS: BP 121/73
[2025-07-22 05:18] VITALS: BMI 25.3
[2025-07-22 05:59] LABS: Hematocrit 23.2 % (37.0-47.0); Hemoglobin 7.3 g/dL (12.0-16.0); Mean Corp Hgb Conc. 31.5 g/dL (33.0-37.0); Mean Corpuscular Volume 79.7 fL (81.0-99.0); Platelet Count 188 10^3/uL (130-400); Red Cell Dist. Width 22.6 % (11.5-14.5)
[2025-07-22 06:20] LABS: Blood Urea Nitrogen 27 mg/dl (7-17); Calcium 8.1 mg/dl (8.4-10.2); Carbon Dioxide 37 mmol/L (22-30); Chloride 96 mmol/L (98-107); Estimated Creatinine Clearance 72 ml/min; Glucose 91 mg/dl (70-99); Potassium 4.0 mmol/L (3.5-5.1); Sodium 131 mmol/L (135-145); eGFR > 60.00
[2025-07-22 08:12] VITALS: BP 123/79
[2025-07-22] MEDS: PROTONIX IV 40 MG IV (08:48)
[2025-07-22] MEDS: NSS (PRESERVATIVE FREE) 10 ML IV (08:48)
[2025-07-22] MEDS: DESENEX/MITRAZOL/ZEASORB 1 APPLIC TOPICAL ×2 (08:48→20:50)
[2025-07-22] MEDS: LOPRESSOR 50 MG PO ×2 (08:48→20:49)
--- NOTE | 2025-07-22 09:34 | W.PN.UPDATE ---
Update Note
Progress Note Update
Hgb miguel appropriately after 1u prbcs yesterday
Normal bilirubin and retic count suggest against any brisk hemolysis
Monitor for signs of GI bleeding
Would continue to hold DOAC
[2025-07-22 11:46] VITALS: BP 92/43
[2025-07-22] MEDS: LANOXIN 125 MCG IV (12:32)
--- NOTE | 2025-07-22 13:14 | PTCARENOTE ---
Called [facility] for more betadine and alginate for pt wound care
--- NOTE | 2025-07-22 13:17 | W.PN.HOSP.TC ---
Today's Communication/Plan
-
Assessment / Plan
Assessment / Plan
General: Chronically ill-appearing,
HEENT: Other Neck supple
Respiratory: Other (Decreased BS bilaterally)
Cardiac: S1/S2, positive slight murmur
GI: Soft, Non Tender, Non Distended and Normal Bowel Sounds
Musculoskeletal: Other (Erythema / rubor of all 4 extremities. Necrotic appearing lesions to the tips of toes. 2+pitting edema-improving
Skin: Other (Petechiae scattered across arms / legs with confluent erythema. chest-seems to have improved)
Neuro: awake
A/P: Patient is a 65y F with PMH significant for A-Fib, CHF and hearing impairment who presents to ED after being found down at home by family.
Acute acute toxic metabolic encephalopathy likely secondary to suspected prolonged downtime associated with severe hypoglycemia, hypothermia and hypotension
Hypothermia likely 2/2 autonomic dysfunction
Hypotension likely 2/2 severe dehydration due to suspected prolonged down time
DC further steroid
- Status post aggressive IV fluids and pressor. BP stable with midodrine..
- TSH is normal. Cortisol normal
- CT head without acute abnormalities.
- EEG routine noted. s/p extended EEG .
- Status post lumbar puncture with mildly elevated glucose and total protein. WBC 2. Acute meningitis panel negative. cryptococcus negative. CSF lyme studies negative. Antiviral and antibiotics has been discontinued
- MRI of the brain with and without contrast with limited evaluation and no acute intracranial abnormality was noted.
- Neurology recs
mental status appears back to baseline
monitor leukocytosis; some could be from steroids that were just dc'ed 07/19. Does not appear to have infection
Anemia
Type and screen
?Hemolysis, appreciate Hem input
1u PRBC ordered
Will need 40mg IV lasix post transfusion
Without evidence of bleeding
Hypotension again 07/20
hold further IV lasix; give midodrine and IVF and monitor
Skin Breakdown / Necrosis b/l Toes
Dusky fingers likely 2/2 hypothermia
- Likely due to decreased perfusion (suspect fairly prolonged time down).
- Pulses present on exam.
- Wound Care eval for local care. Discussed with vascular surgery who evaluated the patient 07/19. No surgical intervention needed at this time. Patient to follow-up outpatient. Vascular surgery recommended podiatry evaluation which I consulted.
Evaluated by podiatry and recommended to follow-up outpatient
Since no procedure planned, switch IV heparin to Eliquis, now iwll hold eliquis
Dysphagia
-removed DHT.
-Seen by speech therapy and Now on regular diet
Thrombocytopenia
Coagulopathy
Leukocytosis
Microcytic Anemia
- IV steroids acutely as noted above. Now off steroid
- Hold Eliquis acutely. INR trending down. Platelets stabilization and uptrending.
- Had GI evaluation during most recent hospital stay - no clear evidence of GI blood loss.
- Hgb with some stability
- Anemia, B12 and folate appropriate.
Petechial rash
- improving. Continue to monitor for now.
MODE
resolved
Elevated CPK/mild rhabdo likely 2/2 prolonged down time.
Metabolic acidosis
- Cr at baseline. Monitor cr with diuresis.
- Likely decreased perfusion with hypotension, hypothermia, etc as noted above.
- Lactate elevated on admission downtrended with IVF.
- Status post aggressive IV fluids.
- UA without evidence of pigment nephropathy. Acidosis improved.
Chronic HFrEF
Iatrogenic volume overload initially and patient has been on IV lasix. now hypotensive today. hold furhter lasix and give gentle hydration and midodrine
- Echo done 07/2025 showed LVEF = 30-35%, severe TR, moderate MR.
Monitor volume status closely
- Follow I/Os, daily eights, etc.
Hyponatremia
-Sodium stabilized.
Persistent Atrial Fibrillation with mild rapid ventricular response
- Stable. Rate controlled. Increase Lopressor to 50 mg twice daily with holding parameter. Added digoxin.
- Monitor on telemetry.
Hearing Impairment
- Uses ASL for communication.
Sacral pressure injury stage II-poa
Stage 2 right elbow pressure injury, POA
-wound care
DVT Prophylaxis: Hold eliquis
Code Status: Full
Dr. Lu brother over the phone in details. patient with multiple medical comorbidities and remains with poor mentation and will probably require further surgical debridement versus amputation of the toe. Brother would like to more information on
hospice. No decision made yet. Case management aware.
Dr. Figueredo Discussed in length with brother Sarabjit 07/18. He did spoke with hospice however currently thinks patient likely would benefit from SNF and if does not improve then we will transition to hospice at a later time. Before making final
decision he would come today and speak with patient.
Discussed with brother 07/19, 07/[address] Waller on 07/21 spoke with Sarabjit over the phone provided an update that included low hgb, requring transfusion for which he consented to after reviewing risk vs beenfits. Hold elikhoiis.
Anticipated Discharge: 24 - 48 hours
Subjective/Interval History
-
Date of Service: July 22, 2025
seen and examined. no new complaints. no acute overnight events
Objective Data
-
Labs:
Laboratory Results
07/22/25
05:36
WBC 17.5 H
Hgb 7.3 L
Hct 23.2 L
Plt Count 188
Sodium 131 L
Potassium 4.0
Chloride 96 L
Carbon Dioxide 37 H
BUN 27 H
Creatinine 0.8
Glucose 91
Calcium 8.1 L
Vital Signs:
Vital Signs
Temp Pulse Resp BP Pulse Ox
98.0 F 94 16 92/43 99
07/22/25 11:46 07/22/25 12:33 07/22/25 11:46 07/22/25 11:46 07/22/25 11:46
I&O
07/21/25 07/22/25 07/23/25
06:59 06:59 06:59
Intake Total 540 / 540 1030 / 1030
Output Total 1625 / 1625 1924
Balance -1085 / -1085 -895 / -895
[2025-07-22 15:31] VITALS: BP 114/64
[2025-07-22 19:15] VITALS: BP 116/65
[2025-07-22 23:28] VITALS: BP 121/81
[2025-07-23 03:45] VITALS: BP 120/76
[2025-07-23 05:53] VITALS: BMI 25.0
[2025-07-23 07:30] VITALS: BP 122/80
[2025-07-23] MEDS: PROTONIX 40 MG PO (08:32)
[2025-07-23] MEDS: LOPRESSOR 50 MG PO (08:32)
[2025-07-23] MEDS: DESENEX/MITRAZOL/ZEASORB 1 APPLIC TOPICAL (08:32)
[2025-07-23 08:44] LABS: Hematocrit 24.2 % (37.0-47.0); Hemoglobin 7.2 g/dL (12.0-16.0); Mean Corp Hgb Conc. 29.8 g/dL (33.0-37.0); Mean Corpuscular Volume 84.6 fL (81.0-99.0); Platelet Count 189 10^3/uL (130-400); Red Cell Dist. Width 23.7 % (11.5-14.5)
[2025-07-23 10:08] LABS: Blood Urea Nitrogen 25 mg/dl (7-17); Calcium 8.1 mg/dl (8.4-10.2); Carbon Dioxide 36 mmol/L (22-30); Chloride 100 mmol/L (98-107); Estimated Creatinine Clearance 72 ml/min; Glucose 67 mg/dl (70-99); Potassium 4.0 mmol/L (3.5-5.1); Sodium 133 mmol/L (135-145); eGFR > 60.00
[2025-07-23 11:50] VITALS: BP 99/64
[2025-07-23] MEDS: LANOXIN 125 MCG IV (12:18)
--- NOTE | 2025-07-23 12:33 | CM ---
Pt is for discharge today when SNF bed is available. Waiting to here back from [facility]. Updated clinicals sent. chocking with [facility] for bed availability
--- NOTE | 2025-07-23 13:32 | CM ---
Addendum entered by Kelsie Pedraza 07/23/25 13:53:
IMM given and placed on the chart. Information provided with note and the use of lip reading. Pt nodded that she understood.
Original Note:
Pt is discharged today to [facility].Will be transported by ambulance
Report:[phone]
--- NOTE | 2025-07-23 14:48 | W.DCSUMMARY ---
Discharge Summary
Discharge Data
Date of Admission: 07/11/25
Date of Discharge: 07/23/25
-
Pending Results: No
Hospital Course
65y F with PMH significant for hypertension, A-Fib and CHF
Presented from home after being found down. �Unknown period of downtime.Found to be severely hypoglycemic, hypotensive and hypothermic on upon admission. �Severe toxic metabolic encephalopathy. �Also with severe coagulopathy.� Status post extensive
neurological workup. �LP and EEG negative. �MRI negative. �Now mental status appears to be at baseline. �Hospice was entertained however brother refused at this time and wants her to go to rehab. �She also had fluid overload and was on IV Lasix.
�Now appears to be hypotensive today so holding Lasix. Patient also with necrotic toes for which she was seen by vascular and podiatry. �No acute intervention needed at this time and patient should follow-up with them outpatient. Additionaly,
recieved 1u prbc for hgb of 6.3 and 6.5. Without signs of bleeding. Will need SNF.
CTBrain
IMPRESSION:
No acute intracranial abnormality noted.
Prominent diffuse calvarial sclerosis may reflect underlying metabolic bone disease.
CXR
IMPRESSION:
Small right pleural effusion with associated atelectasis and/or pneumonia.
LP
IMPRESSION:
Technically successful fluoroscopically guided lumbar puncture.
Xray Abdomen/pelv
IMPRESSION:
Tip of the enteric catheter is below the level of the gastroesophageal junction.
MRI Brain
IMPRESSION:
Exam limited by motion artifact. No acute intracranial abnormality noted.
Xray Abd
IMPRESSION: Feeding tube placement in the distal esophagus.
Moderate right pleural effusion. Stable
Mild cardiomegaly. Stable
Xray Abdo.pelv
IMPRESSION:
Feeding tube placement below the GE junction.
Moderate right pleural effusion. Stable
Findings suggesting left lower lobe pneumonia. New.
Cardiomegaly. Stable
ALCIDES
IMPRESSION:
1. Right lower extremity: ALCIDES within normal limits 1.0. TBI marginally decreased/essentially normal 0.68 (low normal threshold 0.70). Multiphasic waveforms from common femoral to popliteal artery with no velocity elevation to suggest any significant
stenosis. Continuous Doppler waveforms at the dorsalis pedis and posterior tibial arteries are also multiphasic.
2. Left lower extremity: ALCIDES within low-normal limits 0.93. TBI within normal limits 1.08. Multiphasic waveforms from common femoral to popliteal artery with no velocity elevation to suggest any significant stenosis. Continuous Doppler waveforms at
the dorsalis pedis and posterior tibial arteries are also multiphasic.
More than 30 minutes spent in discharge including
Final examination of the patient
Summarizing hospital stay
Instructions for continuing care to all relevant caregivers
Preparation of discharge records, prescriptions, and referral forms
Total time spent (in minutes): 33mins
Discharge Plan
-
Patient Disposition: Assisted/SNF
Discharge Diagnosis/Procedures: Acute acute toxic metabolic encephalopathy likely secondary to suspected prolonged downtime associated with severe hypoglycemia, hypothermia and hypotension
Hypothermia likely 2/2 autonomic dysfunction
Hypotension likely 2/2 severe dehydration due to suspected prolonged down time
Anemia
MODE
Diet: As tolerated
Activity: As tolerated
Activity Restrictions/Additional Instructions:
Presented from home after being found down. �Unknown period of downtime.Found to be severely hypoglycemic, hypotensive and hypothermic on upon admission. �Severe toxic metabolic encephalopathy. �Also with severe coagulopathy.� Status post extensive
neurological workup. �LP and EEG negative. �MRI negative. �Now mental status appears to be at baseline. �Hospice was entertained however brother refused at this time and wants her to go to rehab. �She also had fluid overload and was on IV Lasix.
�Now appears to be hypotensive today so holding Lasix. Patient also with necrotic toes for which she was seen by vascular and podiatry. �No acute intervention needed at this time and patient should follow-up with them outpatient. Additionaly,
recieved 1u prbc for hgb of 6.3 and 6.5. Without signs of bleeding. Will need SNF.
CTBrain
IMPRESSION:
No acute intracranial abnormality noted.
Prominent diffuse calvarial sclerosis may reflect underlying metabolic bone disease.
CXR
IMPRESSION:
Small right pleural effusion with associated atelectasis and/or pneumonia.
LP
IMPRESSION:
Technically successful fluoroscopically guided lumbar puncture.
Xray Abdomen/pelv
IMPRESSION:
Tip of the enteric catheter is below the level of the gastroesophageal junction.
MRI Brain
IMPRESSION:
Exam limited by motion artifact. No acute intracranial abnormality noted.
Xray Abd
IMPRESSION: Feeding tube placement in the distal esophagus.
Moderate right pleural effusion. Stable
Mild cardiomegaly. Stable
Xray Abdo.pelv
IMPRESSION:
Feeding tube placement below the GE junction.
Moderate right pleural effusion. Stable
Findings suggesting left lower lobe pneumonia. New.
Cardiomegaly. Stable
ALCIDES
IMPRESSION:
1. Right lower extremity: ALCIDES within normal limits 1.0. TBI marginally decreased/essentially normal 0.68 (low normal threshold 0.70). Multiphasic waveforms from common femoral to popliteal artery with no velocity elevation to suggest any significant
stenosis. Continuous Doppler waveforms at the dorsalis pedis and posterior tibial arteries are also multiphasic.
2. Left lower extremity: ALCIDES within low-normal limits 0.93. TBI within normal limits 1.08. Multiphasic waveforms from common femoral to popliteal artery with no velocity elevation to suggest any significant stenosis. Continuous Doppler waveforms at
the dorsalis pedis and posterior tibial arteries are also multiphasic.
Wound Care Instructions Stage 2 PI to bilateral buttocks - Clean with saline or soap and water and apply Calazime BID and PRN with incontinence care.
MASD/fungal to groin- Clean with saline or soap and water and apply antifungal BID with incontinence care.
Open, draining wounds on right medial foot and left posterior leg- Clean with normal saline or soap and water and apply silicone border foam. May add alginate over wounds for moderate to heavy drainage. Change Q 48 hours and PRN
Sacrum- Keep sacrum covered with 5 layer silicone border foam. Change Q 72 hours and PRN if loose or soiled
Right Elbow- Clean with normal saline and apply silicone border foam. Change Q 72 hours and PRN if loose or soiled.
Bilateral Toes- Apply Betadine daily to necrotic of toes
Referrals:
Tahir Lozada MD [Active, Neurology] - in one to two weeks
Viktor Handy MD [Active, Hematology / Oncology] - in one to two weeks
Ja Vergara MD [Family Provider, [facility]]
Prescriptions:
New
pantoprazole 40 mg Tablet,Delayed Release (Dr/Ec)
40 mg PO DAILY Qty: 30 0RF
metoprolol tartrate 50 mg Tablet
50 mg PO BID Qty: 60 0RF
Continued
digoxin 250 mcg (0.25 mg) Tablet
250 mcg PO NOON Qty: 30 2RF
spironolactone 25 mg Tablet
25 mg PO DAILY Qty: 30 2RF
Eliquis 5 mg Tablet
5 mg PO BID Qty: 60 2RF
lisinopril 10 mg tablet
10 mg PO DAILY Qty: 30 2RF
furosemide 40 mg Tablet
40 mg PO QMWF Qty: 30 0RF
Discontinued
metoprolol succinate 100 mg Tablet Extended Release 24 Hr
100 mg PO BID Qty: 60 2RF
Discharge Orders:
Discharge Patient (As Directed); Ordered 07/23/25
Ordered By: Ketan Waller
Discharge Date and Time
Print Language: ARABIC
--- NOTE | 2025-07-23 19:50 | W.PN.ONC2 ---
Today's Communication / Plan
-
Hemoglobin stable overnight although not on Eliquis.
Pt was seen this morning and has now been discharged on full-dose Eliquis.
Apparently hospice was under consideration but she has been discharged to rehab.
Impression
Impression
2gm drop in hgb (07/20 to 07/21) - with resuming Eliquis
Found down at home, rhabdo, MODE
Hypothermia
Thrombocytopenia
Microcytic anemia, low iron, suspected mild hemolysis
Afib
Deafness
Petechial rash, ecchymoses
Plan
Plan
Slight hemolysis at admission was thought secondary to hypothermia, haptoglobin sent but not yet resulted
Low retic c/w hypoproliferative state
Suspect her marrow will take some time to recover from the hypothermia.
Low threshold for CT scans to r/o RP or other bleed
Eliquis on hold, would prefer to observe overnight once restarted.
Subjective/Objective
Chief Complaint
Heme/Onc follow up of anemia, thrombocytopenia
Subjective
No complaints. We were able to communicate via pen and paper.
Vital Signs:
Vital Signs
Temp Pulse Resp BP Pulse Ox
97.8 F 94 16 99/64 96
07/23/25 11:50 07/23/25 12:18 07/23/25 11:50 07/23/25 11:50 07/23/25 12:03
Lab Results:
Laboratory Data
WBC 14.4 10^3/uL (4.8-10.8) H 07/23/25 07:47
Hgb 7.2 g/dL (12.0-16.0) L 07/23/25 07:47
Plt Count 189 10^3/uL (130-400) 07/23/25 07:47
PT 16.5 Sec (11.4-14.6) H 07/16/25 02:52
INR 1.30 07/16/25 02:52
APTT 102.9 Sec (23.4-35.0) H 07/20/25 07:23
eGFR > 60.00 07/23/25 07:47
Physical Exam
Awake, alert, interactive.
== END 2025-07-23 16:15 | DRG 314 ==
LOC: 4 EAST ACU 03:32
PROVIDERS: Hospitalist; Internal Medicine; Nurse Practitioner Acute Care; Nurse Practitioner Family; Radiology Diagnostic Radiology; Radiology Vascular & Interventional Radiology; ADMITTING PHYSICIAN Hospitalist; ATTENDING PHYSICIAN Hospitalist; CONSULT PHYSICIAN Internal Medicine Critical Care Medicine; CONSULT PHYSICIAN Internal Medicine Hematology & Oncology; CONSULT PHYSICIAN Podiatrist; CONSULT PHYSICIAN Psychiatry & Neurology Neurology; EMERGENCY PHYSICIAN Student in an Organized Health Care Education/Training Program; FAMILY PHYSICIAN Family Medicine; OTHER PHYSICIAN Internal Medicine Infectious Disease; OTHER PHYSICIAN Surgery Vascular Surgery
PROC: 009U3ZX Drainage of Spinal Canal, Percutaneous Approach, Diagnostic (ICD-10-PCS; 2025-07-12)
PROC: B01B1ZZ Fluoroscopy of Spinal Cord using Low Osmolar Contrast (ICD-10-PCS; 2025-07-12)
PROC: 0DH67UZ Insertion of Feeding Device into Stomach, Via Natural or Artificial Opening (ICD-10-PCS; 2025-07-12)
PROC: 30233N1 Transfusion of Nonautologous Red Blood Cells into Peripheral Vein, Percutaneous Approach (ICD-10-PCS; 2025-07-21)
DX: I95.9 Hypotension, unspecified (principal); G92.8 Other toxic encephalopathy; N17.9 Acute kidney failure, unspecified; D68.9 Coagulation defect, unspecified; E87.20 Acidosis, unspecified; M62.82 Rhabdomyolysis; I50.22 Chronic systolic (congestive) heart failure; E87.1 Hypo-osmolality and hyponatremia; I96 Gangrene, not elsewhere classified; J98.11 Atelectasis; I48.19 Other persistent atrial fibrillation; H91.90 Unspecified hearing loss, unspecified ear; T68.XXXA Hypothermia, initial encounter; D72.829 Elevated white blood cell count, unspecified; I11.0 Hypertensive heart disease with heart failure; E16.2 Hypoglycemia, unspecified; G93.89 Other specified disorders of brain; R62.7 Adult failure to thrive; D69.6 Thrombocytopenia, unspecified; I07.1 Rheumatic tricuspid insufficiency; I34.0 Nonrheumatic mitral (valve) insufficiency; L89.152 Pressure ulcer of sacral region, stage 2; L89.012 Pressure ulcer of right elbow, stage 2; E86.0 Dehydration; G47.33 Obstructive sleep apnea (adult) (pediatric); M89.8X9 Other specified disorders of bone, unspecified site; R74.8 Abnormal levels of other serum enzymes; R13.10 Dysphagia, unspecified; D50.9 Iron deficiency anemia, unspecified; W19.XXXA Unspecified fall, initial encounter; Y93.9 Activity, unspecified; Y92.002 Bathroom of unspecified non-institutional (private) residence as the place of occurrence of the external cause; Z86.73 Personal history of transient ischemic attack (TIA), and cerebral infarction without residual deficits; Z11.52 Encounter for screening for COVID-19; Z79.01 Long term (current) use of anticoagulants; Z79.899 Other long term (current) drug therapy
CPT/HCPCS: 36600; 51702; 62328; 70450; 70553; 71045; 74018; 80048; 80053; 81003; 81015; 82077; 82180; 82248; 82525; 82533; 82550; 82607; 82728; 82746; 82805; 82945; 82962; 83010; 83516; 83540; 83550; 83605; 83615; 83690; 83735; 83880; 84100; 84157; 84443; 84484; 85025; 85027; 85045; 85379; 85384; 85520; 85610; 85613; 85652; 85730; 86140; 86146; 86147; 86592; 86850; 86880; 86900; 86901; 86920; 87015; 87040; 87070; 87116; 87205; 87327; 87476; 87483; 87502; 87811; 89051; 92526; 92610; 93005; 93306; 93922; 93925; 95816; 96361; 96374; 96375; 97110; 97163; 97167; 97530; 97535; 99291; A9575; J1160; J2916; P9016